=== PATIENT | female | born 1950 | race Caucasian/White ===

== ENCOUNTER → 2017-08-30 08:05 | Outpatient (CLI) | payer OTHER, SELFPAY ==
[2017-08-30 11:02] LABS: Anion Gap 4 (5-15); BUN 21 mg/dL (7-18); BUN/Creat Ratio 19.1 RATIO (10-20); Calcium,Total 9.1 mg/dL (8.5-10.1); Chloride 106 mmol/L (98-107); Cholesterol 286 mg/dL (200); EST Glomerular Filtration Rate 53 mL/min (>60); Est Glom Filt Rate - Afr Amer 64 mL/min (>60); Glucose 85 mg/dL (74-106); High Density Lipoprotein 91 mg/dL; Sodium Level 141 mmol/L (136-145); Thyroid Stim Hormone (TSH) 0.91 uIU/mL (0.358-3.74); Triglycerides 49 mg/dL; Very Low Density Lipoprotein 10 mg/dL (5-40)
== END ==
PROVIDERS: Family Provider Family Medicine; PCP Family Medicine; Visit Provider Nurse Practitioner Adult Health
DX: Z13.220 Encounter for screening for lipoid disorders (principal); Z13.29 Encounter for screening for other suspected endocrine disorder; Z13.1 Encounter for screening for diabetes mellitus
CPT/HCPCS: 36415; 80048; 80061; 84443

== ENCOUNTER → 2017-09-06 09:02 | Outpatient (CLI) | payer OTHER, SELFPAY ==
--- NOTE | 2017-09-06 09:05 | BD_ITS ---
STUDY: DUAL ENERGY X-RAY ABSORPTIOMETRY / DXA REASON FOR EXAM: Female, 66 years old. The patient is postmenopausal. Loss of height. TECHNIQUE: Bone Mineral Density (BMD) measurements of lumbar spine and bilateral hips were obtained. COMPARISON: None. FINDINGS: Lumbar Spine (L1-L4): g/cm2 (1.227) / T-score (0.5) / Z-score (2.1) Findings are suggestive of normal bone density with a low fracture risk. Left Femur Total: g/cm2 (0.938) / T-score (-0.6) / Z-score (0.6) Left Femoral Neck: g/cm2 (0.823) / T-score (-1.5) / Z-score (-0.1) Right Femur Total: g/cm2 (0.983) / T-score (-0.2) / Z-score (1.0) Right Femoral Neck: g/cm2 (0.856) / T-score (-1.3) / Z-score (0.1) BD/Dexa Bone Density Study IMPRESSION: The patient is considered osteopenic as outlined below according to World Benjie Organization (WHO) criteria with a moderate fracture risk. Reference Information: The T-score is the number of standard deviations above or below the standard which is normal for young adults at their peak bone mineral density. The World Health Organization (WHO) interprets the T-scores as follows: Above -1 Normal bone density Between -1 and -2.5 Osteopenia Equal to / or below -2.5 Osteoporosis As a practical clinical guideline, osteopenia may be graded as follows: Mild -1 through -1.5 Moderate -1.6 through -2.0 Severe -2.1 through -2.4 The Z-score is the number of standard deviations above or below age-matched controls. A Z-score of less than -1.5 would be considered abnormal. References: 1. NIH Osteoporosis and Related Bone Diseases http://www.osteo.org 2. International Society for Clinical Densitometry http://www.iscd.org 3. National Osteoporosis Foundation http://www.nof.org Electronically Signed: Jose Alfredo Adams MD at 10:40 EDT Tel [phone], Service support ,
--- NOTE | 2017-09-06 09:05 | BI_ITS ---
MAMMOGRAPHY - BILATERAL SCREENING REASON FOR EXAM: Female, 66 years old. Routine annual screening examination. PERTINENT HISTORY: Non-contributory. TECHNIQUE: Digital bilateral breast leslye (3D mammographic acquisition) in the CC and MLO projections. 2-D mediolateral oblique (MLO) and craniocaudad (CC) views of both breasts were obtained. CAD: Full Field Digital Mammography with Computer Added Detection was performed. COMPARISON: Comparison is made with prior study dated January 29, 2011. FINDINGS: Breast Composition: The breasts are heterogeneously dense, which may obscure small masses. There are no dominant masses or suspicious calcifications. No other significant abnormalities are identified. There has been no significant change since the prior study. BI/SCREENING MAMM (CAD), BILAT IMPRESSION: Stable bilateral screening mammogram. Yearly follow-up mammogram recommended. (A) ASSESSMENT CATEGORY: BIRADS Category 1: Negative. A letter regarding these results will be sent to the patient by the facility within 30 days. Approximately 10% of breast cancers are not detected by mammography. A normal mammogram should not delay biopsy of a clinically suspicious abnormality. [id number] Electronically Signed: Jose Alfredo Adams MD at 10:47 EDT Tel [phone], Service support ,
== END ==
PROVIDERS: Family Provider Family Medicine; PCP Family Medicine; Visit Provider Nurse Practitioner Adult Health
DX: Z12.31 Encounter for screening mammogram for malignant neoplasm of breast (principal); Z78.0 Asymptomatic menopausal state
CPT/HCPCS: 77063; 77067; 77080

== ENCOUNTER → 2019-12-24 12:39 | Outpatient (CLI) | payer OTHER, SELFPAY ==
[2015-11-16 06:39] VITALS: BMI 23.8
--- NOTE | 2019-12-24 12:42 | RAD_ITS ---
STUDY: X-RAY - RIGHT HAND REASON FOR EXAM: Female, 69 years old. 3-4th MCP swelling/tender with non palmar hand swelling, prior cat bite in August-needed stitches TECHNIQUE: 3 view(s) of the hand. COMPARISON: None. FINDINGS: Normal radiocarpal articulation. Normal distal radioulnar joint. Normal visualized carpal bones. Normal carpal articulations Normal carpometacarpal articulation of the thumb. Normal second through fifth carpometacarpal joints. Normal metacarpi. Normal metacarpophalangeal joint of the thumb. Normal interphalangeal joint of the thumb. Normal proximal and distal phalanges of the thumb. Normal metacarpophalangeal joints of the second through fifth fingers. Normal proximal and distal interphalangeal joints of the second through fifth fingers. Normal phalanges of the second through fifth fingers. The soft tissue structures are unremarkable. RAD/Hand Min 3 Views IMPRESSION: Normal x-ray examination of the hand. Electronically Signed: Jose Alfredo Adams, at 12:29 EDT , Service support ,
== END ==
PROVIDERS: PCP Family Medicine; Referring Provider Family Medicine; Visit Provider Family Medicine
DX: M79.89 Other specified soft tissue disorders (principal)
CPT/HCPCS: 73130

== ENCOUNTER → 2020-01-01 15:13 | Outpatient (CLI) | payer OTHER, SELFPAY ==
[2015-11-16 06:39] VITALS: BMI 23.8
[2020-01-01 18:02] LABS: Absolute Lymphocyte Count 1.28 X10^3/uL (0.83-4.51); Absolute Neutrophil Count 3.3 X10^3/uL (2.0-7.7); Basophil# 0.02 X10^3/uL; Basophil% 0.4 % (0-1); Eosinophil# 0.11 X10^3/uL; Eosinophils% 2.2 % (0-5); Hematocrit 37.1 % (37-47); Hemoglobin 12.7 g/dL (12.0-15.0); Lymphocyte # 1.28 X10^3/ul (4.0); Mean Corp Hgb Conc 34.2 g/dL (32-36); Mean Corpuscular Hgb 30.8 pg (27.0-32.0); Mean Platelet Vol. 9.7 fl (6.2-12.0); Monocyte# 0.34 X10^3/uL; Monocyte% 6.7 % (0-10); NRBC Flagged by Analyzer 0 % (0-5); Neutrophil # 3.34 X10^3/uL (2.7-7.7); Neutrophil % 65.3 % (47-70); Platelet Count 190 K/mm3 (150-450); RBC Distribution Width CV 12.6 % (11.6-14.6); Red Blood Count 4.12 M/mm3 (4.2-5.4); White Blood Count 5.1 K/mm3 (4.4-11.0)
[2020-01-01 18:40] LABS: ALB/GLOB Ratio 1.1 RATIO (0.9-2.4); AST(SGOT) 28 U/L (15-37); Alanine Aminotransfer ALT/SGPT 36 U/L (13-56); Albumin, Serum 3.9 g/dL (3.2-5.0); Alkaline Phosphatase 78 U/L (45-117); Anion Gap 3 (5-15); BUN 23 mg/dL (7-18); BUN/Creat Ratio 22.1 RATIO (10-20); CRP < 2.90 mg/L (0.0-3.0); Calcium,Total 9.1 mg/dL (8.5-10.1); Chloride 106 mmol/L (98-107); Creatinine, Serum 1.04 mg/dL (0.55-1.02); EST Glomerular Filtration Rate 56 mL/min (>60); Est Glom Filt Rate - Afr Amer 68 mL/min (>60); Globulin 3.4 g/dL (2.2-4.2); Glucose 114 mg/dL (74-106); Potassium 3.9 mmol/L (3.5-5.1); Protein, Total 7.3 g/dL (6.4-8.2); Sodium Level 140 mmol/L (136-145)
== END ==
PROVIDERS: PCP Family Medicine; Referring Provider Family Medicine; Visit Provider Family Medicine
DX: T14.90XA Injury, unspecified, initial encounter (principal); W55.01XA Bitten by cat, initial encounter
CPT/HCPCS: 36415; 80053; 85025; 86140

== ENCOUNTER → 2021-01-30 14:03 | Outpatient (CLI) | payer OTHER, SELFPAY ==
--- NOTE | 2021-01-30 14:04 | RAD_ITS ---
STUDY: X-RAY - CERVICAL SPINE REASON FOR EXAM: Female, 70 years old. chronic cervicalgia TECHNIQUE: 7 view(s) of the cervical spine were obtained including flexion and extension. COMPARISON: None FINDINGS: Normal anterior atlantoaxial articulation. Normal odontoid process. Decreased cervical lordosis. No evidence for acute fracture or subluxation. Multilevel disc space narrowing and endplate spurring. Films obtained in flexion and extension demonstrate limited range of motion with extension but no evidence for gross instability Multilevel neuroforaminal stenosis secondary to bony hypertrophy The soft tissue structures are unremarkable. RAD/Cerv Spine Obl/Flex/Ext Comp IMPRESSION: Advanced spondylosis and multilevel spinal stenosis. No acute fracture or other significant bony pathology Electronically Signed: Eric Hooker MD at 17:05 EDT , Service support ,
== END ==
PROVIDERS: PCP Family Medicine; Referring Provider Family Medicine; Visit Provider Family Medicine
DX: M54.2 Cervicalgia (principal)
CPT/HCPCS: 72052

== ENCOUNTER → 2022-02-01 | Outpatient (CLI) | payer OTHER, SELFPAY ==
--- NOTE | 2022-02-01 11:35 | BI_ITS ---
MAMMOGRAPHY - BILATERAL SCREENING REASON FOR EXAM: Female, 71 years old. Routine annual screening examination. PERTINENT HISTORY: Sister with breast cancer. TECHNIQUE: Digital bilateral breast jael (3D mammographic acquisition) in the CC and MLO projections. 2-D mediolateral oblique (MLO) and craniocaudad (CC) views of both breasts were obtained. CAD: Full Field Digital Mammography with Computer Added Detection was performed. COMPARISON: Comparison is made with prior study dated 09/06/2017 and 01/29/2011. FINDINGS: Breast Composition: The breasts are heterogeneously dense, which may obscure small masses. There are no dominant masses or suspicious calcifications. No other significant abnormalities are identified. There has been no significant change since the prior study. BI/SCRN MAMM (CAD)W/JAEL BILAT IMPRESSION: Stable bilateral screening mammogram. Yearly follow-up mammogram recommended. (A) ASSESSMENT CATEGORY: BIRADS Category 1: Negative. A letter regarding these results will be sent to the patient by the facility within 30 days. Approximately 10% of breast cancers are not detected by mammography. A normal mammogram should not delay biopsy of a clinically suspicious abnormality. [id number] Electronically Signed: Jose Alfredo Adams MD at 12:39 EDT ,
== END | disposition home or self-care (01) ==
LOC: OPBI 11:36
PROVIDERS: PCP Family Medicine; Visit Provider Nurse Practitioner Family
DX: Z12.31 Encounter for screening mammogram for malignant neoplasm of breast (principal); Z80.3 Family history of malignant neoplasm of breast
CPT/HCPCS: 77063; 77067

== ENCOUNTER → 2022-07-06 | Outpatient (CLI) | payer OTHER, SELFPAY ==
[2022-07-06 15:19] LABS: Absolute Neutrophil Count 3.7 X10^3/uL (2.0-7.7); Basophil# 0.04 X10^3/uL; Basophil% 0.7 % (0-1); Eosinophils% 1.8 % (0-5); Hematocrit 42.7 % (37-47); Lymphocyte % 23.6 % (19-41); Mean Corp Hgb Conc 32.8 g/dL (32-36); Mean Corpuscular Hgb 29.6 pg (27.0-32.0); Mean Corpuscular Volume 90.3 fL (81-99); Mean Platelet Vol. 9.8 fl (6.2-12.0); Monocyte# 0.34 X10^3/uL; Monocyte% 6.2 % (0-10); NRBC Flagged by Analyzer 0 % (0-5); Neutrophil # 3.71 X10^3/uL (2.7-7.7); Neutrophil % 67.5 % (47-70); Platelet Count 234 K/mm3 (150-450); RBC Distribution Width CV 12.5 % (11.6-14.6); RBC Distribution Width SD 41.5 fl (35.1-43.9); Red Blood Count 4.73 M/mm3 (4.2-5.4); White Blood Count 5.5 K/mm3 (4.4-11.0)
[2022-07-06 16:23] LABS: ALB/GLOB Ratio 1.3 RATIO (0.9-2.4); AST(SGOT) 28 U/L (15-37); Alanine Aminotransfer ALT/SGPT 36 U/L (13-56); Albumin, Serum 4.1 g/dL (3.2-5.0); Alkaline Phosphatase 68 U/L (45-117); Anion Gap 7 (5-15); BUN 25 mg/dL (7-18); BUN/Creat Ratio 25.9 RATIO (10-20); CRP < 2.90 mg/L (0.0-3.0); Calcium,Total 9.7 mg/dL (8.5-10.1); Chloride 106 mmol/L (98-107); Creatinine, Serum 0.97 mg/dL (0.55-1.02); EST Glomerular Filtration Rate 61 mL/min (>60); Est Glom Filt Rate - Afr Amer 73 mL/min (>60); Globulin 3.1 g/dL (2.2-4.2); Glucose 91 mg/dL (74-106); Potassium 3.7 mmol/L (3.5-5.1); Protein, Total 7.2 g/dL (6.4-8.2); Sodium Level 142 mmol/L (136-145)
== END | disposition home or self-care (01) ==
LOC: MTLAB 12:43
PROVIDERS: PCP Family Medicine; Referring Provider Family Medicine; Visit Provider Family Medicine
DX: R10.32 Left lower quadrant pain (principal)
CPT/HCPCS: 36415; 80053; 85025; 86140

== ENCOUNTER 2022-12-14 06:32 | Emergency (ER) | payer OTHER, SELFPAY ==
[2022-12-14 06:33] VITALS: BP 222/105; PULSE 88; RESP 16; TEMP 36.6; O2SAT 97; BMI 23.2
[2022-12-14 06:44] VITALS: BP 203/94; PULSE 77; RESP 16; O2SAT 99
--- NOTE | 2022-12-14 07:04 | EX.ED.DYSGE1 ---
HPI History of Present Illness Chief Complaint: Abd Pain [facility] Medical History (Updated 12/14/22 @ 09:[address] Crow Grant, DO) Anxiety Bitten by cat, sequela Bone fracture Cataracts, bilateral Double vision Migraines Pain in right hand Swelling of right hand Home Medications amoxicillin 875 mg-potassium clavulanate 125 mg tablet (Augmentin) 1 tab PO BID #30 tabs 01/02/20 [Rx Last Taken Unknown] oxztqiq-kzeymfmgv-mspg 333 mg-133 mg-5 mg tablet tab PO DAILY 01/02/20 [History Last Taken Unknown] cholecalciferol (vitamin D3) 10 mcg (400 unit) capsule (Vitamin D3) 10 mcg PO DAILY 01/02/20 [History Last Taken Unknown] garlic 400 mg tablet 400 mg PO DAILY 01/02/20 [History Last Taken Unknown] glucosamine-chondroitin 250 mg-200 mg tablet (Osteo Bi-Flex) 2 tab PO QPC 01/02/20 [History Last Taken Unknown] lactobacillus combination no.8 3 billion cell capsule (Adult Probiotic) 3,000 mmu cells PO DAILY 01/02/20 [History Last Taken Unknown] Allergy/AdvReac Type Severity Reaction Status Date / Time belladonna alkaloids AdvReac Rash Verified 01/08/20 15:04 Family History Mother Heart disease Hypertension Father Lung cancer Brother Melanoma Daughter Thyroid disorder Surgical History H/O nasal polypectomy History of blepharoplasty History of bunionectomy Social History (Updated 01/10/20 @ 12:[address] Aime Brice MD) Smoking Status: Never smoker alcohol intake: current substance use type: does not use additional social history: DOES TAKE ASPIRIN RARELY DOES TAKE IBUPROFEN EXAM Physical Exam Const Vital Signs: 12/14/22 06:33 12/14/22 06:44 Temperature 97.9 F Temperature Source Oral Pulse Rate 88 77 Respiratory Rate 16 16 Blood Pressure 222/105 H 203/94 H Blood Pressure Mean 144 130 Pulse Ox 97 99 Oxygen Delivery Method Room Air Room Air MDM MDM MDM Narrative Medical decision making narrative: HISTORY OF PRESENT ILLNESS: 72-year-old female with abdominal pain and constipation. States is unable to have a bowel movement last week. Denies vomiting. Denies vaginal bleeding or discharge. Denies dysuria or increased frequency of urination. REVIEW OF SYSTEMS: Pertinent positives: Abdominal pain, constipation Pertinent negatives: Vomiting, syncope PHYSICAL EXAM: Nursing triage notes reviewed, Vital signs reviewed Constitutional: please see [facility] HENT: MMM Eyes: Pupils equal round and reactive to light, Extraocular muscles intact Neck: No stridor, no JVD, full neck ROM Lungs: Clear to auscultation, No wheezing or rales. No increased work of breathing, no conversational dyspnea, no accessory muscle use, no nasal flaring. No respiratory distress noted Heart: Regular rate and rhythm, No murmurs, No rubs and No gallops, 2+ distal pulses (radial, femoral, posterior tibial) in all extremities Abdomen: Soft, there is no tenderness, rigidity, rebound or guarding, no obvious peritoneal signs, no palpable pulsatile abdominal masses, no auscultated abdominal bruit : No CVAT Extremities: No edema Neuro: No focal neurological deficits, cranial nerves II through XII intact, 5/5 strength in all extremities. Intact sensation to light touch in all extremities, 2+ reflexes bilateral patella tendons. Normal gait. No ataxia. Skin: No rash or lesions noted MEDICAL DECISION MAKING: Chief Complaint: Abdominal pain External records reviewed: No recent advanced imaging of the abdomen pelvis noted in [facility] chart Factors affecting care: None Social determinants of health: Elderly History obtained from others: Patient's Consults: none ALL IMAGES (IF OBTAINED) HAVE BEEN PERSONALLY REVIEWED AND INTERPRETED BY MYSELF. [facility] Narrative: Patient was initially hypertensive otherwise afebrile and nontoxic-appearing. Abdominal exam I considered the following differential diagnosis: AAA, small bowel obstruction, abdominal perforation, appendicitis, pancreatitis, hepatobiliary pathology (acute cholecystitis), mesenteric ischemia, I obtained a CT scan of the abdomen and pelvis to rule out obvious signs of obstruction AAA or other intra abdominal surgical pathology. Also obtain labs rule out signs of electrolyte abnormality, signs of systemic inflammation, dehydration, acute kidney injury and endorgan hypoperfusion. I treated the patient 1 L normal saline, Zofran for nausea as well as Toradol for pain. CT scan of the abdomen and pelvis showed no evidence of AAA or bowel obstruction showed large stool burden which is consistent with constipation. Ordered mag citrate for the patient for symptomatic relief and discharged with a bowel regiment of MiraLAX, Colace and senna daily. The patient and/or family, caregivers express understanding. The patient and/or family, caregivers agrees with the plan. Shared decision making: I will have a discussion with the patient and or visitors regarding risk/benefits of further testing or admission. They will be made aware of of the risk/benefits inherent in this decision they will be given the opportunity to voice understanding. Total critical care time today provided was at least 0 minutes. This excludes separately billable procedures. Critical care time (if documented) is secondary to the patient having high probability of clinically significant/life threatening deterioration in the patient's condition which required my urgent intervention. Lab Data Attestation: I reviewed the patient's lab results. Lab results narrative: CBC without leukocytosis, severe anemia, no thrombocytopenia. BMP without evidence of significant electrolyte abnormalities, no anion gap, no acute kidney injury. LFTs without evidence of transaminitis or hepatobiliary structure noted mild elevation in bilirubin level Lipase is wnl indicating no pancreatic inflammation. Labs: Laboratory Results - last 24 hr 12/14/22 06:39 WBC 4.5 RBC 4.82 Hgb 14.3 Hct 42.7 MCV 88.6 MCH 29.7 MCHC 33.5 RDW Std Deviation 41.6 RDW Coeff of Shruti 12.8 Plt Count 203 MPV 9.6 Immature Gran % (Auto) 0.200 Neut % (Auto) 51.6 Lymph % (Auto) 36.8 [place] % (Auto) 7.8 Eos % (Auto) 2.7 Baso % (Auto) 0.9 Absolute Neuts (auto) 2.3 Absolute Lymphs (auto) 1.65 Nucleated RBC % 0 Sodium 141 Potassium 3.5 Chloride 106 Carbon Dioxide 32.0 Anion Gap 3 L BUN 16 Creatinine 1.01 Estim Creat Clear Calc 42.87 Est GFR (MDRD) Af Amer 70 Est GFR (MDRD) Non-Af 58 L BUN/Creatinine Ratio 15.8 Glucose 103 Calcium 9.4 Total Bilirubin 1.30 H AST 26 ALT 37 Alkaline Phosphatase 73 Total Protein 7.3 Albumin 4.0 Globulin 3.3 Albumin/Globulin Ratio 1.2 Lipase 40 Radiography Diagnostic Testing: Clinical Impression(s) from Imaging Studies Abdomen/Pelvis CT 12/14/22 07:06 IMPRESSION: Large amount of fecal material is seen in the colon. Fatty infiltration of the liver. 7.4 mm cyst in the midportion of the right lobe of the liver. Electronically Signed: Jose Alfredo Adams MD at 8:16 EDT , Discharge Plan Triage Chief Complaint: Abd Pain ED Provider: Crow Grant Dx/Rx/DC Orders Clinical Impression: Hyperbilirubinemia, Acute constipation, Hypertension Instructions: ED Constipation (Adult) Prescriptions: No Action cholecalciferol (vitamin D3) [Vitamin D3] 10 mcg (400 unit) capsule 10 mcg PO DAILY qriqnsx-tlgasaiby-yrtz 333-133-5 mg tablet PO DAILY glucosamine-chondroitin 250 mg-200 mg tablet 250-200 mg tablet 2 tab PO QPC Adult Probiotic 3 billion cell capsule 3,000 mmu cells PO DAILY Rx Instructions: administer with a meal garlic 400 mg tablet 400 mg PO DAILY amoxicillin-pot clavulanate [Augmentin] 875-125 mg tablet 1 tab PO BID Qty: 30 1RF Primary Care Provider: Anthony Ordaz Referrals: Anthony Ordaz MD [Primary Care Provider] - Activity Restrictions/Additional Instructions: Thank you for trusting us with your care today! Please take Tylenol (2 pills, 650 mg), ibuprofen (2 pills, 400 mg) every 6 hours as needed for pain and fever control. Please begin a bowel regimen. Bowel regimen consist of MiraLAX, Colace and senna. These medicines can be obtained napb-qsc-zztpfhd and taken daily until desired consistency of stool is achieved. You can also increase your fiber intake by eating fiber 1 cereal and drinking more fluids. Fiber 1 cereal has a high fiber content Please return to the emergency department if your symptoms change or worsen. Specifically develop vomiting, worsening abdominal pain, you lose consciousness. Elevated blood pressure was noted few today. While this is asymptomatic we would like for you to follow with your primary care physician for repeat blood pressure check potentially initiating blood pressure medicine. Please follow with your primary care physician for further outpatient evaluation and management. Disposition Disposition: Home, Self Care Discharge Date/Time: 12/14/22 09:31
--- NOTE | 2022-12-14 07:06 | CT_ITS ---
STUDY: CT ABDOMEN AND PELVIS WITH CONTRAST REASON FOR EXAM: Female, 72 years old. Abdominal pain, constipation RADIATION DOSAGE (If Supplied By Facility): CTDIvol = ( 9.45 ) mGy, DLP = ( 302.98 ) mGycm TECHNIQUE: Transaxial images were obtained from the dome of the diaphragm to the symphysis pubis without oral contrast. IV 100mL Isovue-300 was administered. Sagittal and coronal images were reconstructed. Individualized dose optimization techniques were used for this CT. COMPARISON: None. FINDINGS: The visualized lung bases are unremarkable. Coronary artery calcification. There is decreased attenuation of the liver consistent with steatosis. There is a 7.4 mm cyst in the midportion of the right lobe of the liver. Normal gallbladder and extrahepatic biliary system. Normal spleen. Normal pancreas. Normal bilateral adrenal glands. Normal right kidney. Normal left kidney. There is a small hiatal hernia. Normal small intestine. Large amount of fecal material is seen in the colon. The appendix is visualized and appears normal. There is scattered atherosclerotic calcification of the abdominal aorta, without a demonstrated aneurysm. Normal inferior vena cava. Normal retroperitoneum. Distended urinary bladder. Normal abdominal wall. Normal osseous structures. CT/Abdomen/Pelvis W IV Cont ONLY IMPRESSION: Large amount of fecal material is seen in the colon. Fatty infiltration of the liver. 7.4 mm cyst in the midportion of the right lobe of the liver. Electronically Signed: Jose Alfredo Adams MD at 8:16 EDT ,
[2022-12-14] MEDS: Ketorolac 15 MG/ML Vial IV (07:12)
[2022-12-14] MEDS: 0.9% Normal Saline 1,000 ML 1000 ML IV (07:12)
[2022-12-14 07:21] LABS: Absolute Lymphocyte Count 1.65 X10^3/uL (0.83-4.51); Absolute Neutrophil Count 2.3 X10^3/uL (2.0-7.7); Basophil# 0.04 X10^3/uL; Basophil% 0.9 % (0-1); Eosinophil# 0.12 X10^3/uL; Eosinophils% 2.7 % (0-5); Hematocrit 42.7 % (37-47); Hemoglobin 14.3 g/dL (12.0-15.0); Lymphocyte # 1.65 X10^3/ul (0.83-4.51); Lymphocyte % 36.8 % (19-41); Mean Corp Hgb Conc 33.5 g/dL (32-36); Mean Corpuscular Hgb 29.7 pg (27.0-32.0); Mean Corpuscular Volume 88.6 fL (81-99); Mean Platelet Vol. 9.6 fl (6.2-12.0); Monocyte# 0.35 X10^3/uL; Monocyte% 7.8 % (0-10); NRBC Flagged by Analyzer 0 % (0-5); Neutrophil # 2.31 X10^3/uL (2.7-7.7); Neutrophil % 51.6 % (47-70); Platelet Count 203 K/mm3 (150-450); RBC Distribution Width CV 12.8 % (11.6-14.6); RBC Distribution Width SD 41.6 fl (35.1-43.9); Red Blood Count 4.82 M/mm3 (4.2-5.4); White Blood Count 4.5 K/mm3 (4.4-11.0)
[2022-12-14 07:39] LABS: ALB/GLOB Ratio 1.2 RATIO (0.9-2.4); AST(SGOT) 26 U/L (15-37); Alanine Aminotransfer ALT/SGPT 37 U/L (13-56); Alkaline Phosphatase 73 U/L (45-117); Anion Gap 3 (5-15); BUN 16 mg/dL (7-18); BUN/Creat Ratio 15.8 RATIO (10-20); Calcium,Total 9.4 mg/dL (8.5-10.1); Chloride 106 mmol/L (98-107); Creatinine, Serum 1.01 mg/dL (0.55-1.02); EST Glomerular Filtration Rate 58 mL/min (>60); Est Glom Filt Rate - Afr Amer 70 mL/min (>60); Estimated Creatinine Clearance 42.87 ml/min; Globulin 3.3 g/dL (2.2-4.2); Glucose 103 mg/dL (74-106); Lipase 40 U/L (13-75); Potassium 3.5 mmol/L (3.5-5.1); Protein, Total 7.3 g/dL (6.4-8.2); Sodium Level 141 mmol/L (136-145)
[2022-12-14] MEDS: Magnesium Citrate 300 ML 150 ML PO (09:27)
== END 2022-12-14 09:31 | disposition home or self-care (01) ==
PROVIDERS: Emergency Provider Emergency Medicine; PCP Family Medicine; Visit Provider Emergency Medicine
DX: K59.00 Constipation, unspecified (principal); R11.0 Nausea; E80.6 Other disorders of bilirubin metabolism; I10 Essential (primary) hypertension
CPT/HCPCS: 74177; 80053; 83690; 85025; 96361; 96374; 99283; J7030; Q9967; A4216; J2405

== ENCOUNTER → 2023-06-28 | Outpatient (CLI) | payer OTHER, SELFPAY ==
--- NOTE | 2023-06-28 15:03 | BD_ITS ---
STUDY: DUAL ENERGY X-RAY ABSORPTIOMETRY / DXA REASON FOR EXAM: Female, 72 years old. [id number] TECHNIQUE: Bone Mineral Density (BMD) measurements of lumbar spine and bilateral hips were obtained. COMPARISON: Comparison is made with prior study dated September 06, 2017. FINDINGS: Lumbar Spine (L1-L4): g/cm2 (1.150) / T-score (0.9) / Z-score (3.1) Findings are suggestive of normal bone density with a low fracture risk. Left Femur Total: g/cm2 (0.876) / T-score (-0.5) / Z-score (1.0) Left Femoral Neck: g/cm2 (0.696) / T-score (-1.4) / Z-score (0.5) Right Femur Total: g/cm2 (0.922) / T-score (-0.2) / Z-score (1.4) Right Femoral Neck: g/cm2 (0.727) / T-score (-1.1) / Z-score (0.7) The T-Scores on the most recent prior examination were: Lumbar Spine (L1-L4): There has been worsening of bone density since the previous examination. Left Femur Total: which represents an improvement of 0.2%. Right Femur Total: which represents an improvement of 0.5%. BD/Dexa Bone Density Study IMPRESSION: The patient is considered osteopenic as outlined below according to World Benjie Organization (WHO) criteria with a low fracture risk. There has been improvement of bone density since the previous examination. Reference Information: The T-score is the number of standard deviations above or below the standard which is normal for young adults at their peak bone mineral density. The World Health Organization (WHO) interprets the T-scores as follows: Above -1 Normal bone density Between -1 and -2.5 Osteopenia Equal to / or below -2.5 Osteoporosis As a practical clinical guideline, osteopenia may be graded as follows: Mild -1 through -1.5 Moderate -1.6 through -2.0 Severe -2.1 through -2.4 The Z-score is the number of standard deviations above or below age-matched controls. A Z-score of less than -1.5 would be considered abnormal. References: 1. NIH Osteoporosis and Related Bone Diseases www osteo.org 2. International Society for Clinical Densitometry www iscd.org 3. National Osteoporosis Foundation www nof.org Electronically Signed: Jose Alfredo Adams MD at 9:18 EST ,
== END | disposition home or self-care (01) ==
LOC: OPBD 14:59
PROVIDERS: PCP Family Medicine; Referring Provider Family Medicine; Visit Provider Family Medicine
DX: Z78.0 Asymptomatic menopausal state (principal)
CPT/HCPCS: 77080

== ENCOUNTER → 2023-10-21 | Outpatient (CLI) | payer OTHER, SELFPAY ==
--- NOTE | 2023-10-21 08:01 | CT_ITS ---
STUDY: CT MAXILLOFACIAL SINUSES REASON FOR EXAM: Female, 73 years old. Acute recurrent maxillary sinusitis RADIATION DOSAGE (If Supplied By Facility): CTDIvol = ( 33.06 ) mGy, DLP = ( 763.60 ) mGycm TECHNIQUE: The patient was scanned in a multi detector CT scanner. High resolution axial imaging was performed without the administration of intravenous contrast material. Sagittal and coronal images were reconstructed. Individualized dose optimization techniques were used for this CT. COMPARISON: None. FINDINGS: FRONTAL SINUSES: Normal aeration, without mucosal inflammatory disease. ETHMOIDAL SINUSES: Normal aeration, without mucosal inflammatory disease. MAXILLARY SINUSES: Mucosal thickening of both maxillary sinuses. Mucosal thickening along the right ostiomeatal complex causing mild degree of obstruction of the meatus. SPHENOIDAL SINUSES: Normal aeration, without mucosal inflammatory disease. Normal bilateral middle turbinates. Normal bilateral inferior turbinates. Nasal septal deviation towards the left-sided the midline with a bony spur. There is patency of the bilateral nasal airways. The visualized osseous structures are normal. The visualized bilateral orbital contents are normal. CT/Sinus/Facial Bone IMPRESSION: Mucosal thickening of both maxillary sinuses with mucosal thickening of the right osteal complex causing mild degree obstruction at the meatus. Nasal septal deviation towards the left side of the midline. Electronically Signed: Jose Alfredo Adams MD at 14:07 EDT ,
== END | disposition home or self-care (01) ==
PROVIDERS: PCP Family Medicine; Referring Provider Otolaryngology Otolaryngology/Facial Plastic Surgery; Visit Provider Otolaryngology Otolaryngology/Facial Plastic Surgery
DX: J01.01 Acute recurrent maxillary sinusitis (principal)
CPT/HCPCS: 70486

== ENCOUNTER 2024-03-19 00:39 | Emergency (ER) | payer OTHER, SELFPAY ==
[2024-03-19 00:39] VITALS: BP 176/85; PULSE 91; RESP 18; TEMP 36.1; O2SAT 98; BMI 23.3
[2024-03-19 01:27] LABS: Absolute Lymphocyte Count 1.16 X10^3/uL (0.83-4.51); Absolute Neutrophil Count 6.9 X10^3/uL (2.0-7.7); Basophil# 0.05 X10^3/uL; Basophil% 0.6 % (0-1); Eosinophil# 0.15 X10^3/uL; Eosinophils% 1.7 % (0-5); Hematocrit 38.9 % (37-47); Lymphocyte # 1.16 X10^3/ul (0.83-4.51); Mean Corp Hgb Conc 33.4 g/dL (32-36); Mean Corpuscular Hgb 29.5 pg (27.0-32.0); Mean Corpuscular Volume 88.4 fL (81-99); Mean Platelet Vol. 10.2 fl (6.2-12.0); Monocyte# 0.66 X10^3/uL; Monocyte% 7.4 % (0-10); NRBC Flagged by Analyzer 0 % (0-5); Neutrophil # 6.85 X10^3/uL (2.7-7.7); Platelet Count 331 K/mm3 (150-450); RBC Distribution Width CV 13.2 % (11.6-14.6); RBC Distribution Width SD 42.5 fl (35.1-43.9); White Blood Count 8.9 K/mm3 (4.4-11.0)
--- NOTE | 2024-03-19 01:40 | RAD_ITS ---
INDICATION: abd pain released Tuesday from [facility] x[facility] heart stents placed, med adjustments recently and has felt floated ever since, nausea , letting out gas helped with pain some, did give herself an enema this am d/t hx of constipation issues, did switch from brilinta to plavix tonight EXAMINATION/TECHNIQUE: X-RAY - XR Abdomen Series W/ Chest 1 View COMPARISON: Prior study dated: 08/18/2012 abdomen x-ray. FINDINGS: AP supine and upright views of the abdomen, and upright view of the chest. Bowel gas pattern is normal. There is no bowel obstruction or free intraperitoneal air. No abnormal mass or calcification is seen. The lungs are clear. The aorta is atherosclerotic. No cardiomegaly. RAD/Acute Abdomen Inc Chest IMPRESSION: No acute findings. Electronically Signed: Kelin Neri MD at 2:24 EST ,
[2024-03-19 01:49] LABS: AST(SGOT) 55 U/L (15-37); Alanine Aminotransfer ALT/SGPT 101 U/L (13-56); Albumin, Serum 3.5 g/dL (3.2-5.0); Alkaline Phosphatase 127 U/L (45-117); Anion Gap 6 (5-15); BUN 20 mg/dL (7-18); Bilirubin, Direct 0.22 mg/dL (0.00-0.30); Calcium,Total 9.6 mg/dL (8.5-10.1); Chloride 106 mmol/L (98-107); Creatinine, Serum 1.05 mg/dL (0.55-1.02); EST Glomerular Filtration Rate 55 mL/min (>60); Est Glom Filt Rate - Afr Amer 66 mL/min (>60); Estimated Creatinine Clearance 40.65 ml/min; Globulin 4.2 g/dL (2.2-4.2); Glucose 132 mg/dL (74-106); Lipase 36 U/L (13-75); Magnesium 2.5 mg/dL (1.6-2.6); Potassium 3.4 mmol/L (3.5-5.1); Protein, Total 7.7 g/dL (6.4-8.2); Sodium Level 139 mmol/L (136-145)
[2024-03-19 02:19] VITALS: BP 157/91; PULSE 76
--- NOTE | 2024-03-19 02:46 | EX.ED.DYSGE1 ---
HPI History of Present Illness Chief Complaint: Abd Pain Informant: patient and spouse/S.O. Narrative Narrative: Patient is a 73-year-old female who states that up to roughly 1 month ago she did not have any medical issues. She states she was out of town in [place] when she experienced chest discomfort and had a massive heart attack that actually caused her heart to stop. She states she was transported to the nearest hospital at which time she was revived and underwent cardiac cath which showed significant disease requiring stents. She states she did well at the facility and was discharged home but now has been on multiple medications which she is not used to. She states she has been having persistent abdominal discomfort with nausea and sensation of being bloated. She states she is unsure if this is related to medication side effect or if there is potential infection or blockage and therefore comes to the hospital for evaluation [facility] Medical History (Updated 03/21/24 @ 04:[address] Eliazar Jauregui, DO) Anxiety Migraines Pain in right hand Swelling of right hand Bitten by cat, sequela Double vision Cataracts, bilateral Bone fracture Home Medications ?Medication ?Instructions ?Recorded ?Last Taken ?Type aspirin 81 mg tablet,delayed 81 mg PO DAILY 03/19/24 Unknown History release atorvastatin 80 mg tablet 80 mg PO DAILY 03/19/24 Unknown History clopidogrel 75 mg tablet 75 mg PO DAILY 03/19/24 Unknown History losartan 50 mg tablet 50 mg PO DAILY 03/19/24 Unknown History metoprolol succinate 25 mg 25 mg PO DAILY 03/19/24 Unknown History tablet,extended release 24 hr nitroglycerin 0.4 mg sublingual 0.4 mg sublingual Q5M PRN chest 03/19/24 Unknown History tablet pain spironolactone 25 mg tablet 25 mg PO BID 03/19/24 Unknown History Allergy/AdvReac Type Severity Reaction Status Date / Time belladonna alkaloids AdvReac Rash Verified 03/19/24 00:41 Family History Mother Heart disease Hypertension Father Lung cancer Brother Melanoma Daughter Thyroid disorder Surgical History History of blepharoplasty H/O nasal polypectomy History of bunionectomy Social History (Updated 01/10/20 @ 12:[address] Aime Brice MD) Smoking Status: Never smoker alcohol intake: current substance use type: does not use additional social history: DOES TAKE ASPIRIN RARELY DOES TAKE IBUPROFEN ROS ROS ED Constitutional Constitutional ED: Denies chills or fever(s) Eyes Eyes: Denies change in vision ENT ENT ED: Denies sore throat Cardiovascular Cardiovascular: Denies chest pain Respiratory/Chest Respiratory/Chest: Denies cough or dyspnea Gastrointestinal Gastrointestinal: Reports abdominal pain, constipation, nausea and vomiting; Denies diarrhea Genitourinary Genitourinary ED: Denies dysuria Musculoskeletal Musculoskeletal: Denies myalgias Integumentary Denies rash Neurologic Neurologic: Denies headache(s) Hematologic/Lymphatic Hematologic/Lymphatic: Reports easy bleeding and easy bruising EXAM Physical Exam Const Vital Signs: 03/19/24 00:39 03/19/24 02:19 Temperature 96.9 F L Temperature Source Oral Pulse Rate 91 76 Respiratory Rate 18 Blood Pressure 176/85 H 157/91 H Blood Pressure Mean 115 113 Pulse Ox 98 Oxygen Delivery Method Room Air Positive well nourished and well developed General Appearance ED: well developed; Negative for pallor HEENT Reports moist mucous membranes HEENT Narrative: No tongue or lip swelling no oral lesions no airway edema or compromise No signs of infection noted in the posterior pharynx Eyes PERRL and EOMs intact bilaterally General Eye ED: Negative for scleral icterus Neck supple and no JVD Resp normal respiratory effort and clear to auscultation bilaterally Cardio regular rate and regular rhythm Rate: other Other Details: Radial and carotid pulses are equal and symmetric GI no masses GI Narrative: Abdomen is soft with slight distention and hypoactive bowel sounds. There is mild diffuse pain on palpation without voluntary guarding or rigidity or pulsatile mass. No fluid wave noted. Auscultation: hypoactive bowel sounds Palpation: soft Extremity normal to inspection Extremity Narrative: No asymmetric edema no pitting edema negative Homans' sign bilaterally Neuro oriented x3, CN's II-XII intact bilaterally and no sensory deficits noted Sensorium / Orientation: alert Motor Exam: strength 5/5 throughout Psych Mood & Affect: anxious Skin no rashes or lesions noted General Skin Exam: Negative for jaundice or pallor MDM MDM MDM Narrative Medical decision making narrative: Patient arrived to ER hypertensive but otherwise with stable vitals. She reported feeling constipated and bloated and has had multiple medication introduced recently. Patient symptoms are most likely a sequela of polypharmacy/medication side effect but in order to ensure there is no signs of perforation or obstruction or significant constipation I did elect to perform an acute abdominal x-ray. Also to check for potential signs of infection versus acute kidney injury versus electrolyte abnormality basic blood work was ordered. Labs revealed no signs of HU and her lipase is normal going against acute pancreatitis. Electrolytes were not clinically altered as well and her x-ray revealed no signs of intestinal pathology such as obstruction or perforation. Chart review reveals that both atorvastatin and losartan can stimulate abdominal discomfort as well as nausea and vomiting. As symptoms only began after she started her new polypharmacy regimen this is most likely cause of her symptoms but as she is not displaying infection obstruction or perforation or HU or electrolyte abnormality she is safe for discharge History & Record Review Discussion w/independent historian: Patient and Significant other Lab Data Attestation: I reviewed the patient's lab results. Labs: Laboratory Results - last 24 hr 03/19/24 00:45 WBC 8.9 RBC 4.40 Hgb 13.0 Hct 38.9 MCV 88.4 MCH 29.5 MCHC 33.4 RDW Std Deviation 42.5 RDW Coeff of Shruti 13.2 Plt Count 331 MPV 10.2 Immature Gran % (Auto) 0.300 Neut % (Auto) 77.0 H Lymph % (Auto) 13.0 L [place] % (Auto) 7.4 Eos % (Auto) 1.7 Baso % (Auto) 0.6 Absolute Neuts (auto) 6.9 Absolute Lymphs (auto) 1.16 Nucleated RBC % 0 Sodium 139 Potassium 3.4 L Chloride 106 Carbon Dioxide 27.0 Anion Gap 6 BUN 20 H Creatinine 1.05 H Estim Creat Clear Calc 40.65 Est GFR (MDRD) Af Amer 66 Est GFR (MDRD) Non-Af 55 L BUN/Creatinine Ratio 19.0 Glucose 132 H Calcium 9.6 Magnesium 2.5 Total Bilirubin 1.00 Direct Bilirubin 0.22 AST 55 H ALT 101 H Alkaline Phosphatase 127 H Total Protein 7.7 Albumin 3.5 Globulin 4.2 Lipase 36 Radiography Diagnostic Testing: Clinical Impression(s) from Imaging Studies Acute Abdomen Series 03/19/24 01:40 IMPRESSION: No acute findings. Electronically Signed: Kelin Neri MD at 2:24 EST , Acute abdominal series x-ray with 1 view chest as interpreted by the emergency medicine physician reveals a nonspecific nonobstructive bowel gas pattern without perforation and chest x-ray component reveals no acute infiltrate or pneumothorax Discharge Plan Triage Chief Complaint: Abd Pain ED Provider: Eliazar Jauregui Dx/Rx/DC Orders Clinical Impression: Nonspecific abdominal pain, Hypertension, Coronary artery disease Instructions: Abdominal Pain, Ileus Prescriptions: No Action atorvastatin 80 mg tablet 80 mg PO DAILY clopidogrel 75 mg tablet 75 mg PO DAILY aspirin 81 mg tablet,delayed release (DR/EC) 81 mg PO DAILY losartan 50 mg tablet 50 mg PO DAILY nitroglycerin 0.4 mg tablet, sublingual 0.4 mg sublingual Q5M PRN (Reason: chest pain) metoprolol succinate 25 mg tablet extended release 24 hr 25 mg PO DAILY spironolactone 25 mg tablet 25 mg PO BID Primary Care Provider: Anthony Ordaz Referrals: Anthony Ordaz MD [Primary Care Provider] - Activity Restrictions/Additional Instructions: Your workup today showed slight elevation to your liver enzymes which is most likely related to your Lipitor use. Otherwise there is no signs of intestinal blockage or perforation or infection. Your symptoms are most likely related to medication side effect and based on the medications you are taking the Lipitor and losartan are your most likely culprits. Talk to your doctor about potential medication adjustments and return to the ER should you have any further concerns Print Language: Emirati Disposition Disposition: Home, Self Care Discharge Date/Time: 03/19/24 03:18
[2024-03-19 03:00] VITALS: BP 156/88; PULSE 81; RESP 18; TEMP 36.7; O2SAT 97
== END 2024-03-19 03:18 | disposition home or self-care (01) ==
PROVIDERS: Emergency Provider Emergency Medicine; PCP Family Medicine; Visit Provider Emergency Medicine
DX: R10.9 Unspecified abdominal pain (principal); I25.10 Atherosclerotic heart disease of native coronary artery without angina pectoris; I10 Essential (primary) hypertension; I25.2 Old myocardial infarction; Z79.82 Long term (current) use of aspirin
CPT/HCPCS: 74022; 80048; 80076; 83690; 83735; 85025; 99283; A4216

== ENCOUNTER → 2024-03-23 | Outpatient (CLI) | payer OTHER, SELFPAY ==
[2024-03-23 16:21] LABS: AST(SGOT) 17 U/L (15-37); Alanine Aminotransfer ALT/SGPT 48 U/L (13-56); Albumin, Serum 3.9 g/dL (3.2-5.0); Alkaline Phosphatase 99 U/L (45-117); Anion Gap 6 (5-15); BUN 12 mg/dL (7-18); BUN/Creat Ratio 9.9 RATIO (10-20); CPK Total, Creatine Kinase 71 U/L (26-192); CRP < 2.90 mg/L (0.0-3.0); Calcium,Total 9.6 mg/dL (8.5-10.1); Chloride 102 mmol/L (98-107); Creatinine, Serum 1.21 mg/dL (0.55-1.02); EST Glomerular Filtration Rate 47 mL/min (>60); Est Glom Filt Rate - Afr Amer 56 mL/min (>60); Globulin 3.8 g/dL (2.2-4.2); Glucose 136 mg/dL (74-106); Protein, Total 7.7 g/dL (6.4-8.2); Sodium Level 138 mmol/L (136-145)
== END | disposition home or self-care (01) ==
LOC: MTLAB 12:56
PROVIDERS: PCP Family Medicine; Referring Provider Family Medicine; Visit Provider Family Medicine
DX: R74.01 Elevation of levels of liver transaminase levels (principal); I25.10 Atherosclerotic heart disease of native coronary artery without angina pectoris
CPT/HCPCS: 36415; 80053; 82550; 86140

== ENCOUNTER → 2024-04-18 | Outpatient (CLI) | payer OTHER, SELFPAY ==
--- NOTE | 2024-04-18 08:03 | PCM.CR.HP2 ---
CR - History & Physical General Arrival date:: 04/18/24 Arrival time:: 08:06 Date of Referral:: 04/09/24 Date of CR Evaluation:: 04/18/24 Referring Physician: Dr. Cosby Primary Diagnosis: PCI with stent History of Present Cardiac Event Onset Date PTCA or coronary stenting:: Yes (onset 03/10/2024) Vessel: LAD Medications Ambulatory Orders ?Medication ?Instructions ?Recorded aspirin 81 mg tablet,delayed 81 mg PO DAILY 03/19/24 release clopidogrel 75 mg tablet 75 mg PO DAILY 03/19/24 metoprolol succinate 25 mg 25 mg PO DAILY 03/19/24 tablet,extended release 24 hr nitroglycerin 0.4 mg sublingual 0.4 mg sublingual Q5M PRN chest 03/19/24 tablet pain Lactobacillus rhamnosus GG 5 PO 04/05/24 billion cell oral powder packet ([employer] Probiotics) carvedilol 3.125 mg tablet 3.125 mg PO BID #180 tabs 04/05/24 cholecalciferol (vitamin D3) 25 25 mcg PO QDAY 04/05/24 mcg (1,000 unit) capsule cyanocobalamin (vitamin B-12) 1,000 mcg PO QDAY 04/05/24 1,000 mcg capsule dapagliflozin propanediol 10 mg 10 mg PO QDAY #90 tabs 04/05/24 tablet (Farxiga) docusate sodium 100 mg capsule 100 mg PO QDAY 04/05/24 (Dulcolax Stool Softener (docusate)) spironolactone 25 mg tablet 25 mg PO QDAY 04/05/24 greenlandic elio PO 04/05/24 valsartan 160 mg tablet 160 mg PO QDAY #90 tabs 04/05/24 vitamins A,C,V-lnlx-lgtosz 4,296 1 cap PO QDAY 04/05/24 mcg-226 mg-90 mg capsule (PreserVision AREDS) Allergies Allergies belladonna alkaloids Adverse Reaction (Verified 04/05/24 15:13) Rash Sleep Disorder Evaluation Hx of Sleep Apnea: No Do you snore loudly (louder than talking or can be heard through closed doors)?: No Do you often feel tired/ fatigued/ sleepy during daytime?: No Has anyone observed you stop breathing during sleep?: No History of Hypertension (for STOP score): Yes STOP Results: Negative Advanced Directives Advanced Directives Power of Housing Specialist: Yes Living Will: Yes Advance Directives Information Provided: No Advance Directives on File: Yes DNR Order?:: No Past Medical History Covid-19 Screening Physicial Symptoms Gastro-intestinal symptoms: Yes (constipation, epigastric pain) Other Clinical Concerns Exposure Risk Pertinent Comorbidities 65 years or older:: Yes Has a serious heart condition:: Yes Past Medical Illness Past Medical History (Updated 04/09/24 @ 11:55 by Rhoda Odonnell) History of ST elevation myocardial infarction (STEMI) (03/10/24) I25.2 Arteriosclerotic cardiovascular disease (03/10/24) I25.10 Anxiety F41.9 Migraines G43.909 Pain in right hand M79.641 Swelling of right hand M79.89 Bitten by cat, sequela W55.01XS Double vision H53.2 Cataracts, bilateral H26.9 Bone fracture T14.8XXA Past Surgical History Past Surgical History (Updated 04/09/24 @ 11:56 by Rhoda Odonnell) History of tonsillectomy Z90.89 History of blepharoplasty Z98.890 PTOSIS H/O nasal polypectomy Z98.890, Z87.09 History of bunionectomy Z98.890 Family History Summary Family History Mother Heart disease Hypertension CAD (coronary artery disease) Father Lung cancer Brother Melanoma CAD (coronary artery disease) Daughter Thyroid disorder Social History Smoking History Smoking Status: Never smoker Alcohol Use Alcohol Usage: No Occupation Occupation (List type of work in comments):: Retired Hobbies, Recreation, Social Activities Hobbies: Other (show dogs, board games, gardening) Recreational Activities: I am able to engage in all my recreational activities Social Environment Status Marital Status: Current Living Arrangements Living Environment:: Spouse Children How many children do you have?: 3 Do any of your children live nearby?: Yes Safety Do you feel safe in your surroundings?: Yes Assistance Do you need any assistance at home?: no Review of Systems Review of Systems Hints Review of Present Symptoms: Reports Fatigue, Appetite - Normal and Appetite - Special Diet; Denies Shortness of Breath at Rest, Shortness of Breath with Exertion, PVD, Operative Discomfort, Angina, Wound Healing, Dizziness/Lightheadedness, Heart Arrhythmia/Irregularities, Sleep - Normal or Sexual Changes Pain Is Patient Pain Free?: No Pain Location: back Pain Level: 11/08 Risk Factor Assessment Chief Complaint Chief Complaint: PCI with stent Vital Signs Blood Pressure: 145/79 Pulse Pulse Rate: 66 Hypertension How long have you been treated?: Mar 10 2024 Blood Pressure Sitting - Right Arm: 145/79 Stress Stress: Long-standing Obesity Height: 5 ft 3.75 in Weight:: 126 lb Weight in Pounds: 126.0 lbs Body Mass Index (BMI): 21.8 Nutritional Referral for Obesity: No Physical Inactivity Physical Inactivity: Reg Exercise 30 min/day Risk Stratification Risk Guidelines: Lowest Risk: Risk Factor for Smoking, Moderate Risk: Risk Factor for Diabetes, Risk Factor for Obesity, Risk Factor for Sedentary Lifestyle and Risk Factor for Depression and Highest Risk: Risk Factor for Dyslipidemia and Risk Factor for Hypertension For Smoking Smoking Risk Guidelines For Dyslipidemia Dyslipidemia Risk Guidelines For Diabetes Mellitus Diabetes Risk Guidelines For Obesity/Overweight Obesity/Overweight Risk Guidelines For Hypertension Hypertension Risk Guidelines For Sedentary Lifestyle Sedentary Lifestyle Risk Guidelines For Depression Depression Risk Guidelines Family History Family History Mother Heart disease Hypertension CAD (coronary artery disease) Father Lung cancer Brother Melanoma CAD (coronary artery disease) Daughter Thyroid disorder Motivation Motivation to Participate On a scale of 1 to 10, how prepared are you to commit to attending program?: 7 What do you see as barriers to successfully being able to complete the program?: no What do you see as the benefits of succesfully completing the program? In other words, what do you hope to get out of participating in the program?: endurance, stronger heart, lower BP Are there issues you are dealing with that will interfere with completing the program?: no Do you have a spouse or signficant other, family or friends who will help support you to complete the program?: yes
[2024-04-18 08:12] VITALS: BP 145/79; PULSE 66
--- NOTE | 2024-04-18 08:12 | PCM.CR.ITP ---
Diagnosis General Information Admitting Diagnosis: PCI with stent Personal Learning Style:: Audio/Visual Barriers to Learning: No Barriers Stage of change r/t lifestyle modifications:: Contemplation Gave educational material for:: Treating Heart Disease, How The Heart Works, What it means to have Heart Disease, How Coronary Artery Disease is Diagnosed, Heart Procedures, What Heart Medications Do, Risk Factors & Modifications, Living an Active Life, Nutrition, Emotions & Heart Disease, Stress Management & Relaxation and Sleep Disorders & Heart Disease Education/Goals Cardiac Rehabilitation Goals Personal Goals: Initial Assessment: Improve management of stress and emotions, Improve energy level, Participate in home exercise program, Get back to work, or to resume activities faster, Improve knowledge of cardiac disease, Improve muscle strength and endurance, Improve diet and eating habits (eat healthier) and Control risk factors (learn risk factor modification) Scale for measuring improvement of personal goals Diagnosis & Disease Process Outcomes/Goals: Pt IDs own risk factors & lifestyle modifications by Session 10, Verbalizes symptoms of angina & response by session 3., Pt independently manages and Other Additional Outcomes/Goals: Plan/Interventions: Assist Pt to ID & engage in lifestyle modification to reduce CVD risk, Instruct on individual risk factors, Review symptoms of angina & emergency actions, Review secondary diagnosis & identify educational needs. and Other see comment 30 day Reassessments:: Not Met 30 day Reassessments:: Not Met 30 day Reassessments:: Not Met 30 day Reassessments:: Not Met Final Reassessments:: Not Met Safety Referral to Physical Therapy: No Referral to [facility] Case Management: No Fall Risk Assessed:: Yes Assistive Devices:: None Exercise - Initial Assessment Visit Date of Eval: 04/18/24 (initial eval ) Mets: Pre-: >3 METS for 30 minutes by discharge, >5 METS for 30 minutes by discharge, >7 METS for 30 minutes by discharge and Unable to meet goal due to: (see comment below) Physician Prescribed Exercise Modalities: Treadmill, Rower, Schwinn Airdyne AD-7, SciFit Stepper, SciFit Pro-II Ergometer and SciFit Lateral Hydraulic Blocker Frequency: 3x/week for 12 weeks [36 sessions] Intensity: 60-80% of age predicted maximum heart rate reserve Duration: 30 - 45 minutes Current METSs:: 3 Target Heart Rate:: 89-112 Resting Blood Pressure: 145/79 EKG Type: SR anteroseptal infarct negative Twave Outcomes & Goals Goals:: Verbalizes understanding of THR, RPE & goal METS by session 6, Documents in home exercise log/reports 30 min aerobic 5 day/wk by DC, Demonstrates accurate pulse taking by DC and Other additional outcome/goals: see below Intervention & Plan Exercise Program Goals: Instruct on personal THR & RPE, Instruct on MET level & personal MET goal, Show patient to take own pulse /validate performance until accurate, Instruct on home exercise and Other additional plan/int Physical Activity Home Exercise Physical Activity - Home Exercise: Safe Exercise, Warm-up, Self-monitoring, Cool-Down, Home Exercise > 30 min Daily and Sitting Time <3 hours/daily Outcomes & Goals Outcomes/Goals: Demonstrates correct Warm-up/exercise Cool-Down (S3) if = 2.5 METs, Verbalizes symptoms of exercise intolerance by Session 3 (S3), Demonstrate safe equipment use (S3) & follows exercise prescrition (6) and Other: See below Intervention & Plan Plan/Intervention: Instruct warm-up & cool-down if exercising at > 2 METs, Instruct on symptoms of exercise intolerance & actions to take, Instruct & monitor on saf, Assess intial functional capacity & safety risk and Other See below Nutrition - Initial Assessment Program Goals Nutrition Program Goals Patient has diagnosis of Hyperlipidemia (ICD E78)?: Yes Visit Date of Eval: 04/18/24 (initial eval ) Cholesterol/Lipids (Other Core Measures) Determine presence & major risk factors that modify LDL goal: Hypertension or hypertensive medication, Low HDL cholesterol <40 mg/dL*, Family history of premature CHD in Male < 55 years: female <65 yearsFa and Age men > 45 years; women >/= 55 years Outcomes/Goals: Pt IDs own risk factors & lifestyle modifications by Session 10, Verbalizes symptoms of angina & response by session 3., Pt independently manages and Other Additional Outcomes/Goals: Intervention/Plan: Advocate for lipid panel cholesterol medication if applicable, Instruct on personal lipid levels & lipid goals/NCEP guidelines, Instruct on cholesterol and Other additional plan/int Referral to dietitian:: No (Pt is scheduled to see loss prevention specialist due to gastro issues.) Diabetes (Other Core Measures) Diabetes Type: Not Applicable Weight Mgt (Other Care) Height: 5 ft 3.75 in Weight:: 126 lb BMI: 21.8 Diagnosis Overweight/Obesity BMI> 30% ICD-10 E66: No Diagnosis High BMI/Morbid Obesity BMI> 35% ICD-10 Z68: No Outcomes/Goals: Pt sets, maintains & shows weight loss goal & trend during rehab and Other additional outcomes/goals Intervention/Plan: Instruct on ideal BMI & set weight loss goal w/patient, Assist pt to ID & incorporate diet changes for weight loss by S9, Refer to Structured Weight Loss program as appropriate, Encourage goal of using 250-300dcal per session for weight loss and Other additional plan/interventions Healthy Eating Habits Will attend diet classes:: Yes Outcomes/Goals:: Consume diet rich in vegs,fruits,whole grain/high fiber,fish,lean meat, Limit sat/trans fats,cholesterol & added salts & sugars and Other additional outcome/goals: Intervention/Plan:: Assess current eating habits and Other Additional plan/interventions Education Gave educational materials for:: Signs & symptoms of hypoglycemia, Signs & symptoms of hyperglycemia, Relate diabetes to coronary artery disease and Healthy eating Core - Initial Assessment Visit Date of Eval: 04/18/24 (initial eval ) Medication Compliance Preventative Medication(s):: Aspirin, Clopidogrel/P2Y12 inhibit and Beta ayo H/O mental health issues: depression, anxiety, or addiction?: Yes Doesn?t believe in the benefits of treatment?: No Believes medications are unnecessary or harmful?: No Has a concern about medication side effects?: No Expresses concern over the cost of medications?: No Outcomes/Goals: Verbalizes medications,desired effect & common side effects @ DC, Pt self-reports following medication regimen, Keeps card in wallet w/medications listed by DC and Other additional outcome/goals: Interventions/plans: Instruct on medication effects & side effects, Review medication list w/patient every two weeks, Instruct importance of taking meds as ordered & assist problem solving and Other additional Tobacco Use Tobacco Use: Non-smoker Hypertension Hypertension Diagnosis:: Hypertension ICD-10 I10 Resting Blood Pressure:: 145/79 [place] [employer] Hypertension Guidelines Outcomes/Goals: Able to verbalize/achieve optimal blood pressure <130/80, Incorporates diet changes & exercise for blood pressure control by DC and Other additional outcomes/goals Interventions/plan: Instruct on optimal blood pressure, hypertension & medications, Instruct on effects of sodium, alcohol, stress, exercise &hypertension and Other additional plan/interventions Tobacco Cessation Referral Smoking Cessation Referral:: No Individual Education/Counseling:: No Education Schedule Given:: Yes Psychosocial - Initial Assess VIsit Date of Eval: 04/18/24 (initial eval ) History of previous Mental disease:: Yes History of Emotional Disorders: Anxious Target Goals Target Goals Psychosocial Test Tool Used:: Afsaneh Breen QOL Cardiac and PHQ-9 Questionnaire phq-9 Severity Referral to Behavioral Health PS - Interventions: Yes: Attend Stress Management Classes Outcomes/Goals: See list Psychosocial Outcomes/Goals:: ID's personal stressors & 2 strategies to manage stress by discharge and Other Additional outcome/goals: Intervention/Plan: See List Interventions/Plan:: Assess stressors,coping strategies & signs of derpression on admission, Instruct/assist pt to develop coping & personal stress Mgt strategies, Refer to Behavioral Health if appropriate, Refer to Physician if appropriate, Instruct patient to recognize signs & symptoms of depression, Instruct patient to recog and Other additional plan/intervention Patient Health Questionnaire PHQ-9 Screening Initial Assessment: 1. Little interest or pleasure in doing things: Not at all 2. Feeling down, depressed, or hopeless: Not at all 3. Trouble falling or staying asleep, or sleeping too much: Several days 4. Feeling tired or having little energy: Several days 5. Poor appetite or overeating: Not at all 6. Feeling bad about yourself -- or that you are a failure or have let yourself or your family down: Not at all 7. Trouble concentrating on things, such as reading the newspaper or watching television: Not at all 8. Moving or speaking so slowly that other people could have noticed. Or the opposite - being so fidgety or restless that you have been moving around a lot more than usual: Not at all 9. Thoughts that you would be better off , or of hurting yourself in some way: Not at all How difficult have these problems made it for you to do your work, take care of things at home, or get along with other people?: Not difficult at all Total Score: 2 CHARLES-Q SV Test Statements CAD is a disease of the arteries in the heart: False Examples of risk factors for heart disease: True Angina is chest pain or discomfort: True The benefits of resistance training include: True Eating more meat and dairy products: False Anti-platelet medications such as aspirin are important: True The only effective way to manage stress: False An exercise warm-up slowly increases heart rate: I Don't Know Prepared, processed foods usually have high sodium: True Depression is common after a heart attack: True The statin medications lower cholesterol: True To control blood pressure, lower the amount of sodium: True If someone gets chest discomfort during walking: I Don't Know Transfats are partially hydrogenated vegetable oils: True Sleep apnea that is not treated increases the risk: I Don't Know To control cholesterol, one should become a vegetarian: False Someone knows if he/she is exercising at the right level: True Diabetes cannot be prevented with exercise & health eating: False Stress is a large risk for heart attack: True A diet that can help lower blood pressure is rich in: True Total Score Total Correct Responses: 17 Self-Efficacy 6-Item Scale Initial Assessment: We would like to know how confident you are in doing certain activities. Please select your confidence level for: Fatigue Select Number: 10 Physical Discomfort or Pain Select Number: 10 Emotional Distress Select Number: 10 Other Symptoms or Health Problems Select Number: 10 Different Tasks and Activities Select Number: 10 Medication Select Number: 10 Total Score:: 10 Nutrition Survey Nutrition Survey Instructions Scoring Instructions Nutrition Survey Initial: Have you lost >10 lbs over the past 2 months without trying?: No Are you following a special diet at home for diabetes, low fat, or low salt?: Yes Are you interested in meeting with a dietitian for help understanding your diet?: Yes (Pt is scheduled to see loss prevention specialist through her gastro DrPreston) Do you eat less than 3 meals a day?: No Do you eat fatty meats (buck, sausage, ribs, etc), fried foods, desserts, large amounts of salad dressings, margarine, butter, or cheese most days?: No Do you have food allergies? [Enter types in comment field]: No Do you eat in restaurants more than 3 times a week?: No Do you season food with salt, seasoning salt, or garlic salt?: No Do you used canned, boxed, frozen meals, or soups, seasoning packets?: No Total Score:: 2 Exercise - 30-day Assessment Physician Prescribed Exercise Modalities: Treadmill, Rower, Marta Schaferdyne AD-7, SciFit Stepper, SciFit Pro-II Ergometer and SciFit Lateral Hydraulic Blocker Exercise - 60-day Assessment Physician Prescribed Exercise Modalities: Treadmill, Rower, Schwinn Airdyne AD-7, SciFit Stepper, SciFit Pro-II Ergometer and SciFit Lateral Hydraulic Blocker Exercise - 90-day Assessment Physician Prescribed Exercise Modalities: Treadmill, Rower, Schwinn Airdyne AD-7, SciFit Stepper, SciFit Pro-II Ergometer and SciFit Lateral Bowers Exercise - Final/Discharge Physician Prescribed Exercise Modalities: Treadmill, Rower, Schwinn Airdyne AD-7, SciFit Stepper, SciFit Pro-II Ergometer and SciFit Lateral Hydraulic Blocker Frequency: 3x/week for 12 weeks [36 sessions] Intensity: 60-80% of age predicted maximum heart rate reserve Current METSs:: 3 Target Heart Rate:: 89-112 Nutrition - 30-Day Assessment Weight Mgt (Other Care) Height: 5 ft 3.75 in Weight:: 126 lb BMI: 21.8 Nutrition - 60-Day Assessment Weight Mgt (Other Care) Height: 5 ft 3.75 in Weight:: 126 lb BMI: 21.8 Core - Final Assessment Hypertension Resting Blood Pressure:: 145/79 [place] [employer] Hypertension Guidelines Core - 60-Day Assessment Hypertension Resting Blood Pressure:: 145/79 [place] [employer] Hypertension Guidelines Psychosocial - 30-Day Assess Target Goals Target Goals Referral to Behavioral Health PS - Interventions: Yes: Attend Stress Management Classes Psychosocial - 60-Day Assess Target Goals Target Goals Referral to Behavioral Health PS - Interventions: Yes: Attend Stress Management Classes Psychosocial - 90-Day Assess Target Goals Target Goals Referral to Behavioral Health PS - Interventions: Yes: Attend Stress Management Classes Psychosocial - Final Assessmen Target Goals Target Goals Referral to Behavioral Health PS - Interventions: Yes: Attend Stress Management Classes Nutrition - 90-Day Assessment Weight Mgt (Other Care) Height: 5 ft 3.75 in Weight:: 126 lb BMI: 21.8 Nutrition - Final Assessment Program Goals Patient has diagnosis of Hyperlipidemia (ICD E78)?: Yes Weight Mgt (Other Care) Height: 5 ft 3.75 in Weight:: 126 lb BMI: 21.8
[2024-04-18 08:21] VITALS: BP 145/79
[2024-04-18 09:13] VITALS: BMI 21.8
== END | disposition home or self-care (01) ==
PROVIDERS: PCP Family Medicine; Referring Provider Internal Medicine Cardiovascular Disease; Visit Provider Internal Medicine Cardiovascular Disease
DX: Z00.00 Encounter for general adult medical examination without abnormal findings (principal)

== ENCOUNTER 2024-04-20 14:14 | Observation (INO) | payer OTHER, SELFPAY ==
[2024-04-18 09:13] VITALS: BMI 21.8
[2024-04-20] VITALS (7 sets, daily range): BP systolic 141–190; BP diastolic 82–112; PULSE 67–85; RESP 12–18; TEMP 36.4–36.7; O2SAT 98–99; BMI 21.8; BMI 21.7
--- NOTE | 2024-04-20 14:26 | EKG12_ITS ---
Test Reason : CP Blood Pressure : */* mmHG Vent. Rate : 83 BPM Atrial Rate : 83 BPM P-R Int : 150 ms QRS Dur : 80 ms QT Int : 382 ms P-R-T Axes : 47 35 101 degrees QTcB Int : 448 ms Normal sinus rhythm Possible Left atrial enlargement Anteroseptal infarct , age undetermined T wave abnormality, consider lateral ischemia Abnormal ECG Confirmed by JESUS HOBBS, ALVA ([id number]), news assignment editor MAYNOR JENSEN ([id number]) on 04/23/2024 6:38:09 AM Referred By: Confirmed By: ALVA LEE MD
[2024-04-20 14:35] LABS: Absolute Lymphocyte Count 1.21 X10^3/uL (0.83-4.51); Absolute Neutrophil Count 2.7 X10^3/uL (2.0-7.7); Basophil# 0.04 X10^3/uL; Basophil% 0.9 % (0-1); Eosinophil# 0.13 X10^3/uL; Eosinophils% 2.9 % (0-5); Hematocrit 40.8 % (37-47); Hemoglobin 13.4 g/dL (12.0-15.0); Lymphocyte # 1.21 X10^3/ul (0.83-4.51); Lymphocyte % 26.5 % (19-41); Mean Corp Hgb Conc 32.8 g/dL (32-36); Mean Corpuscular Hgb 29.3 pg (27.0-32.0); Mean Corpuscular Volume 89.1 fL (81-99); Mean Platelet Vol. 9.9 fl (6.2-12.0); Monocyte# 0.49 X10^3/uL; Monocyte% 10.7 % (0-10); NRBC Flagged by Analyzer 0 % (0-5); Neutrophil # 2.68 X10^3/uL (2.7-7.7); Neutrophil % 58.8 % (47-70); Platelet Count 214 K/mm3 (150-450); RBC Distribution Width CV 13.3 % (11.6-14.6); RBC Distribution Width SD 43.1 fl (35.1-43.9); Red Blood Count 4.58 M/mm3 (4.2-5.4); White Blood Count 4.6 K/mm3 (4.4-11.0)
--- NOTE | 2024-04-20 14:48 | RAD_ITS ---
STUDY: X-RAY CHEST REASON FOR EXAM: Female, 73 years old. Chest pain TECHNIQUE: PA and lateral views of the chest. COMPARISON: None. FINDINGS: EKG electrodes are seen. There is hyperinflation of the lungs consistent with chronic obstructive lung disease (COPD). There is no demonstrated pleural abnormality. Normal size heart. Normal mediastinum and veronica. Normal visualized pulmonary arteries. There is atherosclerotic calcification of the aortic arch with tortuosity. Normal visualized thoracic spine. Normal visualized ribs, clavicles, and shoulders. There is no demonstrated abnormality of the visualized soft tissue structures of the upper abdomen. RAD/Chest PA and Lateral IMPRESSION: Hyperinflation. The lungs are clear. Electronically Signed: Jose Alfredo Adams MD at 15:02 EST ,
[2024-04-20 14:59] LABS: Anion Gap 3 (5-15); BUN 15 mg/dL (7-18); BUN/Creat Ratio 12.7 RATIO (10-20); Calcium,Total 9.8 mg/dL (8.5-10.1); Chloride 106 mmol/L (98-107); Creatinine, Serum 1.18 mg/dL (0.55-1.02); EST Glomerular Filtration Rate 48 mL/min (>60); Est Glom Filt Rate - Afr Amer 58 mL/min (>60); Estimated Creatinine Clearance 37.76 ml/min; Glucose 108 mg/dL (74-106); Potassium 3.9 mmol/L (3.5-5.1); Sodium Level 139 mmol/L (136-145); Troponin-I HS (w/2H Reflex) 49 pg/mL (3.0-54.0)
[2024-04-20 15:14] LABS: BNP,B-Type NATRIURETIC PEPTIDE 842.6 pg/mL (0-100)
--- NOTE | 2024-04-20 15:21 | EDS_ITS ---
HPI History of Present Illness Chief Complaint: Chest Pain Narrative Narrative: Patient is a 73-year-old female with a past medical history of of recent STEMI with percutaneous intervention, hypertension, dyslipidemia who presented to the emergency department with a chief complaint of chest pressure. Patient states that today at cardiac rehab she did approximately 30 minutes of rehab on various pieces equipment and noted that afterwards she developed some burning sensation in the middle of her chest. States that it did not radiate anywhere. States that it concerned her as this was similar symptoms in nature that she presented with with her heart attack. States that at that point time her symptoms were significantly worse but she is still concerned. States that this has been constant has not gotten better after the exercise. Patient states that she is been compliant with all of her medications not missing any doses. Patient denies any history of blood clots denies any recent travel history. [facility] Medical History History of ST elevation myocardial infarction (STEMI) (03/10/24) Arteriosclerotic cardiovascular disease (03/10/24) Anxiety Migraines Pain in right hand Swelling of right hand Bitten by cat, sequela Double vision Cataracts, bilateral Bone fracture Home Medications ?Medication ?Instructions ?Recorded ?Last Taken ?Type aspirin 81 mg tablet,delayed 81 mg PO DAILY 03/19/24 Unknown History release clopidogrel 75 mg tablet 75 mg PO DAILY 03/19/24 Unknown History metoprolol succinate 25 mg 25 mg PO DAILY 03/19/24 Unknown History tablet,extended release 24 hr nitroglycerin 0.4 mg sublingual 0.4 mg sublingual Q5M PRN chest 03/19/24 Unknown History tablet pain Lactobacillus rhamnosus GG 5 PO 04/05/24 Unknown History billion cell oral powder packet (Culturelle Kids Probiotics) carvedilol 3.125 mg tablet 3.125 mg PO BID #180 tabs 04/05/24 Unknown Rx cholecalciferol (vitamin D3) 25 25 mcg PO QDAY 04/05/24 Unknown History mcg (1,000 unit) capsule cyanocobalamin (vitamin B-12) 1,000 mcg PO QDAY 04/05/24 Unknown History 1,000 mcg capsule dapagliflozin propanediol 10 mg 10 mg PO QDAY #90 tabs 04/05/24 Unknown Rx tablet (Farxiga) docusate sodium 100 mg capsule 100 mg PO QDAY 04/05/24 Unknown History (Dulcolax Stool Softener (docusate)) spironolactone 25 mg tablet 25 mg PO QDAY 04/05/24 Unknown History south korean elio PO 04/05/24 Unknown History valsartan 160 mg tablet 160 mg PO QDAY #90 tabs 04/05/24 Unknown Rx vitamins A,C,U-lqmv-prjmxm 4,296 1 cap PO QDAY 04/05/24 Unknown History mcg-226 mg-90 mg capsule (PreserVision AREDS) Allergy/AdvReac Type Severity Reaction Status Date / Time belladonna alkaloids AdvReac Rash Verified 04/20/24 14:14 Family History Mother Heart disease Hypertension CAD (coronary artery disease) Father Lung cancer Brother Melanoma CAD (coronary artery disease) Daughter Thyroid disorder Surgical History History of tonsillectomy History of blepharoplasty H/O nasal polypectomy History of bunionectomy Social History current occupational status: retired pets and animals: Yes Smoking Status: Never smoker alcohol intake: current substance use type: does not use additional social history: DOES TAKE ASPIRIN RARELY DOES TAKE IBUPROFEN ROS ROS ED ROS Narrative Constitutional: Denies any fevers, chills, headaches lightheadedness, dizziness Eyes: Denies changes double vision blurry vision Cardiovascular: Complains of burning sensation in the middle of her chest denies any palpitations Respiratory: Denies coughing wheezing shortness of breath Abdomen: Denies any abdominal pain nausea vomit diarrhea : Denies any urinary symptom Neurological:'s denies any numbness, wheeze, tingling Musculoskeletal: Denies back pain Skin: Denies any rashes or lesions EXAM Physical Exam Narrative Exam Narrative: General: Patient lying in bed rest comfortably did not appear to be in acute distress Head: Atraumatic, normocephalic Eyes: PERRL body, EOMI bilateral, no conjunctival injection noted Neck: Soft, supple, trachea midline Cardiovascular: Regular in rhythm no murmurs gallops rubs noted Respiratory: Clear to auscultation bilaterally no rales rhonchi or wheezes noted Abdomen: Soft, nondistended, nontender to palpation Extremities: +5/5 strength noted in the bilateral upper and lower extremities, radial pulses +2/4 in the bilateral upper extremities, no pedal edema on exam Neurological: Patient following commands knew that she was at [facility] year is 2023 Skin: Warm, dry, intact Const Vital Signs: 04/20/24 14:14 04/20/24 14:16 04/20/24 14:43 Temperature 97.9 F Temperature Source Oral Pulse Rate 85 Respiratory Rate 16 Respiratory Effort Normal Blood Pressure 190/112 H Blood Pressure Mean 138 Pulse Ox 98 Oxygen Delivery Method Room Air Room Air 04/20/24 15:39 04/20/24 16:22 Temperature Temperature Source Pulse Rate 79 Respiratory Rate 18 Respiratory Effort Blood Pressure 177/94 H 181/100 H Blood Pressure Mean 121 127 Pulse Ox 99 Oxygen Delivery Method Room Air MDM MDM MDM Narrative Medical decision making narrative: Patient is a 73-year-old female who presented to the emerged part with chief complaint of burning sensation in the center of her chest. Patient will have a workup performed here on the differential diagnose includes Melamin to hypertensive emergency, ACS, CHF. Once workup is obtained reviewed she will be reevaluated. Insert supervising physician patient's echocardiogram from 03/11/2024 at [facility] was reviewed and showed a left ejection fraction of 35?5%. There is also noted to be left ventricular diastolic function grade 2 consistent with an elevated left atrial pressure. She had mild tricuspid valve regurgitation noted. Her right ventricular systolic pressure was noted be 22 mmHg. Patient's heart cath report was reviewed and showed at that point time she had 100% occlusion of her LAD. She had 70% stenosis of the first marginal lesion of the left circumflex, proximal RCA to mid RCA was 70% stenosis well. There was plan for staged PCI intervention. Patient CBC was reviewed and showed no evidence leukocytosis white blood count normal 4.6, hemoglobin stable 13.4, platelet count was noted to be normal at 214. Patient sodium normal at 139, potassium normal at 3.9, creatinine was elevated to 1.18 however this appears to be around her baseline according to previous blood draws, patient's troponin normal at 49. Patient's EKG reviewed and independently interpreted myself showed sinus rhythm with a rate of [address] changes noted. Patient's proBNP was elevated to 842. Patient's chest x-ray reviewed by myself and by radiology showed hyperinflation no other acute cardiopulmonary processes. I called down to [facility] and spoke with buffing wheel presser Dr. Nahid Georges who states that he saw her on April 03 and she had a stress test scheduled for April 13 as he wanted this prior to her starting cardiac rehab and states that she canceled this. When asked the patient why she canceled she states that she was not feeling well at that point time and states that she wanted to have her stomach looked at before completing the stress test. I discussed the results with him and he states that if her delta troponin is normal she can go home and his office will call her with a repeat echocardiogram and reschedule her stress test. I did discuss this plan with the patient and she was noted to be hypertensive here and he was recommending I increase her antihypertensives. I discussed this with the patient and she is refusing to increase her antihypertensives as she states that her blood pressure has been normal at home. She also noted that she had not started the valsartan that was prescribed to her either as she was concerned with an interaction/side effect with her other medications. Patient states that she does not want anything for her blood pressure here in the emergency department despite being hypertensive she states that she is due for her medication here in the next hour and she will take her home medications. I stressed the importance of her being compliant with her medications given her underlying coronary artery disease and her recent stents. She was educated on the importance of getting the stress test and repeat echocardiogram performed she verbalized understanding of this. Patient's case will be signed out to oncoming provider to follow-up on the delta troponin if this is normal she will be discharged home. Patient states that after GI cocktail her burning sensation had improved. Lab Data Labs: Laboratory Results - last 24 hr 04/20/24 14:24 WBC 4.6 RBC 4.58 Hgb 13.4 Hct 40.8 MCV 89.1 MCH 29.3 MCHC 32.8 RDW Std Deviation 43.1 RDW Coeff of Shruti 13.3 Plt Count 214 MPV 9.9 Immature Gran % (Auto) 0.200 Neut % (Auto) 58.8 Lymph % (Auto) 26.5 Foster % (Auto) 10.7 H Eos % (Auto) 2.9 Baso % (Auto) 0.9 Absolute Neuts (auto) 2.7 Absolute Lymphs (auto) 1.21 Nucleated RBC % 0 Sodium 139 Potassium 3.9 Chloride 106 Carbon Dioxide 30.0 Anion Gap 3 L BUN 15 Creatinine 1.18 H Estim Creat Clear Calc 37.76 Est GFR (MDRD) Af Amer 58 L Est GFR (MDRD) Non-Af 48 L BUN/Creatinine Ratio 12.7 Glucose 108 H Calcium 9.8 Troponin I High Sens 49 B-Natriuretic Peptide 842.6 H Radiography Diagnostic Testing: Clinical Impression(s) from Imaging Studies Chest X-Ray 04/20/24 14:48 IMPRESSION: Hyperinflation. The lungs are clear. Electronically Signed: Jose Alfredo Adams MD at 15:02 EST , Discharge Plan Triage Chief Complaint: Chest Pain ED Provider: Jarrod Duran Dx/Rx/DC Orders Clinical Impression: Hypertension, CAD (coronary artery disease), Chest pain Prescriptions: No Action docusate sodium [Dulcolax Stool Softener (dss)] 100 mg capsule 100 mg PO QDAY carvedilol 3.125 mg tablet 3.125 mg PO BID Qty: 180 3RF Rx Instructions: must administer with a meal/food valsartan 160 mg tablet 160 mg PO QDAY Qty: 90 3RF dapagliflozin propanediol [Farxiga] 10 mg tablet 10 mg PO QDAY Qty: 90 3RF south korean elio PO PreserVision AREDS 4,296 mcg-226 mg-90 mg capsule 1 cap PO QDAY cyanocobalamin (vitamin B-12) 1,000 mcg capsule 1,000 mcg PO QDAY cholecalciferol (vitamin D3) 25 mcg (1,000 unit) capsule 25 mcg PO QDAY Culturelle Kids Probiotics 5 billion cell powder in packet PO clopidogrel 75 mg tablet 75 mg PO DAILY aspirin 81 mg tablet,delayed release (DR/EC) 81 mg PO DAILY nitroglycerin 0.4 mg tablet, sublingual 0.4 mg sublingual Q5M PRN (Reason: chest pain) metoprolol succinate 25 mg tablet extended release 24 hr 25 mg PO DAILY spironolactone 25 mg tablet 25 mg PO QDAY Primary Care Provider: Anthony Ordaz Referrals: Anthony Ordaz MD [Primary Care Provider] - Activity Restrictions/Additional Instructions: Take your medications as prescribed. Take your blood pressure medication when you get home. Keep a close eye and a blood pressure keep a blood pressure log randomly writing her blood pressure down 2-3 times a day and what time it was when you obtain this blood pressure reading. Follow-up with the buffing wheel presser and have a repeat ultrasound of your heart and the stress test performed that you were supposed to have prior to starting cardiac rehab. Return with worsening symptoms or any other concerns. Print Language: Syriac
[2024-04-20] MEDS: Mag Hydrox/Al Hydrox/Simeth 30 ML UDC PO (15:45)
[2024-04-20] MEDS: Lidocaine 2% Viscous15 ML UDC 15 ML PO (15:45)
[2024-04-20 16:31] LABS: Reflex Troponin-HS? (from REC) Y
[2024-04-20 17:10] LABS: Troponin-I HS 72 pg/mL (3.0-54.0)
[2024-04-20] MEDS: Famotidine 20 MG Tablet 40 MG PO (17:41)
--- NOTE | 2024-04-20 17:44 | HP.PCM.HOS_ITS ---
HPI - General General Date of Admission: 04/20/24 Date of Service: 04/20/24 Chief Complaint: Chest pain HPI Narrative The patient is a 73 y/o F w/ PMHx: Chronic migraines, Anxiety disorder, HTN, HLD, CAD s/p recent STEMI w/ PCI w/ noted Ischemic cardiomyopathy/LV systolic dysfunction without heart failure who presents to the [facility] ED on 04/20/24 with history of recent STEMI requiring percutaneous intervention while onset of chest pressure today at cardiac rehab with specifically a burning sensation in the middle of her chest with no radiation however it was similar to when she presented recently with her heart attack noted to be constant reportedly compliant with all of her medications with recent workup at [facility] including 03/11/2024 echocardiogram with LVEF 35? percent, LV diastolic function grade 2 consistent with elevated LA pressure, mild tricuspid valve regurgitation, RV systolic pressure 22 mmHg, cardiac catheterization with 100% occlusion LAD, 70% stenosis first marginal lesion of the left circumflex, proximal RCA to mid RCA with 70% stenosed with planned staged PCI discharged with plan for follow-up with her clinical informatics educator Dr. Georges with most recent evaluation 04/03/2024 with plan follow-up stress testing 04/13/2024 prior to starting cardiac rehab however patient canceled this reportedly not feeling well at that time. Patient reports that she has been having issues with dyspepsia and wanted GI evaluation prior to stress testing reportedly. She is also had elevated blood pressures and clinical informatics educator did want to increase her medications but she has declined as she notes is been normal at home. She reportedly had been discharged on new prescription for valsartan but she did not take this because of concerns for medication interactions. Patient did report improvement of her dyspepsia following GI cocktail in the ED. patient reports that her burning sensation that is worse with 3-4 out of 10 in severity but currently upon evaluation it is completely resolved. Workup in the ED included T97.9, heart rate 85, BP initially 190/112, respiratory rate 16, 98% on room air with most recent repeat vital signs heart rate 81, BP 171/104, respiratory rate 12, 99% on room air, CBC with WBC 4.6, hemoglobin 13.4, platelet 214 that marked shift, BMP with BUN/creatinine 15/1.18, GFR 48, glucose 108, BNP 842.6, troponin initial 49 with repeat delta 72, chest x-ray with hyperinflation with no acute cardiopulmonary findings otherwise, EKG with sinus rhythm with nonspecific ST changes with no acute evidence of ischemia. ED discussed case with patient's clinical informatics educator and given increased troponin he requested cardiac stress testing be performed. In the ED patient ministered GI cocktail. [facility] Medical History Dyslipidemia Hypertension Adjustment disorder with anxiety Left ventricular systolic dysfunction (LVSD) without heart failure Ischemic cardiomyopathy History of ST elevation myocardial infarction (STEMI) (03/10/24) Arteriosclerotic cardiovascular disease (03/10/24) Anxiety Migraines Cataracts, bilateral Home Medications ?Medication ?Instructions ?Recorded ?Last Taken ?Type aspirin 81 mg tablet,delayed 81 mg PO DAILY 03/19/24 Unknown History release clopidogrel 75 mg tablet 75 mg PO DAILY 03/19/24 Unknown History metoprolol succinate 25 mg 25 mg PO DAILY 03/19/24 Unknown History tablet,extended release 24 hr nitroglycerin 0.4 mg sublingual 0.4 mg sublingual Q5M PRN chest 03/19/24 Unknown History tablet pain carvedilol 3.125 mg tablet 3.125 mg PO BID #180 tabs 04/05/24 Unknown Rx cholecalciferol (vitamin D3) 25 25 mcg PO QDAY 04/05/24 Unknown History mcg (1,000 unit) capsule cyanocobalamin (vitamin B-12) 1,000 mcg PO QDAY 04/05/24 Unknown History 1,000 mcg capsule dapagliflozin propanediol 10 mg 10 mg PO QDAY #90 tabs 04/05/24 Unknown Rx tablet (Farxiga) spironolactone 25 mg tablet 25 mg PO QDAY 04/05/24 Unknown History turkish elio PO 04/05/24 Unknown History vitamins A,C,D-rxvg-fhkqvr 4,296 1 cap PO QDAY 04/05/24 Unknown History mcg-226 mg-90 mg capsule (PreserVision AREDS) valsartan 160 mg tablet 40 mg PO QDAY HTN 04/20/24 Unknown History Allergy/AdvReac Type Severity Reaction Status Date / Time belladonna alkaloids AdvReac Rash Verified 04/20/24 14:14 Family History Mother Heart disease Hypertension CAD (coronary artery disease) Father Lung cancer Brother Melanoma CAD (coronary artery disease) Daughter Thyroid disorder Surgical History Presence of stent in coronary artery (03/10/24) History of tonsillectomy History of blepharoplasty H/O nasal polypectomy History of bunionectomy Social History household members: spouse current occupational status: retired pets and animals: Yes Smoking Status: Never smoker alcohol intake: current substance use type: does not use ROS ROS Narrative Admission Review of Systems: CONSTITUTIONAL: No weight loss, fever, chills, + weakness or fatigue. HEENT: Eyes: No visual loss, blurred vision, double vision or yellow sclerae. Ears, Nose, Throat: No hearing loss, sneezing, congestion, runny nose or sore throat. SKIN: No rash or itching, lesions, wounds. CARDIOVASCULAR: + Dyspepsia/chest burning. No palpitations, edema, orthopnea, syncopal events. RESPIRATORY: No shortness of breath, cough or sputum, wheezing, hemoptysis. GASTROINTESTINAL: + Dyspepsia. No anorexia, nausea, vomiting or diarrhea, abdominal pain, melena, BRBPR. GENITOURINARY: No dysuria, frequency, urgency or retention. NEUROLOGICAL: No headache, dizziness, syncope, paralysis, ataxia, numbness or tingling in the extremities, focal weakness, change in bowel or bladder control, seizure. MUSCULOSKELETAL: + muscle, back pain, joint pain or stiffness. HEMATOLOGIC: No anemia. + Easy bleeding/bruising. LYMPHATICS: No enlarged nodes. No history of splenectomy. PSYCHIATRIC: + Notable anxiety history. ENDOCRINOLOGIC: No reports of sweating, cold or heat intolerance. No polyuria or polydipsia. ALLERGIES: No history of asthma, hives, eczema or rhinitis. Vital Signs Vital Signs Vital Signs: 04/20/24 14:14 04/20/24 14:16 04/20/24 14:43 Temperature 97.9 F Temperature Source Oral Pulse Rate 85 Respiratory Rate 16 Respiratory Effort Normal Blood Pressure 190/112 H Blood Pressure Mean 138 Pulse Ox 98 Oxygen Delivery Method Room Air Room Air 04/20/24 15:39 04/20/24 16:22 04/20/24 17:02 Temperature Temperature Source Pulse Rate 79 81 Respiratory Rate 18 12 Respiratory Effort Blood Pressure 177/94 H 181/100 H 171/104 H Blood Pressure Mean 121 127 126 Pulse Ox 99 99 Oxygen Delivery Method Room Air Room Air 04/20/24 17:41 Temperature 97.9 F Temperature Source Pulse Rate 77 Respiratory Rate 18 Respiratory Effort Blood Pressure 175/102 H Blood Pressure Mean 126 Pulse Ox 98 Oxygen Delivery Method Weight Weight: 127 lb 1.6 oz Body Mass Index (BMI) 21.8 Physical Exam Narrative Physical Examination: General: Awake, alert, oriented x 3 and cooperative, seated upright in the ED bed in no apparent distress, Notes resolution of chest burning sensation. Skin: Normal color, normal turgor, no icterus, no cyanosis. HEENT: AT/NC, EOMI, PERRLA, MMM, no carotid bruits or JVD noted. Lungs: CTA bilaterally, moderate effort, mild decrease BL bases, no rales, ronchi or wheezing. Heart: Regular rate and rhythm; no gallop, rub audible. Abdomen: Soft, NTTP, ND, normal BS, no HSM. Extremities: No cyanosis, clubbing, or edema. Neurological: Patient awake, alert, oriented as noted, cognitive function intact; pupils equally reactive to light and accommodation, cranial nerves grossly normal, moving all 4 extremities, no focal deficits, strength mildly globally creased. Psychiatric: Affect appears mildly anxious, does have underlying history. Results Lab / Micro Data 04/20/24 14:24 04/20/24 14:24 Labs: Laboratory Results - last 24 hr 04/20/24 14:24: WBC 4.6, RBC 4.58, Hgb 13.4, Hct 40.8, MCV 89.1, MCH 29.3, MCHC 32.8, RDW Std Deviation 43.1, RDW Coeff of Shruti 13.3, Plt Count 214, MPV 9.9, Immature Gran % (Auto) 0.200, Neut % (Auto) 58.8, Lymph % (Auto) 26.5, Hood % (Auto) 10.7 H, Eos % (Auto) 2.9, Baso % (Auto) 0.9, Absolute Neuts (auto) 2.7, Absolute Lymphs (auto) 1.21, Nucleated RBC % 0, Sodium 139, Potassium 3.9, Chloride 106, Carbon Dioxide 30.0, Anion Gap 3 L, BUN 15, Creatinine 1.18 H, Estim Creat Clear Calc 37.76, Est GFR (MDRD) Af Amer 58 L, Est GFR (MDRD) Non-Af 48 L, BUN/Creatinine Ratio 12.7, Glucose 108 H, Calcium 9.8, Troponin I High Sens 49, B-Natriuretic Peptide 842.6 H 04/20/24 16:39: Troponin I High Sens 72 H Imaging Radiology Impression Chest X-Ray 04/20/24 14:48 IMPRESSION: Hyperinflation. The lungs are clear. Electronically Signed: Jose Alfredo Adams MD at 15:02 EST , Assessment & Plan Assessment/Plan (1) Chest pain: PLAN: Plan The patient is a 73 y/o F w/ PMHx: Chronic migraines, Anxiety disorder, HTN, HLD, CAD s/p recent STEMI w/ PCI w/ noted Ischemic cardiomyopathy/LV systolic dysfunction without heart failure who presents to the [facility] ED on 04/20/24 with history of recent STEMI requiring percutaneous intervention while onset of chest pressure today at cardiac rehab with specifically a burning sensation in the middle of her chest with no radiation however it was similar to when she presented recently with her heart attack 03/2024 prompting evaluation. #1. Atypical Chest Pain with indeterminate cardiac enzyme of unclear etiology: EKG in ED sinus rhythm with nonspecific changes with no acute evidence of ischemia, CXR w/ no acute cardiopulmonary finding, initial trop 49 with repeat delta 72. Will admit to PCU, place on a monitored bed to assure no acute myocardial infarction with serial cardiac enzymes and EKGs. If continued serial cardiac enzymes remained stable would pursue a.m. cardiac stress testing per outside facility cardiology recommendation however if they further rise or EKGs change low threshold to instead consult cardiology, mag requested, FLP in AM. #2. CAD status post recent STEMI with associated ischemic cardiomyopathy/LV systolic dysfunction without heart failure: Recent 03/2020 for STEMI while down in [place] with work-up notable for echocardiogram with LVEF 35? percent, LV diastolic function grade 2 consistent with elevated LA pressure, mild tricuspid valve regurgitation, RV systolic pressure 22 mmHg, cardiac catheterization with 100% occlusion LAD, 70% stenosis first marginal lesion of the left circumflex, proximal RCA to mid RCA with 70% stenosed with planned staged PCI discharged with plan for follow-up with her clinical informatics educator Dr. Georges with most recent evaluation 04/03/2024 with plan follow-up stress testing 04/13/2024 prior to starting cardiac rehab however patient canceled this reportedly not feeling well at that time. Will continue aspirin, Plavix, noted intolerance to statin, Jardiance, Coreg and losartan regimen. #3. Hypertension, poorly controlled: Difficult given patient has not been taking medications as she is supposed to and complained of some side effects, still trying to clarify but for now we will continue Coreg and losartan with as needed IV hydralazine. #4. Hyperlipidemia: Patient had previously been started on a high-dose statin but had myalgias, refused to take any further statin therapy, FLP requested. #5. GERD: Possibly contributing, will continue famotidine as well as as needed Mylanta. #6. Chronic anxiety: Per current list does not appear to be on regimen, if severe or becomes debilitating may be appropriate for outpatient medication and counseling. #7. Chronic migraines: Per current list does not appear to be any chronic regimen, encourage continued outpatient follow-up as previously arranged. #8. DVT prophylaxis: Lovenox. Charges/Coding Visit Charges Inpatient E&M: 61493 Init Hosp L2
[2024-04-20 18:25] LABS: Magnesium 2.7 mg/dL (1.6-2.6)
--- NOTE | 2024-04-20 19:03 | EKG12_ITS ---
Test Reason : CP Blood Pressure : */* mmHG Vent. Rate : 74 BPM Atrial Rate : 74 BPM P-R Int : 146 ms QRS Dur : 84 ms QT Int : 406 ms P-R-T Axes : 49 10 102 degrees QTcB Int : 450 ms Normal sinus rhythm Septal infarct , age undetermined T wave abnormality, consider anterolateral ischemia Abnormal ECG When compared with ECG of 20-Apr-2024 14:21, MANUAL COMPARISON REQUIRED DATA IS UNCONFIRMED Confirmed by JESUS HOBBS, ALVA ([id number]), state editor MAYNOR JENSEN ([id number]) on 04/23/2024 8:35:43 AM Referred By: Confirmed By: ALVA LEE MD
[2024-04-20 20:36] LABS: Troponin-I HS 112 pg/mL (3.0-54.0)
[2024-04-20] MEDS: 0.9% Saline Lock 10 ML Syringe IV (22:19)
[2024-04-21 04:15] VITALS: BP 139/83; PULSE 65; RESP 18; TEMP 36.8; O2SAT 99
[2024-04-21 05:51] LABS: Absolute Lymphocyte Count 1.27 X10^3/uL (0.83-4.51); Absolute Neutrophil Count 2.2 X10^3/uL (2.0-7.7); Basophil# 0.05 X10^3/uL; Basophil% 1.2 % (0-1); Eosinophil# 0.14 X10^3/uL; Eosinophils% 3.3 % (0-5); Hematocrit 36.5 % (37-47); Hemoglobin 12.3 g/dL (12.0-15.0); Lymphocyte # 1.27 X10^3/ul (0.83-4.51); Lymphocyte % 29.6 % (19-41); Mean Corp Hgb Conc 33.7 g/dL (32-36); Mean Corpuscular Hgb 29.5 pg (27.0-32.0); Mean Corpuscular Volume 87.5 fL (81-99); Mean Platelet Vol. 10.4 fl (6.2-12.0); Monocyte# 0.59 X10^3/uL; Monocyte% 13.8 % (0-10); NRBC Flagged by Analyzer 0 % (0-5); Neutrophil # 2.24 X10^3/uL (2.7-7.7); Neutrophil % 52.1 % (47-70); Platelet Count 198 K/mm3 (150-450); RBC Distribution Width CV 13.2 % (11.6-14.6); RBC Distribution Width SD 42.2 fl (35.1-43.9); Red Blood Count 4.17 M/mm3 (4.2-5.4); White Blood Count 4.3 K/mm3 (4.4-11.0)
--- NOTE | 2024-04-21 05:55 | EKG12_ITS ---
Test Reason : CP Blood Pressure : */* mmHG Vent. Rate : 69 BPM Atrial Rate : 69 BPM P-R Int : 148 ms QRS Dur : 82 ms QT Int : 442 ms P-R-T Axes : 54 24 111 degrees QTcB Int : 473 ms Normal sinus rhythm Septal infarct , age undetermined T wave abnormality, consider anterolateral ischemia Abnormal ECG When compared with ECG of 21-Apr-2024 05:48, MANUAL COMPARISON REQUIRED DATA IS UNCONFIRMED Confirmed by JESUS HOBBS, ALVA ([id number]), assignment editor MAYNOR JENSEN ([id number]) on 04/23/2024 8:33:59 AM Referred By: Confirmed By: ALVA LEE MD
[2024-04-21] MEDS: Aspirin E.C. 81 MG Tablet PO (06:07)
[2024-04-21 07:15] LABS: ALB/GLOB Ratio 1.2 RATIO (0.9-2.4); AST(SGOT) 23 U/L (15-37); Alanine Aminotransfer ALT/SGPT 28 U/L (13-56); Albumin, Serum 3.6 g/dL (3.2-5.0); Alkaline Phosphatase 72 U/L (45-117); Anion Gap 5 (5-15); BUN 14 mg/dL (7-18); BUN/Creat Ratio 12.8 RATIO (10-20); Calcium,Total 9.3 mg/dL (8.5-10.1); Chloride 109 mmol/L (98-107); Cholesterol 193 mg/dL (200); Creatinine, Serum 1.09 mg/dL (0.55-1.02); EST Glomerular Filtration Rate 53 mL/min (>60); Est Glom Filt Rate - Afr Amer 64 mL/min (>60); Estimated Creatinine Clearance 39.16 ml/min; Globulin 3.1 g/dL (2.2-4.2); Glucose 80 mg/dL (74-106); High Density Lipoprotein 48 mg/dL; Potassium 4.1 mmol/L (3.5-5.1); Protein, Total 6.7 g/dL (6.4-8.2); Sodium Level 141 mmol/L (136-145); Triglycerides 62 mg/dL; Very Low Density Lipoprotein 12 mg/dL (5-40)
[2024-04-21 07:35] VITALS: BP 161/73; PULSE 74; RESP 18; TEMP 36.5; O2SAT 100
[2024-04-21] MEDS: Famotidine 20 MG Tablet PO (07:37)
[2024-04-21] MEDS: VALSARTAN 40 MG TABLET PO (07:38)
[2024-04-21 08:33] VITALS: O2SAT 100
[2024-04-21 09:55] VITALS: BP 162/86; PULSE 75; RESP 18; TEMP 36.7; O2SAT 99
--- NOTE | 2024-04-21 09:59 | EKG12_ITS ---
Test Reason : CP Blood Pressure : */* mmHG Vent. Rate : 68 BPM Atrial Rate : 68 BPM P-R Int : 156 ms QRS Dur : 80 ms QT Int : 474 ms P-R-T Axes : 49 46 111 degrees QTcB Int : 504 ms Normal sinus rhythm Anteroseptal infarct , age undetermined T wave abnormality, consider lateral ischemia Abnormal ECG When compared with ECG of 20-Apr-2024 20:03, MANUAL COMPARISON REQUIRED DATA IS UNCONFIRMED Confirmed by JESUS HOBBS, ALVA ([id number]), editor magazine MAYNOR JENSEN ([id number]) on 04/23/2024 8:34:37 AM Referred By: Confirmed By: ALVA LEE MD
[2024-04-21] MEDS: Acetaminophen 325 MG Tablet 650 MG PO (10:04)
[2024-04-21] MEDS: Isosorbide Mononitrate 30 MG Tablet PO (10:05)
[2024-04-21] MEDS: Mag Hydrox/Al Hydrox/Simeth 30 ML UDC PO (10:05)
[2024-04-21] MEDS: Carvedilol 6.25 MG Tablet PO (10:05)
[2024-04-21 11:06] LABS: Troponin-I HS 55 pg/mL (3.0-54.0)
[2024-04-21] MEDS: Pantoprazole Sodium 40 MG Tablet PO (11:43)
[2024-04-21 13:40] VITALS: BP 123/80; PULSE 76; RESP 18; TEMP 36.6; O2SAT 96
--- NOTE | 2024-04-21 14:01 | DS.PCM_ITS ---
Providers Date of Admission: 04/20/24 Primary Care Physician: Dr. Anthnoy Ordaz MD Reason For Visit: CHEST PAIN Diagnosis Discharge Diagnosis (1) Chest pain: Status: Acute Code(s): R07.9 - Chest pain, unspecified Medications at Discharge Home Medications aspirin 81 mg tablet,delayed release 81 mg PO DAILY 03/19/24 clopidogrel 75 mg tablet 75 mg PO DAILY 03/19/24 nitroglycerin 0.4 mg sublingual tablet 0.4 mg sublingual Q5M PRN chest pain 03/19/24 cholecalciferol (vitamin D3) 25 mcg (1,000 unit) capsule 25 mcg PO QDAY 04/05/24 cyanocobalamin (vitamin B-12) 1,000 mcg capsule 1,000 mcg PO QDAY 04/05/24 dapagliflozin propanediol 10 mg tablet (Farxiga) 10 mg PO QDAY #90 tabs 04/05/24 spironolactone 25 mg tablet 25 mg PO QDAY 04/05/24 sudanese elio PO 04/05/24 vitamins A,C,F-anqa-fpihye 4,296 mcg-226 mg-90 mg capsule (PreserVision AREDS) 1 cap PO QDAY 04/05/24 valsartan 160 mg tablet 40 mg PO QDAY HTN 04/20/24 carvedilol 6.25 mg tablet 6.25 mg PO BID #60 tabs 04/21/24 isosorbide mononitrate 30 mg tablet,extended release 24 hr 30 mg PO DAILY #30 tabs 04/21/24 Weight / BMI Weight Weight: 122 lb 12.76 oz Body Mass Index (BMI) 21.7 ABG / Lab / Microbiology Data 04/21/24 04:44 04/21/24 04:44 Laboratory: Laboratory Results - last 24 hr 04/20/24 14:24: WBC 4.6, RBC 4.58, Hgb 13.4, Hct 40.8, MCV 89.1, MCH 29.3, MCHC 32.8, RDW Std Deviation 43.1, RDW Coeff of Shruti 13.3, Plt Count 214, MPV 9.9, Immature Gran % (Auto) 0.200, Neut % (Auto) 58.8, Lymph % (Auto) 26.5, [place] % (Auto) 10.7 H, Eos % (Auto) 2.9, Baso % (Auto) 0.9, Absolute Neuts (auto) 2.7, Absolute Lymphs (auto) 1.21, Nucleated RBC % 0, Sodium 139, Potassium 3.9, Chloride 106, Carbon Dioxide 30.0, Anion Gap 3 L, BUN 15, Creatinine 1.18 H, Estim Creat Clear Calc 37.76, Est GFR (MDRD) Af Amer 58 L, Est GFR (MDRD) Non-Af 48 L, BUN/Creatinine Ratio 12.7, Glucose 108 H, Calcium 9.8, Troponin I High Sens 49, B-Natriuretic Peptide 842.6 H 04/20/24 16:39: Magnesium 2.7 H, Troponin I High Sens 72 H 04/20/24 19:37: Troponin I High Sens 112 H 04/21/24 04:44: WBC 4.3 L, RBC 4.17 L, Hgb 12.3, Hct 36.5 L, MCV 87.5, MCH 29.5, MCHC 33.7, RDW Std Deviation 42.2, RDW Coeff of Shruti 13.2, Plt Count 198, MPV 10.4, Immature Gran % (Auto) 0.000, Neut % (Auto) 52.1, Lymph % (Auto) 29.6, M eduardo % (Auto) 13.8 H, Eos % (Auto) 3.3, Baso % (Auto) 1.2 H, Absolute Neuts (auto) 2.2, Absolute Lymphs (auto) 1.27, Nucleated RBC % 0, Sodium 141, Potassium 4.1, Chloride 109 H, Carbon Dioxide 28.0, Anion Gap 5, BUN 14, C reatinine 1.09 H, Estim Creat Clear Calc 39.16, Est GFR (MDRD) Af Amer 64, Est GFR (MDRD) Non-Af 53 L, BUN/Creatinine Ratio 12.8, Glucose 80, Calcium 9.3, Total Bilirubin 0.90, AST 23, ALT 28, Alkaline Phosphatase 72, Total Protein 6.7, Albumin 3.6, Globulin 3.1, Albumin/Globulin Ratio 1.2, Triglycerides 62, Cholesterol 193, LDL Cholesterol 133 H, VLDL Cholesterol 12, HDL Cholesterol 48 04/21/24 10:40: Troponin I High Sens 55 H Radiography Diagnostic Testing: Radiology Impression Chest X-Ray 04/20/24 14:48 IMPRESSION: Hyperinflation. The lungs are clear. Electronically Signed: Jose Alfredo Adams MD at 15:02 EST , D/C Instructions Discharge Diet: Low fat / Low cholesterol Weight Bearing Status: Weight bearing as tolerated Call your doctor if you observe: Fever of 101 or Higher, Shortness of breath, Dizziness, Swelling in the ankles and Chest pain DC O2, CPAP, BIPAP Needs Home O2 Discharge instructions: No Meaningful Use Info Ischemic Stroke Statin Dosing Therapy Reference: STATIN DOSE THERAPY REFERENCE: * Patients > 75 years receive moderate or high dose statin therapy. * Patients 75 years or YOUNGER should receive HIGH intensity statin dose unless contraindicated. You will be required to document reason for non-treatment if statin daily dose does not meet guidelines. HIGH DOSE STATIN THERAPY DAILY Atorvastatin > than or = to 40 mg Rosuvastatin > than or = to 20 mg Amlodipine + Atorvastatin > than or = to 2.5/40 mg Ezetimibe + Simvastatin 10/80 mg Simvastatin 80mg Discharge Plan Admission Admit Date/Time: 04/20/24 17:45 Primary Reason for Your Visit: angina Attending Provider: Margie Balbuena Primary Care Provider: Anthony Ordaz Consulting Providers: Lili Islas Instructions Patient Instructions: Heart Attack Angina Sx, ED Angina, Stable Additional Instructions / Restrictions: Take your medications as prescribed. Take your blood pressure medication when you get home. Keep a close eye and a blood pressure keep a blood pressure log randomly writing her blood pressure down 2-3 times a day and what time it was when you obtain this blood pressure reading. Follow-up with the dispatcher clerk and have a repeat ultrasound of your heart and the stress test performed that you were supposed to have prior to starting cardiac rehab. Return with worsening symptoms or any other concerns. Follow up with her dispatcher clerk at [facility] within 1 week for further evaluation to determine whether to have a cardiac cath or otherwise Discharge Orders/Prescriptions Prescriptions: New carvedilol 6.25 mg Tablet 6.25 mg PO BID Qty: 60 2RF isosorbide mononitrate 30 mg Tablet Extended Release 24 Hr 30 mg PO DAILY Qty: 30 2RF Continued dapagliflozin propanediol [Farxiga] 10 mg tablet 10 mg PO QDAY Qty: 90 3RF sudanese elio PO PreserVision AREDS 4,296 mcg-226 mg-90 mg capsule 1 cap PO QDAY cyanocobalamin (vitamin B-12) 1,000 mcg capsule 1,000 mcg PO QDAY cholecalciferol (vitamin D3) 25 mcg (1,000 unit) capsule 25 mcg PO QDAY clopidogrel 75 mg tablet 75 mg PO DAILY aspirin 81 mg tablet,delayed release (DR/EC) 81 mg PO DAILY nitroglycerin 0.4 mg tablet, sublingual 0.4 mg sublingual Q5M PRN (Reason: chest pain) spironolactone 25 mg tablet 25 mg PO QDAY valsartan 160 mg tablet 40 mg PO QDAY Discontinued carvedilol 3.125 mg tablet 3.125 mg PO BID Qty: 180 3RF Rx Instructions: must administer with a meal/food metoprolol succinate 25 mg tablet extended release 24 hr 25 mg PO DAILY Referrals / Follow Up: Phyllis Cosby MD [Med Staff - Active Staff] - Within 1 Week Anthony Ordaz MD [Primary Care Provider] - Within 1 Week Disposition Disposition (needs filled in before D/C Order can be placed): Home, Self Care
--- NOTE | 2024-04-21 14:01 | DCINST_ITS ---
Discharge Instructions Diet Discharge Diet: Low fat / Low cholesterol DC O2, CPAP, BIPAP needs Home O2 Discharge instructions: No Dressing / Incision Discharge Activity: Return to Normal Activity Weight Bearing Status: Weight bearing as tolerated Dressing / Incision Call your doctor if you observe: Fever of 101 or Higher, Shortness of breath, Dizziness, Swelling in the ankles and Chest pain Follow Up Care Test Results: Test results from this visit will be discussed in further detail at your follow- up appointment, if applicable. Discharge Plan Admission Admit Date/Time: 04/20/24 17:45 Primary Reason for Your Visit: angina Attending Provider: Margie Balbuena Primary Care Provider: Anthony Ordaz Consulting Providers: Lili Islas Instructions Patient Instructions: Heart Attack Angina Sx, ED Angina, Stable Additional Instructions / Restrictions: Take your medications as prescribed. Take your blood pressure medication when you get home. Keep a close eye and a blood pressure keep a blood pressure log randomly writing her blood pressure down 2-3 times a day and what time it was when you obtain this blood pressure reading. Follow-up with the general repair mechanic and have a repeat ultrasound of your heart and the stress test performed that you were supposed to have prior to starting cardiac rehab. Return with worsening symptoms or any other concerns. Follow up with her general repair mechanic at [facility] within 1 week for further evaluation to determine whether to have a cardiac cath or otherwise Discharge Orders/Prescriptions Prescriptions: New carvedilol 6.25 mg Tablet 6.25 mg PO BID Qty: 60 2RF isosorbide mononitrate 30 mg Tablet Extended Release 24 Hr 30 mg PO DAILY Qty: 30 2RF Continued dapagliflozin propanediol [Farxiga] 10 mg tablet 10 mg PO QDAY Qty: 90 3RF norwegian elio PO PreserVision AREDS 4,296 mcg-226 mg-90 mg capsule 1 cap PO QDAY cyanocobalamin (vitamin B-12) 1,000 mcg capsule 1,000 mcg PO QDAY cholecalciferol (vitamin D3) 25 mcg (1,000 unit) capsule 25 mcg PO QDAY clopidogrel 75 mg tablet 75 mg PO DAILY aspirin 81 mg tablet,delayed release (DR/EC) 81 mg PO DAILY nitroglycerin 0.4 mg tablet, sublingual 0.4 mg sublingual Q5M PRN (Reason: chest pain) spironolactone 25 mg tablet 25 mg PO QDAY valsartan 160 mg tablet 40 mg PO QDAY Discontinued carvedilol 3.125 mg tablet 3.125 mg PO BID Qty: 180 3RF Rx Instructions: must administer with a meal/food metoprolol succinate 25 mg tablet extended release 24 hr 25 mg PO DAILY Referrals / Follow Up: Phyllis Cosby MD [Med Staff - Active Staff] - Within 1 Week Anthony Ordaz MD [Primary Care Provider] - Within 1 Week Disposition Disposition (needs filled in before D/C Order can be placed): Home, Self Care
--- NOTE | 2024-04-21 14:01 | PCM.DC.SUM ---
Providers Date of Admission: 04/20/24 Date of Discharge: 04/21/24 Primary Care Physician: Dr. Anthony Ordaz MD Reason For Visit: CHEST PAIN Diagnosis Discharge Diagnosis (1) Chest pain: Status: Acute Code(s): R07.9 - Chest pain, unspecified Medications at Discharge Home Medications aspirin 81 mg tablet,delayed release 81 mg PO DAILY 03/19/24 clopidogrel 75 mg tablet 75 mg PO DAILY 03/19/24 nitroglycerin 0.4 mg sublingual tablet 0.4 mg sublingual Q5M PRN chest pain 03/19/24 cholecalciferol (vitamin D3) 25 mcg (1,000 unit) capsule 25 mcg PO QDAY 04/05/24 cyanocobalamin (vitamin B-12) 1,000 mcg capsule 1,000 mcg PO QDAY 04/05/24 dapagliflozin propanediol 10 mg tablet (Farxiga) 10 mg PO QDAY #90 tabs 04/05/24 spironolactone 25 mg tablet 25 mg PO QDAY 04/05/24 somali elio PO 04/05/24 vitamins A,C,C-jbsh-gudkav 4,296 mcg-226 mg-90 mg capsule (PreserVision AREDS) 1 cap PO QDAY 04/05/24 valsartan 160 mg tablet 40 mg PO QDAY HTN 04/20/24 carvedilol 6.25 mg tablet 6.25 mg PO BID #60 tabs 04/21/24 isosorbide mononitrate 30 mg tablet,extended release 24 hr 30 mg PO DAILY #30 tabs 04/21/24 Hospital Course Operations None Procedures None Summary of Care Provided Minutes Spent on Discharge: 47 Hospital Course: Patient is a 73-year-old female with a past medical history as outlined including CAD s/p recent stents in March 2024 was admitted through the ED on 04/20/2024 with a complaint of chest pressure while start cardiac rehab on the day of admission. She complained of burning sensation in the middle of her chest with no radiation. She said it was similar to when she presented with a heart attack. She said she was at the doctor show done in [place] in March 2024 and subsequently started having chest pain. She was sent to [facility] on 03/11/2024 and 2D echo done showed EF of 35% with left ventricular systolic dysfunction and elevated left atrial pressure. Subsequently had a cardiac cath which showed 100% occlusion of the LAD with 70% stenosis of the first marginal lesion of the left circumflex and proximal RCA to mid RCA with 70% stenosis. She says she had stents placed in her maker and per the admitting note was to have planned staged PCI of the rest of the vessels. Patient says she was told she had 2 vessels of the back of her heart which were also significantly blocked and she would require stents put in. She had been started on valsartan but had not started taking it because she was concerned about medication interactions. She was also concerned that her symptoms were due to a GI etiology. On admission initial troponin was 49 with repeat being 72 and subsequently going up to around 112. Chest x-ray showed hyperinflation with no acute cardiopulmonary findings. EKG showed sinus rhythm with T wave inversions concerning for lateral ischemia. ED apparently discussed the case with patient's navigation officer down in [place] and was recommended that patient should have a stress test. She was also given a GI cocktail. In light of patient's having known CAD and having had a cardiac cath just about a month ago, this hospitalist question the benefit of having a stress test and by stress test would likely tell us that she had cardiac disease which was already known. This hospitalist did discuss it with the navigation officer on-call Dr. Benjamin. Per the discussion, cardiology did agree that the utility of a stress test was limited as patient already had known CAD and had recently had stents and was told that she had several more blocked vessels which she would need PCI for. Cardiology therefore commended that patient should have her carvedilol dose increased from 3.125 mg twice daily to 6.25 mg twice daily and to be started on Imdur 30 mg daily for anginal symptoms. Patient was then subsequently to follow-up with her navigation officer down in [facility] for discussion about staged PCI of the rest of the vessels. Patient could also alternatively opt to follow-up with cardiology at [facility] if she is her preferred. The plan was extensively discussed with patient and her . They agreed to this plan we agreeable to discharge. Patient subsequently did complain of chest pain again. Troponin was checked and was only 55. EKG done still showed lateral ischemia which was similar to previous EKGs. Her symptoms do improve with PPI. She was therefore discharged on 04/21/2024. She is to follow-up with her primary care doctor and follow-up with cardiology within 1 week for further workup as needed. Patient seen and examined prior to discharge. She had no active complaints was very anxious. Review of systems otherwise negative. Labs and vitals reviewed. Medication reviewed and reconciled. Physical Exam Const alert and oriented x3 Constitutional Narrative: Very anxious Orientation / Consciousness: awake HEENT normocephalic, head/scalp atraumatic, hearing grossly normal bilaterally and moist oral mucous membranes Mouth: oral and palatal mucosa normal Eyes PERRL, EOMs intact bilaterally and conjunctivae normal Resp normal respiratory effort, no use of accessory muscles and clear to auscultation bilaterally Cardio regular rate, regular rhythm, S1 normal heart sound, S2 normal heart sound and no murmurs GI normal to inspection, nondistended, normoactive bowel sounds, soft to palpation and non-distended Extremity normal to inspection, full ROM and no clubbing, cyanosis or edema Skin no rashes or lesions noted and no wounds Neuro oriented x3, CN's II-XII intact bilaterally, moves all extremities and no focal motor deficits Sensorium / Orientation: awake and alert Motor Exam: strength 5/5 throughout Psych Mood & Affect: anxious Weight / BMI Weight Weight: 122 lb 12.76 oz Body Mass Index (BMI) 21.7 ABG / Lab / Microbiology Data 04/21/24 04:44 04/21/24 04:44 Laboratory: Laboratory Results - last 24 hr 04/20/24 16:39: Magnesium 2.7 H, Troponin I High Sens 72 H 04/20/24 19:37: Troponin I High Sens 112 H 04/21/24 04:44: WBC 4.3 L, RBC 4.17 L, Hgb 12.3, Hct 36.5 L, MCV 87.5, MCH 29.5, MCHC 33.7, RDW Std Deviation 42.2, RDW Coeff of Shruti 13.2, Plt Count 198, MPV 10.4, Immature Gran % (Auto) 0.000, Neut % (Auto) 52.1, Lymph % (Auto) 29.6, [place] % (Auto) 13.8 H, Eos % (Auto) 3.3, Baso % (Auto) 1.2 H, Absolute Neuts (auto) 2.2, Absolute Lymphs (auto) 1.27, Nucleated RBC % 0, Sodium 141, Potassium 4.1, Chloride 109 H, Carbon Dioxide 28.0, Anion Gap 5, BUN 14, Creatinine 1.09 H, Estim Creat Clear Calc 39.16, Est GFR (MDRD) Af Amer 64, Est GFR (MDRD) Non-Af 53 L, BUN/Creatinine Ratio 12.8, Glucose 80, Calcium 9.3, Total Bilirubin 0.90, AST 23, ALT 28, Alkaline Phosphatase 72, Total Protein 6.7, Albumin 3.6, Globulin 3.1, Albumin/Globulin Ratio 1.2, Triglycerides 62, Cholesterol 193, LDL Cholesterol 133 H, VLDL Cholesterol 12, HDL Cholesterol 48 04/21/24 10:40: Troponin I High Sens 55 H Radiography Diagnostic Testing: Radiology Impression Chest X-Ray 04/20/24 14:48 IMPRESSION: Hyperinflation. The lungs are clear. Electronically Signed: Jose Alfredo Adams MD at 15:02 EST Reading Location ID and State: [facility] / MD , Service support , D/C Instructions Discharge Diet: Low fat / Low cholesterol Discharge Activity: Return to Normal Activity Weight Bearing Status: Weight bearing as tolerated Call your doctor if you observe: Fever of 101 or Higher, Shortness of breath, Dizziness, Swelling in the ankles and Chest pain DC O2, CPAP, BIPAP Needs Home O2 Discharge instructions: No DC home with Oxygen: No Meaningful Use Info Meaningful Use Meaningful Use Diagnoses (Choose all that apply): None applicable Ischemic Stroke Statin Dosing Therapy Reference: STATIN DOSE THERAPY REFERENCE: * Patients > 75 years receive moderate or high dose statin therapy. * Patients 75 years or YOUNGER should receive HIGH intensity statin dose unless contraindicated. You will be required to document reason for non-treatment if statin daily dose does not meet guidelines. HIGH DOSE STATIN THERAPY DAILY Atorvastatin > than or = to 40 mg Rosuvastatin > than or = to 20 mg Amlodipine + Atorvastatin > than or = to 2.5/40 mg Ezetimibe + Simvastatin 10/80 mg Simvastatin 80mg Discharge Plan Admission Admit Date/Time: 04/20/24 17:45 Primary Reason for Your Visit: angina Attending Provider: Margie Balbuena Primary Care Provider: Ordaz,Anthony Consulting Providers: Lili Islas Instructions Patient Instructions: Heart Attack Angina Sx, ED Angina, Stable Additional Instructions / Restrictions: Take your medications as prescribed. Take your blood pressure medication when you get home. Keep a close eye and a blood pressure keep a blood pressure log randomly writing her blood pressure down 2-3 times a day and what time it was when you obtain this blood pressure reading. Follow-up with the navigation officer and have a repeat ultrasound of your heart and the stress test performed that you were supposed to have prior to starting cardiac rehab. Return with worsening symptoms or any other concerns. Follow up with her navigation officer at [facility] within 1 week for further evaluation to determine whether to have a cardiac cath or otherwise Discharge Orders/Prescriptions Prescriptions: New carvedilol 6.25 mg Tablet 6.25 mg PO BID Qty: 60 2RF isosorbide mononitrate 30 mg Tablet Extended Release 24 Hr 30 mg PO DAILY Qty: 30 2RF Continued dapagliflozin propanediol [Farxiga] 10 mg tablet 10 mg PO QDAY Qty: 90 3RF somali elio PO PreserVision AREDS 4,296 mcg-226 mg-90 mg capsule 1 cap PO QDAY cyanocobalamin (vitamin B-12) 1,000 mcg capsule 1,000 mcg PO QDAY cholecalciferol (vitamin D3) 25 mcg (1,000 unit) capsule 25 mcg PO QDAY clopidogrel 75 mg tablet 75 mg PO DAILY aspirin 81 mg tablet,delayed release (DR/EC) 81 mg PO DAILY nitroglycerin 0.4 mg tablet, sublingual 0.4 mg sublingual Q5M PRN (Reason: chest pain) spironolactone 25 mg tablet 25 mg PO QDAY valsartan 160 mg tablet 40 mg PO QDAY Discontinued carvedilol 3.125 mg tablet 3.125 mg PO BID Qty: 180 3RF Rx Instructions: must administer with a meal/food metoprolol succinate 25 mg tablet extended release 24 hr 25 mg PO DAILY Referrals / Follow Up: Phyllis Cosby MD [Med Staff - Active Staff] - Within 1 Week Anthony Ordaz MD [Primary Care Provider] - Within 1 Week Disposition Disposition (needs filled in before D/C Order can be placed): Home, Self Care Charges/Coding Visit Charges Inpatient E&M: 09973 Disch Hosp >30min
== END 2024-04-21 13:58 | disposition home or self-care (01) ==
LOC: ED 15:00 → PCU 18:02
PROVIDERS: Admitting Provider Family Medicine; Emergency Provider Emergency Medicine; PCP Family Medicine; Visit Provider Student in an Organized Health Care Education/Training Program
DX: R07.89 Other chest pain (principal); I25.5 Ischemic cardiomyopathy; E78.5 Hyperlipidemia, unspecified; G43.709 Chronic migraine without aura, not intractable, without status migrainosus; I10 Essential (primary) hypertension; Z79.02 Long term (current) use of antithrombotics/antiplatelets; Z79.82 Long term (current) use of aspirin; I25.10 Atherosclerotic heart disease of native coronary artery without angina pectoris; I25.2 Old myocardial infarction; Z79.899 Other long term (current) drug therapy; Z95.5 Presence of coronary angioplasty implant and graft
CPT/HCPCS: 36415; 71046; 80048; 80053; 80061; 83735; 83880; 84484; 85025; 93005; 94668; 99221; 99285; A4216; G0378

== ENCOUNTER 2024-04-20 14:26 | Outpatient (RCR) | payer OTHER, SELFPAY ==
[2024-04-18 09:13] VITALS: BMI 21.8
== END 2024-05-01 23:59 ==
LOC: CR 14:26
PROVIDERS: PCP Family Medicine; Referring Provider Internal Medicine Cardiovascular Disease; Visit Provider Internal Medicine Cardiovascular Disease
DX: Z95.5 Presence of coronary angioplasty implant and graft (principal); I25.5 Ischemic cardiomyopathy; I25.10 Atherosclerotic heart disease of native coronary artery without angina pectoris
CPT/HCPCS: 93798

== ENCOUNTER → 2024-04-27 | Outpatient (CLI) | payer OTHER, SELFPAY ==
[2024-04-18 09:13] VITALS: BMI 21.8
== END | disposition home or self-care (01) ==
LOC: MTLAB 11:31
PROVIDERS: PCP Family Medicine; Referring Provider Family Medicine; Visit Provider Family Medicine
DX: R10.13 Epigastric pain (principal)

== ENCOUNTER → 2024-04-30 | Outpatient (CLI) | payer OTHER, SELFPAY ==
[2024-04-18 09:13] VITALS: BMI 21.8
[2024-05-04 08:09] LABS: H. PYLORI STOOL AG Negative (Negative)
== END | disposition home or self-care (01) ==
LOC: LABSPEC 12:02
PROVIDERS: PCP Family Medicine; Referring Provider Family Medicine; Visit Provider Family Medicine
DX: R10.13 Epigastric pain (principal)
CPT/HCPCS: 87338

== ENCOUNTER 2024-06-01 13:00 | Outpatient (RCR) | payer OTHER, SELFPAY ==
[2024-04-18 09:13] VITALS: BMI 21.8
--- NOTE | 2024-05-17 08:24 | CR.ITP_ITS ---
Exercise - Initial Assessment Physician Prescribed Exercise Modalities: Treadmill, Schwinn Airdyne AD-7 and SciFit Stepper Nutrition - Initial Assessment Weight Mgt (Other Care) Height: 5 ft 3.75 in Weight:: 126 lb BMI: 21.8 Psychosocial - Initial Assess Target Goals Target Goals Referral to Behavioral Health PS - Interventions: Yes: Attend Stress Management Classes Patient Health Questionnaire PHQ-9 Screening 30-Day Re-eval Assessment: 1. Little interest or pleasure in doing things: Not at all 2. Feeling down, depressed, or hopeless: Not at all 3. Trouble falling or staying asleep, or sleeping too much: Several days 4. Feeling tired or having little energy: Several days 5. Poor appetite or overeating: Not at all 6. Feeling bad about yourself -- or that you are a failure or have let yourself or your family down: Not at all 7. Trouble concentrating on things, such as reading the newspaper or watching television: Not at all 8. Moving or speaking so slowly that other people could have noticed. Or the opposite - being so fidgety or restless that you have been moving around a lot more than usual: Not at all 9. Thoughts that you would be better off , or of hurting yourself in some way: Not at all How difficult have these problems made it for you to do your work, take care of things at home, or get along with other people?: Not difficult at all Total Score: 2 Self-Efficacy 6-Item Scale 30-Day Re-eval Assessment: We would like to know how confident you are in doing certain activities. Please select your confidence level for: Fatigue Select Number: 10 Physical Discomfort or Pain Select Number: 10 Emotional Distress Select Number: 10 Other Symptoms or Health Problems Select Number: 10 Different Tasks and Activities Select Number: 10 Medication Select Number: 10 Total Score:: 10 Nutrition Survey Nutrition Survey Instructions Scoring Instructions Exercise - 30-day Assessment Visit Date of Eval: 05/17/24 Session #:: 5 Physician Prescribed Exercise Modalities: Treadmill, Schwinn Airdyne AD-7 and SciFit Stepper Frequency: 3x/week for 12 weeks [36 sessions] Intensity: 60-80% of age predicted maximum heart rate reserve Duration: 30 - 45 minutes Current METSs:: 4.3 Target Heart Rate:: 89-112 Current RPE:: 10-12 Maximum Excercise HR:: 100 Resting Blood Pressure: 140/88 Maximum Exercise Blood Pressure: 142/70 EKG Type: NSR to ST with rare PVC/PAC Outcomes & Goals Goals:: Verbalizes understanding of THR, RPE & goal METS by session 6, Documents in home exercise log/reports 30 min aerobic 5 day/wk by DC, Demonstrates accurate pulse taking by DC and Other additional outcome/goals: see below Intervention & Plan Exercise Program Goals: Instruct on personal THR & RPE, Instruct on MET level & personal MET goal, Show patient to take own pulse /validate performance until accurate, Instruct on home exercise and Other additional plan/int Physical Activity Home Exercise Physical Activity - Home Exercise: Safe Exercise, Warm-up, Self-monitoring, Cool-Down, Home Exercise > 30 min Daily and Sitting Time <3 hours/daily Outcomes & Goals Outcomes/Goals: Demonstrates correct Warm-up/exercise Cool-Down (S3) if = 2.5 METs, Verbalizes symptoms of exercise intolerance by Session 3 (S3), Demonstrate safe equipment use (S3) & follows exercise prescrition (6) and Other: See below Intervention & Plan Plan/Intervention: Instruct warm-up & cool-down if exercising at > 2 METs, Instruct on symptoms of exercise intolerance & actions to take, Instruct & monitor on saf, Assess intial functional capacity & safety risk and Other See below 30-day Reassessments 30 day Reassessments:: Progressing Reassessment Notes & Comments:: RPE explained to pt. Pt demonstrates understanding. Exercise - 60-day Assessment Physician Prescribed Exercise Modalities: Treadmill, Schwinn Airdyne AD-7 and SciFit Stepper Exercise - 90-day Assessment Physician Prescribed Exercise Modalities: Treadmill, Schwinn Airdyne AD-7 and SciFit Stepper Exercise - Final/Discharge Physician Prescribed Exercise Modalities: Treadmill, Schwinn Airdyne AD-7 and SciFit Stepper Nutrition - 30-Day Assessment Program Goals Nutrition Program Goals Patient has diagnosis of Hyperlipidemia (ICD E78)?: Yes Visit Date of Eval: 05/17/24 Session #:: 5 Cholesterol/Lipids (Other Core Measures) Determine presence & major risk factors that modify LDL goal: Hypertension or hypertensive medication, Low HDL cholesterol <40 mg/dL*, Family history of premature CHD in Male < 55 years: female <65 yearsFa and Age men > 45 years; women >/= 55 years Outcomes/Goals: Pt IDs own risk factors & lifestyle modifications by Session 10, Verbalizes symptoms of angina & response by session 3., Pt independently manages and Other Additional Outcomes/Goals: Intervention/Plan: Advocate for lipid panel cholesterol medication if applicable, Instruct on personal lipid levels & lipid goals/NCEP guidelines, Instruct on cholesterol and Other additional plan/int Diabetes (Other Core Measures) Diabetes Type: Not Applicable Weight Mgt (Other Care) Height: 5 ft 3.75 in Weight:: 126 lb BMI: 21.8 Diagnosis Overweight/Obesity BMI> 30% ICD-10 E66: No Diagnosis High BMI/Morbid Obesity BMI> 35% ICD-10 Z68: No Outcomes/Goals: Pt sets, maintains & shows weight loss goal & trend during rehab and Other additional outcomes/goals Intervention/Plan: Instruct on ideal BMI & set weight loss goal w/patient, Assist pt to ID & incorporate diet changes for weight loss by S9, Refer to Structured Weight Loss program as appropriate, Encourage goal of using 250- 300dcal per session for weight loss and Other additional plan/interventions Healthy Eating Habits Will attend diet classes:: Yes Outcomes/Goals:: Consume diet rich in vegs,fruits,whole grain/high fiber,fish,lean meat, Limit sat/trans fats,cholesterol & added salts & sugars and Other additional outcome/goals: Intervention/Plan:: Assess current eating habits and Other Additional plan/interventions 30-day Reassessments:: Progressing Reassessment Notes & Comments:: Pt is scheduled to attend nutrition class. Pt is dealing with gastrointestinal issues and will be seeing a program host through her physician. Education Gave educational materials for:: Signs & symptoms of hypoglycemia, Signs & symptoms of hyperglycemia, Relate diabetes to coronary artery disease and Healthy eating Nutrition - 60-Day Assessment Weight Mgt (Other Care) Height: 5 ft 3.75 in Weight:: 126 lb BMI: 21.8 Core - 30-Day Assessment Medication Compliance Preventative Medication(s):: Aspirin, Clopidogrel/P2Y12 inhibit and Beta ayo H/O mental health issues: depression, anxiety, or addiction?: Yes Doesn?t believe in the benefits of treatment?: No Believes medications are unnecessary or harmful?: No Has a concern about medication side effects?: No Expresses concern over the cost of medications?: No Outcomes/Goals: Verbalizes medications,desired effect & common side effects @ D C, Pt self-reports following medication regimen, Keeps card in wallet w/medications listed by DC and Other additional outcome/goals: Interventions/plans: Instruct on medication effects & side effects, Review medication list w/patient every two weeks, Instruct importance of taking meds as ordered & assist problem solving and Other additional Tobacco Use Tobacco Use: Non-smoker Hypertension Hypertension Diagnosis:: Hypertension ICD-10 I10 Resting Blood Pressure:: 140/88 [place] [employer] Hypertension Guidelines Peak Exercise Blood Pressure:: 142/70 Outcomes/Goals: Able to verbalize/achieve optimal blood pressure <130/80, Incorporates diet changes & exercise for blood pressure control by DC and Other additional outcomes/goals Interventions/plan: Instruct on optimal blood pressure, hypertension & medications, Instruct on effects of sodium, alcohol, stress, exercise &hypertension and Other additional plan/interventions 30 day Reassessments:: Progressing Reassessment Notes & Comments:: Pt is encouraged to eat a low sodium heart healthy diet to help lower her BP. Will continue to monitor her BP's and report to her physician if necessary. Tobacco Cessation Referral Smoking Cessation Referral:: No Individual Education/Counseling:: No Education Schedule Given:: Yes Psychosocial - 30-Day Assess VIsit Date of Eval: 05/17/24 Session #:: 5 History of previous Mental disease:: Yes History of Emotional Disorders: Anxious Target Goals Target Goals Psychosocial Test Tool Used:: [employer] QOL Cardiac and PHQ-9 Questionnaire phq-9 Severity Referral to Behavioral Health PS - Interventions: Yes: Attend Stress Management Classes Outcomes/Goals: See list Psychosocial Outcomes/Goals:: ID's personal stressors & 2 strategies to manage stress by discharge and Other Additional outcome/goals: Intervention/Plan: See List Interventions/Plan:: Assess stressors,coping strategies & signs of derpression on admission, Instruct/assist pt to develop coping & personal stress Angelique lares, Refer to Behavioral Health if appropriate, Refer to Physician if appropriate, Instruct patient to recognize signs & symptoms of depression, Instruct patient to recog and Other additional plan/intervention 30-day Reassessments: 30 day Reassessments:: Progressing Reassessment Notes & Comments:: Pt is scheduled to attend stress management class. Encourage pt to meditate and exercise to help reduce stress. Psychosocial - 60-Day Assess Target Goals Target Goals Referral to Behavioral Health PS - Interventions: Yes: Attend Stress Management Classes Outcomes/Goals: See list Psychosocial Outcomes/Goals:: ID's personal stressors & 2 strategies to manage stress by discharge and Other Additional outcome/goals: Psychosocial - 90-Day Assess Target Goals Target Goals Referral to Behavioral Health PS - Interventions: Yes: Attend Stress Management Classes Psychosocial - Final Assessmen Target Goals Target Goals Referral to Behavioral Health PS - Interventions: Yes: Attend Stress Management Classes Nutrition - 90-Day Assessment Weight Mgt (Other Care) Height: 5 ft 3.75 in Weight:: 126 lb BMI: 21.8 Nutrition - Final Assessment Weight Mgt (Other Care) Height: 5 ft 3.75 in Weight:: 126 lb BMI: 21.8
[2024-05-17 08:43] VITALS: BP 140/88; BMI 21.8
== END 2024-06-01 23:59 ==
LOC: CR 13:00
PROVIDERS: PCP Family Medicine; Referring Provider Internal Medicine Cardiovascular Disease; Visit Provider Internal Medicine Cardiovascular Disease
DX: Z95.5 Presence of coronary angioplasty implant and graft (principal); I25.5 Ischemic cardiomyopathy; I25.10 Atherosclerotic heart disease of native coronary artery without angina pectoris

== ENCOUNTER 2024-06-22 13:00 | Outpatient (RCR) | payer OTHER, SELFPAY ==
[2024-05-17 08:43] VITALS: BMI 21.8
[2024-06-02 02:30] VITALS: BP 140/88
--- NOTE | 2024-06-18 08:04 | CR.ITP_ITS ---
Exercise - Initial Assessment Physician Prescribed Exercise Modalities: Treadmill, SciFit Stepper and SciFit Lateral [place] Nutrition - Initial Assessment Weight Mgt (Other Care) Height: 5 ft 3.75 in Weight:: 125 lb 8 oz BMI: 21.7 Core - Initial Assessment Hypertension Resting Blood Pressure:: 156/60 [employer] Hypertension Guidelines Psychosocial - Initial Assess Target Goals Target Goals Referral to Behavioral Health PS - Interventions: Yes: Attend Stress Management Classes Patient Health Questionnaire PHQ-9 Screening 60-Day Re-eval Assessment: 1. Little interest or pleasure in doing things: Not at all 2. Feeling down, depressed, or hopeless: Not at all 3. Trouble falling or staying asleep, or sleeping too much: Several days 4. Feeling tired or having little energy: Several days 5. Poor appetite or overeating: Not at all 6. Feeling bad about yourself -- or that you are a failure or have let yourself or your family down: Not at all 7. Trouble concentrating on things, such as reading the newspaper or watching television: Not at all 8. Moving or speaking so slowly that other people could have noticed. Or the opposite - being so fidgety or restless that you have been moving around a lot more than usual: Not at all 9. Thoughts that you would be better off , or of hurting yourself in some way: Not at all How difficult have these problems made it for you to do your work, take care of things at home, or get along with other people?: Not difficult at all Total Score: 2 Self-Efficacy 6-Item Scale 60-Day Re-eval Assessment: We would like to know how confident you are in doing certain activities. Please select your confidence level for: Fatigue Select Number: 10 Physical Discomfort or Pain Select Number: 10 Emotional Distress Select Number: 10 Other Symptoms or Health Problems Select Number: 10 Different Tasks and Activities Select Number: 10 Medication Select Number: 10 Total Score:: 10 Nutrition Survey Nutrition Survey Instructions Scoring Instructions Exercise - 30-day Assessment Physician Prescribed Exercise Modalities: Treadmill, SciFit Stepper and SciFit Lateral [employer] Exercise - 60-day Assessment Visit Date of Eval: 06/18/24 Session #:: 14 Physician Prescribed Exercise Modalities: Treadmill, SciFit Stepper and SciFit Lateral [place] Frequency: 3x/week for 12 weeks [36 sessions] Intensity: 60-80% of age predicted maximum heart rate reserve Duration: 30 - 45 minutes Current METSs:: 5 Target Heart Rate:: 89-112 Current RPE:: 11-12.5 Maximum Excercise HR:: 109 Resting Blood Pressure: 128/72 Maximum Exercise Blood Pressure: 156/60 EKG Type: NSR to ST with rare PVC/PAC Outcomes & Goals Goals:: Verbalizes understanding of THR, RPE & goal METS by session 6, Documents in home exercise log/reports 30 min aerobic 5 day/wk by DC, Demonstrates accurate pulse taking by DC and Other additional outcome/goals: see below Intervention & Plan Exercise Program Goals: Instruct on personal THR & RPE, Instruct on MET level & personal MET goal, Show patient to take own pulse /validate performance until accurate, Instruct on home exercise and Other additional plan/int Physical Activity Home Exercise Physical Activity - Home Exercise: Safe Exercise, Warm-up, Self-monitoring, Cool-Down, Home Exercise > 30 min Daily and Sitting Time <3 hours/daily Outcomes & Goals Outcomes/Goals: Demonstrates correct Warm-up/exercise Cool-Down (S3) if = 2.5 METs, Verbalizes symptoms of exercise intolerance by Session 3 (S3), Demonstrate safe equipment use (S3) & follows exercise prescrition (6) and Other: See below Intervention & Plan Plan/Intervention: Instruct warm-up & cool-down if exercising at > 2 METs, Instruct on symptoms of exercise intolerance & actions to take, Instruct & monitor on saf, Assess intial functional capacity & safety risk and Other See below 30-day Reassessments 30 day Reassessments:: Progressing Reassessment Notes & Comments:: Proper warmup explained and demonstrated to pt. Pt is able to return demonstration. Exercise - 90-day Assessment Physician Prescribed Exercise Modalities: Treadmill, SciFit Stepper and SciFit Lateral [place] Exercise - Final/Discharge Physician Prescribed Exercise Modalities: Treadmill, SciFit Stepper and SciFit Lateral [place] Nutrition - 30-Day Assessment Weight Mgt (Other Care) Height: 5 ft 3.75 in Weight:: 125 lb 8 oz BMI: 21.7 Nutrition - 60-Day Assessment Program Goals Nutrition Program Goals Patient has diagnosis of Hyperlipidemia (ICD E78)?: Yes Visit Date of Eval: 06/18/24 Session #:: 14 Cholesterol/Lipids (Other Core Measures) Determine presence & major risk factors that modify LDL goal: Hypertension or hypertensive medication, Low HDL cholesterol <40 mg/dL*, Family history of premature CHD in Male < 55 years: female <65 yearsFa and Age men > 45 years; women >/= 55 years Outcomes/Goals: Pt IDs own risk factors & lifestyle modifications by Session 10, Verbalizes symptoms of angina & response by session 3., Pt independently manages and Other Additional Outcomes/Goals: Intervention/Plan: Advocate for lipid panel cholesterol medication if applicable, Instruct on personal lipid levels & lipid goals/NCEP guidelines, Instruct on cholesterol and Other additional plan/int Diabetes (Other Core Measures) Diabetes Type: Not Applicable Weight Mgt (Other Care) Height: 5 ft 3.75 in Weight:: 125 lb 8 oz BMI: 21.7 Diagnosis Overweight/Obesity BMI> 30% ICD-10 E66: No Diagnosis High BMI/Morbid Obesity BMI> 35% ICD-10 Z68: No Outcomes/Goals: Pt sets, maintains & shows weight loss goal & trend during rehab and Other additional outcomes/goals Intervention/Plan: Instruct on ideal BMI & set weight loss goal w/patient, Assist pt to ID & incorporate diet changes for weight loss by S9, Refer to Structured Weight Loss program as appropriate, Encourage goal of using 250- 300dcal per session for weight loss and Other additional plan/interventions Healthy Eating Habits Will attend diet classes:: Yes Outcomes/Goals:: Consume diet rich in vegs,fruits,whole grain/high fiber,fish,lean meat, Limit sat/trans fats,cholesterol & added salts & sugars and Other additional outcome/goals: Intervention/Plan:: Assess current eating habits and Other Additional plan/interventions 30-day Reassessments:: Progressing Reassessment Notes & Comments:: Pt is scheduled to attend nutrition this week. Low sodium heart healthy diet encouraged. Education Gave educational materials for:: Signs & symptoms of hypoglycemia, Signs & symptoms of hyperglycemia, Relate diabetes to coronary artery disease and Healthy eating Core - Final Assessment Hypertension Resting Blood Pressure:: 156/60 [employer] Hypertension Guidelines Core - 60-Day Assessment Visit Date of Eval: 06/18/24 Session #:: 14 Medication Compliance Preventative Medication(s):: Aspirin, Clopidogrel/P2Y12 inhibit and Beta ayo H/O mental health issues: depression, anxiety, or addiction?: Yes Doesn?t believe in the benefits of treatment?: No Believes medications are unnecessary or harmful?: No Has a concern about medication side effects?: No Expresses concern over the cost of medications?: No Outcomes/Goals: Verbalizes medications,desired effect & common side effects @ DC, Pt self-reports following medication regimen, Keeps card in wallet w/medications listed by DC and Other additional outcome/goals: Interventions/plans: Instruct on medication effects & side effects, Review me dication list w/patient every two weeks, Instruct importance of taking meds as ordered & assist problem solving and Other additional Tobacco Use Tobacco Use: Non-smoker Hypertension Hypertension Diagnosis:: Hypertension ICD-10 I10 Resting Blood Pressure:: 128/72 Resting Blood Pressure:: 156/60 [employer] Hypertension Guidelines Outcomes/Goals: Able to verbalize/achieve optimal blood pressure <130/80, Incorporates diet changes & exercise for blood pressure control by DC and Other additional outcomes/goals 30 day Reassessments:: Progressing Reassessment Notes & Comments:: Low sodium diet encouraged to help lower BP. Will send BP report to pt's physician if no improvement. Tobacco Cessation Referral Smoking Cessation Referral:: No Individual Education/Counseling:: No Education Schedule Given:: Yes Psychosocial - 30-Day Assess Target Goals Target Goals Referral to Behavioral Health PS - Interventions: Yes: Attend Stress Management Classes Outcomes/Goals: See list Psychosocial Outcomes/Goals:: ID's personal stressors & 2 strategies to manage stress by discharge and Other Additional outcome/goals: Psychosocial - 60-Day Assess VIsit Date of Eval: 06/18/24 Session #:: 14 History of previous Mental disease:: Yes History of Emotional Disorders: Anxious Target Goals Target Goals Psychosocial Test Tool Used:: [employer] QOL Cardiac and PHQ-9 Questionnaire phq-9 Severity See PHQ-9 Score: 2 Referral to Behavioral Health PS - Interventions: Yes: Attend Stress Management Classes Outcomes/Goals: See list Psychosocial Outcomes/Goals:: ID's personal stressors & 2 strategies to manage stress by discharge and Other Additional outcome/goals: Intervention/Plan: See List Interventions/Plan:: Assess stressors,coping strategies & signs of derpression on admission, Instruct/assist pt to develop coping & personal stress Mgt strategies, Refer to Behavioral Health if appropriate, Refer to Physician if appropriate, Instruct patient to recognize signs & symptoms of depression, Instruct patient to recog and Other additional plan/intervention Comments:: Pt encouraged to meditate and exercise to reduce stress. PHQ9 score of 2. Psychosocial - 90-Day Assess Target Goals Target Goals Referral to Behavioral Health PS - Interventions: Yes: Attend Stress Management Classes Psychosocial - Final Assessmen Target Goals Target Goals Referral to Behavioral Health PS - Interventions: Yes: Attend Stress Management Classes Nutrition - 90-Day Assessment Weight Mgt (Other Care) Height: 5 ft 3.75 in Weight:: 125 lb 8 oz BMI: 21.7 Nutrition - Final Assessment Weight Mgt (Other Care) Height: 5 ft 3.75 in Weight:: 125 lb 8 oz BMI: 21.7
[2024-06-18 08:16] VITALS: BP 128/72; BP 156/60; BMI 21.7
== END 2024-06-29 23:59 ==
LOC: CR 13:00
PROVIDERS: PCP Family Medicine; Referring Provider Internal Medicine Cardiovascular Disease; Visit Provider Internal Medicine Cardiovascular Disease
DX: Z95.5 Presence of coronary angioplasty implant and graft (principal); I25.5 Ischemic cardiomyopathy; I25.10 Atherosclerotic heart disease of native coronary artery without angina pectoris
CPT/HCPCS: 93798

== ENCOUNTER → 2024-07-02 | Outpatient (CLI) | payer OTHER, SELFPAY ==
[2024-06-18 08:16] VITALS: BMI 21.7
[2024-07-02 21:22] LABS: Albumin, Serum 4.7 g/dL (3.4-4.8); BUN 18 mg/dL (4-19); BUN/Creat Ratio 19.3 RATIO (10-20); Creatinine, Serum 0.95 mg/dL (0.70-1.20); EST Glomerular Filtration Rate 64 (>60); Glucose 102 mg/dL (70-99); Protein, Total 7.7 g/dL (5.9-8.4)
[2024-07-02 21:23] LABS: ALB/GLOB Ratio 1.5 RATIO (0.9-2.4); AST(SGOT) 40 U/L (<=31); Alanine Aminotransfer ALT/SGPT 29 U/L (<=34); Alkaline Phosphatase 79 U/L (35-104); Globulin 3.1 g/dL (2.2-4.2); Magnesium 3.1 mg/dL (1.5-2.2); Total Bilirubin 0.72 mg/dL (0.00-1.30)
[2024-07-02 22:02] LABS: Anion Gap 14 (5-15); Carbon Dioxide 28.3 mmol/L (21.0-32.0); Chloride 98 mmol/L (98-108); Potassium 4.4 mmol/L (3.3-5.1); Sodium Level 140 mmol/L (133-145)
== END | disposition home or self-care (01) ==
LOC: MTLAB 15:58
PROVIDERS: PCP Family Medicine; Referring Provider Family Medicine; Visit Provider Family Medicine
DX: I10 Essential (primary) hypertension (principal)
CPT/HCPCS: 36415; 80053; 83735

== ENCOUNTER 2024-07-30 13:00 | Outpatient (RCR) | payer OTHER, SELFPAY ==
[2024-06-18 08:16] VITALS: BMI 21.7
[2024-06-30 02:34] VITALS: BP 128/72; BP 140/88; BP 156/60
--- NOTE | 2024-07-16 08:32 | CR.ITP_ITS ---
Exercise - Initial Assessment Physician Prescribed Exercise Modalities: Treadmill, SciFit Stepper and SciFit Lateral [place] Nutrition - Initial Assessment Weight Mgt (Other Care) Height: 5 ft 3.75 in Weight:: 125 lb BMI: 21.6 Psychosocial - Initial Assess Target Goals Target Goals Referral to Behavioral Health PS - Interventions: Yes: Attend Stress Management Classes Patient Health Questionnaire PHQ-9 Screening 90-Day Re-eval Assessment: 1. Little interest or pleasure in doing things: Not at all 2. Feeling down, depressed, or hopeless: Not at all 3. Trouble falling or staying asleep, or sleeping too much: Several days 4. Feeling tired or having little energy: Several days 5. Poor appetite or overeating: Not at all 6. Feeling bad about yourself -- or that you are a failure or have let yourself or your family down: Not at all 7. Trouble concentrating on things, such as reading the newspaper or watching television: Not at all 8. Moving or speaking so slowly that other people could have noticed. Or the opposite - being so fidgety or restless that you have been moving around a lot more than usual: Not at all 9. Thoughts that you would be better off , or of hurting yourself in some way: Not at all How difficult have these problems made it for you to do your work, take care of things at home, or get along with other people?: Not difficult at all Total Score: 2 Self-Efficacy 6-Item Scale 90-Day Re-eval Assessment: We would like to know how confident you are in doing certain activities. Please select your confidence level for: Fatigue Select Number: 10 Physical Discomfort or Pain Select Number: 10 Emotional Distress Select Number: 10 Other Symptoms or Health Problems Select Number: 10 Different Tasks and Activities Select Number: 10 Medication Select Number: 10 Total Score:: 10 Nutrition Survey Nutrition Survey Instructions Scoring Instructions Exercise - 30-day Assessment Physician Prescribed Exercise Modalities: Treadmill, SciFit Stepper and SciFit Lateral Mold Release Worker Exercise - 60-day Assessment Physician Prescribed Exercise Modalities: Treadmill, SciFit Stepper and SciFit Lateral Mold Release Worker Exercise - 90-day Assessment Visit Date of Eval: 07/16/24 Session #:: 22 Physician Prescribed Exercise Modalities: Treadmill, SciFit Stepper and SciFit Lateral [place] Frequency: 3x/week for 12 weeks [36 sessions] Intensity: 60-80% of age predicted maximum heart rate reserve Duration: 30 - 45 minutes Current METSs:: 7 Target Heart Rate:: 89-119 Current RPE:: 12 Maximum Excercise HR:: 116 Resting Blood Pressure: 132/70 Maximum Exercise Blood Pressure: 160/90 EKG Type: NSR to ST with rare PAC/PVC Outcomes & Goals Goals:: Verbalizes understanding of THR, RPE & goal METS by session 6, Documents in home exercise log/reports 30 min aerobic 5 day/wk by DC, Demonstrates accurate pulse taking by DC and Other additional outcome/goals: see below Intervention & Plan Exercise Program Goals: Instruct on personal THR & RPE, Instruct on MET level & personal MET goal, Show patient to take own pulse /validate performance until accurate, Instruct on home exercise and Other additional plan/int Physical Activity Home Exercise Physical Activity - Home Exercise: Safe Exercise, Warm-up, Self-monitoring, Cool-Down, Home Exercise > 30 min Daily and Sitting Time <3 hours/daily Outcomes & Goals Outcomes/Goals: Demonstrates correct Warm-up/exercise Cool-Down (S3) if = 2.5 METs, Verbalizes symptoms of exercise intolerance by Session 3 (S3), Demonstrate safe equipment use (S3) & follows exercise prescrition (6) and Other: See below Intervention & Plan Plan/Intervention: Instruct warm-up & cool-down if exercising at > 2 METs, Instruct on symptoms of exercise intolerance & actions to take, Instruct & monitor on saf, Assess intial functional capacity & safety risk and Other See below 30-day Reassessments 30 day Reassessments:: Progressing Reassessment Notes & Comments:: Pt is doing very well. She has been able to increase her exercise to 7 METS. Will continue to encourage. Exercise - Final/Discharge Physician Prescribed Exercise Modalities: Treadmill, SciFit Stepper and SciFit Lateral Mold Release Worker Nutrition - 30-Day Assessment Weight Mgt (Other Care) Height: 5 ft 3.75 in Weight:: 125 lb BMI: 21.6 Nutrition - 60-Day Assessment Weight Mgt (Other Care) Height: 5 ft 3.75 in Weight:: 125 lb BMI: 21.6 Core - 30-Day Assessment Hypertension [employer] Hypertension Guidelines Reassessment Notes & Comments:: Pt's BP's are within AHA normal limits on some days. Will continue to monitor and encourage a low sodium diet. Core - Final Assessment Hypertension [employer] Hypertension Guidelines Reassessment Notes & Comments:: Pt's BP's are within AHA normal limits on some days. Will continue to monitor and encourage a low sodium diet. Core - 90 Day Assessment Visit Date of Eval: 07/16/24 Session #:: 22 Medication Compliance Preventative Medication(s):: Aspirin, Clopidogrel/P2Y12 inhibit and Beta ayo H/O mental health issues: depression, anxiety, or addiction?: Yes Doesn?t believe in the benefits of treatment?: No Believes medications are unnecessary or harmful?: No Has a concern about medication side effects?: No Expresses concern over the cost of medications?: No Outcomes/Goals: Verbalizes medications,desired effect & common side effects @ DC, Pt self-reports following medication regimen, Keeps card in wallet w/medications listed by DC and Other additional outcome/goals: Interventions/plans: Instruct on medication effects & side effects, Review medication list w/patient every two weeks, Instruct importance of taking meds as ordered & assist problem solving and Other additional Tobacco Use Tobacco Use: Non-smoker Hypertension Hypertension Diagnosis:: Hypertension ICD-10 I10 Resting Blood Pressure:: 132/70 [employer] Hypertension Guidelines Peak Exercise Blood Pressure:: 160/90 Outcomes/Goals: Able to verbalize/achieve optimal blood pressure <130/80, Incorporates diet changes & exercise for blood pressure control by DC and Other additional outcomes/goals Interventions/plan: Instruct on optimal blood pressure, hypertension & medicati ons, Instruct on effects of sodium, alcohol, stress, exercise &hypertension and Other additional plan/interventions 30 day Reassessments:: Progressing Reassessment Notes & Comments:: Pt's BP's are within AHA normal limits on some days. Will continue to monitor and encourage a low sodium diet. Tobacco Cessation Referral Smoking Cessation Referral:: No Individual Education/Counseling:: No Education Schedule Given:: Yes Psychosocial - 30-Day Assess Target Goals Target Goals Referral to Behavioral Health PS - Interventions: Yes: Attend Stress Management Classes Psychosocial - 60-Day Assess Target Goals Target Goals Referral to Behavioral Health PS - Interventions: Yes: Attend Stress Management Classes Psychosocial - 90-Day Assess VIsit Date of Eval: 07/16/24 Session #:: 22 History of previous Mental disease:: Yes History of Emotional Disorders: Anxious Target Goals Target Goals Psychosocial Test Tool Used:: PHQ-9 Questionnaire phq-9 Severity See PHQ-9 Score: 2 Referral to Behavioral Health PS - Interventions: Yes: Attend Stress Management Classes Outcomes/Goals: See list Psychosocial Outcomes/Goals:: ID's personal stressors & 2 strategies to manage stress by discharge and Other Additional outcome/goals: Intervention/Plan: See List Interventions/Plan:: Assess stressors,coping strategies & signs of derpression on admission, Instruct/assist pt to develop coping & personal stress Mgt strategies, Refer to Behavioral Health if appropriate, Refer to Physician if appropriate, Instruct patient to recognize signs & symptoms of depression, Instruct patient to recog and Other additional plan/intervention 30-day Reassessments: 30 day Reassessments:: Progressing Reassessment Notes & Comments:: PHQ9 score of 2. Pt encouraged to relieve stress with exercise and meditation. Psychosocial - Final Assessmen Target Goals Target Goals Referral to Behavioral Health PS - Interventions: Yes: Attend Stress Management Classes Nutrition - 90-Day Assessment Program Goals Nutrition Program Goals Patient has diagnosis of Hyperlipidemia (ICD E78)?: Yes Visit Date of Eval: 07/16/24 Session #:: 22 Cholesterol/Lipids (Other Core Measures) Determine presence & major risk factors that modify LDL goal: Hypertension or hypertensive medication, Low HDL cholesterol <40 mg/dL*, Family history of premature CHD in Male < 55 years: female <65 yearsFa and Age men > 45 years; women >/= 55 years Outcomes/Goals: Pt IDs own risk factors & lifestyle modifications by Session 10, Verbalizes symptoms of angina & response by session 3., Pt independently manages and Other Additional Outcomes/Goals: Intervention/Plan: Advocate for lipid panel cholesterol medication if applicable, Instruct on personal lipid levels & lipid goals/NCEP guidelines, Instruct on cholesterol and Other additional plan/int Diabetes (Other Core Measures) Diabetes Type: Not Applicable Weight Mgt (Other Care) Height: 5 ft 3.75 in Weight:: 125 lb BMI: 21.6 Diagnosis Overweight/Obesity BMI> 30% ICD-10 E66: No Diagnosis High BMI/Morbid Obesity BMI> 35% ICD-10 Z68: No Outcomes/Goals: Pt sets, maintains & shows weight loss goal & trend during rehab and Other additional outcomes/goals Intervention/Plan: Instruct on ideal BMI & set weight loss goal w/patient, Assist pt to ID & incorporate diet changes for weight loss by S9, Refer to Structured Weight Loss program as appropriate, Encourage goal of using 250- 300dcal per session for weight loss and Other additional plan/interventions Healthy Eating Habits Will attend diet classes:: Yes Outcomes/Goals:: Consume diet rich in vegs,fruits,whole grain/high fiber,fi sh,lean meat, Limit sat/trans fats,cholesterol & added salts & sugars and Other additional outcome/goals: Intervention/Plan:: Assess current eating habits and Other Additional plan/interventions 30-day Reassessments:: Met Reassessment Notes & Comments:: Pt has attended nutrition class and understands the benefits of a heart healthy low sodium diet. Will continue to encourage pt. Education Gave educational materials for:: Signs & symptoms of hypoglycemia, Signs & symptoms of hyperglycemia, Relate diabetes to coronary artery disease and Healthy eating Nutrition - Final Assessment Weight Mgt (Other Care) Height: 5 ft 3.75 in Weight:: 125 lb BMI: 21.6
[2024-07-16 08:45] VITALS: BP 132/70; BMI 21.6
== END 2024-07-30 23:59 ==
LOC: CR 13:00
PROVIDERS: PCP Family Medicine; Referring Provider Internal Medicine Cardiovascular Disease; Visit Provider Internal Medicine Cardiovascular Disease
DX: Z95.5 Presence of coronary angioplasty implant and graft (principal); I25.5 Ischemic cardiomyopathy; I25.10 Atherosclerotic heart disease of native coronary artery without angina pectoris
CPT/HCPCS: 93798

== ENCOUNTER 2024-08-29 13:00 | Outpatient (RCR) | payer OTHER, SELFPAY ==
[2024-07-16 08:45] VITALS: BMI 21.6
[2024-07-31 00:28] VITALS: BP 128/72; BP 132/70; BP 140/88; BP 156/60
--- NOTE | 2024-08-15 11:06 | CR.ITP_ITS ---
Exercise - Initial Assessment Physician Prescribed Exercise Modalities: Treadmill, SciFit Stepper and SciFit Lateral [place] Nutrition - Initial Assessment Weight Mgt (Other Care) Height: 5 ft 3.75 in Weight:: 123 lb 8 oz BMI: 21.3 Core - Initial Assessment Hypertension Resting Blood Pressure:: 162/80 [place] [employer] Hypertension Guidelines Psychosocial - Initial Assess Target Goals Target Goals Psychosocial Test phq-9 Severity See PHQ-9 Score: 2 Referral to Behavioral Health PS - Interventions: Yes: Attend Stress Management Classes Patient Health Questionnaire PHQ-9 Screening Discharge Assessment: 1. Little interest or pleasure in doing things: Not at all 2. Feeling down, depressed, or hopeless: Not at all 3. Trouble falling or staying asleep, or sleeping too much: Several days 4. Feeling tired or having little energy: Several days 5. Poor appetite or overeating: Not at all 6. Feeling bad about yourself -- or that you are a failure or have let yourself or your family down: Not at all 7. Trouble concentrating on things, such as reading the newspaper or watching television: Not at all 8. Moving or speaking so slowly that other people could have noticed. Or the opposite - being so fidgety or restless that you have been moving around a lot more than usual: Not at all 9. Thoughts that you would be better off , or of hurting yourself in some way: Not at all How difficult have these problems made it for you to do your work, take care of things at home, or get along with other people?: Not difficult at all Total Score: 2 Self-Efficacy 6-Item Scale Discharge Assessment: We would like to know how confident you are in doing certain activities. Please select your confidence level for: Fatigue Select Number: 10 Physical Discomfort or Pain Select Number: 10 Emotional Distress Select Number: 10 Other Symptoms or Health Problems Select Number: 10 Different Tasks and Activities Select Number: 10 Medication Select Number: 10 Total Score:: 10 Nutrition Survey Nutrition Survey Instructions Scoring Instructions Exercise - 30-day Assessment Physician Prescribed Exercise Modalities: Treadmill, SciFit Stepper and SciFit Lateral [place] Exercise - 60-day Assessment Physician Prescribed Exercise Modalities: Treadmill, SciFit Stepper and SciFit Lateral [place] Exercise - 90-day Assessment Physician Prescribed Exercise Modalities: Treadmill, SciFit Stepper and SciFit Lateral Vehicle Washer Exercise - Final/Discharge Visit Date of Eval: 08/15/24 Session #:: 31 Physician Prescribed Exercise Modalities: Treadmill, SciFit Stepper and SciFit Lateral [place] Frequency: 3x/week for 12 weeks [36 sessions] Intensity: 60-80% of age predicted maximum heart rate reserve Duration: 30 - 45 minutes Current METSs:: 7.9 Target Heart Rate:: 89-119 Maximum Heart Rate:: 118 Resting Blood Pressure: 162/80 Maximum Exercise Blood Pressure: 184/72 EKG Type: NSR with a rare pac,pvc Outcomes & Goals Goals:: Verbalizes understanding of THR, RPE & goal METS by session 6, Documents in home exercise log/reports 30 min aerobic 5 day/wk by DC, Demonstrates accurate pulse taking by DC and Other additional outcome/goals: see below Intervention & Plan Exercise Program Goals: Instruct on personal THR & RPE, Instruct on MET level & personal MET goal, Show patient to take own pulse /validate performance until accurate, Instruct on home exercise and Other additional plan/int Physical Activity Home Exercise Physical Activity - Home Exercise: Safe Exercise, Warm-up, Self-monitoring, Cool-Down, Home Exercise > 30 min Daily and Sitting Time <3 hours/daily Outcomes & Goals Outcomes/Goals: Demonstrates correct Warm-up/exercise Cool-Down (S3) if = 2.5 METs, Verbalizes symptoms of exercise intolerance by Session 3 (S3), Demonstrate safe equipment use (S3) & follows exercise prescrition (6) and Other: See below Intervention & Plan Plan/Intervention: Instruct warm-up & cool-down if exercising at > 2 METs, Instruct on symptoms of exercise intolerance & actions to take, Instruct & monitor on saf, Assess intial functional capacity & safety risk and Other See below 30-day Reassessments 30 day Reassessments:: Met Reassessment Notes & Comments:: Pt has met exercise goals. Pt has 5 sessions remaining. Upon discharge pt will be given her exercise prescription along with community resources to continue, Nutrition - 30-Day Assessment Weight Mgt (Other Care) Height: 5 ft 3.75 in Weight:: 123 lb 8 oz BMI: 21.3 Nutrition - 60-Day Assessment Weight Mgt (Other Care) Height: 5 ft 3.75 in Weight:: 123 lb 8 oz BMI: 21.3 Core - 30-Day Assessment Hypertension [place] [employer] Hypertension Guidelines Reassessment Notes & Comments:: 08/10 pt states she is still waiting to hear from her doctor regarding her high BP's. Core - Final Assessment Visit Date of Eval: 08/15/24 Session #:: 31 Medication Compliance Preventative Medication(s):: Aspirin, Clopidogrel/P2Y12 inhibit and Beta ayo H/O mental health issues: depression, anxiety, or addiction?: Yes Doesn?t believe in the benefits of treatment?: No Believes medications are unnecessary or harmful?: No Has a concern about medication side effects?: No Expresses concern over the cost of medications?: No Outcomes/Goals: Verbalizes medications,desired effect & common side effects @ DC, Pt self-reports following medication regimen, Keeps card in wallet w/m edications listed by DC and Other additional outcome/goals: Interventions/plans: Instruct on medication effects & side effects, Review medication list w/patient every two weeks, Instruct importance of taking meds as ordered & assist problem solving and Other additional Tobacco Use Tobacco Use: Non-smoker Hypertension Hypertension Diagnosis:: Hypertension ICD-10 I10 Resting Blood Pressure:: 162/80 [place] [employer] Hypertension Guidelines Peak Exercise Blood Pressure:: 184/72 Outcomes/Goals: Able to verbalize/achieve optimal blood pressure <130/80, Incorporates diet changes & exercise for blood pressure control by DC and Other additional outcomes/goals Interventions/plan: Instruct on optimal blood pressure, hypertension & medications, Instruct on effects of sodium, alcohol, stress, exercise &hypertension and Other additional plan/interventions 30 day Reassessments:: Progressing Reassessment Notes & Comments:: 08/10 pt states she is still waiting to hear from her doctor regarding her high BP's. Tobacco Cessation Referral Smoking Cessation Referral:: No Individual Education/Counseling:: No Education Schedule Given:: Yes Core - 90 Day Assessment Hypertension [place] [employer] Hypertension Guidelines Reassessment Notes & Comments:: 08/10 pt states she is still waiting to hear from her doctor regarding her high BP's. Core - 60-Day Assessment Hypertension Resting Blood Pressure:: 162/80 [place] [employer] Hypertension Guidelines Psychosocial - 30-Day Assess Target Goals Target Goals Referral to Behavioral Health PS - Interventions: Yes: Attend Stress Management Classes Psychosocial - 60-Day Assess Target Goals Target Goals Referral to Behavioral Health PS - Interventions: Yes: Attend Stress Management Classes Psychosocial - 90-Day Assess Target Goals Target Goals Referral to Behavioral Health PS - Interventions: Yes: Attend Stress Management Classes Psychosocial - Final Assessmen VIsit Date of Eval: 08/15/24 Session #:: 31 History of previous Mental disease:: Yes History of Emotional Disorders: Anxious Target Goals Target Goals Psychosocial Test Tool Used:: [employer] QOL Cardiac and PHQ-9 Questionnaire phq-9 Severity See PHQ-9 Score: 2 Referral to Behavioral Health PS - Interventions: Yes: Attend Stress Management Classes Outcomes/Goals: See list Psychosocial Outcomes/Goals:: ID's personal stressors & 2 strategies to manage stress by discharge and Other Additional outcome/goals: Intervention/Plan: See List Interventions/Plan:: Assess stressors,coping strategies & signs of derpression on admission, Instruct/assist pt to develop coping & personal stress Mgt strategies, Refer to Behavioral Health if appropriate, Refer to Physician if appropriate, Instruct patient to recognize signs & symptoms of depression, Instruct patient to recog and Other additional plan/intervention 30-day Reassessments: 30 day Reassessments:: Met Reassessment Notes & Comments:: Pt has attended stress management class. Pt has a PHQ-9 score of 2. Nutrition - 90-Day Assessment Weight Mgt (Other Care) Height: 5 ft 3.75 in Weight:: 123 lb 8 oz BMI: 21.3 Nutrition - Final Assessment Visit Date of Assessment:: 08/15/24 Session #:: 31 Cholesterol/Lipids (Other Core Measures) Determine presence & major risk factors that modify LDL goal: Hypertension or hypertensive medication, Low HDL cholesterol <40 mg/dL*, Family history of premature CHD in Male < 55 years: female <65 yearsFa and Age men > 45 years; women >/= 55 years Outcomes/Goals: Pt IDs own risk factors & lifestyle modifications by Session 10, Verbalizes symptoms of angina & response by session 3., Pt independently manages and Other Additional Outcomes/Goals: Intervention/Plan: Advocate for lipid panel cholesterol medication if applicable, Instruct on personal lipid levels & lipid goals/NCEP guidelines, Instruct on cholesterol and Other additional plan/int Diabetes (Other Core Measures) Diabetes Type: Not Applicable Weight Mgt (Other Care) Height: 5 ft 3.75 in Weight:: 123 lb 8 oz BMI: 21.3 Diagnosis Overweight/Obesity BMI> 30% ICD-10 E66: No Diagnosis High BMI/Morbid Obesity BMI> 35% ICD-10 Z68: No Outcomes/Goals: Pt sets, maintains & shows weight loss goal & trend during rehab and Other additional outcomes/goals Intervention/Plan: Instruct on ideal BMI & set weight loss goal w/patient, Assist pt to ID & incorporate diet changes for weight loss by S9, Refer to Structured Weight Loss program as appropriate, Encourage goal of using 250- 300dcal per session for weight loss and Other additional plan/interventions 30 day Reassessments:: Met Healthy Eating Habits Will attend diet classes:: Yes Outcomes/Goals:: Consume diet rich in vegs,fruits,whole grain/high fiber,fish,lean meat, Limit sat/trans fats,cholesterol & added salts & sugars and Other additional outcome/goals: Intervention/Plan:: Assess current eating habits and Other Additional plan/interventions 30-day Reassessments:: Met Reassessment Notes & Comments:: Pt has attended nutrition class and is at a healthy weight. Pt understands the benefits of a heart healthy low sodium diet. Education Gave educational materials for:: Signs & symptoms of hypoglycemia, Signs & symptoms of hyperglycemia, Relate diabetes to coronary artery disease and Healthy eating
[2024-08-15 11:19] VITALS: BP 162/80; BMI 21.3
== END 2024-08-29 23:59 ==
LOC: CR 13:00
PROVIDERS: PCP Family Medicine; Referring Provider Internal Medicine Cardiovascular Disease; Visit Provider Internal Medicine Cardiovascular Disease
DX: Z95.5 Presence of coronary angioplasty implant and graft (principal); I25.5 Ischemic cardiomyopathy; I25.10 Atherosclerotic heart disease of native coronary artery without angina pectoris
CPT/HCPCS: 93798

== ENCOUNTER 2024-08-31 08:21 | Outpatient (RCR) | payer OTHER, SELFPAY ==
[2024-08-15 11:19] VITALS: BMI 21.3
[2024-08-30 00:12] VITALS: BP 128/72; BP 132/70; BP 140/88; BP 162/80
== END 2024-09-29 23:59 ==
LOC: CR 08:21
PROVIDERS: PCP Family Medicine; Referring Provider Internal Medicine Cardiovascular Disease; Visit Provider Internal Medicine Cardiovascular Disease
DX: Z95.5 Presence of coronary angioplasty implant and graft (principal); I25.5 Ischemic cardiomyopathy; I25.10 Atherosclerotic heart disease of native coronary artery without angina pectoris
CPT/HCPCS: 93798

== ENCOUNTER → 2024-09-07 | Outpatient (CLI) | payer OTHER, SELFPAY ==
[2024-08-15 11:19] VITALS: BMI 21.3
[2024-09-07 18:08] LABS: ALB/GLOB Ratio 1.7 RATIO (0.9-2.4); AST(SGOT) 35 U/L (<=31); Alanine Aminotransfer ALT/SGPT 26 U/L (<=34); Albumin, Serum 4.7 g/dL (3.4-4.8); Alkaline Phosphatase 83 U/L (35-104); Anion Gap 12 (5-15); BUN 23 mg/dL (4-19); BUN/Creat Ratio 20.5 RATIO (10-20); Carbon Dioxide 25.8 mmol/L (21.0-32.0); Chloride 103 mmol/L (98-108); Cholesterol 224 mg/dL (<=200); Creatinine, Serum 1.14 mg/dL (0.70-1.20); EST Glomerular Filtration Rate 51 (>60); Globulin 2.8 g/dL (2.2-4.2); Glucose 101 mg/dL (70-99); High Density Lipoprotein 64 mg/dL; Low Density Lipoprotein Calc. 142 mg/dL; Potassium 4.1 mmol/L (3.3-5.1); Protein, Total 7.5 g/dL (5.9-8.4); Sodium Level 141 mmol/L (133-145); Total Bilirubin 0.83 mg/dL (0.00-1.30); Triglycerides 91 mg/dL; Very Low Density Lipoprotein 18 mg/dL (5-40); cholesterol:hdl ratio screen 3.52
== END | disposition home or self-care (01) ==
LOC: MTLAB 14:45
PROVIDERS: PCP Family Medicine; Referring Provider Family Medicine; Visit Provider Family Medicine
DX: I10 Essential (primary) hypertension (principal); I25.10 Atherosclerotic heart disease of native coronary artery without angina pectoris
CPT/HCPCS: 36415; 80053; 80061

== ENCOUNTER 2024-11-09 00:46 | Emergency (ER) | payer OTHER, SELFPAY ==
[2024-08-15 11:19] VITALS: BMI 21.3
[2024-11-09 00:46] VITALS: BP 168/89; PULSE 81; RESP 18; TEMP 36.6; O2SAT 98; BMI 22.4
--- OUTSIDE RECORDS SUMMARY | 2024-11-09 01:06 | XMS RPT_ITS | CCD ---
Author Organization [facility] Care Team Providers Care Shipwright Apprentice Name Role Phone Unavailable Primary Care Provider UnavailLETA Mcnamara Attending Unavailable No, Physician Primary Care Provider Unavailaustin SLADE, PHYSICIAN Primary Care Unavailable PARAILSHANTELLE Attending Unavaila ble PARASHANTELLE MUELLER Admitting Unavaila ble Unavailable Primary Care Provider UnavailErin Castillo MD Primary Care Provider Dr. Erin Ordaz MD Primary Care Provider Dr. Eliazar Jauregui DO Attending Provider Dr. Eliazar Jauregui DO Emergency Provider Dr. Erin Ordaz MD Attending Provider Dr. Erin Ordaz MD Referring Provider Dr. Phyllis Cosby MD Attending Provider Jose FRANCO-CZee Attending Provider Dr. Phyllis Cosby MD Referring Provider Dr. Jarrod uDran DO Emergency Provider Roshan HOBBS, Dr. Lili Andrade Admit Provider Roshan HOBBS, Dr. Lili Andrade Other Provider Sree HOBBS, Dr. Margie Orosco Attending Provider Sree HOBBS, Dr. Margie rOosco Other Provider ERIN ORDAZ Primary Care Unavailable NAHID GEORGES Referring Unavailable NAHID GEORGES Attending Unavailable Dr. Erin Ordaz MD Primary Care Provider Dr. Erin Ordaz MD Referring Provider [phone] Orlin HOBBS, Dr. Cruz Attending Provider [phone] NAHID GEORGES Attending Unavailable NO, PHYSICIAN Primary Care Unavailable ORDAZ, ERIN DHARA Primary Care Unavailable NAHID GEORGES Attending Unavailable Orlin HOBBS, Dr. Cruz Primary Care Provider Harjeet HOBBS, Dr. Ferguson Attending Provider Harjeet HOBBS, Dr. Ferguson Referring Provider Orlin HOBBS, Dr. Cruz Attending Provider Orlni HOBBS, Dr. Cruz Referring Provider Ghazala Gee Attending Provider Sourav HOBBS, Dr. Syed Attending Provider Orlin HOBBS, Dr. Cruz Primary Care Provider Harjeet HOBBS, Dr. Ferguson Attending Provider Harjeet HOBBS, Dr. Ferguson Referring Provider Ordaz, Erin Primary Care Unavailable Ordaz, Erin Referring Unavailable Ghazala Ozuna Attending Unavailable Odraz, Erin Primary Care Unavailable Zee Garcia Referring Unavailable Zee Garcia Attending Unavailable Ordaz, Erin Primary Care Unavailable Harjeet, Phyllis Referring Unavailable Harjeet, Phyllis Attending Unavailable Ordaz, Erin Primary Care Unavailable Ordaz, Erin Referring Unavailable Harjeet, Phyllis Attending Unavailable Ordaz, Erin Primary Care Unavailable Selvin, Mat K Referring Unavailable Selvin, Mat K Attending Unavailable Ordaz, Erin Referring Unavailable Ordaz, Erin Primary Care Unavailable Ordaz, Erin Attending Unavailable Ordaz, Erin Primary Care Unavailable Ordaz, Erin Referring Unavailable Ordaz, Erin Attending Unavailable Harjeet, Phyllis Referring Unavailable Ordaz, Erin Primary Care Unavailable Harjeet, Phyllis Attending Unavailable White, Lili L Consulting Unavailable White, Lili L Admitting Unavailable Koram, Margie Ana Luisa Attending Unavailable Ordaz, Erin Primary Care Unavailable Koram, Margie Ana Luisa Consulting Unavailable White, Lili L Attending Unavailable Harjeet, Phyllis Referring Unavailable Ordaz, Erin Primary Care Unavailable Harjeet, Phyllis Attending Unavailable Ordaz, Erin Referring Unavailable Ordaz, Erin Primary Care Unavailable Ordaz, Erin Attending Unavailable Ordaz, Erin Attending Unavailable Ordaz, Erin Referring Unavailable Ordaz, Erin Primary Care Unavailable Ordaz, Erin Primary Care Unavailable Ordaz, Erin Referring Unavailable Ordaz, Erin Attending Unavailable Lili Islas Consulting Unavailable Lili Islas Admitting Unavailable Margie Balbuena Attending Unavailable Ordaz, Erin Primary Care Unavailable Harjeet, Phyllis Referring Unavailable Harjeet, Phyllis Attending Unavailable Ordaz, Erin Primary Care Unavailable Harjeet, Phyllis Referring Unavailable Ordaz, Erin Primary Care Unavailable Harjeet, Phyllis Attending Unavailable Harjeet, Phyllis Referring Unavailable Ordaz, Erin Primary Care Unavailable Harjeet, Phyllis Attending Unavailable Ordaz, Erin Primary Care Unavailable Harjeet, Phyllis Attending Unavailable Ordaz, Erin Primary Care Unavailable Ordaz, Erin Referring Unavailable Zee Garcia Attending Unavailable Harjeet, Phyllis Attending Unavailable Harjeet, Phyllis Referring Unavailable Ordaz, Erin Primary Care Unavailable Harjeet, Phyllis Referring Unavailable Ordaz, Erin Primary Care Unavailable Harjeet, Phyllis Attending Unavailable Ordaz, Erin Primary Care Unavailable Eliazar Jauregui Attending Unavailable Ordaz, Erin Primary Care Unavailable SouravJuan Manuel pinaril Attending Unavailable Allergies Allergy Classification Reported Allergen(s) Allergy Type Date of Onset Reaction(s) Facility (9 sources) Belladonna Alkaloids; Translations: [BELLADONNA ALKALOIDS] Drug Allergy 6 Rash, Unknown [facility] (2 sources) tomato allergenic extract; Translations: [TOMATO] Drug Allergy 6 Rash [facility] (15 sources) HMG-CoA reductase inhibitor; Translations: [SLZOVAZ-UZA-QV A REDUCTASE INHIBITORS] Propensity to adverse reactions to drug [address] [facility] (1 source) Belladonna Alkaloids Drug Allergy 5 [facility] Repository Medications Current Medications Medication Drug Class(es) Dates Sig (Normalized) Sig (Original) aspirin 81 mg delayed release oral tablet (20 sources) Platelet Aggregation Inhibitor, Nonsteroidal Anti-inflammatory Drug Start: 03-10-2024 End: 03-14-2025 take 1 tablet by mouth once daily aspirin 81 MG EC tablet Take 1 (one) tablet (81 mg total) by mouth daily Start: 03/14/24. 30 tablet 03/13/2024 12:00 PM EST 03/14/2024 03/14/2025 Active atorvastatin 10 mg oral tablet (19 sources) HMG-CoA Reductase Inhibitor Start: 04-04-2024 End: 04-04-2025 take 1 tablet by mouth once daily atorvastatin (Lipitor) 10 MG tablet Take 1 (one) tablet (10 mg total) by mouth daily . 30 tablet 11 04/04/2024 04/04/2025 Active Start: 03-11-2024 End: 03-13-2025 take 1 tablet by mouth once daily Atorvastatin 80 mg tablet Discontinued 80 mg PO DAILY March 19, 2024 1:00am April 02, 2024 3:39pm cholecalciferol 0.025 mg oral capsule (11 sources) Vitamin D Start: 04-05-2024 take 1 capsule by mouth once daily Cholecalciferol (Vitamin D3) 25 mcg (1,000 unit) capsule Active 25 ug PO daily April 05, 2024 1:00am Start: 01-02-2020 End: 03-19-2024 take 1 capsule by mouth once daily Cholecalciferol (Vitamin D3) (Vitamin D3) 10 mcg (400 unit) capsule Discontinued 10 ug PO DAILY January 02, 2020 12:00am March 19, 2024 1:46am clopidogrel 75 mg oral tablet (19 sources) [id number] Platelet Inhibitor Start: 03-18-2024 End: 05-04-2025 take 1 tablet by mouth once daily clopidogreL (Plavix) 75 mg tablet Take 1 (one) tablet (75 mg total) by mouth daily . 90 tablet 3 05/04/2024 05/04/2025 Active 24 hr metoprolol succinate 25 mg extended release oral tablet (20 sources) beta-Adrenergic Ayo Start: 03-10-2024 End: 08-15-2025 take 1 tablet by mouth once daily metoprolol succinate (Toprol XL) 25 MG 24 hr tablet Take 1 (one) tablet (25 mg total) by mouth daily . 90 tablet 3 08/15/2024 08/15/2025 Active Start: 03-10-2024 End: 03-10-2024 5 mg, Intravenous, Once, On 03/10/24 at 1900, For 1 dose Start: 03-10-2024 End: 03-10-2024 5 mg, Intravenous, Once, On 03/10/24 at 1800, For 1 dose nitroglycerin 0.4 mg sublingual tablet (20 sources) Nitrate Vasodilator Start: 03-10-2024 End: 03-13-2025 nitroGLYCERIN (NITROSTAT) 0.[address] 1 (one) tablet (0.4 mg total) under the tongue every 5 (five) minutes as needed for chest pain , if no relief after 3 doses call 911 . 90 tablet 12 03/13/2024 12:00 PM EST 03/13/2024 03/13/2025 Active spironolactone 25 mg oral tablet (20 sources) Aldosterone Antagonist Start: 04-05-2024 End: 08-10-2024 take 1 tablet by mouth once daily Spironolactone 25 mg tablet Discontinued 25 mg PO daily April 05, 2024 12:49pm August 10, 2024 11:18am Start: 03-19-2024 End: 04-05-2024 take 1 tablet by mouth twice daily Spironolactone 25 mg tablet Discontinued 25 mg PO TWICE A DAY March 19, 2024 1:00am April 05, 2024 12:51pm Start: 03-14-2024 End: 05-04-2025 take 0.5 tablet by mouth once daily spironolactone (ALDACTONE) 25 MG tablet Take 0.5 (one-half) tablet (12.5 mg total) by mouth daily . 45 tablet 3 05/04/2024 05/04/2025 Active Start: 03-10-2024 End: 03-13-2024 take 12.5 mg by mouth once daily 12.5 mg, Oral, Daily, First dose on 03/10/24 at 1800, CATEGORY C HAZARDOUS DRUG use safe handling precautions. Use reference link to view PPE guidelines. Minimize crushing/splitting only to situations where clinically necessary. ticagrelor 90 mg oral tablet (4 sources) Start: 03-13-2024 End: 03-13-2025 take 1 tablet by mouth twice daily ticagrelor (BriLINTA) 90 mg Tab tablet Take 1 (one) tablet (90 mg total) by mouth 2 (two) times a day . 60 tablet 11 03/13/2024 12:00 PM EST 03/13/2024 03/13/2025 Active Start: 03-10-2024 End: 03-13-2024 take 1 dose by mouth every twelve hours 90 mg, Oral, 2 times daily, First dose on 03/10/24 at 2100, Loading dose already given: Check when loading dose was given and schedule 1st dose within 12 hours of loading dose valsartan 40 mg oral tablet (20 sources) Angiotensin 2 Receptor Ayo Start: 04-20-2024 End: 08-10-2024 Valsartan 160 mg tablet Discontinued 40 mg PO daily April 20, 2024 1:00am August 10, 2024 11:17am Start: 04-05-2024 End: 04-20-2024 take 1 tablet by mouth once daily Valsartan 160 mg tablet Discontinued 160 mg PO daily 90 April 05, 2024 1:00am April 20, 2024 9:04pm On Hold: on hold Start: 04-03-2024 End: 05-04-2025 take 1 tablet by mouth at bedtime valsartan (Diovan) 40 MG tablet Take 1 (one) tablet (40 mg total) by mouth at bedtime . 90 tablet 3 05/04/2024 05/04/2025 Active vitamin b12 1 mg oral capsule (4 sources) Vitamin B12 Start: 04-05-2024 take 1 capsule by mouth once daily Cyanocobalamin (Vitamin B-12) 1,000 mcg capsule Active 1000 ug PO daily April 05, 2024 1:00am Vitamins A,C,N-Gcjc-Yfvdbd (Preservision Areds) 4,296 mcg-226 mg-90 mg capsule (4 sources) Start: 04-05-2024 Vitamins A,C,V-Qedj-Tuqogu (Preservision Areds) 4,296 mcg-226 mg-90 mg capsule Active 1 NMA PO daily April 05, 2024 1:00am Completed/Discontinued Medications Medication Drug Class(es) Dates Sig (Normalized) Sig (Original) acetaminophen 325 mg oral tablet (1 source) Start: 03-10-2024 End: 03-13-2024 take 1 tablet by mouth every four hours as needed for pain and headache 650 mg, Oral, Every 4 hours PRN, mild pain, fever 100.4 F or greater, headaches, Starting on 03/10/24 at 1623 acetaminophen 325 mg / HYDROcodone bitartrate 5 mg oral tablet (1 source) Opioid Agonist Start: 03-11-2024 End: 03-13-2024 take 1 tablet by mouth every four hours as needed 1 tablet, Oral, Every 4 hours PRN, moderate to severe pain, Starting on 03/11/24 at 2024 200 ml amiodarone hydrochloride 1.8 mg/ml injection (1 source) Antiarrhythmic Start: 03-10-2024 End: 03-10-2024 0.5-1 mg/min (16.6667-33.3333 mL/hr, rounded to 16.7-33.3 mL/hr), Intravenous, Continuous, Starting on 03/10/24 at 1630, 33ml/hr (1mg/min) x 6hrs, then 17ml/hr (0.5mg/min) Use in-line filter. May cause QT interval prolongation. USE DEHP FREE 0.2 MICRON FILTER TUBING. VESICANT amoxicillin 875 mg / clavulanate 125 mg oral tablet (7 sources) Penicillin-class Antibacterial Start: 01-02-2020 End: 03-19-2024 Amoxicillin-Pot Clavulanate (Augmentin) 875-125 mg tablet Discontinued 1 {tbl} PO TWICE A DAY January 02, 2020 12:00am March 19, 2024 1:46am baclofen 10 mg oral tablet (4 sources) gamma-Aminobutyric Acid-ergic Agonist Start: 04-02-2024 End: 04-05-2024 take 1 tablet by mouth once daily Baclofen 10 mg tablet Discontinued 10 mg PO DAILY April 02, 2024 1:00am April 05, 2024 12:49pm bisacodyl 5 mg delayed release oral tablet (9 sources) Stimulant Laxative End: 07-27-2024 take 1 tablet by mouth once daily bisacodyL (DULCOLAX) 5 mg EC tablet Take 1 (one) tablet (5 mg total) by mouth daily . 07/27/2024 Discontinued Zelbsty-Acektdtwt-X inc (7 sources) Start: 01-02-2020 End: 03-19-2024 Calcium-Magnesium -Zinc 333-133-5 mg tablet Discontinued {tbl} PO DAILY January 02, 2020 12:00am March 19, 2024 1:46am Start: 01-02-2020 take 1 tablet by [facility] once daily Ornvdec-Jguxhohld-Zxfr Active TABLET PO DAILY January 01, 2020 11:00pm Start: 01-02-2020 take 1 tablet by bonnie once daily Nzygcem-Uwgwyxver-Ckpr Active TABLET PO DAILY January 02, 2020 12:00am carvedilol 6.25 mg oral tablet (8 sources) alpha-Adrenergic Ayo, beta-Adrenergic Ayo Start: 04-21-2024 End: 08-10-2024 take 1 tablet by mouth twice daily Carvedilol 6.25 mg Tablet Discontinued 6.25 mg PO TWICE A DAY 60 April 21, 2024 1:00am August 10, 2024 11:18am Start: 04-05-2024 End: 04-21-2024 take 1 tablet by mouth twice daily at mealtime Carvedilol 3.125 mg tablet Discontinued 3.125 mg PO TWICE A DAY 180 April 05, 2024 1:00am April 21, 2024 2:55pm must administer with a meal/food chondroitin sulfates 200 mg / glucosamine hydrochloride 250 mg oral tablet (7 sources) Start: 01-02-2020 End: 03-19-2024 Glucosamine-Chondroitin (Osteo Bi-Flex) 250-200 mg tablet Discontinued 2 {tbl} PO after meals January 02, 2020 12:00am March 19, 2024 1:48am dapagliflozin 10 mg oral tablet (4 sources) Sodium-Glucose Cotransporter 2 Inhibitor Start: 04-05-2024 End: 08-10-2024 take 1 tablet by mouth once daily Dapagliflozin Propanediol (Farxiga) 10 mg tablet Discontinued 10 mg PO daily April 05, 2024 1:00am August 10, 2024 11:18am docusate sodium 100 mg oral capsule (4 sources) Start: 04-05-2024 End: 04-20-2024 take 1 capsule by mouth once daily Docusate Sodium (Dulcolax Stool Softener (Dss)) 100 mg capsule Discontinued 100 mg PO daily April 05, 2024 1:00am April 20, 2024 6:45pm famotidine 20 mg oral tablet (9 sources) Histamine-2 Receptor Antagonist End: 07-27-2024 take 1 tablet by mouth once daily famotidine (PEPCID) 20 MG tablet Take 1 (one) tablet (20 mg total) by mouth daily . 07/27/2024 Discontinued 1 ml fentaNYL 0.05 mg/ml injection (2 sources) Opioid Agonist Start: 03-10-2024 End: 03-10-2024 50 mcg, Intravenous, Once, On 03/10/24 at 1250, For 1 dose Start: 03-10-2024 End: 03-13-2024 Intravenous, Code/trauma/sed ation medication, Starting on 03/10/24 at 1231 Garlic (7 sources) Non-Standardized Food Allergenic Extract Start: 01-02-2020 End: 03-19-2024 take 1 tablet by mouth once daily Garlic 400 mg tablet Discontinued 400 mg PO DAILY January 02, 2020 12:00am March 19, 2024 1:48am Start: 01-02-2020 take 400 mg by mouth once toni y Garlic Active 400 MG PO DAILY January 01, 2020 11:00pm Start: 01-02-2020 take 400 mg by mouth once toni y Garlic Active 400 MG PO DAILY January 02, 2020 12:00am glycerin 3 mg/ml / propylene glycol 10 mg/ml ophthalmic solution (1 source) Non-Standardized Chemical Allergen End: 03-15-2022 Propylene Glycol-Glycerin (ARTIFICIAL TEARS,GLYCERIN-PEG,) 1-0.3 % drop Use 1-2 Drops in both eyes. 0 03/15/2022 Discontinued (Other) Comment on above: Use 1-2 Drops in bot h eyes. 1 ml heparin sodium, porcine 5000 unt/ml injection (1 source) Unfractionated Heparin, Anti-coagulant Start: 03-10-2024 End: 03-13-2024 Code/trauma/sedation medication, Starting on 03/10/24 at 1234 hydrOXYzine pamoate 25 mg oral capsule (4 sources) Antihistamine Start: 04-02-2024 End: 04-05-2024 take 1 tablet by mouth once daily Hydroxyzine Hcl 25 mg tablet Discontinued 25 mg PO DAILY April 02, 2024 1:00am April 05, 2024 12:50pm ipratropium bromide 0.021 mg/actuat metered dose nasal spray (1 source) Anticholinergic End: 03-15-2022 Ipratropium [place] (ATROVENT) 0.03 % nasal spray Use 1 [place] in the nose every 6 hours as needed. 0 03/15/2022 Discontinued (Other) Comment on above: Use 1 [place] in the n ose every 6 hours as needed. 24 hr isosorbide mononitrate 30 mg extended release oral tablet (14 sources) Nitrate Vasodilator Start: 03-10-2024 End: 03-14-2025 take 1 tablet by mouth once daily, then take 1 tablet by mouth every twenty-four hours Isosorbide Mononitrate 30 mg Tablet Extended Release 24 Hr Discontinued 30 mg PO DAILY April 21, 2024 1:00am August 10, 2024 11:18am Lactobacillus Combination No.8 (Adult Probiotic) 3 billion cell capsule (7 sources) Start: 01-02-2020 End: 03-19-2024 take 3 capsules by mouth once daily Lactobacillus Combination No.8 (Adult Probiotic) 3 billion cell capsule Discontinued 3000 NMA PO DAILY January 02, 2020 12:00am March 19, 2024 1:48am administer with a meal Start: 01-02-2020 take 3 capsules by m outh once daily Lactobacillus Combination No.8 (Adult Probiotic) 3 billion cell capsule Active 3000 MMU CELLS PO DAILY January 01, 2020 11:00pm administer with a meal Start: 01-02-2020 take 3 capsules by m outh once daily Lactobacillus Combination No.8 (Adult Probiotic) 3 billion cell capsule Active 3000 MMU CELLS PO DAILY January 02, 2020 12:00am administer with a meal Lactobacillus Rhamnosus Gg (4 sources) Start: 04-05-2024 End: 04-20-2024 Lactobacillus Rhamnosus Gg ([employer]) 5 billion cell powder in packet Discontinued PO April 05, 2024 1:00am April 20, 2024 6:45pm LORazepam 0.5 mg oral tablet (3 sources) Benzodiazepine Start: 03-13-2024 End: 03-13-2024 take 1 tablet by mouth every eight hours as needed for anxiety 0.5 mg, Oral, Every 8 hours PRN, anxiety, Starting on 03/13/24 at 0927 Start: 03-12-2024 End: 03-13-2024 take 1 tablet by mouth every eight hours as needed for anxiety 1 mg, Oral, Every 8 hours PRN, anxiety, Starting on 03/12/24 at 1024 Start: 03-10-2024 End: 03-10-2024 2 mg, Intravenous, Once, On 03/10/24 at 1900, For 1 dose, VESICANT losartan potassium 50 mg oral tablet (10 sources) Angiotensin 2 Receptor Ayo Start: 03-10-2024 End: 03-13-2025 take 1 tablet by mouth once daily Losartan 50 mg tablet Discontinued 50 mg PO DAILY March 19, 2024 1:00am April 02, 2024 3:39pm mineral oil 0.2 mg/mg / petrolatum 0.8 mg/mg ophthalmic ointment (4 sources) Start: 04-02-2024 End: 04-05-2024 White Petrolatum-Mineral Oil (Soothe Night Time Lubricant) 80-20 % ointment Discontinued 1 NMA OPHTHALMIC AT BEDTIME as needed April 02, 2024 1:00am April 05, 2024 12:51pm naloxone (NARCAN) injection 0.1 mg (1 source) Start: 03-11-2024 End: 03-13-2024 naloxone (NARCAN) injection 0.1 mg naphazoline hydrochloride 0.25 mg/ml / pheniramine maleate 3 mg/ml ophthalmic solution (7 sources) Start: 11-16-2015 End: 01-02-2020 Naphazoline-Phenir amine 1 DROP drops Discontinued 2 NMA RIGHT EYE 4 TIMES DAILY November 16, 2015 12:00am January 02, 2020 8:46am Start: 11-16-2015 End: 01-02-2020 Naphazoline-Pheniramine Disc ontinued 2 DRP RIGHT EYE 4 TIMES DAILY November 15, 2015 11:00pm January 02, 2020 7:46am 2 ml ondansetron 2 mg/ml injection (3 sources) Serotonin-3 Receptor Antagonist Start: 03-10-2024 End: 03-10-2024 4 mg, Intravenous, Once, On 03/10/24 at 1630, For 1 dose Start: 03-10-2024 End: 03-13-2024 take 4 mg intravenously every six hours as needed for nausea and vomiting 4 mg, Intravenous, Every 6 hours PRN, nausea, vomiting, Starting on 03/10/24 at 1623 Start: 03-10-2024 End: 03-10-2024 4 mg, Intravenous, Once, On 03/10/24 at 1240, For 1 dose perflutren lipid microspheres (DEFINITY) 0.143 mg/mL solution 0-10 mL of mixture (1 source) Start: 03-10-2024 End: 03-12-2024 0-10 mL of mixture, Intravenous, Once in imaging, contrast, IF suboptimal echo, Starting on 03/10/24 at 1623, For 48 hours, Prepare syringe by withdrawing 1.3 mL of perflutren (DEFINITY) from the 2ml vial. Further dilute the 1.3 mL of perflutren with Sodium Chloride (NS) 0.9% to total volume of 10 ml. Chart total ML OF MIXTURE given to patient. polyethylene glycol 3350 06382 mg powder for oral solution (4 sources) Osmotic Laxative Start: 04-02-2024 End: 04-05-2024 Polyethylene Glycol 3350 (Miralax) 17 gram/dose powder Discontinued 4 g PO daily April 02, 2024 1:00am April 05, 2024 12:50pm 100 ml potassium chloride 0.2 meq/ml injection (1 source) Start: 03-10-2024 End: 03-10-2024 20 mEq, Intravenous, at 50 mL/hr, Once, On 03/10/24 at 1815, For 1 dose, For Non-Critical Care Patient give potassium chloride (KCL) 20 mEq IVPB over 2 hours VESICANT rosuvastatin calcium 20 mg oral tablet (3 sources) HMG-CoA Reductase Inhibitor Start: 03-15-2024 End: 03-15-2025 take 1 tablet by mouth once daily rosuvastatin (Crestor) 20 MG tablet Take 1 (one) tablet (20 mg total) by mouth nightly . 90 tablet 3 03/15/2024 04/03/2024 Discontinued (Patient's Request) sennosides, ALF (4 sources) Start: 04-05-2024 End: 08-10-2024 micronesian elio Discontinued PO April 05, 2024 1:00am August 10, 2024 11:19am Start: 04-05-2024 micronesian elio Ac tive PO April 05, 2024 1:00am 1000 ml sodium chloride 9 mg/ml injection (3 sources) Start: 03-10-2024 End: 03-13-2024 take 50 mL intravenously every hour 50 mL/hr, Intravenous, Continuous, Starting on 03/10/24 at 1715, For 6 hours Start: 03-10-2024 End: 03-13-2024 Intravenous, Code/trauma/sed ation continuous med, Starting on 03/10/24 at 1225 100 ml tirofiban 0.05 mg/ml injection (1 source) Platelet Aggregation Inhibitor Start: 03-10-2024 End: 03-11-2024 0.15 mcg/kg/min 56.2 kg (10.116 mL/hr, rounded to 10.1 mL/hr), Intravenous, Continuous, Starting on 03/10/24 at 1900, For 18 hours, Continue current gtt traZODone hydrochloride 50 mg oral tablet (1 source) Serotonin Reuptake Inhibitor Start: 03-11-2024 End: 03-13-2024 take 25 mg by mouth once daily 25 mg, Oral, Nightly, First dose on 03/11/24 at 211 tretinoin 0.0001 mg/mg topical gel (1 source) Retinoid End: 03-15-2022 tretinoin (RETIN-A) 0.01 % gel Apply to affected area daily at bedtime. 0 03/15/2022 Discontinued (Other) Comment on above: Apply to affected ar ea daily at bedtime. Problems Active Problems Problem Classification Problem Date Documented Da te Episodic/Chronic Acute myocardial infarction (20 sources) Myocardial infarction; Translations: [ST elevation (STEMI) myocardial infarction involving left anterior descending coronary artery] Onset: 03-10-2024 Resolved: 04-03-2024 03-12-2024 Chronic Adjustment disorders (4 sources) Adjustment disorder with anxious mood; Translations: [Adjustment disorder with anxiety] 04-20-2024 Chronic Anxiety disorders (16 sources) Anxiety; Translations: [Anxiety disorder, unspecified] Onset: 03-12-2024 03-12-2024 Chronic Blindness and vision defects (2 sources) Diplopia; Translations: [Diplopia] Onset: 03-15-2022 Episodic Coronary atherosclerosis and other heart disease (20 sources) Coronary arteriosclerosis; Translations: [Atherosclerotic heart disease of [place] coronary artery without angina pectoris] Onset: 03-10-2024 04-04-2024 Chronic Disorders of lipid metabolism (20 sources) Familial hypercholesterolemia; Translations: [Familial hypercholesterolemia] Onset: 03-10-2024 Resolved: 04-03-2024 03-12-2024 Chronic E Codes: Natural/environment (7 sources) Cat bite - wound; Translations: [Bitten by cat, sequela] 01-04-2020 Episodic Essential hypertension (20 sources) Hypertensive disorder; Translations: [Essential (primary) hypertension] Onset: 04-03-2024 12-22-2022 Chronic Gastritis and duodenitis (4 sources) Gastritis; Translations: [Gastritis, unspecified, without bleeding] 04-02-2024 Episodic Other and ill-defined heart disease (6 sources) Left ventricular systolic dysfunction; Translations: [Heart disease, unspecified] 04-20-2024 Chronic Other and ill-defined heart disease (1 source) Heart disease, unspecified; Translations: [Heart disease, unspecified] Onset: 04-05-2024 Chronic Other connective tissue disease (7 sources) Hand pain; Translations: [Pain in right hand] 01-10-2020 Episodic Other connective tissue disease (7 sources) Swelling of hand; Translations: [Other specified soft tissue disorders] 01-10-2020 Episodic Other eye disorders (2 sources) Divergence insufficiency ; Translations: [Other specified disorders of binocular movement] Onset: 03-15-2022 Episodic Other gastrointestinal disorders (5 sources) Acute constipation; Translations: [Constipation, unspecified] 12-22-2022 Episodic Other gastrointestinal disorders (4 sources) Abdominal bloating; Translations: [Abdominal distension (gaseous)] 04-02-2024 Episodic Other gastrointestinal disorders (6 sources) Constipation; Translations: [Constipation, unspecified] 04-05-2024 Episodic Other liver diseases (4 sources) Enzyme level - finding; Translations: [Elevated transaminase measurement] 04-02-2024 Episodic Other nutritional; endocrine; and metabolic disorders (5 sources) Hyperbilirubinemia; Translations: [Other disorders of bilirubin metabolism] 12-22-2022 Chronic Spondylosis; intervertebral disc disorders; other back problems (8 sources) Degeneration of cervical intervertebral disc; Translations: [Other cervical disc degeneration, unspecified cervical region] 08-10-2024 Chronic Spondylosis; intervertebral disc disorders; other back problems (3 sources) Low back pain; Translations: [Low back pain] Onset: 08-10-2024 08-10-2024 Episodic Unclassified (2 sources) R10.13 - Epigastric pain,K59.00 - Constipation, unspecified Unclassified (2 sources) Z95.5 - Presence of coronary angioplasty implant and graft,I25.5 - Ischemic cardiomyopathy,I25.10 - Atherosclerotic heart disease of [place] coronary artery without angina pectoris Unclassified (1 source) Low back pain, unspecified; Translations: [Low back pain, unspecified] Onset: 08-10-2024 Unclassified (1 source) Elevation of levels of liver transaminase levels; Translations: [Elevation of levels of liver transaminase levels] Onset: 04-21-2024 Past or Other Problems Problem Classification Problem Date Documented Da te Episodic/Chronic Abdominal pain (18 sources) Nonspecific abdominal pain; Translations: [Unspecified abdominal pain] Onset: 04-18-2024 03-27-2024 Episodic Coronary atherosclerosis and other heart disease (7 sources) Stented coronary artery; Translations: [Presence of coronary angioplasty implant and graft] Onset: 03-10-2024 04-20-2024 Episodic Comment on above: 3.50 x 20 Synergy XD MR NATHAN to ostial LAD to proximal LAD lesion, and 2.25X 20 Synergy XD MR NATHAN to mid LAD lesion 03/10/2024 @ [facility]. Nonspecific chest pain (8 sources) Chest pain; Translations: [Chest pain, unspecified] Onset: 04-23-2024 04-29-2024 Episodic Other gastrointestinal disorders (2 sources) Constipation, unspecified; Translations: [Constipation, unspecified] Onset: 04-05-2024 Episodic Other upper respiratory infections (1 source) Acute recurrent maxillary sinusitis; Translations: [Acute recurrent maxillary sinusitis] Onset: 03-15-2024 Episodic Results Test Name Value Interpretation Reference Range Facility Anion gap in Serum or Plasma Ordered By: Erin Ordaz on 09-07-2024 Anion gap [Moles/Vol] 12 mmol/L - [facility] BUN/creatinine ratioOrdered By: Erin Ordaz on 09-07-2024 Urea nitrogen/Creatinine [Mass ratio] 20.5 mg/mg High - [facility] Bilirubin, totalOrdered By: Erin Ordaz on 09-07-2024 Bilirubin [Mass/Vol] 0.83 mg/dL 0.00-1.30 [facility] Calculated very low density lipoprotein (VLDL) cholesterol measurementOrdered By: Erin Ordaz on 09-07-2024 Calculated very low density lipoprotein (VLDL) cholesterol measurement 18 mg/dL 5- [facility] Carbon dioxide, total [Moles /volume] in Central venous bloodOrdered By: Erin Ordaz on 09-07-2024 CO2 [Moles/Vol] 25.8 mmol/L 21.0-32.0 [facility] Chloride assayOrdered By: Ramin Ordza on 09-07-2024 Chloride [Moles/Vol] 103 mmol/L 98-108 [facility] Comprehensive Metabolic Prof ilon 09-07-2024 Albumin [Mass/Vol] 4.7 g/dL Normal 3.4-4.8 [facility] Comment on above: Order Comment: 'TROP ' Serial specimen #1, #2 or #3: 1 Performed By: #### L [id number] #### [facility] [address] [place], [address] Albumin/Globulin [Mass ratio] 1.7 {ratio} Normal 0.9-2.4 [facility] Comment on above: Order Comment: 'TROP ' Serial specimen #1, #2 or #3: 1 Performed By: #### L [id number] #### [facility] [address] [place], [address] ALK PHOS 83 U/L Normal 35-104 [facility] Comment on above: Order Comment: 'TROP ' Serial specimen #1, #2 or #3: 1 Performed By: #### L [id number] #### [facility] [address] [place], [address] ALT [Catalytic activity/Vol] 26 U/L Normal <=34 [facility] Comment on above: Order Comment: 'TROP ' Serial specimen #1, #2 or #3: 1 Performed By: #### L [id number] #### [facility] [address] [place], [address] AST [Catalytic activity/Vol] 35 U/L High <=31 [facility] Comment on above: Order Comment: 'TROP ' Serial specimen #1, #2 or #3: 1 Performed By: #### L [id number] #### [facility] [address] [place], [address] Bilirubin [Mass/Vol] 0.83 mg/dL Normal 0.00-1.30 [facility] Comment on above: Order Comment: 'TROP ' Serial specimen #1, #2 or #3: 1 Performed By: #### L [id number] #### [facility] [address] [place], [address] BUN/CRE 20.5 RATIO High 10-20 [facility] Comment on above: Order Comment: 'TROP ' Serial specimen #1, #2 or #3: 1 Performed By: #### L [id number] #### [facility] [address] [place], [address] Calcium [Mass/Vol] 10.0 mg/dL Normal 7.6-11.0 [facility] Comment on above: Order Comment: 'TROP ' Serial specimen #1, #2 or #3: 1 Performed By: #### L [id number] #### [facility] [address] [place], [address] Chloride [Moles/Vol] 103 mmol/L Normal 98-108 [facility] Comment on above: Order Comment: 'TROP ' Serial specimen #1, #2 or #3: 1 Performed By: #### L [id number] #### [facility] [address] [place], [address] CO2 [Moles/Vol] 25.8 mmol/L Normal 21.0-32.0 [facility] Comment on above: Order Comment: 'TROP ' Serial specimen #1, #2 or #3: 1 Performed By: #### L [id number] #### [facility] [address] [place], [address] Creatinine [Mass/Vol] 1.14 mg/dL Normal 0.70-1.20 [facility] Comment on above: Order Comment: 'TROP ' Serial specimen #1, #2 or #3: 1 Performed By: #### L [id number] #### [facility] [address] [place], [address] GAP 12 Normal 5-15 [facility] Comment on above: Order Comment: 'TROP ' Serial specimen #1, #2 or #3: 1 Performed By: #### L [id number] #### [facility] [address] [place], [address] GFR/1.73 sq M.predicted among non-blacks MDRD (S/P/Bld) [Vol rate/Area] 51 mL/min/{1.73_m2} Low >60 [facility] Comment on above: Order Comment: 'TROP ' Serial specimen #1, #2 or #3: 1 Result Comment: mL/m in/1.73m2 CKD-EPI Creatinine Equation (2020) Performed By: #### L [id number] #### [facility] [address] [place], [address] Globulin (S) [Mass/Vol] 2.8 g/dL Normal 2.2-4.2 [facility] Comment on above: Order Comment: 'TROP ' Serial specimen #1, #2 or #3: 1 Performed By: #### L [id number] #### [facility] [address] [place], [address] Glucose [Mass/Vol] 101 mg/dL High 70-99 [facility] Comment on above: Order Comment: 'TROP ' Serial specimen #1, #2 or #3: 1 Performed By: #### L [id number] #### [facility] [address] [place], [address] Potassium [Moles/Vol] 4.1 mmol/L Normal 3.3-5.1 [facility] Comment on above: Order Comment: 'TROP ' Serial specimen #1, #2 or #3: 1 Performed By: #### L [id number] #### [facility] [address] [place], [address] Sodium [Moles/Vol] 141 mmol/L Normal 133-145 [facility] Comment on above: Order Comment: 'TROP ' Serial specimen #1, #2 or #3: 1 Performed By: #### L [id number] #### [facility] [address] [place], [address] T PROT 7.5 g/dL Normal 5.9-8.4 [facility] Comment on above: Order Comment: 'TROP ' Serial specimen #1, #2 or #3: 1 Performed By: #### L [id number] #### [facility] [address] [place], [address] Urea nitrogen [Mass/Vol] 23 mg/dL High 4-19 [facility] Comment on above: Order Comment: 'TROP ' Serial specimen #1, #2 or #3: 1 Performed By: #### L [id number] #### [facility] [address] [place], [address] Glomerular filtration rate ( GFR) estimation/1.73 sq m using serum, plasma, or whole bOrdered By: Erin Ordaz on 09-07-2024 GFR/1.73 sq M.predicted among non-blacks MDRD (S/P/Bld) [Vol rate/Area] 51 mL/min/{1.73_m2} Low >60 [facility] Comment on above: mL/min/1.73m2 CKD-EP I Creatinine Equation (2020) LDL calc ser/plasOrdered By: Erin Ordaz on 09-07-2024 Cholesterol in LDL [Mass/Vol] 142 mg/dL [facility] Comment on above: Hwzxnhldzy=120-578 m g/dL & Higher Ewbz=253 mg/dL or greater Laboratory - Chemistry and C hemistry - challengeOrdered By: Erin Ordaz on 09-07-2024 AST [Catalytic activity/Vol] 35 U/L High <32 [facility] Lipid Profileon 09-07-2024 CHOL:HDL 3.52 Normal [facility] Comment on above: Order Comment: 'TROP ' Serial specimen #1, #2 or #3: 1 Performed By: #### L [id number] #### [facility] [address] [place], [address] Cholesterol [Mass/Vol] 224 mg/dL High <=200 [facility] Comment on above: Order Comment: 'TROP ' Serial specimen #1, #2 or #3: 1 Result Comment: Chol esterol level, Desirable <200 mg/dL Borderline high cholesterol 200-239 mg/dL High cholesterol >=240 mg/dL Recommendations of the NCEP Adult Treatment Panel for the following risk-cutoff thresholds for the [place] population. Performed By: #### L [id number] #### [facility] [address] [place], [address] Cholesterol in HDL [Mass/Vol] 64 mg/dL Normal [facility] Comment on above: Order Comment: 'TROP ' Serial specimen #1, #2 or #3: 1 Result Comment: [place] onal Cholesterol Education Program (NCEP) guidelines: <40 mg/dL: Low HDL-cholesterol (major risk factor for CHD) >= 60 mg/dL: High HDL-cholesterol (negative risk factor for CHD) HDL-cholesterol is affected by a number of factors, e.g. smoking, exercise, hormones, sex and age. Performed By: #### L [id number] #### [facility] [address] [place], [address] Cholesterol in LDL [Mass/Vol] 142 mg/dL Normal [facility] Comment on above: Order Comment: 'TROP ' Serial specimen #1, #2 or #3: 1 Result Comment: Bord mqvrdq=906-797 mg/dL Higher Vjal=346 mg/dL or greater Performed By: #### L [id number] #### [facility] [address] [place], [address] Cholesterol in VLDL [Mass/Vol] 18 mg/dL Normal 5-40 [facility] Comment on above: Order Comment: 'TROP ' Serial specimen #1, #2 or #3: 1 Performed By: #### L [id number] #### [facility] [address] [place], [place], [address] Triglyceride [Mass/Vol] 91 mg/dL Normal [facility] Comment on above: Order Comment: 'TROP ' Serial specimen #1, #2 or #3: 1 Result Comment: The drugs N-Acetylcysteine and Metamizole may falsely depress this assay. Normal range: <150 mg/dL Borderline High: 150-199 mg/dL High: 200-499 mg/dL Very High: >500 mg/dL Performed By: #### L [id number] #### [facility] [address] [facility] [place], [place], [address] Potassium measurement (mass/ volume)Ordered By: Erin Ordaz on 09-07-2024 Potassium (Unsp spec) [Mass/Vol] 4.1 mmol/L 3.3-5.1 [facility] Screening total cholesterol/ high density lipoprotein (HDL) cholesterol ratioOrdered By: Erin Ordaz on 09-07-2024 Cholesterol.total/Kajal sterol in HDL [Mass ratio] 3.52 {ratio} [facility] Serum creatinine measurement (mass/volume)Ordered By: Erin Ordaz on 09-07-2024 Creatinine [Mass/Vol] 1.14 mg/dL 0.70-1.20 [facility] Serum globulin measurementOr dered By: Erin Ordaz on 09-07-2024 Globulin (S) [Mass/Vol] 2.8 g/dL 2.2-4.2 [facility] Serum glucose measurement (m ass/volume)Ordered By: Erin Ordaz on 09-07-2024 Glucose [Mass/Vol] 101 mg/dL High 70-99 [facility] Serum or plasma alanine mills otransferase (ALT) measurementOrdered By: Erin Ordaz on 09-07-2024 ALT [Catalytic activity/Vol] 26 U/L <35 [facility] Serum or plasma albumin josue urement (mass/volume)Ordered By: Erin Ordaz on 09-07-2024 Albumin [Mass/Vol] 4.7 g/dL 3.4-4.8 [facility] Serum or plasma albumin/glob ulin mass ratioOrdered By: Erin Ordaz on 09-07-2024 Albumin/Globulin [Mass ratio] 1.7 {ratio} 0.9-2.4 [facility] Serum or plasma alkaline destinee sphatase measurementOrdered By: Erin Ordaz on 09-07-2024 ALP [Catalytic activity/Vol] 83 U/L 35-104 [facility] Serum or plasma calcium josue urement (mass/volume)Ordered By: Erin Ordaz on 09-07-2024 Calcium [Mass/Vol] 10.0 mg/dL 7.6-11.0 [facility] Serum or plasma cholesterol in HDL measurement (mass/volume)Ordered By: Erin Ordaz on 09-07-2024 Cholesterol in HDL [Mass/Vol] 64 mg/dL >40 [facility] Comment on above: National Cholesterol Education Program (NCEP) guidelines:<40 mg/dL: Low HDL-cholesterol (major risk factor for CHD)>= 60 mg/dL: High HDL-cholesterol (negative risk factor for CHD)HDL-cholesterol is affected by a number of factors, e.g. smoking, exercise, hormones, sex and age. Serum or plasma cholesterol measurement (mass/volume)Ordered By: Erin Ordaz on 09-07-2024 Cholesterol [Mass/Vol] 224 mg/dL High <201 [facility] Comment on above: Cholesterol level, D esirable <200 mg/dLBorderline high cholesterol 200-239 mg/dLHigh cholesterol >=240 mg/dLRecommendations of the NCEP Adult Treatment Panel for the following risk-cutoff thresholds for the [place] population. Serum or plasma urea nitroge n measurement (mass/volume)Ordered By: Erin Ordaz on 09-07-2024 Urea nitrogen [Mass/Vol] 23 mg/dL High 4-19 [facility] Sodium levelOrdered By: Erin Ordaz on 09-07-2024 Sodium [Moles/Vol] 141 mmol/L 133-145 [facility] Total proteinOrdered By: Akila Ordaz on 09-07-2024 Protein [Mass/Vol] 7.5 g/dL 5.9-8.4 [facility] Triglycerides measurementOrd ered By: Erin Ordaz on 09-07-2024 Triglyceride [Mass/Vol] 91 mg/dL <199 [facility] Comment on above: The drugs N-Acetylcy steine and Metamizole may falsely depress this assay. Normal range: <150 mg/dLBorderline High: 150-199 mg/dLHigh: 200-499 mg/dLVery High: >500 mg/dL LIPID PANEL WITH REFLEX TO D IRECT LDLon 08-30-2024 Cholesterol [Mass/Vol] 219 mg/dL High <200 [facility] Comment on above: Order Comment: FASTI NG:YES FASTING: YES Performed By: #### 1 5702 #### [facility] [address], [address] [place] [address] Equipment Operator Wage Hand: Nahid Son MD Cholesterol in HDL [Mass/Vol] 58 mg/dL Normal > OR = 50 [facility] Comment on above: Order Comment: FASTI NG:YES FASTING: YES Performed By: #### 1 0792 #### [facility] [address], [address] [place] [address] Equipment Operator Wage Hand: Nahid Son MD Cholesterol in LDL [Mass/Vol] 140 mg/dL High [facility] Comment on above: Order Comment: FASTI NG:YES FASTING: YES Result Comment: Refe rence range: <100 Desirable range <100 mg/dL for primary prevention; <70 mg/dL for patients with CHD or diabetic patients with > or = 2 CHD risk factors. LDL-C is now calculated using the Karel-Darrion calculation, which is a validated novel method providing better accuracy than the Friedewald equation in the estimation of LDL-C. Karel CHEEK et al. SAAD. 2013;310(19): 4182-0657 (http://education.[employer].TeensSuccess/faq/JCT541) Performed By: #### 1 2572 #### [facility] [address], [address] [place] [address] Equipment Operator Wage Hand: Nahid Son MD Cholesterol.total/Kajal sterol in HDL [Mass ratio] 3.8 {ratio} Normal <5.0 [facility] Comment on above: Order Comment: FASTI NG:YES FASTING: YES Performed By: #### 1 5182 #### [facility] [address] [facility], [address] [place] [address] Equipment Operator Wage Hand: Nahid Son MD NON HDL CHOLESTEROL 161 mg/dL (calc) High <130 [facility] Comment on above: Order Comment: FASTI NG:YES FASTING: YES Result Comment: For patients with diabetes plus 1 major ASCVD risk factor, treating to a non-HDL-C goal of <100 mg/dL (LDL-C of <70 mg/dL) is considered a therapeutic option. Performed By: #### 1 4852 #### [facility] [address] [place] [address], [address] Equipment Operator Wage Hand: Nahid Son MD Triglyceride [Mass/Vol] 97 mg/dL Normal <150 [facility] Comment on above: Order Comment: FASTI NG:YES FASTING: YES Performed By: #### 1 4852 #### [facility] [address], [address] [place] [address] Equipment Operator Wage Hand: Nahid Son MD Cerv Spine 4 or 5 Viewson Cerv Spine 4 or 5 Views [facility] Imaging Services [address] [place], [place] [id number] Cerv Spine 4 or 5 Views MR#: [id number] Acct: [id number] Name: HELEN RODRIGES Rep #: [id number] : 1950 F 73 From: Valeriano Feliz PCP: Dr. Erin Ordaz MD Status: DEP AMB Study: Cerv Spine 4 or 5 Views Date of Exam: 08/10/24 Exam# [id number] Ordering Dr: Ghazala Ozuna PROCEDURE: CERV SPINE 4 OR 5 VIEWS 08/10/2024 REASON FOR EXAM: CHRONIC PAIN TECHNIQUE: 4 views of the cervical spine. COMPARISON: None FINDINGS: See impression RAD/Cerv Spine 4 or 5 Views IMPRESSION: Straightening of the normal lordosis. Minimal dextroscoliosis. Vertebral body heights are preserved. Ojoz-om-fjdanrnu multilevel disc space narrowing, greatest from C5 through C7. Moderate uncovertebral arthrosis from C5 through C7. Fovk-nw-phhdbhhx multilevel facet arthropathy, greatest on the right at C3-4 and C4-5. Negative for abnormal motion. Reading Location: [facility] CC: JEANETTE Davis; Dr. Erin Ordaz MD Glass Bender: Signed Normal [facility] L/S Spine Min 4 Viewson 07-31 L/S Spine Min 4 Views [facility] Imaging Services [address] [place], [place] [address] L/S Spine Min 4 Views MR#: [id number] Acct: [id number] Name: HELEN RODRIGES Rep #: [id number] : 1950 F 73 From: Valeriano Feliz PCP: Dr. Erin Ordaz MD Status: DEP AMB Study: L/S Spine Min 4 Views Date of Exam: 08/10/24 Exam# [id number] Ordering Dr: Ghazala Ozuna PROCEDURE: L/S SPINE MIN 4 VIEWS 08/10/2024 REASON FOR EXAM: CHRONIC PAIN TECHNIQUE: Four views of the lumbar spine COMPARISON: None FINDINGS: See impression RAD/L/S Spine Min 4 Views IMPRESSION: Minimal levoscoliosis. Vertebral body heights are within normal limits. Mild to severe multilevel disc space narrowing, greatest at L5-S1. Moderate multilevel facet arthropathy. Mild degenerative changes of the sacroiliac joints. Negative for abnormal motion. Reading Location: [facility] CC: JEANETTE Davis; Dr. Erin Ordaz MD Glass Bender: Signed Normal [facility] Orthopedic Visit Reporton Orthopedic Visit Report [facility] [address] [place] [address] [address] [place] [address] OFFICE VISIT Date of Service: 08/10/24 MR#: [id number] Acct: [id number] Name: HELEN RODRIGES Rep #: [id number] : 1950 Provider: JEANETTE Davis Age/Sex: 73/F Location: [facility] Status: Signed Intake Vital Signs 07/16/24 08:45 08/10/24 11:15 Height 5 ft 3.75 in 5 ft 3 in Weight: 123 lb 2 oz BMI 21.8 Intake Visit Reasons: LUMBAR SPINE Chief Complaint: Lumbar/Cervical Spine Pain Accompanied by: Self Is patient in pain?: Yes Pain scale (1-10): 7 Allergies belladonna alkaloids Adverse Reaction (Verified 08/10/24 11:16) Rash Medications ???Medication ???Instructions ???Recorded ???Confirmed ???Type aspirin 81 mg tablet,delayed 81 mg PO DAILY 03/19/24 08/10/24 H istory release clopidogrel 75 mg tablet 75 mg PO DAILY 03/19/24 08/10/24 H istory cholecalciferol (vitamin D3) 25 25 mcg PO QDAY 04/05/24 08/10/24 H istory mcg (1,000 unit) capsule cyanocobalamin (vitamin B-12) 1,000 mcg PO QDAY 04/05/24 5 History 1,000 mcg capsule vitamins A,C,V-yisp-iqunmw 4,296 1 cap PO QDAY 04/05/24 08/10/24 Hi story mcg-226 mg-90 mg capsule (PreserVision AREDS) metoprolol succinate 25 mg 25 mg PO QDAY 08/10/24 08/10/24 Hi story tablet,extended release 24 hr valsartan 40 mg tablet 40 mg PO QDAY 08/10/24 08/10/24 Hi story Have you fallen in the past year?: No PFSH Medical History CAD (coronary artery disease) Dyslipidemia Hypertension Adjustment disorder with anxiety Left ventricular systolic dysfunction (LVSD) without heart failure Ischemic cardiomyopathy History of ST elevation myocardial infarction (STEMI) (03/10/24) Arteriosclerotic cardiovascular disease (03/10/24) Anxiety Migraines Cataracts, bilateral Surgical History Presence of stent in coronary artery (03/10/24) History of tonsillectomy History of blepharoplasty H/O nasal polypectomy History of bunionectomy Family History Mother Heart disease Hypertension CAD (coronary artery disease) Father Lung cancer Brother Melanoma CAD (coronary artery disease) Daughter Thyroid disorder Social History household members: spouse current occupational status: retired pets and animals: Yes Smoking Status: Never smoker alcohol intake: current substance use type: does not use HPI LUMBAR SPINE Details: This documentation accurately reflects the service provided and the decisions made by me, JEANETTE Davis 08/10/24 1113. Part of today???s visit was documented by Niharika Delacruz ATC, acting as scribe. HELEN RODRIGES is a 73 year old F here today for lumbar and cervical spine pain. Patient states the back started bothering her right before her heart attack in March 2024. She was on bed rest and thinks this caused her neck and back pain. She states she has a history of back pain that she has been able to manage and live with it. She showed dogs for years and states she had a hump in her back but it ended up straightening out. She describes the lumbar spine pain mainly over the right side. She states since March she would get up and feels like she has to walk like she is crippled and it takes her a while to feel like shes back to normal. Occasionally she will have numbness/tingling in the right leg. Says that her low back pain is worse in the morning and she will get a pain that extends down her right leg on the lateral side to her lateral calf. Denies any left-sided involvement. She denies any lower extremity weakness other than in the morning when she gets up. She states there is something sticking out on the cervical spine and feels like it is moving. She states when she tries to stretch her neck she feels like something pops in the lumbar spine. The neck seems to bother her all of the time and is tight. Says that her neck pain has resulted in limited range of motion and it feels like her neck will pull towards the right side. The patient denies any balance issues but says that on occasion she will drop her phone out of her hand however she denies any worsening dexterity issues. She had a steroid injection about 10-15 years ago around her shoulder due to frozen shoulder and states it did give her relief. She denies any numbness/tingling into the arms. She denies any recent injections to the cervical or lumbar spine. She did physical therapy several years ago. Currently the patient is in cardio rehab following her heart attack back in March and started this therapy around [place] time and currently is still in it. She denies any surgery. She d (more content not included)... Normal [facility] No Panel InformationOrdered By: Daroin Odom on 07-16-2024 [facility] Cardiac Rehab [address] [place] [address] CR - Individual Treatment Plan MR#: [id number] Acct: [id number] Name: HELEN RODRIGES Rep #:[id number] : 1950 73 From: Darion Lee BS, RVT PCP: Dr. Erin Ordaz MD DOS: 07/11/24 Exercise - Initial Assessment Physician Prescribed Exercise Modalities: Treadmill, SciFit Stepper and SciFit Lateral Furniture Fabricator Nutrition - Initial Assessment Weight Mgt (Other Care) Height: 5 ft 3.75 in Weight:: 125 lb BMI: 21.6 Psychosocial - Initial Assess Target Goals Target Goals Referral to Behavioral Health PS - Interventions: Yes: Attend Stress Management Classes Patient Health Questionnaire PHQ-9 Screening 90-Day Re-eval Assessment: 1. Little interest or pleasure in doing things: Not at all 2. Feeling down, depressed, or hopeless: Not at all 3. Trouble falling or staying asleep, or sleeping too much: Several days 4. Feeling tired or having little energy: Several days 5. Poor appetite or overeating: Not at all 6. Feeling bad about yourself -- or that you are a failure or have let yourself or your family down: Not at all 7. Trouble concentrating on things, such as reading the newspaper or watching television: Not at all 8. Moving or speaking so slowly that other people could have noticed. Or the opposite - being so fidgety or restless that you have been moving around a lot more than usual: Not at all 9. Thoughts that you would be better off , or of hurting yourself in some way: Not at all How difficult have these problems made it for you to do your work, take care of things at home, or get along with other people?: Not difficult at all Total Score: 2 Self-Efficacy 6-Item Scale 90-Day Re-eval Assessment: We would like to know how confident you are in doing certain activities. Please select your confidence level for: Fatigue Select Number: 10 Physical Discomfort or Pain Select Number: 10 Emotional Distress Select Number: 10 Other Symptoms or Health Problems Select Number: 10 Different Tasks and Activities Select Number: 10 Medication Select Number: 10 Total Score:: 10 Nutrition Survey Nutrition Survey Instructions Scoring Instructions Exercise - 30-day Assessment Physician Prescribed Exercise Modalities: Treadmill, SciFit Stepper and SciFit Lateral Furniture Fabricator Exercise - 60-day Assessment Physician Prescribed Exercise Modalities: Treadmill, SciFit Stepper and SciFit Lateral [place] Exercise - 90-day Assessment Visit Date of Eval: 07/16/24 Session #:: 22 Physician Prescribed Exercise Modalities: Treadmill, SciFit Stepper and SciFit Lateral Furniture Fabricator Frequency: 3x/week for 12 weeks [36 sessions] Intensity: 60-80% of age predicted maximum heart rate reserve Duration: 30 - 45 minutes Current METSs:: 7 Target Heart Rate:: 89-119 Current RPE:: 12 Maximum Excercise HR:: 116 Resting Blood Pressure: 132/70 Maximum Exercise Blood Pressure: 160/90 EKG Type: NSR to ST with rare PAC/PVC Outcomes & Goals Goals:: Verbalizes understanding of THR, RPE & goal METS by session 6, Documentsin home exercise log/reports 30 min aerobic 5 day/wk by DC, Demonstrates accurate pulse taking by DC and Other additional outcome/goals: see below Intervention & Plan Exercise Program Goals: Instruct on personal THR & RPE, Instruct on MET level & personal MET goal, Show patient to take own pulse /validate performance until accurate, Instruct on home exercise and Other additional plan/int Physical Activity Home Exercise Physical Activity - Home Exercise: Safe Exercise, Warm-up, Self-monitoring, Cool-Down, Home Exercise > 30 min Daily and Sitting Time <3 hours/daily Outcomes & Goals Outcomes/Goals: Demonstrates correct Warm-up/exercise Cool-Down (S3) if = 2.5 METs, Verbalizes symptoms of exercise intolerance by Session 3 (S3), Demonstratesafe equipment use (S3) & follows exercise prescrition (6) and Other: See below Intervention & Plan Plan/Intervention: Instruct warm-up & cool-down if exercising at > 2 METs, Instruct on symptoms of exercise intolerance & actions to take, Instruct & monitor on saf, Assess intial functional capacity & safety risk and Other See below 30-day Reassessments 30 day Reassessments:: Progressing Reassessment Notes & Comments:: Pt is doing very well. She has been able to increase her exercise to 7 METS. Will continue to encourage. Exercise - Final/Discharge Physician Prescribed Exercise Modalities: Treadmill, SciFit Stepper and SciFit Lateral [place] Nutrition - 30-Day Assessment Weight Mgt (Other Care) Height: 5 ft 3.75 in Weight:: 125 lb BMI: 21.6 Nutrition - 60-Day Assessment Weight Mgt (Other Care) Height: 5 ft 3.75 in Weight:: 125 lb BMI: 21.6 Core - 30-Day Assessment Hypertension [place] [employer] Hypertension Guidelines Reassessment Notes & Comments:: Pt's BP's are within AHA normal limits on some days. Will continue to monitor and encourage a low sodium diet. Core - Final Assessment Hypertension [place] Hypertension Guidelines Reassessment Notes & Comm (more content not included)... [facility] ECHOCARDIOGRAM STRESS TESTon 07-12-2024 ECHOCARDIOGRAM STRESS TEST Patient Info Name: HELEN RODRIGES Age: 73 years : 1950 Gender: Female Ht: 160 cm Wt: 56 kg BSA: 1.58 m2 HR: 82 bpm BP: 158 / 79 mmHg Heart Rhythm: Sinus Arrhythmia, Sinus Rhythm Technical Quality: Fair Exam Date: 07/12/2024 10:00 AM Patient Status: Outpatient Career Information Specialist: Lis Miller RDCS, RVT Exam Type: ECHOCARDIOGRAM STRESS TEST Study Info Indications - CAD I25.10 - Atherosclerotic heart disease of [place] coronary artery without angina pectoris Attending Physician: John Naidu Referring Physician: NAHID GEORGES ; [id number] Primary Nurse: Adia Saldana RN Supervising Stress Physician: Kenny Stokes DO BMI: 21.79 kg/m2 Secondary Nurse: Heather Brunner RN Summary 1. Patient exercised 7 minutes 10 seconds standard Renato protocol with a peak heart rate of 142. No ST changes noted. Peak systolic blood pressure of 209 was obtained she did not take her medications this morning. 2. Negative EKG, adequate heart rate stress test. 3. Left ventricular systolic function is mild to moderately reduced with an estimated ejection fraction of 40-45 % at rest. There is global hypokinesis. 4. Overall global left ventricular systolic function Improved post stress. EF 50-55%. 5. Normal augmentation of all wall segments without evidence of ischemia with stress. History/Risk Factors Hypertension: Yes Dyslipidemia: Yes Myocardial Infarction (NH): Yes Coronary Artery Disease (CAD) Yes Date of Prior NH: 03/10/2024 Prior Interventions PCI: Yes Date of PCI: 03/10/2024 Stress Echo Findings Left Ventricle Left ventricular systolic function is mild to moderately reduced with an estimated ejection fraction of 40-45 % at rest. There is global hypokinesis. Overall global left ventricular systolic function Improved post stress. EF 50-55%. Normal augmentation of all wall segments without evidence of ischemia with stress. Procedure(s): Treadmill exercise stress echocardiogram is performed. Two-dimensional, color flow imaging, and Doppler interrogation is performed during the stress echocardiogram. Left Ventricular Outflow Tract Name Value Normal LVOT 2D LVOT Diameter 1.8 cm LVOT Doppler LVOT Peak Velocity 0.9 m/s Pulmonic Valve Name Value Normal PV Doppler PV Peak Velocity 0.81 m/s PV Regurgitation Doppler OK Peak End Diastolic Velocity 107 cm/s Mitral Valve Name Value Normal MV Doppler MV PHT 64 ms MV Area (PHT) 3.4 cm2 4.0-5.0 MV Diastolic Function MV E Peak Velocity 1 m/s MV A Peak Velocity 1 m/s MV E/A 0.6 MV Decel Time 222 ms MV Annular TDI MV Septal e' Velocity 5.7 cm/s >=8.0 MV Septal a' Velocity 8.1 cm/s MV E/e' (Septal) 11.3 <=8.0 MV A/a' (Septal) 14.0 MV Lateral e' Velocity 6.5 cm/s >=9.5 MV E/e' (Lateral) 9.8 <=8.0 MV e' Average 6.10 cm/s MV E/e' (Average) 10.5 <=13.5 Aorta Name Value Normal Ascending Aorta Ao Root Diameter (2D) 3.0 cm 2.7-3.3 Ao Root Diam Index (2D) 1.9 cm/m2 1.6-2.0 Prox Asc Ao Diameter 2.8 cm 2.3-3.1 Prox Asc Ao Diameter Index 1.8 cm/m2 1.3-1.9 Aortic Valve Name Value Normal AV 2D/MM AV Cusp Sep (MM) 1.5 cm AV Doppler AV Peak Velocity 1.4 m/s AV Peak Gradient 8 mmHg AV Area (Cont Eq Raman) 1.6 cm2 LVOT Vmax/AV Vmax 0.63 AV Regurgitation 2D LVOT Area 2.5 cm2 Ventricles (more content not included)... Normal [facility] Anion gap in Serum or Plasma Ordered By: Erin Ordaz on 07-02-2024 Anion gap [Moles/Vol] 14 mmol/L 5-15 [facility] BUN/creatinine ratioOrdered By: Erin Ordaz on 07-02-2024 Urea nitrogen/Creatinine [Mass ratio] 19.3 mg/mg 10-20 [facility] Bilirubin, totalOrdered By: Erin Ordaz on 07-02-2024 Bilirubin [Mass/Vol] 0.72 mg/dL 0.00-1.30 [facility] Carbon dioxide, total [Moles /volume] in Central venous bloodOrdered By: Erin Ordaz on 07-02-2024 CO2 [Moles/Vol] 28.3 mmol/L Normal 21.0-32.0 [facility] Comment on above: Order Comment: Order Date: 07/02/24 Order Info: [id number] - CMP Order Info: [id number] - MG Performed By: #### L 500.4050 #### [facility] Laboratory [address] [place], [address] Chloride assayOrdered By: Ramin Ordaz on 07-02-2024 Chloride [Moles/Vol] 98 mmol/L Normal 98-108 [facility] Comment on above: Order Comment: Order Date: 07/02/24 Order Info: [id number] - CMP Order Info: [id number] - MG Performed By: #### L 500.4050 #### [facility] Laboratory [address] [place], [address] Comprehensive Metabolic Prof ilon 07-02-2024 GAP 14 Normal 5-15 [facility] Comment on above: Order Comment: Order Date: 07/02/24 Order Info: [id number] - CMP Order Info: - MG Performed By: #### L 500.4050 #### [facility] Laboratory [address] [place], [address] GFR/1.73 sq M.predicted tami g non-blacks MDRD (S/P/Bld) [Vol rate/Area]Ordered By: Erin Ordaz on 07-02-2024 Estimated GFR (MDRD) Non-Af Amer 64 >60 [facility] Comment on above: mL/min/1.73m2 CKD-EP I Creatinine Equation (2020) Glomerular filtration rate ( GFR) estimation/1.73 sq m using serum, plasma, or whole bOrdered By: Erin Ordaz on 07-02-2024 GFR/1.73 sq M.predicted among non-blacks MDRD (S/P/Bld) [Vol rate/Area] 64 mL/min/{1.73_m2} >60 [facility] Comment on above: mL/min/1.73m2 CKD-EP I Creatinine Equation (2020) Laboratory - Chemistry and C hemistry - challengeOrdered By: Erin Ordaz on 07-02-2024 AST [Catalytic activity/Vol] 40 U/L High <32 [facility] Magnesium measurement (mass/ volume)Ordered By: Erin Ordaz on 07-02-2024 Magnesium [Mass/Vol] 3.1 mg/dL High 1.5-2.2 [facility] Comment on above: Order Comment: 'TROP ' Serial specimen #1, #2 or #3: 1 Performed By: #### L 501.4020 #### [facility] Laboratory [address] [place], [place], [id number] Magnesium (Unsp spec) [Mass/Vol] 3.1 mg/dL High 1.5-2.2 [facility] Potassium measurement (mass/ volume)Ordered By: Erin Ordaz on 07-02-2024 Potassium [Moles/Vol] 4.4 mmol/L Normal 3.3-5.1 [facility] Comment on above: Order Comment: Order Date: 07/02/24 Order Info: [id number] - CMP Order Info: - MG Performed By: #### L 500.4050 #### [facility] Laboratory [address] [place], [place], [address] Potassium (Unsp spec) [Mass/Vol] 4.4 mmol/L 3.3-5.1 [facility] Serum creatinine measurement (mass/volume)Ordered By: Erin Ordaz on 07-02-2024 Creatinine [Mass/Vol] 0.95 mg/dL 0.70-1.20 [facility] Serum globulin measurementOr dered By: Erin Ordaz on 07-02-2024 Globulin (S) [Mass/Vol] 3.1 g/dL 2.2-4.2 [facility] Serum glucose measurement (m ass/volume)Ordered By: Erin Ordaz on 07-02-2024 Glucose [Mass/Vol] 102 mg/dL High 70-99 [facility] Serum or plasma alanine mills otransferase (ALT) measurementOrdered By: Erin Ordaz on 07-02-2024 ALT [Catalytic activity/Vol] 29 U/L <35 [facility] Serum or plasma albumin josue urement (mass/volume)Ordered By: Erin Ordaz on 07-02-2024 Albumin [Mass/Vol] 4.7 g/dL 3.4-4.8 [facility] Serum or plasma albumin/glob ulin mass ratioOrdered By: Erin Ordaz on 07-02-2024 Albumin/Globulin [Mass ratio] 1.5 {ratio} 0.9-2.4 [facility] Serum or plasma alkaline [place]inee sphatase measurementOrdered By: Erin Ordaz on 07-02-2024 ALP [Catalytic activity/Vol] 79 U/L 35-104 [facility] Serum or plasma calcium josue urement (mass/volume)Ordered By: Erin Ordaz on 07-02-2024 Calcium [Mass/Vol] 10.0 mg/dL Normal 7.6-11.0 [facility] Comment on above: Order Comment: Order Date: 07/02/24 Order Info: [id number] - CMP Order Info: - MG Performed By: #### L 500.4050 #### [facility] Laboratory [address] [place], [place], [id number] Serum or plasma urea nitroge n measurement (mass/volume)Ordered By: Erin Ordaz on 07-02-2024 Urea nitrogen [Mass/Vol] 18 mg/dL 4-19 [facility] Sodium levelOrdered By: Erin Ordaz on 07-02-2024 Sodium [Moles/Vol] 140 mmol/L Normal 133-145 [facility] Comment on above: Order Comment: Order Date: 07/02/24 Order Info: [id number] - CMP Order Info: [id number] - MG Performed By: #### L 500.4050 #### [facility] Laboratory [address] [place], [address] Total proteinOrdered By: Akila Ordaz on 07-02-2024 Protein [Mass/Vol] 7.7 g/dL 5.9-8.4 [facility] H. PYLORI STOOL AGon 025 H PYLORI STL AG Negative Normal Negative [facility] Comment on above: Result Comment: Perf ormed at: [employer] [facility] [address] [place], [place] [id number] Progress Clerk: Adalberto Kwan PhD, Phone: [phone] Performed By: #### L 3100.1950 #### [facility] [address] [place], [address] H. pylori Ag IA Ql (Stl)Orde red By: Erin Ordaz on 04-30-2024 Stool Helicobacter pylori Antigen Negative Negative [facility] Comment on above: Performed at: [employer] [facility] [id number] [place], [place] [id number] Director: Adalberto Kwan PhD, Phone: [phone] Lead EKGon 04-21-2024 12 Lead EKG [facility] Cardiovascular Services [address] [place] [address] 12 Lead EKG 04/21/24 0548 MR#: [id number] Acct: [id number] Name: HELEN RODRIGES Rep #: [id number] : 1950 73 From: Kunal Benjamin MD Attending Dr: Dr. Margie Balbuena MD Status: CECY S SHABANA Ordering Dr: Margie Balbuena MD Date: 04/21/24 Location: U Sex: F C Admitted: 04/20/24 Test Reason : CP Blood Pressure : */* mmHG Vent. Rate : 68 BPM Atrial Rate : 68 BPM P-R Int : 156 ms QRS Dur : 80 ms QT Int : 474 ms P-R-T Axes : 49 46 111 degrees QTcB Int : 504 ms Normal sinus rhythm Anteroseptal infarct , age undetermined T wave abnormality, consider lateral ischemia Abnormal ECG When compared with ECG of 20-Apr-2024 20:03, MANUAL COMPARISON REQUIRED DATA IS UNCONFIRMED Confirmed by SOURAV HOBBS, KUNAL ([id number]), commissioning editor MAYNOR JENSEN ([id number]) on 04/23/2024 8:34:37 AM Referred By: Confirmed By: KUNAL BENJAMIN MD 04/23/24 0834 Date Kunal Benjamin MD CC: Dr. Erin Ordaz MD; Dr. Margie Balbuena MD Signed [facility] 12 Lead EKG [facility] Cardiovascular Services [address] [place] [address] 12 Lead EKG 04/21/24 1007 MR#: [id number] Acct: [id number] Name: HELEN RODRIGES Rep #: [id number] : 1950 73 From: Kunal Benjamin MD Attending Dr: Dr. Margie Balbuena MD Status: CECY S SHABANA Ordering Dr: Lili Islas MD Date: 04/21/24 Location: U Sex: F C Admitted: 04/20/24 Test Reason : CP Blood Pressure : */* mmHG Vent. Rate : 69 BPM Atrial Rate : 69 BPM P-R Int : 148 ms QRS Dur : 82 ms QT Int : 442 ms P-R-T Axes : 54 24 111 degrees QTcB Int : 473 ms Normal sinus rhythm Septal infarct , age undetermined T wave abnormality, consider anterolateral ischemia Abnormal ECG When compared with ECG of 21-Apr-2024 05:48, MANUAL COMPARISON REQUIRED DATA IS UNCONFIRMED Confirmed by SOURAV HOBBS, KUNAL ([id number]), commissioning editor MAYNOR JENSEN ([id number]) on 04/23/2024 8:33:59 AM Referred By: Confirmed By: KUNAL BENJAMIN MD 04/23/24 0833 Date Kunal Benjamin MD CC: Dr. Lili Islas MD; Dr. Erin Ordaz MD; Dr. Margie Balbuena MD Signed Normal [facility] Absolute neutrophil countOrd ered By: Lili Islas on 04-21-2024 Neutrophils (Bld) [#/Vol] 2.2 10*3/uL 2.0-7.7 [facility] Albumin to globulin ratioOrd ered By: Lili Islas on 04-21-2024 Albumin/Globulin [Mass ratio] 1.2 {ratio} 0.9-2.4 [facility] Basophil percentageOrdered B y: Lili Islas on 04-21-2024 Basophils/100 WBC (Bld) 1.2 % High 0-1 [facility] Bilirubin, totalOrdered By: Lili Islas on 04-21-2024 Bilirubin [Mass/Vol] 0.90 mg/dL 0.20-1.00 [facility] Comment on above: For patients on eltr ombopag therapy, use of Dimension [place] TBIL is not recommended. Blood urea nitrogen (BUN)/cr eatinine ratioOrdered By: Lili Islas on 04-21-2024 Urea nitrogen/Creatinine [Mass ratio] 12.8 mg/mg 10-20 [facility] CBC W/Diff, Automatedon 04-02 Absolute Lymph 1.27 X10 3/uL Normal 0.83-4.51 [facility] Comment on above: Performed By: #### L 500.4050, L100.0100, L500.4100 #### [facility] Laboratory [address] [place], [address] Absolute Neut 2.2 X10 3/uL Normal 2.0-7.7 [facility] Comment on above: Performed By: #### L 500.4050, L100.0100, L500.4100 #### [facility] Laboratory [address] [place], [address] Basophils/100 WBC (Bld) 1.2 % High 0-1 [facility] Comment on above: Performed By: #### L 500.4050, L100.0100, L500.4100 #### [facility] Laboratory [address] [place], [address] Eosinophils/100 WBC (Bld) 3.3 % Normal 0-5 [facility] Comment on above: Performed By: #### L 500.4050, L100.0100, L500.4100 #### [facility] Laboratory [address] [place], [address] Erythrocyte distribution width (RBC) [Ratio] 13.2 % Normal 11.6-14.6 [facility] Comment on above: Performed By: #### L 500.4050, L100.0100, L500.4100 #### [facility] Laboratory [address] [place], [address] Hematocrit (Bld) [Volume fraction] 36.5 % Low 37-47 [facility] Comment on above: Performed By: #### L 500.4050, L100.0100, L500.4100 #### [facility] Laboratory [address] [place], [address] Hemoglobin (Bld) [Mass/Vol] 12.3 g/dL Normal 12.0-15.0 [facility] Comment on above: Performed By: #### L 500.4050, L100.0100, L500.4100 #### [facility] [address] [place], [address] IG% 0.000 Normal 0.0-0.9 [facility] Comment on above: Result Comment: IG% - Immature Granulocytes (promyelocytes, myelocytes and metamyelocytes) > 1% indicates that a LEFT SHIFT is Present. Performed By: #### L 500.4050, L100.0100, L500.4100 #### [facility] [address] [place], [address] Lymphocytes/100 WBC (Bld) 29.6 % Normal 19-41 [facility] Comment on above: Performed By: #### L 500.4050, L100.0100, L500.4100 #### [facility] [address] [place], [address] MCH (RBC) [Entitic mass] 29.5 pg Normal 27.0-32.0 [facility] Comment on above: Performed By: #### L 500.4050, L100.0100, L500.4100 #### [facility] [address] [place], [address] MCHC (RBC) [Mass/Vol] 33.7 g/dL Normal 32-36 [facility] Comment on above: Performed By: #### L 500.4050, L100.0100, L500.4100 #### [facility] [address] [place], [address] MCV (RBC) [Entitic vol] 87.5 fL Normal 81-99 [facility] Comment on above: Performed By: #### L 500.4050, L100.0100, L500.4100 #### [facility] [address] [place], [address] Monocytes/100 WBC (Bld) 13.8 % High 0-10 [facility] Comment on above: Performed By: #### L 500.4050, L100.0100, L500.4100 #### [facility] [address] [place], [address] Neutrophils/100 WBC (Bld) 52.1 % Normal 47-70 [facility] Comment on above: Performed By: #### L 500.4050, L100.0100, L500.4100 #### [facility] Laboratory [address] [place], [address] Nucleated RBC (Bld) [#/Vol] 0 10*3/uL Normal 0-5 [facility] Comment on above: Performed By: #### L 500.4050, L100.0100, L500.4100 #### [facility] Laboratory [address] [place], [address] Platelet mean volume (Bld) [Entitic vol] 10.4 fL Normal 6.2-12.0 [facility] Comment on above: Performed By: #### L 500.4050, L100.0100, L500.4100 #### [facility] Laboratory [address] [place], [address] Platelets (Bld) [#/Vol] 198 10*3/uL Normal 150-450 [facility] Comment on above: Performed By: #### L 500.4050, L100.0100, L500.4100 #### [facility] Laboratory [address] [place], [address] RBC (Bld) [#/Vol] 4.17 10*6/uL Low 4.2-5.4 [facility] Comment on above: Performed By: #### L 500.4050, L100.0100, L500.4100 #### [facility] [address] [place], [address] RDW SD 42.2 fl Normal 35.1-43.9 [facility] Comment on above: Performed By: #### L 500.4050, L100.0100, L500.4100 #### [facility] [address] [place], [address] WBC (Bld) [#/Vol] 4.3 10*3/uL Low 4.4-11.0 [facility] Comment on above: Performed By: #### L 500.4050, L100.0100, L500.4100 #### [facility] [address] [place], [address] Carbon dioxide measurementOr dered By: Lili Islas on 04-21-2024 CO2 [Moles/Vol] 28.0 mmol/L 21.0-32.0 [facility] Chloride measurementOrdered By: Lili Islas on 04-21-2024 Chloride [Moles/Vol] 109 mmol/L High 98-107 [facility] Comprehensive Metabolic Prof ilon 04-21-2024 Albumin [Mass/Vol] 3.6 g/dL Normal 3.2-5.0 [facility] Comment on above: Performed By: #### L 500.4050, L100.0100, L500.4100 #### [facility] [address] [place], [address] Albumin/Globulin [Mass ratio] 1.2 {ratio} Normal 0.9-2.4 [facility] Comment on above: Performed By: #### L 500.4050, L100.0100, L500.4100 #### [facility] Laboratory [address] [place], [address] ALK P 72 U/L Normal 45-117 [facility] Comment on above: Performed By: #### L 500.4050, L100.0100, L500.4100 #### [facility] Laboratory [address] [place], [address] ALT [Catalytic activity/Vol] 28 U/L Normal 13-56 [facility] Comment on above: Performed By: #### L 500.4050, L100.0100, L500.4100 #### [facility] Laboratory [address] [place], [address] AST [Catalytic activity/Vol] 23 U/L Normal 15-37 [facility] Comment on above: Performed By: #### L 500.4050, L100.0100, L500.4100 #### [facility] Laboratory [address] [place], [address] Bilirubin [Mass/Vol] 0.90 mg/dL Normal 0.20-1.00 [facility] Comment on above: Result Comment: For patients on eltrombopag therapy, use of Dimension [place] TBIL is not recommended. Performed By: #### L 500.4050, L100.0100, L500.4100 #### [facility] Laboratory [address] [place], [address] BUN/CRE 12.8 RATIO Normal 10-20 [facility] Comment on above: Performed By: #### L 500.4050, L100.0100, L500.4100 #### [facility] Laboratory [address] [place], [address] CA,Total 9.3 mg/dL Normal 8.5-10.1 [facility] Comment on above: Performed By: #### L 500.4050, L100.0100, L500.4100 #### [facility] Laboratory [address] [place], [address] Chloride [Moles/Vol] 109 mmol/L High 98-107 [facility] Comment on above: Performed By: #### L 500.4050, L100.0100, L500.4100 #### [facility] Laboratory [address] [place], [address] CO2 [Moles/Vol] 28.0 mmol/L Normal 21.0-32.0 [facility] Comment on above: Performed By: #### L 500.4050, L100.0100, L500.4100 #### [facility] Laboratory [address] [place], [address] Creatinine [Mass/Vol] 1.09 mg/dL High 0.55-1.02 [facility] Comment on above: Result Comment: The validity of the calculated GFR GFRAA in patients over 70 years has not been determined. Clinical correlation is essential. Performed By: #### L 500.4050, L100.0100, L500.4100 #### [facility] Laboratory [address] [place], [address] ECRCL 39.16 ml/min Normal [facility] Comment on above: Performed By: #### L 500.4050, L100.0100, L500.4100 #### [facility] Laboratory [address] [place], [address] EST GFR - AA 64 mL/min Normal >60 [facility] Comment on above: Result Comment: Afri can Nigerien GFR Calc Performed By: #### L 500.4050, L100.0100, L500.4100 #### [facility] Laboratory [address] [place], [address] GAP 5 Normal 5-15 [facility] Comment on above: Performed By: #### L 500.4050, L100.0100, L500.4100 #### [facility] Laboratory [address] [place], [address] GFR/1.73 sq M.predicted among non-blacks MDRD (S/P/Bld) [Vol rate/Area] 53 mL/min/{1.73_m2} Low >60 [facility] Comment on above: Result Comment: Non- GFR Calc Performed By: #### L 500.4050, L100.0100, L500.4100 #### [facility] Laboratory [address] [place], [address] Globulin (S) [Mass/Vol] 3.1 g/dL Normal 2.2-4.2 [facility] Comment on above: Performed By: #### L 500.4050, L100.0100, L500.4100 #### [facility] Laboratory [address] [place], [address] Glucose [Mass/Vol] 80 mg/dL Normal 74-106 [facility] Comment on above: Performed By: #### L 500.4050, L100.0100, L500.4100 #### [facility] Laboratory [address] [place], [address] Potassium [Moles/Vol] 4.1 mmol/L Normal 3.5-5.1 [facility] Comment on above: Performed By: #### L 500.4050, L100.0100, L500.4100 #### [facility] Laboratory [address] [place], [address] Sodium [Moles/Vol] 141 mmol/L Normal 136-145 [facility] Comment on above: Performed By: #### L 500.4050, L100.0100, L500.4100 #### [facility] Laboratory [address] [place], [address] T PROT 6.7 g/dL Normal 6.4-8.2 [facility] Comment on above: Performed By: #### L 500.4050, L100.0100, L500.4100 #### [facility] Laboratory [address] [place], [address] Urea nitrogen [Mass/Vol] 14 mg/dL Normal 7-18 [facility] Comment on above: Performed By: #### L 500.4050, L100.0100, L500.4100 #### [facility] Laboratory [address] [place], [address] Discharge Instructionon 04-02 Discharge Instruction [facility] Medical Records Department [address] [place] [address] Instructions for Home/Discharge Instructions 04/21/24 1401 MR#: [id number] Acct: [id number] Name: HELEN RODRIGES Rep #: [id number] : [id number] From: Margie Balbuena MD PCP: Dr. Erin Ordaz MD Status:ADM SHABANA Discharge Instructions Diet Discharge Diet: Low fat / Low cholesterol DC O2, CPAP, BIPAP needs Home O2 Discharge instructions: No Dressing / Incision Discharge Activity: Return to Normal Activity Weight Bearing Status: Weight bearing as tolerated Dressing / Incision Call your doctor if you observe: Fever of 101 or Higher, Shortness of breath, Dizziness, Swelling in the ankles and Chest pain Follow Up Care Test Results: Test results from this visit will be discussed in further detail at your follow-up appointment, if applicable. Discharge Plan Admission Admit Date/Time: 04/20/24 17:45 Primary Reason for Your Visit: angina Attending Provider: Margie Balbuena Primary Care Provider: Erin Ordaz Consulting Providers: Lili Islas Instructions Patient Instructions: Heart Attack Angina Sx, ED Angina, Stable Additional Instructions / Restrictions: Take your medications as prescribed. Take your blood pressure medication when you get home. Keep a close eye and a blood pressure keep a blood pressure log randomly writing her blood pressure down 2- 3 times a day and what time it was when you obtain this blood pressure reading. Follow-up with the heating and ventilation engineer and have a repeat ultrasound of your heart and the stress test performed that you were supposed to have prior to starting cardiac rehab. Return with worsening symptoms or any other concerns. Follow up with her heating and ventilation engineer at [facility] within 1 week for further evaluation to determine whether to have a cardiac cath or otherwise Discharge Orders/Prescriptions Prescriptions: New carvedilol 6.25 mg Tablet 6.25 mg PO BID Qty: 60 2RF isosorbide mononitrate 30 mg Tablet Extended Release 24 Hr 30 mg PO DAILY Qty: 30 2RF Continued dapagliflozin propanediol [Farxiga] 10 mg tablet 10 mg PO QDAY Qty: 90 3RF micronesian elio PO PreserVision AREDS 4,296 mcg-226 mg-90 mg capsule 1 cap PO QDAY cyanocobalamin (vitamin B-12) 1,000 mcg capsule 1,000 mcg PO QDAY cholecalciferol (vitamin D3) 25 mcg (1,000 unit) capsule 25 mcg PO QDAY clopidogrel 75 mg tablet 75 mg PO DAILY aspirin 81 mg tablet,delayed release (DR/EC) 81 mg PO DAILY nitroglycerin 0.4 mg tablet, sublingual 0.4 mg sublingual Q5M PRN (Reason: chest pain) spironolactone 25 mg tablet 25 mg PO QDAY valsartan 160 mg tablet 40 mg PO QDAY Discontinued carvedilol 3.125 mg tablet 3.125 mg PO BID Qty: 180 3RF Rx Instructions: must administer with a meal/food metoprolol succinate 25 mg tablet extended release 24 hr 25 mg PO DAILY Referrals / Follow Up: Phyllis Cosby MD [Med Staff - Active Staff] - Within 1 Week Erin Ordaz MD [Primary Care Provider] - Within 1 Week Disposition Disposition (needs filled in before D/C Order can be placed): Home, Self Care 04/21/24 1401 Margie Balbuena MD CC: Dr. Lili Islas MD; Dr. Erin Ordaz MD Signed Normal [facility] Eosinophil percentageOrdered By: Lili Islas on 04-21-2024 Eosinophils/100 WBC (Bld) 3.3 % 0-5 [facility] Erythrocyte distribution wid th ratioOrdered By: Lili Islas on 04-21-2024 Erythrocyte distribution width (RBC) [Ratio] 13.2 % 11.6-14.6 [facility] Erythrocyte distribution wid th standard deviationOrdered By: Lili Islas on 04-21-2024 Erythrocyte distribution width (RBC) [Entitic vol] 42.2 fL 35.1-43.9 [facility] Estimated glomerular filtrat ion rate (GFR) AmericanOrdered By: Lili Islas on 04-21-2024 Estimated GFR (MDRD) Amer 64 mL/min >60 [facility] Comment on above: GFR Calc Estimation of creatinine korey aranceOrdered By: Lili Islas on 04-21-2024 Estimated Creatinine Clearance Calc 39.16 ml/min [facility] Glomerular filtration rate ( GFR) estimationOrdered By: Lili Islas on 04-21-2024 Estimated GFR (MDRD) Non-Af Amer 53 mL/min Low >60 [facility] Comment on above: Non- GFR Calc Glucose measurementOrdered B y: Lili Islas on 04-21-2024 Glucose [Mass/Vol] 80 mg/dL 74-106 [facility] Hematocrit Auto (Bld) [Volum e fraction]Ordered By: Lili Islas on 04-21-2024 Hematocrit (Bld) [Volume fraction] 36.5 % Low 37-47 [facility] Hemoglobin measurementOrdere d By: Lili Islas on 04-21-2024 Hemoglobin (Bld) [Mass/Vol] 12.3 g/dL 12.0-15.0 [facility] High density lipoprotein (HD L) measurementOrdered By: Lili Islas on 04-21-2024 Cholesterol in HDL [Mass/Vol] 48 mg/dL >40 [facility] Comment on above: The drugs N-Acetylcy steine and Metamizole may falsely depress this assay. Reference Range HDL <40 mg/dL Low HDL Cholesterol HDL >or= 60 mg/dL High HDL Cholesterol Immature granulocytes/100 WB C Auto (Bld)Ordered By: Lili Islas on 04-21-2024 Immature granulocytes/100 WBC (Bld) 0.000 % 0.0-0.9 [facility] Comment on above: IG% - Immature Granu locytes (promyelocytes, myelocytes and metamyelocytes) > 1% indicates that a LEFT SHIFT is Present. L501.4020on 04-21-2024 TROPONIN-I HS 55 pg/mL High 3.0-54.0 [facility] Comment on above: Order Comment: 'TROP ' Serial specimen #1, #2 or #3: 1 Result Comment: Ya rockwell Note: New Test Units and Gender Specific Reference Ranges. For more information see Policy Stat Procedure [place] High Sensitivity Troponin (TNIH) and attachments. Performed By: #### L 501.4020 #### [facility] Laboratory [address] [place] [address], [id number] Laboratory - Chemistry and C hemistry - challengeOrdered By: Lili Islas on 04-21-2024 AST [Catalytic activity/Vol] 23 U/L 15-37 [facility] Lipid Profileon 04-21-2024 Cholesterol [Mass/Vol] 193 mg/dL Normal 200 [facility] Comment on above: Result Comment: <200 mg/dL Desirable 200-240 mg/dL Borderline >240 mg/dL High Risk Performed By: #### L 500.4050, L100.0100, L500.4100 #### [facility] Laboratory [address] [place], [address] Cholesterol in HDL [Mass/Vol] 48 mg/dL Normal [facility] Comment on above: Result Comment: The drugs N-Acetylcysteine and Metamizole may falsely depress this assay. Reference Range HDL <40 mg/dL Low HDL Cholesterol HDL >or= 60 mg/dL High HDL Cholesterol Performed By: #### L 500.4050, L100.0100, L500.4100 #### [facility] Laboratory [address] [place], [address] Cholesterol in LDL [Mass/Vol] 133 mg/dL High 0-130 [facility] Comment on above: Performed By: #### L 500.4050, L100.0100, L500.4100 #### [facility] Laboratory [address] [place], [address] Cholesterol in VLDL [Mass/Vol] 12 mg/dL Normal 5-40 [facility] Comment on above: Performed By: #### L 500.4050, L100.0100, L500.4100 #### [facility] Laboratory [address] [place], [address] Triglyceride [Mass/Vol] 62 mg/dL Normal [facility] Comment on above: Result Comment: The drugs N-Acetylcysteine and Metamizole may falsely depress this assay. Serum Triglycerides Reference Interval Normal <150 mg/dL Borderline high 150 - 199 mg/dL High 200 - 499 mg/dL Very High > or = 500 mg/dL Performed By: #### L 500.4050, L100.0100, L500.4100 #### [facility] Laboratory [address] [place], [address] Low density lipoprotein (LDL ) cholesterol measurementOrdered By: Lili Islas on 04-21-2024 Cholesterol in LDL [Mass/Vol] 133 mg/dL High 0-130 [facility] Lymphocytes Auto (Unsp spec) [#/Vol]Ordered By: Lili Islas on 04-21-2024 Lymphocytes (Bld) [#/Vol] 1.27 10*3/uL 0.83-4.51 [facility] Lymphocytes/100 WBC Auto (Un sp spec)Ordered By: Lili White on 04-21-2024 Lymphocytes/100 WBC (Bld) 29.6 % 19-41 [facility] MCV (mean corpuscular volume ) determinationOrdered By: White on 04-21-2024 MCV (RBC) [Entitic vol] 87.5 fL 81-99 [facility] Mean corpuscular hemoglobin (MCH) determinationOrdered By: White on 04-21-2024 MCH (RBC) [Entitic mass] 29.5 pg 27.0-32.0 [facility] Mean corpuscular hemoglobin concentration (MCHC) determinationOrdered By: White on 04-21-2024 MCHC (RBC) [Mass/Vol] 33.7 g/dL 32-36 [facility] Mean platelet volume determi nationOrdered By: White on 04-21-2024 Platelet mean volume (Bld) [Entitic vol] 10.4 fL 6.2-12.0 [facility] Monocyte percentageOrdered B y: White on 04-21-2024 Monocytes/100 WBC (Bld) 13.8 % High 0-10 [facility] Neutrophil percentageOrdered By: White on 04-21-2024 Neutrophils/100 WBC (Bld) 52.1 % 47-70 [facility] Nucleated red blood cell per centageOrdered By: Lili White on 04-21-2024 Nucleated RBC/100 WBC (Bld) [Ratio] 0 % 0-5 [facility] Platelet countOrdered By: Airam pa White on 04-21-2024 Platelets (Bld) [#/Vol] 198 10*3/uL 150-450 [facility] Potassium measurementOrdered By: White on 04-21-2024 Potassium [Moles/Vol] 4.1 mmol/L 3.5-5.1 [facility] RBC Auto (Bld) [#/Vol]Ordere d By: Lili White on 04-21-2024 RBC (Bld) [#/Vol] 4.17 10*6/uL Low 4.2-5.4 [facility] Serum anion gap measurementO rdered By: Lili Islas on 04-21-2024 Anion gap [Moles/Vol] 5 mmol/L 5-15 [facility] Serum globulin measurementOr dered By: Lili Islas on 04-21-2024 Globulin (S) [Mass/Vol] 3.1 g/dL 2.2-4.2 [facility] Serum or plasma alanine mills otransferase (ALT) measurementOrdered By: Lili Islas on 04-21-2024 ALT [Catalytic activity/Vol] 28 U/L 13-56 [facility] Serum or plasma albumin josue urement (mass/volume)Ordered By: Lili Islas on 04-21-2024 Albumin [Mass/Vol] 3.6 g/dL 3.2-5.0 [facility] Serum or plasma alkaline destinee sphatase measurementOrdered By: Lili Islas on 04-21-2024 ALP [Catalytic activity/Vol] 72 U/L 45-117 [facility] Serum or plasma calcium josue urement (mass/volume)Ordered By: Lili Islas on 04-21-2024 Calcium [Mass/Vol] 9.3 mg/dL 8.5-10.1 [facility] Serum or plasma cholesterol measurement (mass/volume)Ordered By: Lili Islas on 04-21-2024 Cholesterol [Mass/Vol] 193 mg/dL <200 [facility] Comment on above: <200 mg/dL Desirable 200-240 mg/dL Borderline >240 mg/dL High Risk Serum or plasma creatinine m easurement (mass/volume)Ordered By: Lili Islas on 04-21-2024 Creatinine [Mass/Vol] 1.09 mg/dL High 0.55-1.02 [facility] Comment on above: The validity of the calculated GFR & GFRAA in patients over 70 years has not been determined. Clinical correlation is essential. Serum or plasma urea nitroge n measurement (mass/volume)Ordered By: Lili Islas on 04-21-2024 Urea nitrogen [Mass/Vol] 14 mg/dL 7-18 [facility] Sodium levelOrdered By: Maryu mn Roshan on 04-21-2024 Sodium [Moles/Vol] 141 mmol/L 136-145 [facility] Total proteinOrdered By: Mary Islas on 04-21-2024 Protein [Mass/Vol] 6.7 g/dL 6.4-8.2 [facility] Triglycerides measurementOrd ered By: Lili Roshan on 04-21-2024 Triglyceride [Mass/Vol] 62 mg/dL <199 [facility] Comment on above: The drugs N-Acetylcy steine and Metamizole may falsely depress this assay.Serum Triglycerides Reference Interval Normal <150 mg/dL Borderline high 150 - 199 mg/dL High 200 - 499 mg/dL Very High > or = 500 mg/dL Troponin IOrdered By: Margie fajardo on 04-21-2024 Troponin I High Sensitivity 55 pg/mL High 3.0-54.0 [facility] Comment on above: Please Note: New Ariela t Units and Gender Specific Reference Ranges. For more information see Policy Stat Procedure [place] High Sensitivity Troponin (TNIH) and attachments. Very low density lipoprotein (VLDL) cholesterol measurementOrdered By: Lili Islas on 04-21-2024 VLDL Cholesterol 12 mg/dL 5-40 [facility] White blood cell (WBC) count Ordered By: Lili Islas on 04-21-2024 WBC (Bld) [#/Vol] 4.3 10*3/uL Low 4.4-11.0 [facility] 12 Lead EKGon 04-20-2024 12 Lead EKG [facility] Cardiovascular Services [address] [place] [address] 12 Lead EKG 04/20/242002 MR#: [id number] Acct: [id number] Name: HELEN RODRIGES Rep #: [id number] : 1950 73 From: Kunal Benjamin MD Attending Dr: Dr. Margie Balbuena MD Status: DI S SHABANA Ordering Dr: Lili Islas MD Date: 04/20/24 Location: U Sex: F C Admitted: 04/20/24 Test Reason : CP Blood Pressure : */* mmHG Vent. Rate : 74 BPM Atrial Rate : 74 BPM P-R Int : 146 ms QRS Dur : 84 ms QT Int : 406 ms P-R-T Axes : 49 10 102 degrees QTcB Int : 450 ms Normal sinus rhythm Septal infarct , age undetermined T wave abnormality, consider anterolateral ischemia Abnormal ECG When compared with ECG of 20-Apr-2024 14:21, MANUAL COMPARISON REQUIRED DATA IS UNCONFIRMED Confirmed by KUNAL BENJAMIN MD ([id number]), commissioning editor MAYNOR JENSEN ([id number]) on 04/23/2024 8:35:43 AM Referred By: Confirmed By: KUNAL BENJAMIN MD 04/23/24 0835 Date Kunal Benjamin MD CC: Dr. Lili Islas MD; Dr. Erin Ordaz MD; Dr. Margie Balbuena MD Signed [facility] 12 Lead EKG [facility] Cardiovascular Services [address] [place] [address] 12 Lead EKG 04/20/24 1421 MR#: [id number] Acct: [id number] Name: HELEN RODRIGES Rep #: [id number] : 1950 73 From: Kunal Benjamin MD Attending Dr: Dr. Margie Balbuena MD Status: CECY S SHABANA Ordering Dr: Jarrod Duran DO Date: 04/20/24 Location: [facility] Sex: F C Admitted: 04/20/24 Test Reason : CP Blood Pressure : */* mmHG Vent. Rate : 83 BPM Atrial Rate : 83 BPM P-R Int : 150 ms QRS Dur : 80 ms QT Int : 382 ms P-R-T Axes : 47 35 101 degrees QTcB Int : 448 ms Normal sinus rhythm Possible Left atrial enlargement Anteroseptal infarct , age undetermined T wave abnormality, consider lateral ischemia Abnormal ECG Confirmed by KUNAL BENJAMIN MD ([id number]), commissioning editor MAYNOR JENSEN ([id number]) on 04/23/2024 6:38:09 AM Referred By: Confirmed By: KUNAL BENJAMIN MD 04/23/24 0638 Date Kunal Benjamin MD CC: Dr. Erin Ordaz MD; Dr. Margie Balbuena MD; Dr. Jarrod Duran, DO Signed Normal [facility] BNP (brain natriuretic pepti de measurement)Ordered By: Jarrod Duran on 04-20-2024 Natriuretic peptide B (Bld) [Mass/Vol] 842.6 pg/mL High 0-100 [facility] BNP,B-Type NATRIURETIC PEPTI Vinicio 04-20-2024 Natriuretic peptide B (Bld) [Mass/Vol] 842.6 pg/mL High 0-100 [facility] Comment on above: Performed By: #### L 3099.1949 #### [facility] Laboratory [address] [place], [address] Basic Metabolic Profile (BMP )on 04-20-2024 BUN/CRE 12.7 RATIO Normal - [facility] Comment on above: Order Comment: 1Y Performed By: #### L 3099.1949 #### [facility] Laboratory [address] [place], [address] CA,Total 9.8 mg/dL Normal 8.5-10.1 [facility] Comment on above: Order Comment: 1Y Performed By: #### L 0.1949 #### [facility] Laboratory [address] [place], [address] Chloride [Moles/Vol] 106 mmol/L Normal 98-107 [facility] Comment on above: Order Comment: 1Y Performed By: #### L #### [facility] Laboratory [address] [place], [address] CO2 [Moles/Vol] 30.0 mmol/L Normal 21.0-32.0 [facility] Comment on above: Order Comment: 1Y Performed By: #### L #### [facility] Laboratory [address] [place], [address] Creatinine [Mass/Vol] 1.18 mg/dL High 0.55-1.02 [facility] Comment on above: Order Comment: 1Y Result Comment: The validity of the calculated GFR GFRAA in patients over 70 years has not been determined. Clinical correlation is essential. Performed By: #### L 3099.1949 #### [facility] Laboratory [address] [place], [address] ECRCL 37.76 ml/min Normal [facility] Comment on above: Order Comment: 1Y Performed By: #### L 3099.1949 #### [facility] Laboratory [address] [place], [address] EST GFR - AA 58 mL/min Low >60 [facility] Comment on above: Order Comment: 1Y Result Comment: Afri can Nigerien GFR Calc Performed By: #### L #### [facility] Laboratory [address] [place], [address] GAP 3 Low 5-15 [facility] Comment on above: Order Comment: 1Y Performed By: #### L #### [facility] Laboratory [address] [place], [address] GFR/1.73 sq M.predicted among non-blacks MDRD (S/P/Bld) [Vol rate/Area] 48 mL/min/{1.73_m2} Low >60 [facility] Comment on above: Order Comment: 1Y Result Comment: Non- GFR Calc Performed By: #### L #### [facility] Laboratory [address] [place], [address] Glucose [Mass/Vol] 108 mg/dL High 74-106 [facility] Comment on above: Order Comment: 1Y Result Comment: Fast ing Glucose result from 100 to 125 mg/dL suggests IMPAIRED HOMEOSTASIS per A.D.A. criteria. Performed By: #### L #### [facility] Laboratory [address] [place], [address] Potassium [Moles/Vol] 3.9 mmol/L Normal 3.5-5.1 [facility] Comment on above: Order Comment: 1Y Performed By: #### L 3099.1949 #### [facility] Laboratory [address] [place], [address] Sodium [Moles/Vol] 139 mmol/L Normal 136-145 [facility] Comment on above: Order Comment: 1Y Performed By: #### L 3099.1949 #### [facility] Laboratory [address] [place], [address] Urea nitrogen [Mass/Vol] 15 mg/dL Normal 7-18 [facility] Comment on above: Order Comment: 1Y Performed By: #### L 3099.1949 #### [facility] Laboratory [address] [place], [address] CBC W/Diff, Automatedon 12-2 0-2024 Absolute Lymph 1.21 X10 3/uL Normal 0.83-4.51 [facility] Comment on above: Performed By: #### L 503.6620, L501.5425, L100.0100, L500.2500 #### [facility] Laboratory [address] [place], [address] Absolute Neut 2.7 X10 3/uL Normal 2.0-7.7 [facility] Comment on above: Performed By: #### L 503.6620, L501.5425, L100.0100, L500.2500 #### [facility] [address] [place], [address] Basophils/100 WBC (Bld) 0.9 % Normal 0-1 [facility] Comment on above: Performed By: #### L 503.6620, L501.5425, L100.0100, L500.2500 #### [facility] [address] [place], [address] Eosinophils/100 WBC (Bld) 2.9 % Normal 0-5 [facility] Comment on above: Performed By: #### L 503.6620, L501.5425, L100.0100, L500.2500 #### [facility] [address] [place], [address] Erythrocyte distribution width (RBC) [Ratio] 13.3 % Normal 11.6-14.6 [facility] Comment on above: Performed By: #### L 503.6620, L501.5425, L100.0100, L500.2500 #### [facility] [address] [place], [address] Hematocrit (Bld) [Volume fraction] 40.8 % Normal 37-47 [facility] Comment on above: Performed By: #### L 503.6620, L501.5425, L100.0100, L500.2500 #### [facility] [address] [place], [address] Hemoglobin (Bld) [Mass/Vol] 13.4 g/dL Normal 12.0-15.0 [facility] Comment on above: Performed By: #### L 503.6620, L501.5425, L100.0100, L500.2500 #### [facility] [address] [place], [address] IG% 0.200 Normal 0.0-0.9 [facility] Comment on above: Result Comment: IG% - Immature Granulocytes (promyelocytes, myelocytes and metamyelocytes) > 1% indicates that a LEFT SHIFT is Present. Performed By: #### L 503.6620, L501.5425, L100.0100, L500.2500 #### [facility] [address] [place], [address] Lymphocytes/100 WBC (Bld) 26.5 % Normal 19-41 [facility] Comment on above: Performed By: #### L 503.6620, L501.5425, L100.0100, L500.2500 #### [facility] [address] [place], [address] MCH (RBC) [Entitic mass] 29.3 pg Normal 27.0-32.0 [facility] Comment on above: Performed By: #### L 503.6620, L501.5425, L100.0100, L500.2500 #### [facility] [address] [place], [address] MCHC (RBC) [Mass/Vol] 32.8 g/dL Normal 32-36 [facility] Comment on above: Performed By: #### L 503.6620, L501.5425, L100.0100, L500.2500 #### [facility] [address] [place], [address] MCV (RBC) [Entitic vol] 89.1 fL Normal 81-99 [facility] Comment on above: Performed By: #### L 503.6620, L501.5425, L100.0100, L500.2500 #### [facility] [address] [place], [address] Monocytes/100 WBC (Bld) 10.7 % High 0-10 [facility] Comment on above: Performed By: #### L 503.6620, L501.5425, L100.0100, L500.2500 #### [facility] [address] [place], [address] Neutrophils/100 WBC (Bld) 58.8 % Normal 47-70 [facility] Comment on above: Performed By: #### L 503.6620, L501.5425, L100.0100, L500.2500 #### [facility] [address] [place], [address] Nucleated RBC (Bld) [#/Vol] 0 10*3/uL Normal 0-5 [facility] Comment on above: Performed By: #### L 503.6620, L501.5425, L100.0100, L500.2500 #### [facility] [address] [place], [address] Platelet mean volume (Bld) [Entitic vol] 9.9 fL Normal 6.2-12.0 [facility] Comment on above: Performed By: #### L 503.6620, L501.5425, L100.0100, L500.2500 #### [facility] [address] [place], [address] Platelets (Bld) [#/Vol] 214 10*3/uL Normal 150-450 [facility] Comment on above: Performed By: #### L 503.6620, L501.5425, L100.0100, L500.2500 #### [facility] [address] [place], [address] RBC (Bld) [#/Vol] 4.58 10*6/uL Normal 4.2-5.4 [facility] Comment on above: Performed By: #### L 503.6620, L501.5425, L100.0100, L500.2500 #### [facility] [address] [place], [address] RDW SD 43.1 fl Normal 35.1-43.9 [facility] Comment on above: Performed By: #### L 503.6620, L501.5425, L100.0100, L500.2500 #### [facility] [address] [place], [address] WBC (Bld) [#/Vol] 4.6 10*3/uL Normal 4.4-11.0 [facility] Comment on above: Performed By: #### L 503.6620, L501.5425, L100.0100, L500.2500 #### [facility] [address] [place], [address] Chest PA and Lateralon 04-20 Chest PA and Lateral [facility] Imaging Services [address] [place], [place] [address] Chest PA and Lateral MR#: [id number] Acct: [id number] Name: HELEN RODRIGES Rep #: [id number] : 1950 F 73 From: Jose Alfredo abarca MD PCP: Dr. Erin Ordaz MD Status: REG ER Study: Chest PA and Lateral Date of Exam: 04/20/24 Exam# [id number] Ordering Dr: Jarrod Duran DO [id number] STUDY: X-RAY CHEST REASON FOR EXAM: Female, 73 years old. Chest pain TECHNIQUE: PA and lateral views of the chest. COMPARISON: None. FINDINGS: EKG electrodes are seen. There is hyperinflation of the lungs consistent with chronic obstructive lung disease (COPD). There is no demonstrated pleural abnormality. Normal size heart. Normal mediastinum and veronica. Normal visualized pulmonary arteries. There is atherosclerotic calcification of the aortic arch with tortuosity. Normal visualized thoracic spine. Normal visualized ribs, clavicles, and shoulders. There is no demonstrated abnormality of the visualized soft tissue structures of the upper abdomen. RAD/Chest PA and Lateral IMPRESSION: Hyperinflation. The lungs are clear. Electronically Signed: Jose Alfredo Adams MD at 15:02 EST , CC: Dr. Erin Ordaz MD; Dr. Jarrod Duran DO Glass Bender: Signed Normal [facility] Emergency Department Summary on 04-20-2024 Emergency Department Summary [facility] Medical Records Department [address] [place] [address] Emergency Department Summary 04/20/24 MR#: [id number] Acct: [id number] Name: HELEN RODRIGES Rep #: [id number] : 1950 73 From: Jarrod Duran DO PCP: Dr. Erin Ordaz MD Status:REG ER Location: ED HPI History of Present Illness Chief Complaint: Chest Pain Narrative Narrative: Patient is a 73-year-old female with a past medical history of of recent STEMI with percutaneous intervention, hypertension, dyslipidemia who presented to the emergency department with a chief complaint of chest pressure. Patient states that today at cardiac rehab she did approximately 30 minutes of rehab on various pieces equipment and noted that afterwards she developed some burning sensation in the middle of her chest. States that it did not radiate anywhere. States that it concerned her as this was similar symptoms in nature that she presented with with her heart attack. States that at that point time her symptoms were significantly worse but she is still concerned. States that this has been constant has not gotten better after the exercise. Patient states that she is been compliant with all of her medications not missing any doses. Patient denies any history of blood clots denies any recent travel history. [facility] Medical History History of ST elevation myocardial infarction (STEMI) (03/10/24) Arteriosclerotic cardiovascular disease (03/10/24) Anxiety Migraines Pain in right hand Swelling of right hand Bitten by cat, sequela Double vision Cataracts, bilateral Bone fracture Home Medications ???Medication ???Instructions ???Recorded ???Last Taken ???Type aspirin 81 mg tablet,delayed 81 mg PO DAILY 03/19/24 Unknown History release clopidogrel 75 mg tablet 75 mg PO DAILY 03/19/24 Unknown History metoprolol succinate 25 mg 25 mg PO DAILY 03/19/24 Unknown History tablet,extended release 24 hr nitroglycerin 0.4 mg sublingual 0.4 mg sublingual Q5M PRN chest 03/19/24 Unknown History tablet pain Lactobacillus rhamnosus GG 5 PO 04/05/24 Unknown History billion cell oral powder packet (Culturelle Kids Probiotics) carvedilol 3.125 mg tablet 3.125 mg PO BID #180 tabs 04/05/24 Unknown Rx cholecalciferol (vitamin D3) 25 25 mcg PO QDAY 04/05/24 Unknown History mcg (1,000 unit) capsule cyanocobalamin (vitamin B-12) 1,000 mcg PO QDAY 04/05/24 Unknown History 1,000 mcg capsule dapagliflozin propanediol 10 mg 10 mg PO QDAY #90 tabs 04/05/24 Unknown Rx tablet (Farxiga) docusate sodium 100 mg capsule 100 mg PO QDAY 04/05/24 Unknown History (Dulcolax Stool Softener (docusate)) spironolactone 25 mg tablet 25 mg PO QDAY 04/05/24 Unknown History micronesian elio PO 04/05/24 Unknown History valsartan 160 mg tablet 160 mg PO QDAY #90 tabs 04/05/24 Unknown Rx vitamins A,C,P-cozu-iwifpy 4,296 1 cap PO QDAY 04/05/24 Unknown History mcg-226 mg-90 mg capsule (PreserVision AREDS) Allergy/AdvReac Type Severity Reaction Status Date / Time belladonna alkaloids AdvReac Rash Verified 04/20/24 14:14 Family History Mother Heart disease Hypertension CAD (coronary artery disease) Father Lung cancer Brother Melanoma CAD (coronary artery disease) Daughter Thyroid disorder Surgical History History of tonsillectomy History of blepharoplasty H/O nasal polypectomy History of bunionectomy Social History current occupational status: retired pets and animals: Yes Smoking Status: Never smoker alcohol intake: current substance use type: does not use additional social history: DOES TAKE ASPIRIN RARELY DOES TAKE IBUPROFEN ROS ROS ED ROS Narrative Constitutional: Denies any fevers, chills, headaches lightheadedness, dizziness Eyes: Denies changes double vision blurry vision Cardiovascular: Complains of burning sensation in the middle of her chest denies any palpitations Respiratory: Denies coughing wheezing shortness of breath Abdomen: Denies any abdominal pain nausea vomit diarrhea : Denies any urinary symptom Neurological:'s denies any numbness, wheeze, tingling Musculoskeletal: Denies back pain Skin: Denies any rashes or lesions EXAM Physical Exam Narrative Exam Narrative: General: Patient lying in bed rest comfortably did not appear to be in acute distress Head: Atraumatic, normocephalic Eyes: PERRL body, EOMI bilateral, no conjunctival injection noted Neck: Soft, supple, trachea midline Cardiovascular: Regular in rhythm no murmurs gallops rubs noted Respiratory: Clear to auscultation bilaterally no rales rhonchi or wheezes noted Abdome (more content not included)... Normal [facility] H AND P Exam - Hospitaliston 04-20-2024 H&P Exam - Hospitalist [facility] Medical Records Department [address] [place] [address] H P Exam - Hospitalist 04/20/24 1744 MR#: [id number] Acct: [id number] Name: HELEN RODRIGES Rep #: [id number] : 1950 73 From: Lili Islas MD PCP: Dr. Erin Ordaz MD Status:ADM SHABANA Location: [place] [address] HPI - General General Date of Admission: 04/20/24 Date of Service: 04/20/24 Chief Complaint: Chest pain HPI Narrative The patient is a 73 y/o F w/ PMHx: Chronic migraines, Anxiety disorder, HTN, HLD, CAD s/p recent STEMI w/ PCI w/ noted Ischemic cardiomyopathy/LV systolic dysfunction without heart failure who presents to the [facility] ED on 04/20/24 with history of recent STEMI requiring percutaneous intervention while onset of chest pressure today at cardiac rehab with specifically a burning sensation in the middle of her chest with no radiation however it was similar to when she presented recently with her heart attack noted to be constant reportedly compliant with all of her medications with recent workup at [facility] including 03/11/2024 echocardiogram with LVEF 35??? percent, LV diastolic function grade 2 consistent with elevated LA pressure, mild tricuspid valve regurgitation, RV systolic pressure 22 mmHg, cardiac catheterization with 100% occlusion LAD, 70% stenosis first marginal lesion of the left circumflex, proximal RCA to mid RCA with 70% stenosed with planned staged PCI discharged with plan for follow-up with her heating and ventilation engineer Dr. Georges with most recent evaluation 04/03/2024 with plan follow-up stress testing 04/13/2024 prior to starting cardiac rehab however patient canceled this reportedly not feeling well at that time. Patient reports that she has been having issues with dyspepsia and wanted GI evaluation prior to stress testing reportedly. She is also had elevated blood pressures and heating and ventilation engineer did want to increase her medications but she has declined as she notes is been normal at home. She reportedly had been discharged on new prescription for valsartan but she did not take this because of concerns for medication interactions. Patient did report improvement of her dyspepsia following GI cocktail in the ED. patient reports that her burning sensation that is worse with 3-4 out of 10 in severity but currently upon evaluation it is completely resolved. Workup in the ED included T97.9, heart rate 85, BP initially 190/112, respiratory rate 16, 98% on room air with most recent repeat vital signs heart rate 81, BP 171/104, respiratory rate 12, 99% on room air, CBC with WBC 4.6, hemoglobin 13.4, platelet 214 that marked shift, BMP with BUN/creatinine 15/1.18, GFR 48, glucose 108, BNP 842.6, troponin initial 49 with repeat delta 72, chest x-ray with hyperinflation with no acute cardiopulmonary findings otherwise, EKG with sinus rhythm with nonspecific ST changes with no acute evidence of ischemia. ED discussed case with patient's heating and ventilation engineer and given increased troponin he requested cardiac stress testing be performed. In the ED patient ministered GI cocktail. [facility] Medical History Dyslipidemia Hypertension Adjustment disorder with anxiety Left ventricular systolic dysfunction (LVSD) without heart failure Ischemic cardiomyopathy History of ST elevation myocardial infarction (STEMI) (03/10/24) Arteriosclerotic cardiovascular disease (03/10/24) Anxiety Migraines Cataracts, bilateral Home Medications ???Medication ???Instructions ???Recorded ???Last Taken ???Type aspirin 81 mg tablet,delayed 81 mg PO DAILY 03/19/24 Unknown History release clopidogrel 75 mg tablet 75 mg PO DAILY 03/19/24 Unknown History metoprolol succinate 25 mg 25 mg PO DAILY 03/19/24 Unknown History tablet,extended release 24 hr nitroglycerin 0.4 mg sublingual 0.4 mg sublingual Q5M PRN chest 03/19/24 Unknown History tablet pain carvedilol 3.125 mg tablet 3.125 mg PO BID #180 tabs 04/05/24 Unknown Rx cholecalciferol (vitamin D3) 25 25 mcg PO QDAY 04/05/24 Unknown History mcg (1,000 unit) capsule cyanocobalamin (vitamin B-12) 1,000 mcg PO QDAY 04/05/24 Unknown History 1,000 mcg capsule dapagliflozin propanediol 10 mg 10 mg PO QDAY #90 tabs 04/05/24 Unknown Rx tablet (Farxiga) spironolactone 25 mg tablet 25 mg PO QDAY 04/05/24 Unknown History micronesian elio PO 04/05/24 Unknown History vitamins A,C,H-hrhf-ziwlkf 4,296 1 cap PO QDAY 04/05/24 Unknown History mcg-226 mg-90 mg capsule (PreserVision AREDS) valsartan 160 mg tablet 40 mg PO QDAY HTN 04/20/24 Unknown History Allergy/AdvReac Type Severity Reaction Status Date / Time belladonna alkaloids AdvReac Rash Verified 04/20/24 14:14 Family History Mother Heart disease Hypertension CAD (coronary artery disease) Fathe (more content not included)... Normal [facility] L501.4020on 04-20-2024 TROPONIN-I HS 112 pg/mL High 3.0-54.0 [facility] Comment on above: Order Comment: Comme nts: SPECIMEN #3 'TROP' Serial specimen #1, #2 or #3: 3 Result Comment: Pleaileen rockwell Note: New Test Units and Gender Specific Reference Ranges. For more information see Policy Stat Procedure [place] High Sensitivity Troponin (TNIH) and attachments. Performed By: #### L 501.4020 #### [facility] [address] [place], [address] TROPONIN-I HS 72 pg/mL High 3.0-54.0 [facility] Comment on above: Result Comment: Plea se Note: New Test Units and Gender Specific Reference Ranges. For more information see Policy Stat Procedure [place] High Sensitivity Troponin (TNIH) and attachments. Performed By: #### L 501.4020 #### [facility] [address] [place], [address] L501.5425on 04-20-2024 TROPONIN-I HS 49 pg/mL Normal 3.0-54.0 [facility] Comment on above: Order Comment: 1Y Result Comment: Plea se Note: New Test Units and Gender Specific Reference Ranges. For more information see Policy Stat Procedure [place] High Sensitivity Troponin (TNIH) and attachments. Performed By: #### L 3100.1950 #### [facility] [address] [place], [place], [address] Magnesiumon 04-20-2024 Magnesium [Mass/Vol] 2.7 mg/dL High 1.6-2.6 [facility] Comment on above: Order Comment: Comme nts: may add to ED labs Performed By: #### L 501.5200 #### [facility] [address] [place], [address] Magnesium measurementOrdered By: Lili Islas on 04-20-2024 Magnesium [Mass/Vol] 2.7 mg/dL High 1.6-2.6 [facility] CR - History AND Physicalon 04-18-2024 CR - History & Physical [facility] Cardiac Rehab [address] [place] [address] CR - History Physical MR#: [id number] Acct: [id number] Name: HELEN RODRIGES Rep #: [id number] : 1950 73 From: Darion Lee BS, RVT PCP: Dr. Erin Ordaz MD DOS: 04/18/24 CR - History Physical General Arrival date:: 04/18/24 Arrival time:: 08:06 Date of Referral:: 04/09/24 Date of CR Evaluation:: 04/18/24 Referring Physician: Dr. Cosby Primary Diagnosis: PCI with stent History of Present Cardiac Event Onset Date PTCA or coronary stenting:: Yes (onset 03/10/2024) Vessel: LAD Medications Ambulatory Orders ???Medication ???Instructions ???Recorded aspirin 81 mg tablet,delayed 81 mg PO DAILY 03/19/24 release clopidogrel 75 mg tablet 75 mg PO DAILY 03/19/24 metoprolol succinate 25 mg 25 mg PO DAILY 03/19/24 tablet,extended release 24 hr nitroglycerin 0.4 mg sublingual 0.4 mg sublingual Q5M PRN chest 03/19/24 tablet pain Lactobacillus rhamnosus GG 5 PO 04/05/24 billion cell oral powder packet (TeenaEcrio Probiotics) carvedilol 3.125 mg tablet 3.125 mg PO BID #180 tabs 04/05/24 cholecalciferol (vitamin D3) 25 25 mcg PO QDAY 04/05/24 mcg (1,000 unit) capsule cyanocobalamin (vitamin B-12) 1,000 mcg PO QDAY 04/05/24 1,000 mcg capsule dapagliflozin propanediol 10 mg 10 mg PO QDAY #90 tabs 04/05/24 tablet (Farxiga) docusate sodium 100 mg capsule 100 mg PO QDAY 04/05/24 (Dulcolax Stool Softener (docusate)) spironolactone 25 mg tablet 25 mg PO QDAY 04/05/24 micronesian elio PO 04/05/24 valsartan 160 mg tablet 160 mg PO QDAY #90 tabs 04/05/24 vitamins A,C,S-vzym-aggyuf 4,296 1 cap PO QDAY 04/05/24 mcg-226 mg-90 mg capsule (PreserVision AREDS) Allergies Allergies belladonna alkaloids Adverse Reaction (Verified 04/05/24 15:13) Rash Sleep Disorder Evaluation Hx of Sleep Apnea: No Do you snore loudly (louder than talking or can be heard through closed doors)?: No Do you often feel tired/ fatigued/ sleepy during daytime?: No Has anyone observed you stop breathing during sleep?: No History of Hypertension (for STOP score): Yes STOP Results: Negative Advanced Directives Advanced Directives Power of Public Health Aide: Yes Living Will: Yes Advance Directives Information Provided: No Advance Directives on File: Yes DNR Order?:: No Past Medical History Covid-19 Screening Physicial Symptoms Gastro-intestinal symptoms: Yes (constipation, epigastric pain) Other Clinical Concerns Exposure Risk Pertinent Comorbidities 65 years or older:: Yes Has a serious heart condition:: Yes Past Medical Illness Past Medical History (Updated 04/09/24 @ 11:55 by Rhoda Odonnell) History of ST elevation myocardial infarction (STEMI) (03/10/24) I25.2 Arteriosclerotic cardiovascular disease (03/10/24) I25.10 Anxiety F41.9 Migraines G43.909 Pain in right hand M79.641 Swelling of right hand M79.89 Bitten by cat, sequela W55.01XS Double vision H53.2 Cataracts, bilateral H26.9 Bone fracture T14.8XXA Past Surgical History Past Surgical History (Updated 04/09/24 @ 11:56 by Rhoda Odonnell) History of tonsillectomy Z90.89 History of blepharoplasty Z98.890 PTOSIS H/O nasal polypectomy Z98.890, Z87.09 History of bunionectomy Z98.890 Family History Summary Family History Mother Heart disease Hypertension CAD (coronary artery disease) Father Lung cancer Brother Melanoma CAD (coronary artery disease) Daughter Thyroid disorder Social History Smoking History Smoking Status: Never smoker Alcohol Use Alcohol Usage: No Occupation Occupation (List type of work in comments):: Retired Hobbies, Recreation, Social Activities Hobbies: Other (show dogs, board games, gardening) Recreational Activities: I am able to engage in all my recreational activities Social Environment Status Marital Status: Current Living Arrangements Living Environment:: Spouse Children How many children do you have?: 3 Do any of your children live nearby?: Yes Safety Do you feel safe in your surroundings?: Yes Assistance Do you need any assistance at home?: no Review of Systems Review of Systems Hints Review of Present Symptoms: Reports Fatigue, Appetite - Normal and Appetite - Special Diet; Denies Shortness of Breath at Rest, Shortness of Breath with Exertion, PVD, Operative Discomfort, Angina, Wound Healing, Dizziness/Lightheade dness, Heart Arrhythmia/Irregular ities, Sleep - Normal or Sexual Changes Pain Is Patient Pain Free?: No Pain Location: back Pain Level: 7/10 Risk Factor Assessment Chief Complaint Chief Complaint: PCI with stent Vital Signs Blood Pressure: 145/79 Pulse Pulse Rate: 66 Hypertension How long have you been treated?: Mar 10 2024 Blood Pressure Sitting - Righ (more content not included)... Normal [facility] 12 Lead EKG performed by [facility] on 04-05-2024 12 Lead EKG performed by [facility] [address] [place] [address] 12 Lead EKG performed by [facility] 04/05/24907 MR#: [id number] Acct: [id number] Name: YEIMI RODRIGESL KERWIN Rep #: [id number] : 1950 73 From: Phyllis Cosby MD Attending Dr: Dr. Phyllis Cosby MD Status: DEP AMB Ordering Dr: Phyllis Cosby MD Date: 04/05/24 Location: [facility] Sex: F C Admitted: BMS/12 Lead EKG performed by [facility] ECG Report Interpretation ------Sinus Rhythm -Anteroseptal infarct -age undetermined. - Negative T-waves - Lateral ischemia. ABNORMAL Electronically signed on 05/28/2024 at 11:[address] Phyllis Cosby [employer] Version [id number] 05/28/24 1135 Date Phyllis Cosby MD CC: Dr. Erin Ordaz MD Date Dictated: 04/05/24907 Date Transcribed: 04/05/24907 Glass Bender: ZAK Signed Normal [facility] Cardiology Visit Reporton Cardiology Visit Report [facility] [address] [place] [address] OFFICE VISIT Date of Service: 04/05/24 MR#: [id number] Acct: [id number] Name: FREDERICHELENLupe SURESH Rep #: [id number] : 1950 Provider: Dr. Phyllis Cosby MD Age/Sex: 73/F Location: [facility] Status: Signed HPI HPI History of Present Illness Details: This lady was in [place] at a dog show when she developed acute chest discomfort. She was taken emergently to the closest emergency room. Noted to have anterior ST elevation myocardial infarction. Emergent coronary revascularization was performed with placement of drug-eluting stent to the proximal LAD. Her LVEF was noted to be 35%. Since her discharge from the hospital, patient has not had any chest pains or shortness of breath. Denies orthopnea or PND. No ankle edema. Patient has had 1 visit to the ER since for abdominal discomfort and constipation. Per her, she had severe myalgias with atorvastatin and stopped taking it. Also stopped taking her losartan. According to her, she is constipated and is taking Dulcolax for that. Also feels bloated. Complaining of epigastric discomfort, particularly after taking certain types of food. 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[employer] Required: No Accompanied by: Is patient in pain?: No Allergies belladonna alkaloids Adverse Reaction (Verified 04/05/24 11:48) Rash Medications ???Medication ???Instructions ???Recorded ???Confirmed ???Type aspirin 81 mg tablet,delayed 81 mg PO DAILY 03/19/24 04/05/24 History release clopidogrel 75 mg tablet 75 mg PO DAILY 03/19/24 04/05/24 History metoprolol succinate 25 mg 25 mg PO DAILY 03/19/24 04/05/24 History tablet,extended release 24 hr nitroglycerin 0.4 mg sublingual 0.4 mg sublingual Q5M PRN chest 03/19/24 04/05/24 History tablet pain docusate sodium 100 mg capsule 100 mg PO QDAY 04/05/24 04/05/24 History (Dulcolax Stool Softener (docusate)) spironolactone 25 mg tablet 25 mg PO QDAY 04/05/24 04/05/24 History Ejection fraction %: 35 Have you fallen in the past year?: Yes (singular episode, no major injury) PFSH Medical History Anxiety Bitten by cat, sequela Bone fracture Cataracts, bilateral Double vision Migraines Pain in right hand Swelling of right hand Surgical History H/O nasal polypectomy History of blepharoplasty History of bunionectomy History of tonsillectomy Family History Mother Heart disease Hypertension CAD (coronary artery disease) Father Lung cancer Brother Melanoma CAD (coronary artery disease) Daughter Thyroid disorder Social History current occupational status: retired pets and animals: Yes Smoking Status: Never smoker alcohol intake: current substance use type: does not use additional social history: DOES TAKE ASPIRIN RARELY DOES TAKE IBUPROFEN ROS Const Const: Positive for weakness (stomach and back); Negative for fatigue, headache(s) or weight gain ENT ENT: Negative for headache(s), dizziness, Nosebleed/epistaxis or balance problems Cardio Chest Pain: No Palpitations: No Edema: None Muscle aches with walking: None Resp Respiratory: Negative for SOB with activity, SOB at rest or SOB orthopnea SOB lying down GI GI: Negative nausea, vomiting or heartburn Musc Musc: Negative for muscle aches/ myalgia, muscle weakness, joint pain or balance problems Neuro Neuro: Positive for weakness (stomach and back); Negative for dizziness, lightheadedness, near syncope, syncope or headache(s) Endo Endo: Negative for fatigue Cardiology Exam Const Appearance: comfortable and no acute distress Nutritional Appearance: well nourished Neck Neck: no JVD Carotids: Negative bruit Chest Auscultation: Bilateral: Clear to Auscultation Cardio Rate: regular rate Rhythm: regular rhythm Heart sounds: S1 normal and S2 normal GI GI: other (Abdomen is soft. Mildly tender in the epigastrium. No rebound or guarding) Neuro General: patient alert, patient awake and patient oriented x3 Extremities Lower Extremity Edema: None: Bilateral Supplemental Info Supplemental Information Cardiac Catheterization 03/10/2024: Result Findings: Coronary Findings Diagnostic Dominance: Right Left Anterior Descending: Ost L (more content not included)... Normal [facility] Gastroenterology Visit Repor ton 04-05-2024 Gastroenterology Visit Report [facility] [address] [place] [address] OFFICE VISIT Date of Service: 04/05/24 MR#: [id number] Acct: [id number] Name: HELEN RODRIGES Rep #: [id number] : 1950 Provider: KEITH chaves Age/Sex: 73/F Location: [facility] [place] Status: Signed Intake Vital Signs 03/19/24 00:39 04/05/24 08:41 04/05/24 15:15 Height 5 ft 3 in 5 ft 3.75 in Weight: 126 lb BMI 21.8 BP 145/79 H Blood Pressure Location Lt brachial Position Sitting Respiration 16 Pulse 66 Pulse Source NIBP Pulse Oximetry (%) 97 Oxygen Delivery Method room air Intake Visit Reasons: Gas and Pressure Chief Complaint: change in bowel habits [employer]visor [employer] Required: No Accompanied by: Is patient in pain?: Yes Allergies belladonna alkaloids Adverse Reaction (Verified 04/05/24 15:13) Rash Medications ???Medication ???Instructions ???Recorded ???Confirmed ???Type aspirin 81 mg tablet,delayed 81 mg PO DAILY 03/19/24 04/05/24 History release clopidogrel 75 mg tablet 75 mg PO DAILY 03/19/24 04/05/24 History metoprolol succinate 25 mg 25 mg PO DAILY 03/19/24 04/05/24 History tablet,extended release 24 hr nitroglycerin 0.4 mg sublingual 0.4 mg sublingual Q5M PRN chest 03/19/24 04/05/24 History tablet pain Lactobacillus rhamnosus GG 5 PO 04/05/24 04/05/24 History billion cell oral powder packet ([employer]Ginkgo [employer]) carvedilol 3.125 mg tablet 3.125 mg PO BID #180 tabs 04/05/24 04/05/24 Rx cholecalciferol (vitamin D3) 25 25 mcg PO QDAY 04/05/24 04/05/24 History mcg (1,000 unit) capsule cyanocobalamin (vitamin B-12) 1,000 mcg PO QDAY 04/05/24 04/05/24 History 1,000 mcg capsule dapagliflozin propanediol 10 mg 10 mg PO QDAY #90 tabs 04/05/24 04/05/24 Rx tablet (Farxiga) docusate sodium 100 mg capsule 100 mg PO QDAY 04/05/24 04/05/24 History (Dulcolax Stool Softener (docusate)) spironolactone 25 mg tablet 25 mg PO QDAY 04/05/24 04/05/24 History micronesian leio PO 04/05/24 History valsartan 160 mg tablet 160 mg PO QDAY #90 tabs 04/05/24 04/05/24 Rx vitamins A,C,T-hvhd-oobzib 4,296 1 cap PO QDAY 04/05/24 04/05/24 History mcg-226 mg-90 mg capsule (PreserVision AREDS) Have you fallen in the past year?: No Nurse's Note: Had a heart attack in march and since then her body has been trying to stabilize. Has very bad abdominal pain. Has had constipation all her life but it has gotten worse. Switched to a plant based diet. [facility] Medical History Anxiety Bitten by cat, sequela Bone fracture Cataracts, bilateral Double vision Migraines Pain in right hand Swelling of right hand Surgical History H/O nasal polypectomy History of blepharoplasty History of bunionectomy History of tonsillectomy Family History Mother Heart disease Hypertension CAD (coronary artery disease) Father Lung cancer Brother Melanoma CAD (coronary artery disease) Daughter Thyroid disorder Social History current occupational status: retired pets and animals: Yes Smoking Status: Never smoker alcohol intake: current substance use type: does not use additional social history: DOES TAKE ASPIRIN RARELY DOES TAKE IBUPROFEN HPI HPI Chief Complaint: change in bowel habits Details: HELEN RODRIGES, is a 73 F who presents to the office today for - had an NH March 2024 - reports she was never on any medications prior to NH - reports a long h/o constipation but now much worse - she thinks this is because she switched to a plan based diet - ASA, Plavix, Metoprolol, Aldactone - Colonoscopy 1 year ago - Dr. Mcnulty - c/o bad indigestion - LUQ pain - denies any current pain - epigastric burning has improved - she is taking Dulcolax stool softener and micronesian elio daily - 3 weeks ago had an ileus secondary to statin - reports Sucralfate helped the burning but made her back very weak - denies any dysphagia - stopped famotidine 2 days ago - stool softener daily now with micronesian elio - she is now having 1-2 small cow plops or little form daily - was in ER 1-2 years ago for constipation - lazy bowel B: Oatmeal, wheat germ, merle seeds and raisins L: lentil soup, fruit and vegetable D: starch, vegetable protein, rice ROS Const Constitutional: No fatigue, fever(s) or weight change ENT ENT: No difficulty swallowing Gastro GI: Positive for abdominal pain, bloating, change in bowel habits, constipation and heartburn; No belching, change in stool character, coffee ground emesis, cramping, diarrhea, difficulty swallowing, feeling full (more content not included)... Normal [facility] Cholesterol in LDL Direct as say [Mass/Vol]on 04-04-2024 Cholesterol in LDL [Mass/Vol] 143 mg/dL High NINF - 100 mg/dL [facility] Comment on above: Greatly elevated Tri glycerides values (>1200 mg/dL) interfere with the dLDL assay. Desirable range <100 mg/dL for primary prevention; <70 mg/dL for patients with CHD or diabetic patients with > or = 2 CHD risk factors. Interpretation and review of laboratory results Abnormal [facility]: [facility] [address] [facility] FASTING:NO FASTING: NO [facility] DIRECT LDLon 04-04-2024 Cholesterol in LDL [Mass/Vol] 143 mg/dL High <100 [facility] Comment on above: Order Comment: MAIL TO: HELEN RODRIGES L[address] [facility] [place], FASTING:NO FASTING: NO Result Comment: Leia bojorquez elevated Triglycerides values (>1200 mg/dL) interfere with the dLDL assay. Desirable range <100 mg/dL for primary prevention; <70 mg/dL for patients with CHD or diabetic patients with > or = 2 CHD risk factors. Performed By: #### [id number] #### [facility] [address] [place] [address] Equipment Operator Wage Hand: Nahid Son MD Albumin to globulin ratioOrd ered By: Erin Ordaz on 03-23-2024 Albumin/Globulin [Mass ratio] 1.0 {ratio} 0.9-2.4 [facility] Bilirubin, totalOrdered By: Erin Ordaz on 03-23-2024 Bilirubin [Mass/Vol] 0.90 mg/dL 0.20-1.00 [facility] Comment on above: For patients on eltr ombopag therapy, use of Dimension [place] TBIL is not recommended. Blood urea nitrogen (BUN)/cr eatinine ratioOrdered By: Erin Ordaz on 03-23-2024 Urea nitrogen/Creatinine [Mass ratio] 9.9 mg/mg Low - [facility] C-reactive protein measureme nt by high sensitivity methodOrdered By: Erin Ordaz on 03-23-2024 C-Reactive Protein Extended Range < 2.90 mg/L 0.0-3.0 [facility] Comment on above: C-Reactive Protein ( CRP) provides useful information for thediagnosis, therapy and monitoring of inflammatory processesand associated diseases. For the evaluation of Relative Riskfor Cardiovascular Disease, a High Sensitivity CRP (HSCRP)should be ordered. CPK Total, Creatine Kinaseon 03-23-2024 CPK TOTAL 71 U/L Normal 26-192 [facility] Comment on above: Order Comment: Order Date: 03/22/24Order Info: [id number] - CMPInterface Comments:Erica Info: 2157-6 - CPKINDICATE CK '1', '2', '3', OR 'R' FOR RANDOM: RComments: Erica Info: [id number] - CRPR Performed By: #### L [id number] #### [facility] [address] [place], [address] CRPon 03-23-2024 C-REACTIVE PROT < 2.90 Normal 0.0-3.0 [facility] Comment on above: Order Comment: Order Date: 03/22/24Order Info: [id number] - CMPInterface Comments:ROrder Info: [id number] - CPKINDICATE CK '1', '2', '3', OR 'R' FOR RANDOM: RComments: Erica Info: [id number] - CRPR Result Comment: C-Re active Protein (CRP) provides useful information for the diagnosis, therapy and monitoring of inflammatory processes and associated diseases. For the evaluation of Relative Risk for Cardiovascular Disease, a High Sensitivity CRP (HSCRP) should be ordered. Performed By: #### L [id number] #### [facility] [address] [place], [address] Carbon dioxide measurementOr dered By: Erin Ordaz on 03-23-2024 CO2 [Moles/Vol] 30.0 mmol/L 21.0-32.0 [facility] Chloride measurementOrdered By: Erin Ordaz on 03-23-2024 Chloride [Moles/Vol] 102 mmol/L 98-107 [facility] Comprehensive Metabolic Prof ilon 03-23-2024 Albumin [Mass/Vol] 3.9 g/dL Normal 3.2-5.0 [facility] Comment on above: Order Comment: Order Date: 03/22/24Order Info: [id number] - CMPInterface Comments:ROrder Info: 21511-04 - CPKINDICATE CK '1', '2', '3', OR 'R' FOR RANDOM: RComments: Erica Info: [id number] - CRPR Performed By: #### L #### [facility] [address] [place], [address] Albumin/Globulin [Mass ratio] 1.0 {ratio} Normal 0.9-2.4 [facility] Comment on above: Order Comment: Order Date: 03/22/24Order Info: [id number] - CMPInterface Comments:ROrder Info: 21511-04 - CPKINDICATE CK '1', '2', '3', OR 'R' FOR RANDOM: RComments: Deepder Info: - CRPR Performed By: #### L [id number] #### [facility] [address] [place], [place], [id number] ALK P 99 U/L Normal 45-117 [facility] Comment on above: Order Comment: Order Date: 03/22/24Order Info: [id number] - CMPInterface Comments:ROrder Info: [id number] - CPKINDICATE CK '1', '2', '3', OR 'R' FOR RANDOM: RComments: Deepder Info: - CRPR Performed By: #### L [id number] #### [facility] [address] [place], [place], [address] [phone] ALT [Catalytic activity/Vol] 48 U/L Normal 13-56 [facility] Comment on above: Order Comment: Order Date: 03/22/24Order Info: [id number] - CMPInterface Comments:ROrder Info: [id number] - CPKINDICATE CK '1', '2', '3', OR 'R' FOR RANDOM: RComments: Erica Info: [id number] - CRPR Performed By: #### L [id number] #### [facility] [address] [place], [place], [address] [phone] [Catalytic activity/Vol] 17 U/L Normal 15-37 [facility] Comment on above: Order Comment: Order Date: 03/22/24Order Info: [id number] - CMPInterface Comments:ROrder Info: [id number] - CPKINDICATE CK '1', '2', '3', OR 'R' FOR RANDOM: RComments: Deepder Info: [id number] - CRPR Performed By: #### L [id number] #### [facility] [address] [place], [place], [address] Bilirubin [Mass/Vol] 0.90 mg/dL Normal 0.20-1.00 [facility] Comment on above: Order Comment: Order Date: 03/22/24Order Info: [id number] - CMPInterface Comments:Deepder Info: 215-6 - CPKINDICATE CK '1', '2', '3', OR 'R' FOR RANDOM: RComments: Erica Info: [id number] - CRPR Result Comment: For patients on eltrombopag therapy, use of Dimension [place] TBIL is not recommended. Performed By: #### L [id number] #### [facility] [address] [place], [place], [address] BUN/CRE 9.9 RATIO Low 10-20 [facility] Comment on above: Order Comment: Order Date: 03/22/24Order Info: [id number] - CMPInterface Comments:ROrder Info: 215- - CPKINDICATE CK '1', '2', '3', OR 'R' FOR RANDOM: RComments: Erica Info: [id number] - CRPR Performed By: #### L [id number] #### [facility] [address] [place], [place], [address] CA,Total 9.6 mg/dL Normal 8.5-10.1 [facility] Comment on above: Order Comment: Order Date: 03/22/24Order Info: [id number] - CMPInterface Comments:Erica Info: 215- - CPKINDICATE CK '1', '2', '3', OR 'R' FOR RANDOM: RComments: Erica Info: [id number] - CRPR Performed By: #### L [id number] #### [facility] [address] [place], [place], [address] Chloride [Moles/Vol] 102 mmol/L Normal 98-107 [facility] Comment on above: Order Comment: Order Date: 03/22/24Order Info: [id number] - CMPInterface Comments:ROrder Info: 215-6 - CPKINDICATE CK '1', '2', '3', OR 'R' FOR RANDOM: RComments: Erica Info: [id number] - CRPR Performed By: #### L [id number] #### [facility] [address] [place], [place], [address] CO2 [Moles/Vol] 30.0 mmol/L Normal 21.0-32.0 [facility] Comment on above: Order Comment: Order Date: 03/22/24Order Info: [id number] - CMPInterface Comments:ROrder Info: [id number] - CPKINDICATE CK '1', '2', '3', OR 'R' FOR RANDOM: RComments: Erica Info: - CRPR Performed By: #### L [id number] #### [facility] [address] [place], [address] Creatinine [Mass/Vol] 1.21 mg/dL High 0.55-1.02 [facility] Comment on above: Order Comment: Order Date: 03/22/24Order Info: [id number] - CMPInterface Comments:ROrder Info: 21511-04 - CPKINDICATE CK '1', '2', '3', OR 'R' FOR RANDOM: RComments: Erica Info: - CRPR Result Comment: The validity of the calculated GFR GFRAA in patients over 70 years has not been determined. Clinical correlation is essential. Performed By: #### L [id number] #### [facility] [address] [place], [place], [address] EST GFR - AA 56 mL/min Low >60 [facility] Comment on above: Order Comment: Order Date: 03/22/24Order Info: [id number] - CMPInterface Comments:ROrder Info: 21511-04 - CPKINDICATE CK '1', '2', '3', OR 'R' FOR RANDOM: RComments: ROrder Info: [id number] - CRPR Result Comment: Afri can Nigerien GFR Calc Performed By: #### L [id number] #### [facility] [address] [place], [place], [address] GAP 6 Normal 5-15 [facility] Comment on above: Order Comment: Order Date: 03/22/24Order Info: [id number] - CMPInterface Comments:ROrder Info: [id number] - CPKINDICATE CK '1', '2', '3', OR 'R' FOR RANDOM: RComments: Erica Info: [id number] - CRPR Performed By: #### L [id number] #### [facility] [address] [place], [place], [address] GFR/1.73 sq M.predicted among non-blacks MDRD (S/P/Bld) [Vol rate/Area] 47 mL/min/{1.73_m2} Low >60 [facility] Comment on above: Order Comment: Order Date: 03/22/24Order Info: [id number]- - CMPInterface Comments:ROrder Info: [id number] - CPKINDICATE CK '1', '2', '3', OR 'R' FOR RANDOM: RComments: Erica Info: [id number] - CRPR Result Comment: Non- GFR Calc Performed By: #### L [id number] #### [facility] [address] [place], [place], [address] Globulin (S) [Mass/Vol] 3.8 g/dL Normal 2.2-4.2 [facility] Comment on above: Order Comment: Order Date: 03/22/24Order Info: [id number]- - CMPInterface Comments:Deepder Info: 21511-04 - CPKINDICATE CK '1', '2', '3', OR 'R' FOR RANDOM: RComments: Erica Info: [id number] - CRPR Performed By: #### L [id number] #### [facility] [address] [place], [place], [address] Glucose [Mass/Vol] 136 mg/dL High 74-106 [facility] Comment on above: Order Comment: Order Date: 03/22/24Order Info: [id number] - CMPInterface Comments:Erica Info: 2157-6 - CPKINDICATE CK '1', '2', '3', OR 'R' FOR RANDOM: RComments: Erica Info: [id number] - CRPR Result Comment: Fast ing Glucose result greater than or equal to 126 mg/dL suggests DIABETES MELLITUS per A.D.A. criteria. Performed By: #### L [id number] #### [facility] [address] [place], [address] Potassium [Moles/Vol] 4.0 mmol/L Normal 3.5-5.1 [facility] Comment on above: Order Comment: Order Date: 03/22/24Order Info: [id number] - CMPInterface Comments:Erica Info: 215-6 - CPKINDICATE CK '1', '2', '3', OR 'R' FOR RANDOM: RComments: Erica Info: [id number] - CRPR Performed By: #### L [id number] #### [facility] [address] [place], [address] Sodium [Moles/Vol] 138 mmol/L Normal 136-145 [facility] Comment on above: Order Comment: Order Date: 03/22/24Order Info: [id number] - CMPInterface Comments:Deepder Info: 2157- - CPKINDICATE CK '1', '2', '3', OR 'R' FOR RANDOM: RComments: Erica Info: [id number] - CRPR Performed By: #### L [id number] #### [facility] [address] [place], [address] T PROT 7.7 g/dL Normal 6.4-8.2 [facility] Comment on above: Order Comment: Order Date: 03/22/24Order Info: [id number] - CMPInterface Comments:ROrder Info: [id number]- - CPKINDICATE CK '1', '2', '3', OR 'R' FOR RANDOM: RComments: [facility] Info: [id number] - CRPR Performed By: #### L 0.1949 #### [facility] [address] [place], [place], [address] Urea nitrogen [Mass/Vol] 12 mg/dL Normal 7-18 [facility] Comment on above: Order Comment: Order Date: 03/22/24Order Info: [id number] - CMPInterface Comments:[facility] Info: 21511-04 - CPKINDICATE CK '1', '2', '3', OR 'R' FOR RANDOM: RComments: [facility] Info: [id number] - CRPR Performed By: #### L 0.1949 #### [facility] [address] [place], [place], [address] Estimated glomerular filtrat ion rate (GFR) AmericanOrdered By: Erin Ordaz on 03-23-2024 Estimated GFR (MDRD) Amer 56 mL/min Low >60 [facility] Comment on above: GFR Calc Glomerular filtration rate ( GFR) estimationOrdered By: Erin Ordaz on 03-23-2024 Estimated GFR (MDRD) Non-Af Amer 47 mL/min Low >60 [facility] Comment on above: Non- GFR Calc Glucose measurementOrdered B y: Erin Ordaz on 03-23-2024 Glucose [Mass/Vol] 136 mg/dL High 74-106 [facility] Comment on above: Fasting Glucose resu lt greater than or equal to 126 mg/dL suggests DIABETES MELLITUS per A.D.A. criteria. Laboratory - Chemistry and C hemistry - challengeOrdered By: Erin Ordaz on 03-23-2024 AST [Catalytic activity/Vol] 17 U/L 15-37 [facility] Potassium measurementOrdered By: Erin Ordaz on 03-23-2024 Potassium [Moles/Vol] 4.0 mmol/L 3.5-5.1 [facility] Serum anion gap measurementO rdered By: Erin Ordaz on 03-23-2024 Anion gap [Moles/Vol] 6 mmol/L 5-15 [facility] Serum globulin measurementOr dered By: Erin Ordaz on 03-23-2024 Globulin (S) [Mass/Vol] 3.8 g/dL 2.2-4.2 [facility] Serum or plasma alanine mills otransferase (ALT) measurementOrdered By: Erin Ordaz on 03-23-2024 ALT [Catalytic activity/Vol] 48 U/L 13-56 [facility] Serum or plasma albumin josue urement (mass/volume)Ordered By: Erin Ordaz on 03-23-2024 Albumin [Mass/Vol] 3.9 g/dL 3.2-5.0 [facility] Serum or plasma alkaline destinee sphatase measurementOrdered By: Erin Ordaz on 03-23-2024 ALP [Catalytic activity/Vol] 99 U/L 45-117 [facility] Serum or plasma calcium josue urement (mass/volume)Ordered By: Erin Ordaz on 03-23-2024 Calcium [Mass/Vol] 9.6 mg/dL 8.5-10.1 [facility] Serum or plasma creatinine m easurement (mass/volume)Ordered By: Erin Ordaz on 03-23-2024 Creatinine [Mass/Vol] 1.21 mg/dL High 0.55-1.02 [facility] Comment on above: The validity of the calculated GFR & GFRAA in patients over 70 years has not been determined. Clinical correlation is essential. Serum or plasma urea nitroge n measurement (mass/volume)Ordered By: Erin Ordaz on 03-23-2024 Urea nitrogen [Mass/Vol] 12 mg/dL 7-18 [facility] Sodium levelOrdered By: Erin Ordaz on 03-23-2024 Sodium [Moles/Vol] 138 mmol/L 136-145 [facility] Total creatine kinase measur ementOrdered By: Erin Ordaz on 03-23-2024 CK [Catalytic activity/Vol] 71 U/L 26-192 [facility] Total proteinOrdered By: Akila Ordaz on 03-23-2024 Protein [Mass/Vol] 7.7 g/dL 6.4-8.2 [facility] Absolute neutrophil countOrd ered By: Eliazar Jauregui on 03-19-2024 Neutrophils (Bld) [#/Vol] 6.9 10*3/uL 2.0-7.7 [facility] [facility] Cheston [facility] Chest [facility] Imaging Services [address] [place] [address] [facility] Chest MR#: [id number] Acct: [id number] Name: HELEN RODRIGES Rep #: [id number] : 1950 F 73 From: Kelin Ochoa PCP: Dr. Erin Ordaz MD Status: REG ER Study: Acute Abdomen Inc Chest Date of Exam: 03/19/24 Exam# [id number] Ordering Dr: Eliazar Jauregui DO [id number] INDICATION: abd pain released Tuesday from [facility] heart stents placed, med adjustments recently and has felt floated ever since, nausea , letting out gas helped with pain some, did give herself an enema this am d/t hx of constipation issues, did switch from brilinta to plavix tonight EXAMINATION/TECHNIQU E: X-RAY - XR Abdomen Series W/ Chest 1 View COMPARISON: Prior study dated: 08/18/2012 abdomen x-ray. ____ FINDINGS: AP supine and upright views of the abdomen, and upright view of the chest. Bowel gas pattern is normal. There is no bowel obstruction or free intraperitoneal air. No abnormal mass or calcification is seen. The lungs are clear. The aorta is atherosclerotic. No cardiomegaly. RAD/Acute Abdomen Inc Chest IMPRESSION: No acute findings. Electronically Signed: Kelin Neri MD at 2:24 EST , CC: Dr. Erin Ordaz MD; Eliazar Jauregui DO Glass Bender: Signed Normal [facility] Basic Metabolic Profile (BMP )on 03-19-2024 BUN/CRE 19.0 RATIO Normal 10-20 [facility] Comment on above: Performed By: #### L #### [facility] Laboratory [address] [place], [address] CA,Total 9.6 mg/dL Normal 8.5-10.1 [facility] Comment on above: Performed By: #### L #### [facility] Laboratory [address] [place], [address] Chloride [Moles/Vol] 106 mmol/L Normal 98-107 [facility] Comment on above: Performed By: #### L #### [facility] Laboratory [address] [place], [address] CO2 [Moles/Vol] 27.0 mmol/L Normal 21.0-32.0 [facility] Comment on above: Performed By: #### L #### [facility] Laboratory [address] [place], [address] Creatinine [Mass/Vol] 1.05 mg/dL High 0.55-1.02 [facility] Comment on above: Result Comment: The validity of the calculated GFR GFRAA in patients over 70 years has not been determined. Clinical correlation is essential. Performed By: #### L #### [facility] Laboratory [address] [place], [address] ECRCL 40.65 ml/min Normal [facility] Comment on above: Performed By: #### L #### [facility] Laboratory [address] [place], [address] EST GFR - AA 66 mL/min Normal >60 [facility] Comment on above: Result Comment: Afri can Nigerien GFR Calc Performed By: #### L #### [facility] Laboratory [address] [place], [address] GAP 6 Normal 5-15 [facility] Comment on above: Performed By: #### L 3099.1949 #### [facility] Laboratory [address] [place], [address] GFR/1.73 sq M.predicted among non-blacks MDRD (S/P/Bld) [Vol rate/Area] 55 mL/min/{1.73_m2} Low >60 [facility] Comment on above: Result Comment: Non- GFR Calc Performed By: #### L #### [facility] Laboratory [address] [place], [address] Glucose [Mass/Vol] 132 mg/dL High 74-106 [facility] Comment on above: Result Comment: Fast ing Glucose result greater than or equal to 126 mg/dL suggests DIABETES MELLITUS per A.D.A. criteria. Performed By: #### L 3099.1949 #### [facility] Laboratory [address] [place], [address] Potassium [Moles/Vol] 3.4 mmol/L Low 3.5-5.1 [facility] Comment on above: Performed By: #### L 3099.1949 #### [facility] Laboratory [address] [place], [address] Sodium [Moles/Vol] 139 mmol/L Normal 136-145 [facility] Comment on above: Performed By: #### L 3099.1949 #### [facility] Laboratory [address] [place], [address] Urea nitrogen [Mass/Vol] 20 mg/dL High 7-18 [facility] Comment on above: Performed By: #### L #### [facility] Laboratory [address] [place], [address] Basophil percentageOrdered B y: Eliazar Jauregui on 03-19-2024 Basophils/100 WBC (Bld) 0.6 % 0-1 [facility] Bilirubin directOrdered By: Eliazar Jauregui on 03-19-2024 Bilirubin.direct [Mass/Vol] 0.22 mg/dL 0.00-0.30 [facility] Bilirubin, totalOrdered By: Eliazar Jauregui on 03-19-2024 Bilirubin [Mass/Vol] 1.00 mg/dL 0.20-1.00 [facility] Comment on above: For patients on eltr ombopag therapy, use of Dimension [place] TBIL is not recommended. Blood urea nitrogen (BUN)/cr eatinine ratioOrdered By: Eliazar Jauregui on 03-19-2024 Urea nitrogen/Creatinine [Mass ratio] 19.0 mg/mg 02-18 [facility] CBC W/Diff, Automatedon 03-02 Absolute Lymph 1.16 X10 3/uL Normal 0.83-4.51 [facility] Comment on above: Performed By: #### L 3099.1949 #### [facility] Laboratory [address] [place], [address] Absolute Neut 6.9 X10 3/uL Normal 2.0-7.7 [facility] Comment on above: Performed By: #### L 310.1949 #### [facility] Laboratory [address] [place], [address] Basophils/100 WBC (Bld) 0.6 % Normal 0-1 [facility] Comment on above: Performed By: #### L 310.1949 #### [facility] Laboratory [address] [place], [address] Eosinophils/100 WBC (Bld) 1.7 % Normal 0-5 [facility] Comment on above: Performed By: #### L 310.1949 #### [facility] Laboratory [address] [place], [address] Erythrocyte distribution width (RBC) [Ratio] 13.2 % Normal 11.6-14.6 [facility] Comment on above: Performed By: #### L 3099.1949 #### [facility] Laboratory [address] [place], [address] Hematocrit (Bld) [Volume fraction] 38.9 % Normal 37-47 [facility] Comment on above: Performed By: #### L 3099.1949 #### [facility] Laboratory [address] [place], [address] Hemoglobin (Bld) [Mass/Vol] 13.0 g/dL Normal 12.0-15.0 [facility] Comment on above: Performed By: #### L 3099.1949 #### [facility] Laboratory [address] [place], [address] IG% 0.300 Normal 0.0-0.9 [facility] Comment on above: Result Comment: IG% - Immature Granulocytes (promyelocytes, myelocytes and metamyelocytes) > 1% indicates that a LEFT SHIFT is Present. Performed By: #### L 3099.1949 #### [facility] Laboratory [address] [place], [address] Lymphocytes/100 WBC (Bld) 13.0 % Low 19-41 [facility] Comment on above: Performed By: #### L #### [facility] Laboratory [address] [place], [address] MCH (RBC) [Entitic mass] 29.5 pg Normal 27.0-32.0 [facility] Comment on above: Performed By: #### L #### [facility] Laboratory [address] [place], [address] MCHC (RBC) [Mass/Vol] 33.4 g/dL Normal 32-36 [facility] Comment on above: Performed By: #### L #### [facility] Laboratory [address] [place], [address] MCV (RBC) [Entitic vol] 88.4 fL Normal 81-99 [facility] Comment on above: Performed By: #### L #### [facility] Laboratory [address] [place], [address] Monocytes/100 WBC (Bld) 7.4 % Normal 0-10 [facility] Comment on above: Performed By: #### L #### [facility] Laboratory [address] [place], [address] Neutrophils/100 WBC (Bld) 77.0 % High 47-70 [facility] Comment on above: Performed By: #### L #### [facility] Laboratory [address] [place], [address] Nucleated RBC (Bld) [#/Vol] 0 10*3/uL Normal 0-5 [facility] Comment on above: Performed By: #### L #### [facility] Laboratory [address] [place], [address] Platelet mean volume (Bld) [Entitic vol] 10.2 fL Normal 6.2-12.0 [facility] Comment on above: Performed By: #### L #### [facility] Laboratory [address] [place], [address] Platelets (Bld) [#/Vol] 331 10*3/uL Normal 150-450 [facility] Comment on above: Performed By: #### L #### [facility] Laboratory [address] [place], [address] RBC (Bld) [#/Vol] 4.40 10*6/uL Normal 4.2-5.4 [facility] Comment on above: Performed By: #### L #### [facility] Laboratory [address] [place], [address] RDW SD 42.5 fl Normal 35.1-43.9 [facility] Comment on above: Performed By: #### L 3099.1949 #### [facility] Laboratory [address] [place], [address] WBC (Bld) [#/Vol] 8.9 10*3/uL Normal 4.4-11.0 [facility] Comment on above: Performed By: #### L [id number] #### [facility] Laboratory [address] [place], [address] Carbon dioxide measurementOr dered By: Eliazar Jauregui on 03-19-2024 CO2 [Moles/Vol] 27.0 mmol/L 21.0-32.0 [facility] Chloride measurementOrdered By: Eliazar Jauregui on 03-19-2024 Chloride [Moles/Vol] 106 mmol/L 98-107 [facility] Emergency Department Summary on 03-19-2024 Emergency Department Summary [facility] Medical Records Department [address] [place] [address] Emergency Department Summary 03/19/24 MR#: [id number] Acct: [id number] Name: HELEN RODRIGES Rep #: [id number] : 1950 73 From: Eliazar Jauregui DO PCP: Dr. Erin Ordaz MD Status:DEP ER Location: ED HPI History of Present Illness Chief Complaint: Abd Pain Informant: patient and spouse/S.O. Narrative Narrative: Patient is a 73-year-old female who states that up to roughly 1 month ago she did not have any medical issues. She states she was out of town in [place] when she experienced chest discomfort and had a massive heart attack that actually caused her heart to stop. She states she was transported to the nearest hospital at which time she was revived and underwent cardiac cath which showed significant disease requiring stents. She states she did well at the facility and was discharged home but now has been on multiple medications which she is not used to. She states she has been having persistent abdominal discomfort with nausea and sensation of being bloated. She states she is unsure if this is related to medication side effect or if there is potential infection or blockage and therefore comes to the hospital for evaluation [facility] Medical History (Updated 03/21/24 @ 04:[address] Eliazar Jauregui, DO) Anxiety Migraines Pain in right hand Swelling of right hand Bitten by cat, sequela Double vision Cataracts, bilateral Bone fracture Home Medications ???Medication ???Instructions ???Recorded ???Last Taken ???Type aspirin 81 mg tablet,delayed 81 mg PO DAILY 03/19/24 Unknown History release atorvastatin 80 mg tablet 80 mg PO DAILY 03/19/24 Unknown History clopidogrel 75 mg tablet 75 mg PO DAILY 03/19/24 Unknown History losartan 50 mg tablet 50 mg PO DAILY 03/19/24 Unknown History metoprolol succinate 25 mg 25 mg PO DAILY 03/19/24 Unknown History tablet,extended release 24 hr nitroglycerin 0.4 mg sublingual 0.4 mg sublingual Q5M PRN chest 03/19/24 Unknown History tablet pain spironolactone 25 mg tablet 25 mg PO BID 03/19/24 Unknown History Allergy/AdvReac Type Severity Reaction Status Date / Time belladonna alkaloids AdvReac Rash Verified 03/19/24 00:41 Family History Mother Heart disease Hypertension Father Lung cancer Brother Melanoma Daughter Thyroid disorder Surgical History History of blepharoplasty H/O nasal polypectomy History of bunionectomy Social History (Updated 01/10/20 @ 12:[address] Aime Brice MD) Smoking Status: Never smoker alcohol intake: current substance use type: does not use additional social history: DOES TAKE ASPIRIN RARELY DOES TAKE IBUPROFEN ROS ROS ED Constitutional Constitutional ED: Denies chills or fever(s) Eyes Eyes: Denies change in vision ENT ENT ED: Denies sore throat Cardiovascular Cardiovascular: Denies chest pain Respiratory/Chest Respiratory/Chest: Denies cough or dyspnea Gastrointestinal Gastrointestinal: Reports abdominal pain, constipation, nausea and vomiting; Denies diarrhea Genitourinary Genitourinary ED: Denies dysuria Musculoskeletal Musculoskeletal: Denies myalgias Integumentary Denies rash Neurologic Neurologic: Denies headache(s) Hematologic/Lymphati c Hematologic/Lymphati c: Reports easy bleeding and easy bruising EXAM Physical Exam Const Vital Signs: 03/19/24 00:39 03/19/24 02:19 Temperature 96.9 F L Temperature Source Oral Pulse Rate 91 76 Respiratory Rate 18 Blood Pressure 176/85 H 157/91 H Blood Pressure Mean 115 113 Pulse Ox 98 Oxygen Delivery Method Room Air Positive well nourished and well developed General Appearance ED: well developed; Negative for pallor HEENT Reports moist mucous membranes HEENT Narrative: No tongue or lip swelling no oral lesions no airway edema or compromise No signs of infection noted in the posterior pharynx Eyes PERRL and EOMs intact bilaterally General Eye ED: Negative for scleral icterus Neck supple and no JVD Resp normal respiratory effort and clear to auscultation bilaterally Cardio regular rate and regular rhythm Rate: other Other Details: Radial and carotid pulses are equal and symmetric GI no masses GI Narrative: Abdomen is soft with slight distention and hypoactive bowel sounds. There is mild diffuse pain on palpation without voluntary guarding or rigidity or pulsatile mass. No fluid wave noted. Auscultation: hypoactive bowel sounds Palpation: soft Extremity normal to inspection Extremity Narrative: No asymmetric edema no pitting edema negative Homans' sign bilaterally Neuro oriented x3, CN's II-XII intact bilaterally and n (more content not included)... Normal [facility] Eosinophil percentageOrdered By: Eliazar Jauregui on 03-19-2024 Eosinophils/100 WBC (Bld) 1.7 % 0-5 [facility] Erythrocyte distribution wid th ratioOrdered By: Eliazar Jauregui on 03-19-2024 Erythrocyte distribution width (RBC) [Ratio] 13.2 % 11.6-14.6 [facility] Erythrocyte distribution wid th standard deviationOrdered By: Eliazar Jauregui on 03-19-2024 Erythrocyte distribution width (RBC) [Entitic vol] 42.5 fL 35.1-43.9 [facility] Estimated glomerular filtrat ion rate (GFR) AmericanOrdered By: Eliazar Jauregui on 03-19-2024 Estimated GFR (MDRD) Amer 66 mL/min >60 [facility] Comment on above: GFR Calc Estimation of creatinine korey aranceOrdered By: Eliazar Jauregui on 03-19-2024 Estimated Creatinine Clearance Calc 40.65 ml/min [facility] Glomerular filtration rate ( GFR) estimationOrdered By: Eliazar Jauregui on 03-19-2024 Estimated GFR (MDRD) Non-Af Amer 55 mL/min Low >60 [facility] Comment on above: Non- GFR Calc Glucose measurementOrdered B y: Eliazar Jauregui on 03-19-2024 Glucose [Mass/Vol] 132 mg/dL High 74-106 [facility] Comment on above: Fasting Glucose resu lt greater than or equal to 126 mg/dL suggests DIABETES MELLITUS per A.D.A. criteria. Hematocrit Auto (Bld) [Volum e fraction]Ordered By: Eliazar Jauregui on 03-19-2024 Hematocrit (Bld) [Volume fraction] 38.9 % 37-47 [facility] Hemoglobin measurementOrdere d By: Eliazar Jauregui on 03-19-2024 Hemoglobin (Bld) [Mass/Vol] 13.0 g/dL 12.0-15.0 [facility] Immature granulocytes/100 WB C Auto (Bld)Ordered By: Eliazar Jauregui on 03-19-2024 Immature granulocytes/100 WBC (Bld) 0.300 % 0.0-0.9 [facility] Comment on above: IG% - Immature Granu locytes (promyelocytes, myelocytes and metamyelocytes) > 1% indicates that a LEFT SHIFT is Present. Laboratory - Chemistry and C hemistry - challengeOrdered By: Eliazar Jauregui on 03-19-2024 AST [Catalytic activity/Vol] 55 U/L High 15-37 [facility] Lipaseon 03-19-2024 Lipase [Catalytic activity/Vol] 36 U/L Normal 13-75 [facility] Comment on above: Result Comment: Ya rockwell note: LIPASE revised reference range effective 22. New Lipase methodology. Expected to produce lower values than the previous assay method. NEW Reference Range: 13 - 75 U/L Performed By: #### L 3100.1950 #### [facility] Laboratory [address] [place], [address] Lipase measurementOrdered By : Eliazar Jauregui on 03-19-2024 Lipase [Catalytic activity/Vol] 36 U/L 13-75 [facility] Comment on above: Please note:LIPASE r evised reference range effective 22. New Lipase methodology. Expected to produce lower values than the previous assay method. NEW Reference Range: 13 - 75 U/L Liver Profileon 03-19-2024 Albumin [Mass/Vol] 3.5 g/dL Normal 3.2-5.0 [facility] Comment on above: Performed By: #### L 3099.1949 #### [facility] Laboratory [address] [place], [address] ALK P 127 U/L High 45-117 [facility] Comment on above: Performed By: #### L 3099.1949 #### [facility] Laboratory [address] [place], [address] ALT [Catalytic activity/Vol] 101 U/L High 13-56 [facility] Comment on above: Performed By: #### L 3099.1949 #### [facility] Laboratory [address] [place], [address] AST [Catalytic activity/Vol] 55 U/L High 15-37 [facility] Comment on above: Performed By: #### L 3099.1949 #### [facility] Laboratory [address] [place], [address] Bilirubin [Mass/Vol] 1.00 mg/dL Normal 0.20-1.00 [facility] Comment on above: Result Comment: For patients on eltrombopag therapy, use of Dimension [place] TBIL is not recommended. Performed By: #### L 3099.1949 #### [facility] Laboratory [address] [place], [address] Bilirubin.direct [Mass/Vol] 0.22 mg/dL Normal 0.00-0.30 [facility] Comment on above: Performed By: #### L 3099.1949 #### [facility] Laboratory [address] [place], [address] Globulin (S) [Mass/Vol] 4.2 g/dL Normal 2.2-4.2 [facility] Comment on above: Performed By: #### L 3100.1950 #### [facility] Laboratory [address] [place], [place], [address] T PROT 7.7 g/dL Normal 6.4-8.2 [facility] Comment on above: Performed By: #### L 3100.1950 #### [facility] Laboratory [address] [place], [place], [address] Lymphocytes Auto (Unsp spec) [#/Vol]Ordered By: Eliazar Jauregui on 03-19-2024 Lymphocytes (Bld) [#/Vol] 1.16 10*3/uL 0.83-4.51 [facility] Lymphocytes/100 WBC Auto (Un sp spec)Ordered By: Eliazar Jauregui on 03-19-2024 Lymphocytes/100 WBC (Bld) 13.0 % Low 19-41 [facility] MCV (mean corpuscular volume ) determinationOrdered By: Eliazar Jauregui on 03-19-2024 MCV (RBC) [Entitic vol] 88.4 fL 81-99 [facility] Magnesiumon 03-19-2024 Magnesium [Mass/Vol] 2.5 mg/dL Normal 1.6-2.6 [facility] Comment on above: Performed By: #### L 501.4020 #### [facility] Laboratory [address] [place], [place], [id number] Magnesium measurementOrdered By: Eliazar Jauregui on 03-19-2024 Magnesium [Mass/Vol] 2.5 mg/dL 1.6-2.6 [facility] Mean corpuscular hemoglobin (MCH) determinationOrdered By: Eliazar Jauregui on 03-19-2024 MCH (RBC) [Entitic mass] 29.5 pg 27.0-32.0 [facility] Mean corpuscular hemoglobin concentration (MCHC) determinationOrdered By: Eliazar Jauregui on 03-19-2024 MCHC (RBC) [Mass/Vol] 33.4 g/dL 32-36 [facility] Mean platelet volume determi nationOrdered By: Eliazar Jauregui on 03-19-2024 Platelet mean volume (Bld) [Entitic vol] 10.2 fL 6.2-12.0 [facility] Monocyte percentageOrdered B y: Eliazar Jauregui on 03-19-2024 Monocytes/100 WBC (Bld) 7.4 % 0-10 [facility] Neutrophil percentageOrdered By: Eliazar Jauregui on 03-19-2024 Neutrophils/100 WBC (Bld) 77.0 % High 47-70 [facility] Nucleated red blood cell per centageOrdered By: Eliazar Jauregui on 03-19-2024 Nucleated RBC/100 WBC (Bld) [Ratio] 0 % 0-5 [facility] Platelet countOrdered By: Namrata Jauregui on 03-19-2024 Platelets (Bld) [#/Vol] 331 10*3/uL 150-450 [facility] Potassium measurementOrdered By: Eliazar Jauregui on 03-19-2024 Potassium [Moles/Vol] 3.4 mmol/L Low 3.5-5.1 [facility] RBC Auto (Bld) [#/Vol]Ordere d By: Eliazar Jauregui on 03-19-2024 RBC (Bld) [#/Vol] 4.40 10*6/uL 4.2-5.4 [facility] Serum anion gap measurementO rdered By: Eliazar Jauregui on 03-19-2024 Anion gap [Moles/Vol] 6 mmol/L 5-15 [facility] Serum globulin measurementOr dered By: Eliazar Jauregui on 03-19-2024 Globulin (S) [Mass/Vol] 4.2 g/dL 2.2-4.2 [facility] Serum or plasma alanine mills otransferase (ALT) measurementOrdered By: Eliazar Jauregui on 03-19-2024 ALT [Catalytic activity/Vol] 101 U/L High 13-56 [facility] Serum or plasma albumin josue urement (mass/volume)Ordered By: Eliazar Jauregui on 03-19-2024 Albumin [Mass/Vol] 3.5 g/dL 3.2-5.0 [facility] Serum or plasma alkaline destinee sphatase measurementOrdered By: Eliazar Jauregui on 03-19-2024 ALP [Catalytic activity/Vol] 127 U/L High 45-117 [facility] Serum or plasma calcium josue urement (mass/volume)Ordered By: Eliazar Jauregui on 03-19-2024 Calcium [Mass/Vol] 9.6 mg/dL 8.5-10.1 [facility] Serum or plasma creatinine m easurement (mass/volume)Ordered By: Eliazar Jauregui on 03-19-2024 Creatinine [Mass/Vol] 1.05 mg/dL High 0.55-1.02 [facility] Comment on above: The validity of the calculated GFR & GFRAA in patients over 70 years has not been determined. Clinical correlation is essential. Serum or plasma urea nitroge n measurement (mass/volume)Ordered By: Eliazar Jauregui on 03-19-2024 Urea nitrogen [Mass/Vol] 20 mg/dL High -18 [facility] Sodium levelOrdered By: Evert Jauregui on 03-19-2024 Sodium [Moles/Vol] 139 mmol/L 136-145 [facility] Total proteinOrdered By: Daniel Jauregui on 03-19-2024 Protein [Mass/Vol] 7.7 g/dL 6.4-8.2 [facility] White blood cell (WBC) count Ordered By: Eliazar Jauregui on 03-19-2024 WBC (Bld) [#/Vol] 8.9 10*3/uL 4.4-11.0 [facility] BASIC METABOLIC PANELon 03-02 Anion gap [Moles/Vol] 9 mmol/L Low 10-20 [facility] Comment on above: Order Comment: [facility] Services has implemented the eGFR calculation approach that does not have a coefficient for race that conforms to the NKF-ASN Task Force Recommendations. Performed By: #### 4 [id number] #### [facility] [address], [place] [address] Reed Salguero M.D. [id number] Calcium [Mass/Vol] 9.2 mg/dL Normal 8.4-10.2 [facility] Comment on above: Order Comment: [facility] Services has implemented the eGFR calculation approach that does not have a coefficient for race that conforms to the NKF-ASN Task Force Recommendations. Performed By: #### 4 [id number] #### [facility] [address], [place] [address] Reed Salguero M.D. [id number] Chloride [Moles/Vol] 103 mmol/L Normal 98-108 [facility] Comment on above: Order Comment: [facility] Services has implemented the eGFR calculation approach that does not have a coefficient for race that conforms to the NKF-ASN Task Force Recommendations. Performed By: #### 4 [id number] #### [facility] [address] [id number] Reed Salguero M.D. [id number] Creatinine [Mass/Vol] 1.03 mg/dL Normal 0.60-1.10 [facility] Comment on above: Order Comment: [facility] Laboratory [facility] has implemented the eGFR calculation approach that does not have a coefficient for race that conforms to the NKF-ASN Task Force Recommendations. Performed By: #### 4 [id number] #### [facility] [address] [id number] Reed Salguero M.D. [id number] EGFR 58 mL/min/1.73 m2 Low >=60 [facility] Comment on above: Order Comment: [facility] Laboratory [facility] has implemented the eGFR calculation approach that does not have a coefficient for race that conforms to the NKF-ASN Task Force Recommendations. Result Comment: Noa mated GFR was calculated using the 2020 CKD-EPI creatinine equation. Performed By: #### 4 [id number] #### [facility] [address] [id number] Reed Salguero M.D. [id number] Glucose [Mass/Vol] 116 mg/dL High 65-99 [facility] Comment on above: Order Comment: [facility] Laboratory [facility] has implemented the eGFR calculation approach that does not have a coefficient for race that conforms to the NKF-ASN Task Force Recommendations. Performed By: #### 4 [id number] #### [facility] [address] [id number] Reed Salguero M.D. [id number] HCO3 (Bld) [Moles/Vol] 29 mmol/L Normal 21-32 [facility] Comment on above: Order Comment: [facility] Laboratory [facility] has implemented the eGFR calculation approach that does not have a coefficient for race that conforms to the NKF-ASN Task Force Recommendations. Performed By: #### 4 [id number] #### [facility] [address] [id number] Reed Salguero M.D. [id number] Potassium [Moles/Vol] 3.4 mmol/L Low 3.5-5.1 [facility] Comment on above: Order Comment: [facility] Laboratory [facility] has implemented the eGFR calculation approach that does not have a coefficient for race that conforms to the NKF-ASN Task Force Recommendations. Performed By: #### 4 [id number] #### [facility] [address] [id number] Reed Salguero M.D. [id number] Sodium [Moles/Vol] 138 mmol/L Normal 135-145 [facility] Comment on above: Order Comment: [facility] Laboratory [facility] has implemented the eGFR calculation approach that does not have a coefficient for race that conforms to the NKF-ASN Task Force Recommendations. Performed By: #### 4 [id number] #### [facility] [address] [id number] Reed Salguero M.D. [id number] Urea nitrogen [Mass/Vol] 15 mg/dL Normal 8-25 [facility] Comment on above: Order Comment: [facility] Laboratory [facility] has implemented the eGFR calculation approach that does not have a coefficient for race that conforms to the NKF-ASN Task Force Recommendations. Performed By: #### 4 [id number] #### [facility] [address] [id number] Reed Salguero M.D. [id number] Urea nitrogen/Creatinine [Mass ratio] 14.6 mg/mg Normal 10.0-20.0 [facility] Comment on above: Order Comment: [facility] Laboratory [facility] has implemented the eGFR calculation approach that does not have a coefficient for race that conforms to the NKF-ASN Task Force Recommendations. Performed By: #### 4 [id number] #### [facility] [address] [id number] Reed Salguero M.D. [id number] Basic metabolic 2000 panelon 03-13-2024 Anion gap [Moles/Vol] 9 mmol/L Low 10 - 2 0 mmol/L [facility] Calcium [Mass/Vol] 9.2 mg/dL 8.4 - 10. 2 mg/dL [facility] Chloride [Moles/Vol] 103 mmol/L 98 - 10 8 mmol/L [facility] Creatinine [Mass/Vol] 1.03 mg/dL 0.60 - 1.10 mg/dL [facility] GFR/1.73 sq M.predicted CKD-EPI (S/P/Bld) [Vol rate/Area] 58 Low - PINF [facility] Comment on above: Estimated GFR was ca lculated using the 2020 CKD-EPI creatinine equation. Glucose [Mass/Vol] 116 mg/dL High 65 - 99 mg/dL [facility] HCO3 [Moles/Vol] 29 mmol/L 21 - 32 mmol/L [facility] Interpretation and review of laboratory results Abnormal [facility] Potassium [Moles/Vol] 3.4 mmol/L Low 3.5 - 5.1 mmol/L [facility] Sodium [Moles/Vol] 138 mmol/L 135 - 145 mmol/L [facility] Urea nitrogen [Mass/Vol] 15 mg/dL 8 - 25 mg/dL [facility] Urea nitrogen/Creatinine [Mass ratio] 14.6 mg/mg 10.0 - 20.0 [facility] Laboratory Services has implemented the eGFR calculation approach that does not have a coefficient for race that conforms to the NKF-ASN Task Force Recommendations. [facility] CBC Auto Differentialon 03-02 Basophils (Bld) [#/Vol] 0.02 10*3/uL [facility] Basophils/100 WBC (Bld) 0.2 % [facility] Eosinophils (Bld) [#/Vol] 0.07 10*3/uL [facility] Eosinophils/100 WBC (Bld) 0.7 % [facility] Erythrocyte distribution width (RBC) [Entitic vol] 13.2 % 11.6 - 14.8 % [facility] Hematocrit (Bld) [Volume fraction] 39.9 % 36.0 - 46.0 % [facility] Hemoglobin (Bld) [Mass/Vol] 13 g/dL 12.0 - 16.0 g/dL [facility] Immature granulocytes (Bld) [#/Vol] 0.04 10*3/uL [facility] Immature granulocytes/100 WBC (Bld) 0.4 % [facility] Comment on above: The IG parameter is the percentage of metamyelocytes, myelocytes and promyelocytes. An immature granulocyte count (IG) of 1% or more suggests the possibility of infection, an IG count of 3% is very likely related to an infection. Interpretation and review of laboratory results Abnormal [facility] Lymphocytes (Bld) [#/Vol] 1 10*3/uL [facility] Lymphocytes/100 WBC (Bld) 10 % [facility] MCH (RBC) [Entitic mass] 29.3 pg 26.0 - 34.[address] [facility] MCHC (RBC) [Mass/Vol] 32.6 g/dL 31.0 - 37.0 g/dL [facility] MCV (RBC) [Entitic vol] 90.1 fL 80.0 - 100.[address] [facility] Monocytes (Bld) [#/Vol] 0.63 10*3/uL [facility] Monocytes/100 WBC (Bld) 6.3 % [facility] Neutrophils (Bld) [#/Vol] 8.23 10*3/uL High [facility] Neutrophils/100 WBC (Bld) 82.4 % [facility] Nucleated RBC (Bld) [#/Vol] 0 10*3/uL [facility] Nucleated RBC/100 WBC (Bld) [Ratio] 0 % [facility] Platelet mean volume (Bld) [Entitic vol] 10.3 fL 9.4 - 12.[address] [facility] Platelets (Bld) [#/Vol] 268 10*3/uL [facility] Comment on above: Results checked RBC (Bld) [#/Vol] 4.43 10*6/uL [facility] ealth WBC (Bld) [#/Vol] 9.9 10*3/uL [facility] CBC WITH AUTO DIFFERENTIALon 03-13-2024 AUTO NRBC 0.0 % Normal [facility] Comment on above: Performed By: #### [id number] #### [facility] [address], [place] [address] Reed Salguero M.D. [id number] AUTO NRBC ABS COUNT 0.00 K/mcL Normal 0.00-0.00 [facility] Comment on above: Performed By: #### 4 [id number] #### [facility] [address] [id number] Reed Salguero M.D. [id number] BASOPHILS ABSOLUTE COUNT 0.02 K/mcL Normal 0.00-0.30 [facility] Comment on above: Performed By: #### 4 [id number] #### [facility] [address] [id number] Reed Salguero M.D. [id number] Basophils/100 WBC (Bld) 0.2 % Normal [facility] Comment on above: Performed By: #### 4 [id number] #### [facility] [address] [address] Reed Salguero M.D. [id number] Eosinophils (Bld) [#/Vol] 0.07 10*3/uL Normal 0.00-0.50 [facility] Comment on above: Performed By: #### 4 [id number] #### [facility] [address] [address] Reed Salguero M.D. [id number] Eosinophils/100 WBC (Bld) 0.7 % Normal [facility] Comment on above: Performed By: #### 4 [id number] #### [facility] [address] [address] Reed Salguero M.D. [id number] Erythrocyte distribution width (RBC) [Ratio] 13.2 % Normal 11.6-14.8 [facility] Comment on above: Performed By: #### 4 [id number] #### [facility] [address] [address] Reed Salguero M.D. [id number] Hematocrit (Bld) [Volume fraction] 39.9 % Normal 36.0-46.0 [facility] Comment on above: Performed By: #### 4 [id number] #### [facility] [address] [address] Reed Salguero M.D. [id number] Hemoglobin (Bld) [Mass/Vol] 13.0 g/dL Normal 12.0-16.0 [facility] Comment on above: Performed By: #### 4 [id number] #### [facility] [address] [address] Reed Salguero M.D. [id number] IG ABSOLUTE 0.04 K/mcL Normal 0.00-0.30 [facility] Comment on above: Performed By: #### 4 [id number] #### [facility] [address] [address] Reed Salguero M.D. [id number] IG PERCENT 0.40 % [facility] Comment on above: Result Comment: The IG parameter is the percentage of metamyelocytes, myelocytes and promyelocytes. An immature granulocyte count (IG) of 1% or more suggests the possibility of infection, an IG count of 3% is very likely related to an infection. Performed By: #### 4 [id number] #### [facility] [address] [address] Reed Salguero M.D. [id number] Lymphocytes (Bld) [#/Vol] 1.00 10*3/uL Normal 0.90-4.00 [facility] Comment on above: Performed By: #### 4 [id number] #### [facility] [address] [address] Reed Salguero M.D. [id number] Lymphocytes/100 WBC (Bld) 10.0 % [facility] Comment on above: Performed By: #### 4 [id number] #### [facility] [address] [address] Reed Salguero M.D. [id number] MCH (RBC) [Entitic mass] 29.3 pg Normal 26.0-34.0 [facility] Comment on above: Performed By: #### 4 [id number] #### [facility] [address] [address] Reed Salguero M.D. [id number] MCV (RBC) [Entitic vol] 90.1 fL Normal 80.0-100.0 [facility] Comment on above: Performed By: #### 4 [id number] #### [facility] [address] [address] Reed Salguero M.D. [id number] MEAN CORPUSCULAR HEMOGLOBIN CONC 32.6 g/dL Normal 31.0-37.0 [facility] Comment on above: Performed By: #### 4 [id number] #### [facility] [address] [address] Reed Salguero M.D. [id number] Monocytes (Bld) [#/Vol] 0.63 10*3/uL Normal 0.30-0.90 [facility] Comment on above: Performed By: #### 4 [id number] #### [facility] [address] [address] Reed Salguero M.D. [id number] Monocytes/100 WBC (Bld) 6.3 % Normal [facility] Comment on above: Performed By: #### 4 [id number] #### [facility] [address] [address] Reed Salguero M.D. [id number] NEUTROPHILS ABSOLUTE COUNT 8.23 K/mcL High 1.70-7.00 [facility] Comment on above: Performed By: #### 4 [id number] #### [facility] [address] [address] Reed Salguero M.D. [id number] Neutrophils/100 WBC (Bld) 82.4 % Normal [facility] Comment on above: Performed By: #### 4 [id number] #### [facility] [address] [address] Reed Salguero M.D. [id number] Platelet mean volume (Bld) [Entitic vol] 10.3 fL Normal 9.4-12.4 [facility] Comment on above: Performed By: #### 4 [id number] #### [facility] [address] [address] Reed Salguero M.D. [id number] Platelets (Bld) [#/Vol] 268 10*3/uL Normal 150-400 [facility] Comment on above: Result Comment: Resu lts checked Performed By: #### 4 [id number] #### [facility] [address] [id number] Reed Salguero M.D. [id number] RBC (Bld) [#/Vol] 4.43 10*6/uL Normal 4.00-5.20 [facility] Comment on above: Performed By: #### 4 [id number] #### [facility] [address] [address] Reed Salguero M.D. [id number] WBC (Bld) [#/Vol] 9.90 10*3/uL Normal 4.50-11.00 [facility] Comment on above: Performed By: #### 4 [id number] #### [facility] [address], [place] [address] Reed Salguero M.D. [id number] ACT Coag (Bld)on 03-12-2024 [facility] BASIC METABOLIC PANELon 03-02 Anion gap [Moles/Vol] 14 mmol/L Normal 10-20 [facility] Comment on above: Order Comment: [facility] Services has implemented the eGFR calculation approach that does not have a coefficient for race that conforms to the NKF-ASN Task Force Recommendations. Performed By: #### 4 [id number] #### [facility] [address], [place] [address] Reed Salguero M.D. [id number] Performed By: #### 4 [id number] #### [facility] [address] [facility] [address] [facility] Calcium [Mass/Vol] 9.1 mg/dL Normal 8.4-10.2 [facility] Comment on above: Order Comment: [facility] Services has implemented the eGFR calculation approach that does not have a coefficient for race that conforms to the NKF-ASN Task Force Recommendations. Performed By: #### 4 [id number] #### [facility] [address], [place] [address] Reed Salguero M.D. [id number] Performed By: #### 4 [id number] #### [facility] [address] [facility] [address] [facility] Chloride [Moles/Vol] 103 mmol/L Normal 98-108 [facility] Comment on above: Order Comment: [facility] Services has implemented the eGFR calculation approach that does not have a coefficient for race that conforms to the NKF-ASN Task Force Recommendations. Performed By: #### 4 [id number] #### [facility] [address], [place] [address] Reed Salguero M.D. [id number] Performed By: #### 4 [id number] #### [facility] [address] Creatinine [Mass/Vol] 0.91 mg/dL Normal 0.60-1.10 [facility] Comment on above: Order Comment: [facility] Services has implemented the eGFR calculation approach that does not have a coefficient for race that conforms to the NKF-ASN Task Force Recommendations. Performed By: #### 4 [id number] #### [facility] [address] [id number] Reed Salguero M.D. [id number] Performed By: #### 4 [id number] #### [facility] [address] EGFR 68 mL/min/1.73 m2 Normal >=60 [facility] Comment on above: Order Comment: [facility] Services has implemented the eGFR calculation approach that does not have a coefficient for race that conforms to the NKF-ASN Task Force Recommendations. Result Comment: Noa mated GFR was calculated using the 2020 CKD-EPI creatinine equation. Performed By: #### 4 [id number] #### [facility] [address] [id number] Reed Salguero M.D. [id number] Performed By: #### 4 [id number] #### [facility] [address] Glucose [Mass/Vol] 154 mg/dL High 65-99 [facility] Comment on above: Order Comment: [facility] Services has implemented the eGFR calculation approach that does not have a coefficient for race that conforms to the NKF-ASN Task Force Recommendations. Performed By: #### 4 [id number] #### [facility] [address], [place] [address] Reed Salguero M.D. [id number] Performed By: #### 4 [id number] #### [facility] [address] HCO3 (Bld) [Moles/Vol] 24 mmol/L Normal 21-32 [facility] Comment on above: Order Comment: [facility] Services has implemented the eGFR calculation approach that does not have a coefficient for race that conforms to the NKF-ASN Task Force Recommendations. Performed By: #### 4 [id number] #### [facility] [address], [place] [address] Reed Salguero M.D. [id number] Performed By: #### 4 [id number] #### [facility] [address] [place] [id number] [facility] Potassium [Moles/Vol] 3.3 mmol/L Low 3.5-5.1 [facility] Comment on above: Order Comment: [facility] Services has implemented the eGFR calculation approach that does not have a coefficient for race that conforms to the NKF-ASN Task Force Recommendations. Performed By: #### 4 [id number] #### [facility] [address], [place] [address] Reed Salguero M.D. [id number] Performed By: #### 4 [id number] #### [facility] [address] [address] [facility] Sodium [Moles/Vol] 138 mmol/L Normal 135-145 [facility] Comment on above: Order Comment: [facility] Services has implemented the eGFR calculation approach that does not have a coefficient for race that conforms to the NKF-ASN Task Force Recommendations. Performed By: #### 4 [id number] #### [facility] [address], [place] [address] Reed Salguero M.D. [id number] Performed By: #### 4 [id number] #### [facility] [address] [address] [facility] Urea nitrogen [Mass/Vol] 12 mg/dL Normal 8-25 [facility] Comment on above: Order Comment: [facility] Services has implemented the eGFR calculation approach that does not have a coefficient for race that conforms to the NKF-ASN Task Force Recommendations. Performed By: #### 4 [id number] #### [facility] [address], [place] [address] Reed Salguero M.D. [id number] Performed By: #### 4 [id number] #### [facility] [address] [facility] [address] [facility] Urea nitrogen/Creatinine [Mass ratio] 13.2 mg/mg Normal 10.0-20.0 [facility] Comment on above: Order Comment: [facility] Services has implemented the eGFR calculation approach that does not have a coefficient for race that conforms to the NKF-ASN Task Force Recommendations. Performed By: #### 4 [id number] #### [facility] [address] [place], [place] [address] Reed Salguero M.D. [id number] Performed By: #### 4 [id number] #### [facility] [address] [facility] [address] [facility] Basic metabolic 2000 panelon 03-12-2024 Anion gap [Moles/Vol] 14 mmol/L 10 - 2 0 mmol/L [facility] Calcium [Mass/Vol] 9.1 mg/dL 8.4 - 10. 2 mg/dL [facility] Chloride [Moles/Vol] 103 mmol/L 98 - 10 8 mmol/L [facility] Creatinine [Mass/Vol] 0.91 mg/dL 0.60 - 1.10 mg/dL [facility] GFR/1.73 sq M.predicted CKD-EPI (S/P/Bld) [Vol rate/Area] 68 - PINF [facility] Comment on above: Estimated GFR was ca lculated using the 2020 CKD-EPI creatinine equation. Glucose [Mass/Vol] 154 mg/dL High 65 - 99 mg/dL [facility] HCO3 [Moles/Vol] 24 mmol/L 21 - 32 mmol/L [facility] Interpretation and review of laboratory results Abnormal [facility] Potassium [Moles/Vol] 3.3 mmol/L Low 3.5 - 5.1 mmol/L [facility] Sodium [Moles/Vol] 138 mmol/L 135 - 145 mmol/L [facility] Urea nitrogen [Mass/Vol] 12 mg/dL 8 - 25 mg/dL [facility] Urea nitrogen/Creatinine [Mass ratio] 13.2 mg/mg 10.0 - 20.0 [facility] Laboratory Services has implemented the eGFR calculation approach that does not have a coefficient for race that conforms to the NKF-ASN Task Force Recommendations. [facility] CBC Auto Differentialon 03-02 Basophils (Bld) [#/Vol] 0.02 10*3/uL [facility] Basophils/100 WBC (Bld) 0.2 % [facility] Eosinophils (Bld) [#/Vol] 0.01 10*3/uL [facility] Eosinophils/100 WBC (Bld) 0.1 % [facility] Erythrocyte distribution width (RBC) [Entitic vol] 13.2 % 11.6 - 14.8 % [facility] Hematocrit (Bld) [Volume fraction] 37.9 % 36.0 - 46.0 % [facility] Hemoglobin (Bld) [Mass/Vol] 12.3 g/dL 12.0 - 16.0 g/dL [facility] Immature granulocytes (Bld) [#/Vol] 0.05 10*3/uL [facility] Immature granulocytes/100 WBC (Bld) 0.5 % [facility] Comment on above: The IG parameter is the percentage of metamyelocytes, myelocytes and promyelocytes. An immature granulocyte count (IG) of 1% or more suggests the possibility of infection, an IG count of 3% is very likely related to an infection. Interpretation and review of laboratory results Abnormal [facility] Lymphocytes (Bld) [#/Vol] 0.69 10*3/uL Low [facility] Lymphocytes/100 WBC (Bld) 6.3 % [facility] MCH (RBC) [Entitic mass] 28.9 pg 26.0 - 34.[address] [facility] MCHC (RBC) [Mass/Vol] 32.5 g/dL 31.0 - 37.0 g/dL [facility] MCV (RBC) [Entitic vol] 89.2 fL 80.0 - 100.[address] [facility] Monocytes (Bld) [#/Vol] 0.67 10*3/uL [facility] Monocytes/100 WBC (Bld) 6.2 % [facility] Neutrophils (Bld) [#/Vol] 9.43 10*3/uL High [facility] Neutrophils/100 WBC (Bld) 86.7 % [facility] Nucleated RBC (Bld) [#/Vol] 0 10*3/uL [facility] Nucleated RBC/100 WBC (Bld) [Ratio] 0 % [facility] Platelet mean volume (Bld) [Entitic vol] 9.8 fL 9.4 - 12.[address] [facility] Platelets (Bld) [#/Vol] 195 10*3/uL [facility] RBC (Bld) [#/Vol] 4.25 10*6/uL [facility] ealth WBC (Bld) [#/Vol] 10.87 10*3/uL [facility] CBC WITH AUTO DIFFERENTIALon 03-12-2024 AUTO NRBC 0.0 % Normal [facility] Comment on above: Performed By: #### L [id number] #### [facility] [address] [address] Reed Salguero M.D. [id number] Performed By: #### 4 [id number] #### [facility] [address] [place] [id number] [facility] AUTO NRBC ABS COUNT 0.00 K/mcL Normal 0.00-0.00 [facility] Comment on above: Performed By: #### L [id number] #### [facility] [address] [address] Reed Salguero M.D. [id number] Performed By: #### 4 [id number] #### [facility] [address] [place] [address] [facility] BASOPHILS ABSOLUTE COUNT 0.02 K/mcL Normal 0.00-0.30 [facility] Comment on above: Performed By: #### L [id number] #### [facility] [address] [address] Reed Salguero M.D. [id number] Performed By: #### 4 [id number] #### [facility] SERVICES [address] [address] [place] Basophils/100 WBC (Bld) 0.2 % Normal [facility] Comment on above: Performed By: #### L [id number] #### [facility] [address] [address] Reed Salguero M.D. [id number] Performed By: #### 4 [id number] #### [facility] [address] [address] [place] Eosinophils (Bld) [#/Vol] 0.01 10*3/uL Normal 0.00-0.50 [facility] Comment on above: Performed By: #### L [id number] #### [facility] [address] [address] Reed Salguero M.D. [id number] Performed By: #### 4 [id number] #### [facility] [address] [address] [place] Eosinophils/100 WBC (Bld) 0.1 % Normal [facility] Comment on above: Performed By: #### L [id number] #### [facility] [address] [address] Reed Salguero M.D. [id number] Performed By: #### 4 [id number] #### [facility] [address] Erythrocyte distribution width (RBC) [Ratio] 13.2 % Normal 11.6-14.8 [facility] Comment on above: Performed By: #### L [id number] #### [facility] [address] [address] Reed Salguero M.D. [id number] Performed By: #### 4 [id number] #### [facility] [address] Hematocrit (Bld) [Volume fraction] 37.9 % Normal 36.0-46.0 [facility] Comment on above: Performed By: #### L [id number] #### [facility] [address] [address] Reed Salguero M.D. [id number] Performed By: #### 4 [id number] #### [facility] [address] Hemoglobin (Bld) [Mass/Vol] 12.3 g/dL Normal 12.0-16.0 [facility] Comment on above: Performed By: #### L [id number] #### [facility] [address] [address] Reed Salguero M.D. [id number] Performed By: #### 4 6088 #### [facility] [address] IG ABSOLUTE 0.05 K/mcL Normal 0.00-0.30 [facility] Comment on above: Performed By: #### L [id number] #### [facility] [address] [address] Reed Salguero M.D. [id number] Performed By: #### 4 6088 #### [facility] [address] IG PERCENT 0.50 % Normal [facility] Comment on above: Result Comment: The IG parameter is the percentage of metamyelocytes, myelocytes and promyelocytes. An immature granulocyte count (IG) of 1% or more suggests the possibility of infection, an IG count of 3% is very likely related to an infection. Performed By: #### L [id number] #### [facility] [address] [address] Reed Salguero M.D. [id number] Performed By: #### 4 6088 #### [facility] [address] Lymphocytes (Bld) [#/Vol] 0.69 10*3/uL Low 0.90-4.00 [facility] Comment on above: Performed By: #### L [id number] #### [facility] [address] [address] Reed Salguero M.D. [id number] Performed By: #### 4 6088 #### [facility] [address] Lymphocytes/100 WBC (Bld) 6.3 % Normal [facility] Comment on above: Performed By: #### L [id number] #### [place] [address] [address] [address] Reed Salguero M.D. [id number] Performed By: #### 4 6088 #### [facility] [address] MCH (RBC) [Entitic mass] 28.9 pg Normal 26.0-34.0 [facility] Comment on above: Performed By: #### L [id number] #### [place] [address] [address] [address] Reed Salguero M.D. [id number] Performed By: #### 4 6088 #### [facility] [address] MCV (RBC) [Entitic vol] 89.2 fL Normal 80.0-100.0 [facility] Comment on above: Performed By: #### L [id number] #### [place] [address] [address] [address] Reed Salguero M.D. [id number] Performed By: #### 4 6088 #### [facility] [address] MEAN CORPUSCULAR HEMOGLOBIN CONC 32.5 g/dL Normal 31.0-37.0 [facility] Comment on above: Performed By: #### L [id number] #### [facility] [address] [address] Reed Salguero M.D. [id number] Performed By: #### 4 6088 #### [facility] [address] [address] [place] Monocytes (Bld) [#/Vol] 0.67 10*3/uL Normal 0.30-0.90 [facility] Comment on above: Performed By: #### L [id number] #### [facility] [address] [address] Reed Salguero M.D. [id number] Performed By: #### 4 6088 #### [facility] [address] Monocytes/100 WBC (Bld) 6.2 % Normal [facility] Comment on above: Performed By: #### L [id number] #### [facility] [address] [address] Reed Salguero M.D. [id number] Performed By: #### 4 6088 #### [facility] [address] NEUTROPHILS ABSOLUTE COUNT 9.43 K/mcL High 1.70-7.00 [facility] Comment on above: Performed By: #### L [id number] #### [facility] [address] [address] Reed Salguero M.D. [id number] Performed By: #### 4 6088 #### [facility] [address] Neutrophils/100 WBC (Bld) 86.7 % Normal [facility] Comment on above: Performed By: #### L [id number] #### [facility] [address] [address] Reed Salguero M.D. [id number] Performed By: #### 4 6088 #### [facility] [address] Platelet mean volume (Bld) [Entitic vol] 9.8 fL Normal 9.4-12.4 [facility] Comment on above: Performed By: #### L [id number] #### [facility] [address], [place] [address] Reed Salguero M.D. [id number] Performed By: #### 4 6088 #### [facility] [address] [facility] [address] [place] Platelets (Bld) [#/Vol] 195 10*3/uL Normal 150-400 [facility] Comment on above: Performed By: #### L [id number] #### [facility] [address], [place] [address] Reed Salguero M.D. [id number] Performed By: #### 4 6088 #### [facility] [address] [facility] [address] [place] RBC (Bld) [#/Vol] 4.25 10*6/uL Normal 4.00-5.20 [facility] Comment on above: Performed By: #### L [id number] #### [facility] [address], [place] [address] Reed Salguero M.D. [id number] Performed By: #### 4 6088 #### [facility] [address] [facility] [address] [place] WBC (Bld) [#/Vol] 10.87 10*3/uL Normal 4.50-11.00 [facility] Comment on above: Performed By: #### L [id number] #### [facility] [address], [place] [address] Reed Salguero M.D. [id number] Performed By: #### 4 6088 #### [facility] [address] [facility] [address] [facility] ECG 12 Leadon 03-12-2024 Atrial Rate [address] [facility] [place] [address] [facility] P-R Interval [address] [facility] Q-T Interval [address] [facility] QRS Duration [address] [facility] QTC Calculation (Bezet) 460 ms [facility] [place] [address] [facility] T [place] -[address] [facility] Ventricular Rate 60 BPM [facility] th Normal sinus rhythm Possible Left atrial enlargement Anterior infarct , possibly acute Lateral injury pattern ACUTE NH / STEMI Abnormal ECG No previous ECGs available Confirmed by Physician, ED ([id number]), commissioning editor ANGELIQUE CARNEY ([id number]) on 03/12/2024 10:22:[address] [facility] Atrial Rate 83 BPM [facility] [place] 64 degrees [facility] P-R Interval 148 ms [facility] Q-T Interval 434 ms [facility] Duration [address] [facility] QTC Calculation (Bezet) 509 ms [facility] [place] 83 degrees [facility] [place] 81 degrees [facility] Ventricular Rate 83 BPM [facility] Sinus rhythm with Fusion complexes Anteroseptal infarct (cited on or before 10-MAR-2024) Abnormal ECG When compared with ECG of 10-MAR-2024 17:21, (unconfirmed) Fusion complexes are now Present Confirmed by FAUZIA CLEMENS MD ([id number]) on 03/12/2024 8:40:[address] [facility] Atrial Rate 73 BPM [facility] [place] 70 degrees [facility] P-R Interval 168 ms [facility] Q-T Interval [address] [facility] QRS Duration [address] [facility] QTC Calculation (Bezet) 495 ms [facility] [place] 76 degrees [facility] [place] 73 degrees [facility] Ventricular Rate 73 BPM [facility] Normal sinus rhythm Anterolateral infarct (cited on or before 10-MAR-2024) Statement not found (#[id number]) Abnormal ECG When compared with ECG of 10-MAR-2024 12:23, (unconfirmed) Serial changes of evolving Anterior infarct Present Serial changes of evolving Anterolateral infarct Present Confirmed by FAUZIA CLEMENS MD ([id number]) on 03/12/2024 8:36:[address] [facility] HbA1c (Bld) [Mass fraction]o n 03-12-2024 Average glucose Estimated from glycated hemoglobin (Bld) [Mass/Vol] 103 mg/dL 74 - 114 mg/dL [facility] Interpretation and review of laboratory results Normal [facility] Hemoglobin A1con 03-12-2024 HbA1c (Bld) [Mass fraction] 5.2 % 4.2 - 5.6 % [facility] POC Activated Clotting Timeo n 03-12-2024 ACT Coag (Bld) [address] [facility] ACT Coag (Bld) [address] [facility] Apolipoprotein BOrdered By: Anthony Sidhu on 03-11-2024 Apolipoprotein B [Mass/Vol] 127 mg/dL High 48 - 90 mg/dL [facility] Comment on above: National Cholesterol Education Program Guidelines: Apolipoprotein B Desirable: <90 Above Desirable: 90 - 99 Borderline High: 100 - 119 High: 120 - 139 Very High: > or = 140 Interpretation and review of laboratory results Abnormal [facility] B-Type Natriuretic Peptide ( NT-proBNP)on 03-11-2024 Natriuretic peptide.B prohormone N-Terminal [Mass/Vol] 3020 pg/mL High 0 - 300 pg/mL [facility] BASIC METABOLIC PANELon 03-02 Anion gap [Moles/Vol] 14 mmol/L Normal 10-20 [facility] Comment on above: Order Comment: [facility] has implemented the eGFR calculation approach that does not have a coefficient for race that conforms to the NKF-ASN Task Force Recommendations. Performed By: #### 4 [id number] #### [facility] [address] [id number] Reed Salguero M.D. [id number] Performed By: #### 4 6088 #### [facility] [address] Calcium [Mass/Vol] 8.4 mg/dL Normal 8.4-10.2 [facility] Comment on above: Order Comment: [facility] has implemented the eGFR calculation approach that does not have a coefficient for race that conforms to the NKF-ASN Task Force Recommendations. Performed By: #### 4 6124 #### [facility] [address] [id number] Reed Salguero M.D. [id number] Performed By: #### 4 6088 #### [facility] [address] [facility] [address] [place] Chloride [Moles/Vol] 108 mmol/L Normal 98-108 [facility] Comment on above: Order Comment: [facility] has implemented the eGFR calculation approach that does not have a coefficient for race that conforms to the NKF-ASN Task Force Recommendations. Performed By: #### 4 6124 #### [facility] [address] [id number] Reed Salguero M.D. [id number] Performed By: #### 4 6088 #### [facility] [address] [facility] [address] [place] Creatinine [Mass/Vol] 0.86 mg/dL Normal 0.60-1.10 [facility] Comment on above: Order Comment: [facility] has implemented the eGFR calculation approach that does not have a coefficient for race that conforms to the NKF-ASN Task Force Recommendations. Performed By: #### 4 [id number] #### [facility] [address] [id number] Reed Salguero M.D. [id number] Performed By: #### 4 6088 #### [facility] [address] [id number] [facility] EGFR 72 mL/min/1.73 m2 Normal >=60 [facility] Comment on above: Order Comment: [facility] has implemented the eGFR calculation approach that does not have a coefficient for race that conforms to the NKF-ASN Task Force Recommendations. Result Comment: Noa mated GFR was calculated using the 2020 CKD-EPI creatinine equation. Performed By: #### 4 6124 #### [facility] [address] [address] Reed Salguero M.D. [id number] Performed By: #### 4 6088 #### [facility] [address] [address] [place] Glucose [Mass/Vol] 119 mg/dL High 65-99 [facility] Comment on above: Order Comment: [facility] has implemented the eGFR calculation approach that does not have a coefficient for race that conforms to the NKF-ASN Task Force Recommendations. Performed By: #### 4 6124 #### [facility] [address] [id number] Reed Salguero M.D. [id number] Performed By: #### 4 6088 #### [facility] [address] [id number] [facility] HCO3 (Bld) [Moles/Vol] 22 mmol/L Normal 21-32 [facility] Comment on above: Order Comment: [facility] has implemented the eGFR calculation approach that does not have a coefficient for race that conforms to the NKF-ASN Task Force Recommendations. Performed By: #### 4 6124 #### [facility] [address] [address] Reed Salguero M.D. [id number] Performed By: #### 4 6088 #### [facility] [address] [facility] [address] [place] Potassium [Moles/Vol] 3.9 mmol/L Normal 3.5-5.1 [facility] Comment on above: Order Comment: [facility] has implemented the eGFR calculation approach that does not have a coefficient for race that conforms to the NKF-ASN Task Force Recommendations. Performed By: #### 4 6124 #### [facility] [address] [id number] Reed Salguero M.D. [id number] Performed By: #### 4 6088 #### [facility] [address] [facility] [address] [place] Sodium [Moles/Vol] 140 mmol/L Normal 135-145 [facility] Comment on above: Order Comment: [facility] has implemented the eGFR calculation approach that does not have a coefficient for race that conforms to the NKF-ASN Task Force Recommendations. Performed By: #### 4 6124 #### [facility] [address] [id number] Reed Salguero M.D. [id number] Performed By: #### 4 6088 #### [facility] [address] [facility] [address] [place] Urea nitrogen [Mass/Vol] 18 mg/dL Normal 8-25 [facility] Comment on above: Order Comment: [facility] has implemented the eGFR calculation approach that does not have a coefficient for race that conforms to the NKF-ASN Task Force Recommendations. Performed By: #### 4 6124 #### [facility] [address] [id number] Reed Salguero M.D. [id number] Performed By: #### 4 6088 #### [facility] [address] [facility] [address] [place] Urea nitrogen/Creatinine [Mass ratio] 20.9 mg/mg High 10.0-20.0 [facility] Comment on above: Order Comment: [facility] has implemented the eGFR calculation approach that does not have a coefficient for race that conforms to the NKF-ASN Task Force Recommendations. Performed By: #### 4 6124 #### [facility] [address] [id number] Reed Salguero M.D. [id number] Performed By: #### 4 6088 #### [facility] [address] Basic metabolic 2000 panelon 03-11-2024 Anion gap [Moles/Vol] 14 mmol/L 10 - 2 0 mmol/L [facility] Calcium [Mass/Vol] 8.4 mg/dL 8.4 - 10. 2 mg/dL [facility] Chloride [Moles/Vol] 108 mmol/L 98 - 10 8 mmol/L [facility] Creatinine [Mass/Vol] 0.86 mg/dL 0.60 - 1.10 mg/dL [facility] GFR/1.73 sq M.predicted CKD-EPI (S/P/Bld) [Vol rate/Area] 72 - PINF [facility] Comment on above: Estimated GFR was ca lculated using the 2020 CKD-EPI creatinine equation. Glucose [Mass/Vol] 119 mg/dL High 65 - 99 mg/dL [facility] HCO3 [Moles/Vol] 22 mmol/L 21 - 32 mmol/L [facility] Potassium [Moles/Vol] 3.9 mmol/L 3.5 - 5.1 mmol/L [facility] Sodium [Moles/Vol] 140 mmol/L 135 - 145 mmol/L [facility] Urea nitrogen [Mass/Vol] 18 mg/dL 8 - 25 mg/dL [facility] Urea nitrogen/Creatinine [Mass ratio] 20.9 mg/mg High 10.0 - 20.0 [facility] has implemented the eGFR calculation approach that does not have a coefficient for race that conforms to the NKF-ASN Task Force Recommendations. [facility] CBCon 03-11-2024 AUTO NRBC 0.0 % Normal [facility] Comment on above: Performed By: #### 4 6391 #### [facility] [address], [place] [address] Reed Salguero M.D. [id number] AUTO NRBC ABS COUNT 0.00 K/mcL Normal 0.00-0.00 [facility] Comment on above: Performed By: #### 4 6391 #### [facility] [address], [place] [address] Reed Salguero M.D. [id number] Erythrocyte distribution width (RBC) [Ratio] 13.2 % Normal 11.6-14.8 [facility] Comment on above: Performed By: #### 4 6391 #### [facility] [address] [address] Reed Salguero M.D. [id number] Hematocrit (Bld) [Volume fraction] 37.6 % Normal 36.0-46.0 [facility] Comment on above: Performed By: #### 4 6391 #### [facility] [address] [address] Reed Salguero M.D. [id number] Hemoglobin (Bld) [Mass/Vol] 12.4 g/dL Normal 12.0-16.0 [facility] Comment on above: Performed By: #### 4 6391 #### [facility] [address] [address] Reed Salguero M.D. [id number] MCH (RBC) [Entitic mass] 29.0 pg Normal 26.0-34.0 [facility] Comment on above: Performed By: #### 4 6391 #### [facility] [address] [address] Reed Salguero M.D. [id number] MCV (RBC) [Entitic vol] 87.9 fL Normal 80.0-100.0 [facility] Comment on above: Performed By: #### 4 6391 #### [facility] [address] [address] Reed Salguero M.D. [id number] MEAN CORPUSCULAR HEMOGLOBIN CONC 33.0 g/dL Normal 31.0-37.0 [facility] Comment on above: Performed By: #### 4 6391 #### [facility] [address] [address] Reed Salguero M.D. [id number] Platelet mean volume (Bld) [Entitic vol] 9.7 fL Normal 9.4-12.4 [facility] Comment on above: Performed By: #### 4 6391 #### [facility] [address] [address] Reed Salguero M.D. [id number] Platelets (Bld) [#/Vol] 214 10*3/uL Normal 150-400 [facility] Comment on above: Performed By: #### 4 6391 #### [facility] [address], [place] [address] Reed Salguero M.D. [id number] RBC (Bld) [#/Vol] 4.28 10*6/uL Normal 4.00-5.20 [facility] Comment on above: Performed By: #### 4 6391 #### [facility] [address], [place] [address] Reed Salguero M.D. [id number] WBC (Bld) [#/Vol] 9.11 10*3/uL Normal 4.50-11.00 [facility] Comment on above: Performed By: #### 4 6391 #### [facility] [address], [place] [address] Reed Salguero M.D. [id number] CBC panel Auto (Bld)on 03-11 Erythrocyte distribution width (RBC) [Entitic vol] 13.2 % 11.6 - 14.8 % [facility] Hematocrit (Bld) [Volume fraction] 37.6 % 36.0 - 46.0 % [facility] Hemoglobin (Bld) [Mass/Vol] 12.4 g/dL 12.0 - 16.0 g/dL [facility] MCH (RBC) [Entitic mass] 29 pg 26.0 - 34.[address] [facility] MCHC (RBC) [Mass/Vol] 33 g/dL 31.0 - 37.0 g/dL [facility] MCV (RBC) [Entitic vol] 87.9 fL 80.0 - 100.[address] [facility] Nucleated RBC (Bld) [#/Vol] 0 10*3/uL [facility] Nucleated RBC/100 WBC (Bld) [Ratio] 0 % [facility] Platelet mean volume (Bld) [Entitic vol] 9.7 fL 9.4 - 12.[address] [facility] Platelets (Bld) [#/Vol] 214 10*3/uL [facility] RBC (Bld) [#/Vol] 4.28 10*6/uL [facility] WBC (Bld) [#/Vol] 9.11 10*3/uL [facility] ECHOCARDIOGRAM COMPLETE W CO NTRASTon 03-11-2024 ECHOCARDIOGRAM COMPLETE W CONTRAST Patient Info Name: HELEN RODRIGES Age: 73 years : 1950 Gender: Female Ht: 160 cm Wt: 56 kg BSA: 1.58 m2 HR: 75 bpm BP: 118 / 81 mmHg Technical Quality: Fair Exam Date: 03/11/2024 9:30 AM Patient Status: Inpatient Career Information Specialist: Josse Truong RCS Exam Type: ECHOCARDIOGRAM COMPLETE Study Info Indications - Acute Coronary syndrome - Valve disease/murmur Attending Physician: SHANTELLE GOOD Referring Physician: [id number], LATISHA; [id number] Primary Nurse: [id number] BMI: 21.97 kg/m2 Summary 1. Left ventricular systolic function is moderately reduced, with ejection fraction estimated at 35 +/- 5%. 2. The left ventricular diastolic function is grade II diastolic dysfunction, consistent with elevated left atrial pressure. 3. Left ventricular segmental wall motion is abnormal. There is severe hypokinesis of the mid to apical anterior, anteroseptal, inferoseptal and apical segments. No apical LV thrombus. Ischemic cardiomyopathy. 4. Right ventricular systolic function is reduced. 5. There is mild tricuspid valve regurgitation. 6. There is no pulmonary hypertension, estimated right ventricle systolic pressure is 22 mmHg. 7. There is no comparison study available. History/Risk Factors Hypertension: Yes Dyslipidemia: Yes Myocardial Infarction (NH): Yes Procedure(s): Complete two-dimensional, color flow and Doppler transthoracic echocardiogram is performed with contrast. Definity explained to patient. Patient verbalizes understanding and agrees to proceed. Definity 1.3ml/8.7ml normal sterile saline 3 ml total given IV over 30-60 seconds. Left Ventricle Left ventricular chamber dimension is normal. Normal left ventricular mass. Left ventricular segmental wall motion is abnormal. There is severe hypokinesis of the mid to apical anterior, anteroseptal, inferoseptal and apical segments. No apical LV thrombus. Ischemic cardiomyopathy. The left ventricular diastolic function is grade II diastolic dysfunction, consistent with elevated left atrial pressure. Left ventricular systolic function is moderately reduced, with ejection fraction estimated at 35 +/- 5%. Right Ventricle Right ventricular chamber dimension is normal. Right ventricular systolic function is reduced. Aortic Valve The aortic valve is trileaflet. There is no aortic valve stenosis. There is no aortic valve regurgitation. Pulmonic Valve The pulmonic valve is normal. There is no pulmonic valve stenosis. There is trace pulmonic regurgitation. Mitral Valve The mitral valve has normal leaflets. There is no mitral valve stenosis. There is trace mitral valve regurgitation. Tricuspid Valve The tricuspid valve leaflets are normal. There is no significant tricuspid valve stenosis. There is mild tricuspid valve regurgitation. There is no pulmonary hypertension, estimated right ventricle systolic pressure is 22 mmHg. Pericardium/Pleural There is no pericardial effusion. Inferior Vena Cava Normal inferior vena cava with >50% collapse upon inspiration consistent with normal right atrial pressure. Aorta The aortic measurements are indexed to age and body surface area. The aortic root is normal measuring 2.9 cm with an index of 1.8 cm/m2. The proximal ascending aorta is normal measuring 3.0 cm with an index of 1.9 cm/m2. Left Ventricular Outflow Tract Name Value Normal LVOT 2D LVOT Diameter 1.7 cm LVOT Doppler LVOT Peak Velocity 0.7 m/s Pulmonic Valve Name Value Normal PV Doppler PV Peak Velocity 1.35 m/s Mitral Valve Name Value Normal MV Doppler MV PHT 60 ms MV Area (PHT) 3.6 cm2 4.0-5.0 MV Diastolic Function MV E Peak Velocity 0.73 m/s MV A Peak Velocity 0.79 m/s MV E/A 0.9 MV Decel Time 208 ms MV Annular TDI MV Septal e' Velocity 3.7 cm/s >=8.0 MV E/e' (Septal) 19.8 <=8.0 MV Lateral e' Velocity 5.0 cm/s >=9.5 MV E/e' (Lateral) 14.7 <=8.0 MV e' Average 4.35 cm/s MV E/e' (Average) 17.3 <=13.5 Tricuspid Valve -- (more content not included)... [facility] Echocardiogram complete w co ntrastOrdered By: Kalpana Johnston on 03-11-2024 AV peak gradient 4.17446 mmHg [facility] Work Phone: [facility] Work Phone: Echocardiogram complete w co ntraston 03-11-2024 Patient Info Name: HELEN RODRIGES Age: 73 years : 1950 Gender: Female Ht: 160 cm Wt: 56 kg BSA: 1.58 m2 HR: 75 bpm BP: 118 / 81 mmHg Technical Quality: Fair Exam Date: 03/11/2024 9:30 AM Patient Status: Inpatient Career Information Specialist: Josse Truong RCS Exam Type: ECHOCARDIOGRAM COMPLETE Study Info Indications - Acute Coronary syndrome - Valve disease/murmur Attending Physician: SHANTELLE GOOD Referring Physician: [id number] Gonzalez; [id number] Primary Nurse: [id number] BMI: 21.97 kg/m2 Summary 1. Left ventricular systolic function is moderately reduced, with ejection fraction estimated at 35 +/- 5%. 2. The left ventricular diastolic function is grade II diastolic dysfunction, consistent with elevated left atrial pressure. 3. Left ventricular segmental wall motion is abnormal. There is severe hypokinesis of the mid to apical anterior, anteroseptal, inferoseptal and apical segments. No apical LV thrombus. Ischemic cardiomyopathy. 4. Right ventricular systolic function is reduced. 5. There is mild tricuspid valve regurgitation. 6. There is no pulmonary hypertension, estimated right ventricle systolic pressure is 22 mmHg. 7. There is no comparison study available. History/Risk Factors Hypertension: Yes Dyslipidemia: Yes Myocardial Infarction (NH): Yes Procedure(s): Complete two-dimensional, color flow and Doppler transthoracic echocardiogram is performed with contrast. Definity explained to patient. Patient verbalizes understanding and agrees to proceed. Definity 1.3ml/8.7ml normal sterile saline 3 ml total given IV over 30-60 seconds. Left Ventricle Left ventricular chamber dimension is normal. Normal left ventricular mass. Left ventricular segmental wall motion is abnormal. There is severe hypokinesis of the mid to apical anterior, anteroseptal, inferoseptal and apical segments. No apical LV thrombus. Ischemic cardiomyopathy. The left ventricular diastolic function is grade II diastolic dysfunction, consistent with elevated left atrial pressure. Left ventricular systolic function is moderately reduced, with ejection fraction estimated at 35 +/- 5%. Right Ventricle Right ventricular chamber dimension is normal. Right ventricular systolic function is reduced. Aortic Valve The aortic valve is trileaflet. There is no aortic valve stenosis. There is no aortic valve regurgitation. Pulmonic Valve The pulmonic valve is normal. There is no pulmonic valve stenosis. There is trace pulmonic regurgitation. Mitral Valve The mitral valve has normal leaflets. There is no mitral valve stenosis. There is trace mitral valve regurgitation. Tricuspid Valve The tricuspid valve leaflets are normal. There is no significant tricuspid valve stenosis. There is mild tricuspid valve regurgitation. There is no pulmonary hypertension, estimated right ventricle systolic pressure is 22 mmHg. Pericardium/Pleural There is no pericardial effusion. Inferior Vena Cava Normal inferior vena cava with >50% collapse upon inspiration consistent with normal right atrial pressure. Aorta The aortic measurements are indexed to age and body surface area. The aortic root is normal measuring 2.9 cm with an index of 1.8 cm/m2. The proximal ascending aorta is normal measuring 3.0 cm with an index of 1.9 cm/m2. Left Ventricular Outflow Tract Name Value Normal LVOT 2D LVOT Diameter 1.7 cm LVOT Doppler LVOT Peak Velocity 0.7 m/s Pulmonic Valve Name Value Normal PV Doppler PV Peak Velocity 1.35 m/s Mitral Valve Name Value Normal MV Doppler MV PHT 60 ms MV Area (PHT) 3.6 cm2 4.0-5.0 MV Diastolic Function -------- (more content not included)... FUJI SYNAPSE CV Kalpana Johnston MD - 03/11/2024 Patient Info Name: HELEN RODRIGES Age: 73 years : 1950 Gender: Female Ht: 160 cm Wt: 56 kg BSA: 1.58 m2 HR: 75 bpm BP: 118 / 81 mmHg Technical Quality: Fair Exam Date: 03/11/2024 9:30 AM Patient Status: Inpatient Career Information Specialist: Josse Truong RCS Exam Type: ECHOCARDIOGRAM COMPLETE Study Info Indications - Acute Coronary syndrome - Valve disease/murmur Attending Physician: SHANTELLE GOOD Referring Physician: [id number] Gonzalez; [id number] Primary Nurse: [id number] BMI: 21.97 kg/m2 Summary 1. Left ventricular systolic function is moderately reduced, with ejection fraction estimated at 35 +/- 5%. 2. The left ventricular diastolic function is grade II diastolic dysfunction, consistent with elevated left atrial pressure. 3. Left ventricular segmental wall motion is abnormal. There is severe hypokinesis of the mid to apical anterior, anteroseptal, inferoseptal and apical segments. No apical LV thrombus. Ischemic cardiomyopathy. 4. Right ventricular systolic function is reduced. 5. There is mild tricuspid valve regurgitation. 6. There is no pulmonary hypertension, estimated right ventricle systolic pressure is 22 mmHg. 7. There is no comparison study available. History/Risk Factors Hypertension: Yes Dyslipidemia: Yes Myocardial Infarction (NH): Yes Procedure(s): Complete two-dimensional, color flow and Doppler transthoracic echocardiogram is performed with contrast. Definity explained to patient. Patient verbalizes understanding and agrees to proceed. Definity 1.3ml/8.7ml normal sterile saline 3 ml total given IV over 30-60 seconds. Left Ventricle Left ventricular chamber dimension is normal. Normal left ventricular mass. Left ventricular segmental wall motion is abnormal. There is severe hypokinesis of the mid to apical anterior, anteroseptal, inferoseptal and apical segments. No apical LV thrombus. Ischemic cardiomyopathy. The left ventricular diastolic function is grade II diastolic dysfunction, consistent with elevated left atrial pressure. Left ventricular systolic function is moderately reduced, with ejection fraction estimated at 35 +/- 5%. Right Ventricle Right ventricular chamber dimension is normal. Right ventricular systolic function is reduced. Aortic Valve The aortic valve is trileaflet. There is no aortic valve stenosis. There is no aortic valve regurgitation. Pulmonic Valve The pulmonic valve is normal. There is no pulmonic valve stenosis. There is trace pulmonic regurgitation. Mitral Valve The mitral valve has normal leaflets. There is no mitral valve stenosis. There is trace mitral valve regurgitation. Tricuspid Valve The tricuspid valve leaflets are normal. There is no significant tricuspid valve stenosis. There is mild tricuspid valve regurgitation. There is no pulmonary hypertension, estimated right ventricle systolic pressure is 22 mmHg. Pericardium/Pleural There is no pericardial effusion. Inferior Vena Cava Normal inferior vena cava with >50% collapse upon inspiration consistent with normal right atrial pressure. Aorta The aortic measurements are indexed to age and body surface area. The aortic root is normal measuring 2.9 cm with an index of 1.8 cm/m2. The proximal ascending aorta is normal measuring 3.0 cm with an index of 1.9 cm/m2. Left Ventricular Outflow Tract Name Value Normal LVOT 2D LVOT Diameter 1.7 cm LVOT Doppler LVOT Peak Velocity 0.7 m/s Pulmonic Valve Name Value Normal PV Doppler PV Peak Velocity 1.35 m/s Mitral Valve Name Value Normal MV Doppler MV PHT 60 ms MV Area (PHT) 3.6 cm2 4.0-5.0 MV Diastolic Function MV E Peak Velocity 0.73 m/s MV A Peak Velocity 0.79 m/s MV E/A 0.9 MV Decel Time 208 ms MV Annular TDI MV Septal e' Velocity 3.7 cm/s >=8.0 MV E/e' (Septal) 19.8 <=8.0 MV Lateral e' Velocity 5.0 cm/s >=9.5 MV E/e' (Later (more content not included)... [facility] HEMOGLOBIN A1Con 03-11-2024 Glucose [Mass/Vol] 103 mg/dL Normal 74-114 [facility] Comment on above: Performed By: #### 4 [id number] #### [facility] [address] [address] Reed Salguero M.D. [id number] Performed By: #### 4 [id number] #### [facility] [address] [address] [facility] HbA1c (Bld) [Mass fraction] 5.2 % Normal 4.2-5.6 [facility] Comment on above: Performed By: #### 4 8202 #### [facility] [address] [address] Reed Salguero M.D. [id number] Performed By: #### 4 6088 #### [facility] [address] [address] [facility] LIPID PANELon 03-11-2024 Cholesterol [Mass/Vol] 263 mg/dL High 100-199 [facility] Comment on above: Result Comment: [place] on[facility] Cholesterol Education Program Guidelines: Cholesterol Desirable: <200 mg/dL Borderline High: 200-239 mg/dL High: greater than or equal to 240 mg/dL Performed By: #### 4 6124 #### [facility] [address] [address] Reed Salguero M.D. [id number] Performed By: #### 4 6087 #### [facility] [address] [address] Reed Salguero M.D. [id number] Cholesterol in HDL [Mass/Vol] 72 mg/dL Normal 40-59 [facility] Comment on above: Result Comment: [place] on[facility] Cholesterol Education Program Guidelines: HDL Cholesterol Low: <40 mg/dL Near Optimal: 40-59 mg/dL High: greater than or equal to 60 mg/dL Performed By: #### 4 [id number] #### [facility] [address] [address] Reed Salguero M.D. [id number] Performed By: #### 4 6087 #### [facility] [address] [address] Reed Salguero M.D. [id number] Cholesterol.total/Kajal sterol in HDL [Mass ratio] 3.7 {ratio} Normal [facility] Comment on above: Result Comment: Fema le Cholesterol/HDL Ratio: Average risk: 4.4 1/2 average risk: 3.3 2 x average risk: 7.1 Performed By: #### 4 [id number] #### [facility] [address] [address] Reed Salguero M.D. [id number] Performed By: #### 4 6087 #### [facility] [address] [address] Reed Salguero M.D. [id number] LDL CHOLESTEROL CALCULATED 180 mg/dL High 10-130 [facility] Comment on above: Result Comment: [place] on[facility] Cholesterol Education Program Guidelines: LDL Cholesterol Optimal: <100 mg/dL Near Optimal/above Optimal: 100-129 mg/dL Borderline High: 130-159 mg/dL High: 160-189 mg/dL Very High: greater than or equal to 190 mg/dL Performed By: #### 4 6124 #### [facility] [address] [address] Reed Salguero M.D. [id number] Performed By: #### 4 6087 #### [facility] [address] [address] Reed Salguero M.D. [id number] NON HDL CHOL 191 mg/dL Normal [facility] Comment on above: Result Comment: [place] onal Cholesterol Education Program Guidelines: NON HDL Cholesterol Desirable: <130 mg/dL Borderline High: 130-159 mg/dL High: 160-189 mg/dL Very High: > or = 190 mg/dL Performed By: #### 4 6124 #### [facility] [address], [place] [address] Reed Salguero M.D. [id number] Performed By: #### 4 6087 #### [facility] [address], [place] [address] Reed Salguero M.D. [id number] Triglyceride [Mass/Vol] 55 mg/dL Normal 30-150 [facility] Comment on above: Result Comment: [facility] [facility] Cholesterol Education Program Guidelines: Triglyceride Normal: <150 mg/dL Borderline High: 150-199 mg/dL High: 200-499 mg/dL Very High: greater than or equal to 500 mg/dL Performed By: #### 4 6124 #### [facility] [address], [place] [address] Reed Salguero M.D. [id number] Performed By: #### 4 6087 #### [facility] [address], [place] [address] Reed Salguero M.D. [id number] Lipid 1996 panelon 4 Cholesterol [Mass/Vol] 263 mg/dL High 100 - 199 mg/dL [facility] Comment on above: National Cholesterol Education Program Guidelines: Cholesterol Desirable: <200 mg/dL Borderline High: 200-239 mg/dL High: greater than or equal to 240 mg/dL Cholesterol in HDL [Mass/Vol] 72 mg/dL 40 - 59 mg/dL [facility] Comment on above: National Cholesterol Education Program Guidelines: HDL Cholesterol Low: <40 mg/dL Near Optimal: 40-59 mg/dL High: greater than or equal to 60 mg/dL Cholesterol in LDL [Mass/Vol] 180 mg/dL High 10 - 130 mg/dL [facility] Comment on above: National Cholesterol Education Program Guidelines: LDL Cholesterol Optimal: <100 mg/dL Near Optimal/above Optimal: 100-129 mg/dL Borderline High: 130-159 mg/dL High: 160-189 mg/dL Very High: greater than or equal to 190 mg/dL Cholesterol non HDL [Mass/Vol] 191 mg/dL [facility] Comment on above: National Cholesterol Education Program Guidelines: NON HDL Cholesterol Desirable: <130 mg/dL Borderline High: 130-159 mg/dL High: 160-189 mg/dL Very High: > or = 190 mg/dL Cholesterol.total/Kajal sterol in HDL [Mass ratio] 3.7 {ratio} ratio [facility] Comment on above: Female Cholesterol/H DL Ratio: Average risk: 4.4 1/2 average risk: 3.3 2 x average risk: 7.1 Triglyceride [Mass/Vol] 55 mg/dL 30 - 150 mg/dL [facility] Comment on above: National Cholesterol Education Program Guidelines: Triglyceride Normal: <150 mg/dL Borderline High: 150-199 mg/dL High: 200-499 mg/dL Very High: greater than or equal to 500 mg/dL MAGNESIUM LEVELon 03-11-2024 Magnesium [Mass/Vol] 2.7 mg/dL High 1.6-2.4 [facility] Comment on above: Performed By: #### 4 6109 #### [facility] [address], [place] [address] Reed Salguero M.D. [id number] Performed By: #### 4 6088 #### [facility] [address] [address] [facility] Magnesium Levelon 03-11-2024 Magnesium [Mass/Vol] 2.7 mg/dL High 1.6 - 2 .4 mg/dL [facility] Magnesium [Mass/Vol]on 03-11 Interpretation and review of laboratory results Abnormal [facility] NT PRO BNPon 03-11-2024 Natriuretic peptide B (Bld) [Mass/Vol] 3020 pg/mL High 0-300 [facility] Comment on above: Order Comment: [facility] Services has implemented the eGFR calculation approach that does not have a coefficient for race that conforms to the NKF-ASN Task Force Recommendations. Performed By: #### 4 6124 #### [facility] [address], [place] [address] Reed Salguero M.D. [id number] Order Comment: Pride Study Cut-offs Rule In: < /= 50 Years >450 pg/mL 51 Years - 75 Years >900 pg/mL 76 Years - 99 Years >1800 pg/mL Rule Out: All patients <300 pg/mL Performed By: #### 4 7395 #### [facility] [address], [place] [address] Reed Salguero M.D. [id number] Natriuretic peptide.B prohor leo N-Terminal [Mass/Vol]on 03-11-2024 Pride Study Cut-offs Rule In: < /= 50 Years >450 pg/mL 51 Years - 75 Years >900 pg/mL 76 Years - 99 Years >1800 pg/mL Rule Out: All patients <300 pg/mL [facility] No Panel Informationon 03-11 Interpretation and review of laboratory results Abnormal [facility] TROPONINon 03-11-2024 BASELINE TROPONIN T NG/L 4042 ng/L Off scale high <=14 [facility] Comment on above: Performed By: #### 4 6124 #### [facility] [address] [address] Reed Salguero M.D. [id number] Performed By: #### 4 6608 #### [facility] [address] [address] Reed Salguero M.D. [id number] TROPONIN T INTERPRETATION Possible acute cardiac injury. Normal [facility] Comment on above: Performed By: #### 4 6124 #### [facility] [address] [address] Reed Salguero M.D. [id number] Performed By: #### 4 6608 #### [facility] [address] [id number] Reed Salguero M.D. [id number] Troponin OnceOrdered By: Saad Richard on 03-11-2024 Interpretation and review of laboratory results Abnormal [facility] Troponin T 4042 ng/L Critically high NINF - 14 ng/L [facility] Troponin T Interpretation Possible acute cardiac injury. [facility] APOLIPOPROTEIN Bon 4 APOLIPOPROT B 127 mg/dL High 48-90 [facility] Comment on above: Result Comment: [place] onal Cholesterol Education Program Guidelines: Apolipoprotein B Desirable: <90 Above Desirable: 90 - 99 Borderline High: 100 - 119 High: 120 - 139 Very High: > or = 140 Performed By: #### 4 7124 #### [facility] [address], [place] [address] Jeff Covarrubias M.D. [id number] Performed By: #### 4 6088 #### [place] [id number] [facility] BASIC METABOLIC PANELon 11-0 Anion gap [Moles/Vol] 15 mmol/L Normal 10-20 [facility] Comment on above: Order Comment: [facility] has implemented the eGFR calculation approach that does not have a coefficient for race that conforms to the NKF-ASN Task Force Recommendations. Performed By: #### 4 6124 #### [facility] [address], [place] [address] Reed Salguero M.D. [id number] Calcium [Mass/Vol] 9.2 mg/dL Normal 8.4-10.2 [facility] Comment on above: Order Comment: [facility] has implemented the eGFR calculation approach that does not have a coefficient for race that conforms to the NKF-ASN Task Force Recommendations. Performed By: #### 4 6124 #### [facility] [address], [place] [address] Reed Salguero M.D. [id number] Chloride [Moles/Vol] 104 mmol/L Normal 98-111 [facility] Comment on above: Order Comment: [facility] has implemented the eGFR calculation approach that does not have a coefficient for race that conforms to the NKF-ASN Task Force Recommendations. Performed By: #### 4 6124 #### [facility] [address], [place] [address] Reed Salguero M.D. [id number] Creatinine [Mass/Vol] 0.89 mg/dL Normal 0.60-1.30 [facility] Comment on above: Order Comment: [facility] has implemented the eGFR calculation approach that does not have a coefficient for race that conforms to the NKF-ASN Task Force Recommendations. Performed By: #### 4 6124 #### [facility] [address], [place] [address] Reed Salguero M.D. [id number] EGFR 50 mL/min/1.73 m2 Low >=60 [facility] Comment on above: Order Comment: [facility] has implemented the eGFR calculation approach that does not have a coefficient for race that conforms to the NKF-ASN Task Force Recommendations. Result Comment: Noa mated GFR was calculated using the 2020 CKD-EPI creatinine equation. Performed By: #### 4 6124 #### [facility] [address] [id number] Reed Salguero M.D. [id number] Glucose [Mass/Vol] 136 mg/dL High 65-99 [facility] Comment on above: Order Comment: [facility] Services has implemented the eGFR calculation approach that does not have a coefficient for race that conforms to the NKF-ASN Task Force Recommendations. Performed By: #### 4 6124 #### [facility] [address] [address] Reed Salguero M.D. [id number] HCO3 (Bld) [Moles/Vol] 27 mmol/L Normal 21-32 [facility] Comment on above: Order Comment: [facility] Laboratory [facility] has implemented the eGFR calculation approach that does not have a coefficient for race that conforms to the NKF-ASN Task Force Recommendations. Performed By: #### 4 6124 #### [facility] [address] [address] Reed Salguero M.D. [id number] Potassium [Moles/Vol] 3.4 mmol/L Low 3.5-5.1 [facility] Comment on above: Order Comment: [facility] Laboratory [facility] has implemented the eGFR calculation approach that does not have a coefficient for race that conforms to the NKF-ASN Task Force Recommendations. Performed By: #### 4 6124 #### [facility] [address] [id number] Reed Salgureo M.D. [id number] Sodium [Moles/Vol] 143 mmol/L Normal 135-145 [facility] Comment on above: Order Comment: [facility] Laboratory [facility] has implemented the eGFR calculation approach that does not have a coefficient for race that conforms to the NKF-ASN Task Force Recommendations. Performed By: #### 4 6124 #### [facility] [address] [id number] Reed Salguero M.D. [id number] Urea nitrogen [Mass/Vol] 22 mg/dL Normal 8-25 [facility] Comment on above: Order Comment: [facility] Services has implemented the eGFR calculation approach that does not have a coefficient for race that conforms to the NKF-ASN Task Force Recommendations. Performed By: #### 4 [id number] #### [facility] [address], [place] [address] Reed Salguero M.D. [id number] Urea nitrogen/Creatinine [Mass ratio] 24.7 mg/mg High 10.0-20.0 [facility] Comment on above: Order Comment: [facility] has implemented the eGFR calculation approach that does not have a coefficient for race that conforms to the NKF-ASN Task Force Recommendations. Performed By: #### 4 [id number] #### [facility] [address], [place] [address] Reed Salguero M.D. [id number] Basic metabolic 2000 panelon 03-10-2024 Anion gap [Moles/Vol] 15 mmol/L 10 - 2 0 mmol/L [facility] Calcium [Mass/Vol] 9.2 mg/dL 8.4 - 10. 2 mg/dL [facility] Chloride [Moles/Vol] 104 mmol/L 98 - 11 1 mmol/L [facility] Creatinine [Mass/Vol] 0.89 mg/dL 0.60 - 1.30 mg/dL [facility] GFR/1.73 sq M.predicted CKD-EPI (S/P/Bld) [Vol rate/Area] 50 Low - PINF [facility] Comment on above: Estimated GFR was ca lculated using the 2020 CKD-EPI creatinine equation. Glucose [Mass/Vol] 136 mg/dL High 65 - 99 mg/dL [facility] HCO3 [Moles/Vol] 27 mmol/L 21 - 32 mmol/L [facility] Interpretation and review of laboratory results Abnormal [facility] Potassium [Moles/Vol] 3.4 mmol/L Low 3.5 - 5.1 mmol/L [facility] Sodium [Moles/Vol] 143 mmol/L 135 - 145 mmol/L [facility] Urea nitrogen [Mass/Vol] 22 mg/dL 8 - 25 mg/dL [facility] Urea nitrogen/Creatinine [Mass ratio] 24.7 mg/mg High 10.0 - 20.0 [facility] Laboratory [facility] has implemented the eGFR calculation approach that does not have a coefficient for race that conforms to the NKF-ASN Task Force Recommendations. [facility] CBC Auto Differentialon 11-0 Basophils (Bld) [#/Vol] 0.04 10*3/uL [facility] Basophils/100 WBC (Bld) 0.5 % [facility] Eosinophils (Bld) [#/Vol] 0.03 10*3/uL [facility] Eosinophils/100 WBC (Bld) 0.4 % [facility] Erythrocyte distribution width (RBC) [Entitic vol] 13.1 % 11.6 - 14.8 % [facility] Hematocrit (Bld) [Volume fraction] 36.8 % 36.0 - 46.0 % [facility] Hemoglobin (Bld) [Mass/Vol] 12.4 g/dL 12.0 - 16.0 g/dL [facility] Immature granulocytes (Bld) [#/Vol] 0.03 10*3/uL [facility] Immature granulocytes/100 WBC (Bld) 0.4 % [facility] Comment on above: The IG parameter is the percentage of metamyelocytes, myelocytes and promyelocytes. An immature granulocyte count (IG) of 1% or more suggests the possibility of infection, an IG count of 3% is very likely related to an infection. Lymphocytes (Bld) [#/Vol] 1.34 10*3/uL [facility] Lymphocytes/100 WBC (Bld) 16.5 % [facility] MCH (RBC) [Entitic mass] 29.3 pg 26.0 - 34.[address] [facility] MCHC (RBC) [Mass/Vol] 33.7 g/dL 31.0 - 37.0 g/dL [facility] MCV (RBC) [Entitic vol] 87 fL 80.0 - 100.[address] [facility] Monocytes (Bld) [#/Vol] 0.37 10*3/uL [facility] Monocytes/100 WBC (Bld) 4.6 % [facility] Neutrophils (Bld) [#/Vol] 6.3 10*3/uL [facility] Neutrophils/100 WBC (Bld) 77.6 % [facility] Nucleated RBC (Bld) [#/Vol] 0 10*3/uL [facility] Nucleated RBC/100 WBC (Bld) [Ratio] 0 % [facility] Platelet mean volume (Bld) [Entitic vol] 9.6 fL 9.4 - 12.[address] [facility] Platelets (Bld) [#/Vol] 279 10*3/uL [facility] RBC (Bld) [#/Vol] 4.23 10*6/uL [facility] WBC (Bld) [#/Vol] 8.11 10*3/uL [facility] CBC WITH AUTO DIFFERENTIALon 03-10-2024 AUTO NRBC 0.0 % Normal [facility] Comment on above: Performed By: #### L [id number] #### [facility] [address] [address] Reed Salguero M.D. [id number] Performed By: #### 4 [id number] #### [facility] [address] [facility] [id number] [place] [address] AUTO NRBC ABS COUNT 0.00 K/mcL Normal 0.00-0.00 [facility] Comment on above: Performed By: #### L [id number] #### [facility] [address] [address] Reed Salguero M.D. [id number] Performed By: #### 4 [id number] #### [facility] [address] BASOPHILS ABSOLUTE COUNT 0.04 K/mcL Normal 0.00-0.30 [facility] Comment on above: Performed By: #### L [id number] #### [facility] [address] [address] Reed Salguero M.D. [id number] Performed By: #### 4 [id number] #### [facility] [address] [id number] [place] Basophils/100 WBC (Bld) 0.5 % Normal [facility] Comment on above: Performed By: #### L [id number] #### [facility] [address] [address] Reed Salguero M.D. [id number] Performed By: #### 4 [id number] #### [facility] [address] [address] [place] Eosinophils (Bld) [#/Vol] 0.03 10*3/uL Normal 0.00-0.50 [facility] Comment on above: Performed By: #### L [id number] #### [facility] [address] [address] Reed Salguero M.D. [id number] Performed By: #### 4 [id number] #### [facility] [address] Eosinophils/100 WBC (Bld) 0.4 % Normal [facility] Comment on above: Performed By: #### L [id number] #### [facility] [address] [address] Reed Salguero M.D. [id number] Performed By: #### 4 [id number] #### [facility] [address] Erythrocyte distribution width (RBC) [Ratio] 13.1 % Normal 11.6-14.8 [facility] Comment on above: Performed By: #### L [id number] #### [facility] [address] [address] Reed Salguero M.D. [id number] Performed By: #### 4 [id number] #### [facility] [address] Hematocrit (Bld) [Volume fraction] 36.8 % Normal 36.0-46.0 [facility] Comment on above: Performed By: #### L [id number] #### [facility] [address] [address] Reed Salguero M.D. [id number] Performed By: #### 4 [id number] #### [facility] [address] Hemoglobin (Bld) [Mass/Vol] 12.4 g/dL Normal 12.0-16.0 [facility] Comment on above: Performed By: #### L [id number] #### [facility] [address] [address] Reed Salguero M.D. [id number] Performed By: #### 4 [id number] #### [facility] [address] IG ABSOLUTE 0.03 K/mcL Normal 0.00-0.30 [facility] Comment on above: Performed By: #### L [id number] #### [facility] [address] [address] Reed Salguero M.D. [id number] Performed By: #### 4 [id number] #### [facility] [address] IG PERCENT 0.40 % Normal [facility] Comment on above: Result Comment: The IG parameter is the percentage of metamyelocytes, myelocytes and promyelocytes. An immature granulocyte count (IG) of 1% or more suggests the possibility of infection, an IG count of 3% is very likely related to an infection. Performed By: #### L [id number] #### [facility] [address] [address] Reed Salguero M.D. [id number] Performed By: #### 4 6088 #### [facility] [address] Lymphocytes (Bld) [#/Vol] 1.34 10*3/uL Normal 0.90-4.00 [facility] Comment on above: Performed By: #### L [id number] #### [place] [address] [address] [address] Reed Salguero M.D. [id number] Performed By: #### 4 6088 #### [facility] [address] Lymphocytes/100 WBC (Bld) 16.5 % Normal [facility] Comment on above: Performed By: #### L [id number] #### [facility] [address] [address] Reed Salguero M.D. [id number] Performed By: #### 4 6088 #### [facility] [address] MCH (RBC) [Entitic mass] 29.3 pg Normal 26.0-34.0 [facility] Comment on above: Performed By: #### L [id number] #### [facility] [address] [address] Reed Salguero M.D. [id number] Performed By: #### 4 6088 #### [facility] [address] MCV (RBC) [Entitic vol] 87.0 fL Normal 80.0-100.0 [facility] Comment on above: Performed By: #### L [id number] #### [facility] [address] [address] Reed Salguero M.D. [id number] Performed By: #### 4 6088 #### [facility] [address] MEAN CORPUSCULAR HEMOGLOBIN CONC 33.7 g/dL Normal 31.0-37.0 [facility] Comment on above: Performed By: #### L [id number] #### [facility] [address] [address] Reed Salguero M.D. [id number] Performed By: #### 4 6088 #### [facility] [address] Monocytes (Bld) [#/Vol] 0.37 10*3/uL Normal 0.30-0.90 [facility] Comment on above: Performed By: #### L [id number] #### [place] [address] [address] [address] Reed Salguero M.D. [id number] Performed By: #### 4 6088 #### [facility] [address] [address] [place] Monocytes/100 WBC (Bld) 4.6 % Normal [facility] Comment on above: Performed By: #### L [id number] #### [facility] [address] [address] Reed Salguero M.D. [id number] Performed By: #### 4 6088 #### [facility] [address] NEUTROPHILS ABSOLUTE COUNT 6.30 K/mcL Normal 1.70-7.00 [facility] Comment on above: Performed By: #### L [id number] #### [facility] [address] [address] Reed Salguero M.D. [id number] Performed By: #### 4 6088 #### [facility] [address] [address] [place] Neutrophils/100 WBC (Bld) 77.6 % Normal [facility] Comment on above: Performed By: #### L [id number] #### [facility] [address] [address] Reed Salguero M.D. [id number] Performed By: #### 4 6088 #### [facility] [address] [facility] [address] [facility] Platelet mean volume (Bld) [Entitic vol] 9.6 fL Normal 9.4-12.4 [facility] Comment on above: Performed By: #### L [id number] #### [facility] [address] [address] Reed Salguero M.D. [id number] Performed By: #### 4 6088 #### [facility] [address] [facility] [address] Platelets (Bld) [#/Vol] 279 10*3/uL Normal 150-400 [facility] Comment on above: Performed By: #### L [id number] #### [facility] [address] [address] Reed Salguero M.D. [id number] Performed By: #### 4 6088 #### [facility] [address] RBC (Bld) [#/Vol] 4.23 10*6/uL Normal 4.00-5.20 [facility] Comment on above: Performed By: #### L [id number] #### [facility] [address] [id number] Reed Salguero M.D. [id number] Performed By: #### 4 6088 #### [facility] 200 [facility] [id number] WBC (Bld) [#/Vol] 8.11 10*3/uL Normal 4.50-11.00 [facility] Comment on above: Performed By: #### L [id number] #### [facility] [address] [address] Reed Salguero M.D. [id number] Performed By: #### 4 6088 #### [facility] [address] [facility] [address] [facility] Cardiac Catheterizationon Impression: Acute anterior wall STEMI treated with primary percutaneous coronary intervention with IVUS guided stenting. Disease in the RCA and LCX (will be addressed later with staged percutaneous coronary intervention) Recommendations: Continue aspirin 81 mg daily indefinitely and ticagrelor for 6 months Target LDL<70 mg/dL with a high-intensity statin Optimal lifestyle habits including smoking cessation, adopting a Mediterranean diet, and regular moderate-intensity exercise (>3 hours weekly) Participation in cardiac rehabilitation Optimal BP <120/80 mm Hg Coronary Findings Diagnostic Dominance: Right Left Anterior Descending: Ost LAD to Prox LAD lesion is 100% stenosed. Culprit lesion. PRAKASH flow is 0. The lesion is type C. Mid LAD lesion is 80% stenosed. PRAKASH flow is 3. The lesion is not complex (non high-C). First Diagonal Branch: The vessel is small. First Septal Branch: The vessel is small. First Obtuse Marginal Branch: 1st Mrg lesion is 70% stenosed. Right Coronary Artery: Prox RCA to Mid RCA lesion is 70% stenosed. Intervention Ost LAD to Prox LAD lesion: Stent: A STENT 3.50 X 20 SYNERGY XD MR drug-eluting stent was successfully placed. Post-Intervention Lesion Assessment: The intervention was successful. Post-intervention PRAKASH flow is 3. There were no complications. Ultrasound (IVUS) was performed. The stent appears adequately expanded by IVUS. There is a 0% residual stenosis post intervention. Mid LAD lesion: Stent: A STENT 2.25 X 20 SYNERGY XD MR drug-eluting stent was successfully placed. Post-Intervention Lesion Assessment: The intervention was successful. Post-intervention PRAKASH flow is 3. There were no complications. There is a 0% residual stenosis post intervention. Left Ventricle Ejection Fraction: 40%.The left ventricular size is normal. There is moderate left ventricular systolic dysfunction. LV systolic pressure is normal. LV end diastolic pressure is normal. There are wall motion abnormalities in the left ventricle. Aortic Valve There is no aortic valve stenosis. Appropriate use criteria Indication for PCI: STEMI. Clinical presentation: immediate PCI for acute STEMI Cardiovascular instability noted: ventricular arrhythmias.VF at the beginning of the case; defib successful. Percutaneous coronary intervention to follow.. Wall Motion The following segments are hypokinetic: mid anterior, apical anterior and apical inferior. The following segments are normal: mid inferior, basilar anterior and basilar inferior. XPER [facility] ECG 12 Leadon 03-10-2024 Interpretation and review of laboratory results Abnormal [facility] Regina Myles MD 03/10/2024 4:23 PM ECG 12 Lead Date/Time: 03/10/2024 4:21 PM Performed by: Regina Myles MD Authorized by: Regina Myles MD Interpreted by ED attending physician BPM: 60 ST Depression: II, III, aVF, V5, V6, aVL and V2 Clinical impression: abnormal ECG [facility] ED Prov Noteon 03-10-2024 ED Prov Note HPI/ROS I saw and evaluated the patient. I have reviewed the chief complaint, triage note, past medical/surgical, family, and social history. The patient is a 73 y.o. female with a PMH of HTN presenting to the ED with a chief complaint of chest pain. She reports symptom onset 30 minutes prior to presentation. EKG for EMS concerning for a STEMI. Patient received loading dose ASA and 2 doses of nitroglycerin with some improvement of her pain. She denies any previous history of heart disease. She denies any HLD, DM, or smoking. Medical Decision Making 73-year-old female with a PMH of HTN presenting to the ED with a chief complaint of chest pain. EMS EKG concerning for STEMI. Received loading dose of ASA and [address] with [address] depressions in the inferior and lateral leads. ST elevations noted in aVL and V2. Patient paged as a STEMI alert. Spoke with Dr. Good. Recommended heparin load. Patient taken to [facility]. 1. ST elevation myocardial infarction involving left anterior descending (LAD) coronary artery (HCC) Disposition: MDM Data MDM Data : Chronic conditions is/is not having mild/moderate/severe exacerbation, progression or side effects of treatment, Shared decision making utilized by explaining the results and plan of care for disposition and next steps of care with the patient and/or family, Treatment Goals were addressed, Drug management discussed, Historians other than the patient, Admit or Transfer Decisions considered, Discussed with consultants/staff, and Social Determinants of Health Impacted Treatment/Dispositio n Physical Exam Vital signs reviewed. Physical Exam Vitals and nursing note reviewed. Constitutional: Appearance: Normal appearance. HENT: Head: Normocephalic and atraumatic. Mouth/Throat: Mouth: Mucous membranes are moist. Eyes: Extraocular Movements: Extraocular movements intact. Cardiovascular: Rate and Rhythm: Normal rate and regular rhythm. Pulmonary: Effort: Pulmonary effort is normal. Breath sounds: Normal breath sounds. No wheezing. Abdominal: General: There is no distension. Palpations: Abdomen is soft. Tenderness: There is no abdominal tenderness. Skin: General: Skin is warm. Neurological: General: No focal deficit present. Mental Status: She is alert. Motor: No weakness. Labs Laboratory results have been reviewed by me. Labs Reviewed BASIC METABOLIC PANEL - Abnormal; Notable for the following components: Result Value Potassium 3.4 (*) Glucose 136 (*) eGFR 50 (*) BUN/Creatinine Ratio 24.7 (*) All other components within normal limits Narrative: [facility] has implemented the eGFR calculation approach that does not have a coefficient for race that conforms to the NKF-ASN Task Force Recommendations. TROPONIN - Abnormal; Notable for the following components: Troponin T 28 (*) All other components within normal limits PT/INR - Normal Narrative: During the induction phase of oral anticoagulation, the INR may not reflect the anticoagulation status of the patient. Therapeutic ranges for INR's are: Most clinical situations: INR 2.0-3.0 Mechanical Prosthetic Valve: INR 2.5-3.5 Critical: INR >5.0 CBC AND DIFFERENTIAL Narrative: The following orders were created for panel order CBC w/ Diff. Procedure Abnormality Status --------- ------ CBC Auto Differential[[id number]] Final result Please view results for these tests on the individual orders. CBC WITH AUTO DIFFERENTIAL Radiographic Imaging (if any) During ED Visit Cardiac Catheterization Final Result ED Medications Medications sodium chloride 0.9% (NS) bolus (1,000 mL Intravenous New Bag 03/10/24 1225) fentaNYL (SUBLIMAZE) injection (50 mcg Intravenous Given 03/10/24 1231) heparin (porcine) injection (5,000 Units Intravenous Given 03/10/24 1234) amiodarone in dextrose,iso-osmotic (NEXTERONE) 360 mg/200 mL (1.8 mg/mL) infusion (1 mg/min Intravenous New Bag 03/10/24 1559) ondansetron (ZOFRAN) injection 4 mg (4 mg Intravenous Given 03/10/24 1257) fentaNYL (SUBLIMAZE) injection 50 mcg (50 mcg Intravenous Given 03/10/24 1253) tirofiban (AGGRASTAT) 5 mg in sodium chloride (NS) 0.9% 100mL infusion (0.15 mcg/kg/min 56.2 kg Intravenous New Bag 03/10/24 1345) ondansetron (ZOFRAN) injection 4 mg (4 mg Intravenous Given 03/10/24 1551) Procedures ECG 12 Lead Date/Time: 03/10/2024 4:21 PM Performed by: Regina Myles MD Authorized by: Regina Myles MD Interpreted by ED attending physician BPM: 60 ST Depression: II, III, aVF, V5, V6, aVL and V2 Clinical impression: abnormal ECG Scoring (If applicable) . Past Medical History Nursing triage notes/past medical, social, and family hx reviewed by me and I agree except where documented above. Past Medical History: Diagnosis Date Hypertension Social Hx Social History Tobacco Use Smoking status: Never Smokeless tobacc (more content not included)... [facility] EKGon 03-10-2024 [facility] Gold Topon 03-10-2024 Extra Tube Hold for add-ons. [facility] Comment on above: Auto resulted. [facility] H AND Nikita 03-10-2024 H AND P Interventional Cardiology H&P Shantelle Good MD Heart & Vascular [facility] [address] [place] [address] Patient: Helen Rodriges Date of : 1950 (73 y.o.) PCP: No primary care provider on file. Assessment and Plan: ST elevation myocardial infarction involving left anterior descending (LAD) coronary artery (HCC) Assessment & Plan - at 03/10/2024 3:51 PM No prior history of any apparent coronary artery disease although she does have risk factors including a very significant family history. She however has personal healthy habits and has been very active. She however has been experiencing symptoms of chest discomfort and effort intolerance over the past several months. She presents today with acute onset of chest discomfort and was noted to have ST segment elevation in the lateral leads with reciprocal changes in the inferior leads. Emergent cardiac catheterization showed occlusion of the proximal LAD. The other vessels also had significant stenosis most notably in an obtuse marginal and the mid right coronary artery. Left ventricular end-diastolic pressures were mildly elevated and she had a large area of hypokinesis in the anterior lateral distribution. We proceeded to percutaneous intervention with balloon angioplasty and IVUS guided stenting. She had a single episode of VF which required defibrillating at the beginning of the case. She was given an IV bolus of amiodarone; she was also given IV Aggrastat in addition to IV heparin. --Initiate cardiac rehab for recovery --Start on DAPT, high-dose statin, guideline directed medical therapy --Echocardiogram to assess LV function Admitted with these risk variables:Cardiac Arrest, Cardiac Arrhythmia, and STEMI. Please see assessment and plan for further details. Chief Complaint/Reason for Visit: ST Elevation Myocardial Infarction (STEMI) History of Present Illness: Helen Rodriges is a 73 y.o. female is otherwise previously healthy who presented with acute onset of chest discomfort and was found to have ST segment elevation with reciprocal changes. Findings were consistent with an anterolateral infarct. 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 She does not smoke cigarettes, appears to have a healthy lifestyle and diet. There are several family members that have coronary artery disease and have had myocardial infarction. History: No past medical history on file. No past surgical history on file. No family history on file. Social History Tobacco Use Smoking status: Never Vaping Use Vaping status: Never Used Substance and Sexual Activity Alcohol use: Not Currently Drug use: Never Allergy Information: I have reviewed the patient's allergies. Patient has no known allergies. Home Medications: No current outpatient medications on file as of 03/10/2024. Review of Systems: Pertinent ROS listed in the HPI. Physical Examination: Vital Signs: BP 130/81 Pulse 61 Resp (!) 19 Ht 5' 3 Wt 56.2 kg (124 lb) SpO2 96% BMI 21.97 kg/m General: No signs of acute distress, Afebrile, and Cooperative Cardio: Regular rate and rhythm, Normal S1/S2, and No murmur appreciated Lungs: Clear to auscultation in all lung olivarez bilaterally and No rales, rhonchi, or wheezing Extremities: No signs of rubor, cyanosis., Warm, dry extremities, and Good radial pulses bilaterally Neuro: Alert and oriented to time, place, person and Normal mood Intake/Output last 3 shifts: No intake/output data recorded. Laboratory and Additional Data Reviewed: Results from last 7 days Lab Units 03/10/24 1230 TROPONIN T ng/L 28* Results from last 7 days Lab Units 03/10/24 1230 SODIUM mmol/L 143 POTASSIUM mmol/L 3.4* CHLORIDE mmol/L 104 BUN mg/dL 22 CREATININE mg/dL 0.89 GLUCOSE mg/dL 136* CALCIUM mg/dL 9.2 Results from last 7 days Lab Units 03/10/24 1230 WBC K/mcL 8.11 HGB g/dL 12.4 HCT % 36.8 PLT K/mcL 279 INR 1.0 Cardiac Studies: I Independently reviewed and noted above. Telemetry independently reviewed and the following noted: No events noted. AUTHENTICATED BY SHANTELLE GOOD, ON 03/10/2024 15:54:22 [facility] INR Coag (PPP) [Relative darion e]on 03-10-2024 Interpretation and review of laboratory results [facility] PT Coag (PPP) [Time] 13 s [facility] During the induction phase of oral anticoagulation, the INR may not reflect the anticoagulation status of the patient. Therapeutic ranges for INR's are: Most clinical situations: INR 2.0-3.0 Mechanical Prosthetic Valve: INR 2.5-3.5 Critical: INR >5.0 [facility] LEFT HEART CATHon 03-10-2024 LEFT HEART CATH This is a summary report. The complete report is available in the patient's medical record. If you cannot access the medical record, please contact the sending organization for a detailed fax or copy. Impression: Acute anterior wall STEMI treated with primary percutaneous coronary intervention with IVUS guided stenting. Disease in the RCA and LCX (will be addressed later with staged percutaneous coronary intervention) Recommendations: Continue aspirin 81 mg daily indefinitely and ticagrelor for 6 months Target LDL<70 mg/dL with a high-intensity statin Optimal lifestyle habits including smoking cessation, adopting a Mediterranean diet, and regular moderate-intensity exercise (>3 hours weekly) Participation in cardiac rehabilitation Optimal BP <120/80 mm Hg Coronary Findings Diagnostic Dominance: Right Left Anterior Descending: Ost LAD to Prox LAD lesion is 100% stenosed. Culprit lesion. PRAKASH flow is 0. The lesion is type C. Mid LAD lesion is 80% stenosed. PRAKASH flow is 3. The lesion is not complex (non high-C). First Diagonal Branch: The vessel is small. First Septal Branch: The vessel is small. First Obtuse Marginal Branch: 1st Mrg lesion is 70% stenosed. Right Coronary Artery: Prox RCA to Mid RCA lesion is 70% stenosed. Intervention Ost LAD to Prox LAD lesion: Stent: A STENT 3.50 X 20 SYNERGY XD MR drug-eluting stent was successfully placed. Post-Intervention Lesion Assessment: The intervention was successful. Post-intervention PRAKASH flow is 3. There were no complications. Ultrasound (IVUS) was performed. The stent appears adequately expanded by IVUS. There is a 0% residual stenosis post intervention. Mid LAD lesion: Stent: A STENT 2.25 X 20 SYNERGY XD MR drug-eluting stent was successfully placed. Post-Intervention Lesion Assessment: The intervention was successful. Post-intervention PRAKASH flow is 3. There were no complications. There is a 0% residual stenosis post intervention. Left Ventricle Ejection Fraction: 40%.The left ventricular size is normal. There is moderate left ventricular systolic dysfunction. LV systolic pressure is normal. LV end diastolic pressure is normal. There are wall motion abnormalities in the left ventricle. Aortic Valve There is no aortic valve stenosis. Appropriate use criteria Indication for PCI: STEMI. Clinical presentation: immediate PCI for acute STEMI Cardiovascular instability noted: ventricular arrhythmias.VF at the beginning of the case; defib successful. Percutaneous coronary intervention to follow.. Wall Motion The following segments are hypokinetic: mid anterior, apical anterior and apical inferior. The following segments are normal: mid inferior, basilar anterior and basilar inferior. Normal [facility] LIPOPROTEIN A (LPA)on 2023 ATHENS - LIPOPROTEIN A <7 Normal <75 [facility] Comment on above: Result Comment: ADDITIONAL INFORMATION Please notice that Lp(a) values are reported in molar units (nmol/L). These units are recommended by professional society guidelines and expert opinion statements. Measured results and risk thresholds are higher than those generated using mass units (mg/dL). Cardiovascular risk increases starting at 75 nmol/L. Lp(a) >=125 nmol/L is considered a risk enhancing factor by the [place] [employer]. This test has been modified from the engine hostler's instructions. Its performance characteristics were determined by [facility] in a manner consistent with CLIA requirements. This test has not been cleared or approved by the U.S. Food and Drug Administration. Test Performed by: [facility] - [facility] [address] [facility], [place] [address] Progress Clerk: Sherrie Bishop Ph.D.; CLIA# [id number] Performed By: #### [id number] #### [facility] [address] [facility] [id number] [place] [address] No Panel Informationon 03-10 Extra Tube Hold for add-ons. [facility] Comment on above: Auto resulted. [facility] POC ACTIVATED CLOTTING TIME - RALSon 03-10-2024 POC ACT CELITE [address] [facility] Comment on above: Performed By: #### [id number] #### [facility] [address], [place] [address] Reed Salguero M.D. [id number] POC ACT CELITE [address] [facility] Comment on above: Performed By: #### [id number] #### [facility] [address], [place] [address] Reed Salguero M.D. [id number] PT/INRon 03-10-2024 INR Coag (PPP) [Relative time] 1 {INR} 0.8 - 1.1 [facility] INR Coag (PPP) [Relative time] 1.0 {INR} Normal 0.8-1.1 [facility] Comment on above: Order Comment: Anh kate the induction phase of oral anticoagulation, the INR may not reflect the anticoagulation status of the patient. Therapeutic ranges for INR's are: Most clinical situations: INR 2.0-3.0 Mechanical Prosthetic Valve: INR 2.5-3.5 Critical: INR >5.0 Performed By: #### [id number] #### [facility] [address], [place] [address] Reed Salguero M.D. [id number] PT Coag (PPP) [Time] 13.0 s Normal 11.8-14.3 [facility] Comment on above: Order Comment: Anh kate the induction phase of oral anticoagulation, the INR may not reflect the anticoagulation status of the patient. Therapeutic ranges for INR's are: Most clinical situations: INR 2.0-3.0 Mechanical Prosthetic Valve: INR 2.5-3.5 Critical: INR >5.0 Performed By: #### [id number] #### [facility] [address] [id number] Reed Salguero M.D. [id number] TROPONINon 03-10-2024 BASELINE TROPONIN T NG/L 28 ng/L Off scale high <=14 [facility] Comment on above: Performed By: #### 4 [id number] #### [facility] [address] [address] Reed Salguero M.D. [id number] Performed By: #### 4 6608 #### [facility] [address] [address] Reed Salguero M.D. [id number] TROPONIN T INTERPRETATION Possible acute cardiac injury. Normal [facility] Comment on above: Performed By: #### 4 [id number] #### [facility] [address] [address] Reed Salguero M.D. [id number] Performed By: #### 4 6608 #### [facility] [address] [address] Reed Salguero M.D. [id number] TroponinOrdered By: John sanabria on 03-10-2024 Interpretation and review of laboratory results Abnormal [facility] Troponin T 28 ng/L Critically high NINF - 14 ng/L [facility] Troponin T Interpretation Possible acute cardiac injury. [facility] Sinus/Facial Boneon 10-21-19 Sinus/Facial Bone [facility] Imaging Services [address] [place] [id number] Sinus/Facial Bone MR#: [id number] Acct: [id number] Name: HELEN RODRIGES Rep #: [id number] : 1950 F 73 From: Jose Alfredo abarca MD PCP: Dr. Erin Ordaz MD Status: REG CLI Study: Sinus/Facial Bone Date of Exam: 10/21/23 Exam# [id number] Ordering Dr: Mat Montalvo MD [id number] STUDY: CT MAXILLOFACIAL SINUSES REASON FOR EXAM: Female, 73 years old. Acute recurrent maxillary sinusitis RADIATION DOSAGE (If Supplied By Facility): CTDIvol = ( 33.06 ) mGy, DLP = ( 763.60 ) mGycm TECHNIQUE: The patient was scanned in a multi detector CT scanner. High resolution axial imaging was performed without the administration of intravenous contrast material. Sagittal and coronal images were reconstructed. Individualized dose optimization techniques were used for this CT. COMPARISON: None. FINDINGS: FRONTAL SINUSES: Normal aeration, without mucosal inflammatory disease. ETHMOIDAL SINUSES: Normal aeration, without mucosal inflammatory disease. MAXILLARY SINUSES: Mucosal thickening of both maxillary sinuses. Mucosal thickening along the right ostiomeatal complex causing mild degree of obstruction of the meatus. SPHENOIDAL SINUSES: Normal aeration, without mucosal inflammatory disease. Normal bilateral middle turbinates. Normal bilateral inferior turbinates. Nasal septal deviation towards the left-sided the midline with a bony spur. There is patency of the bilateral nasal airways. The visualized osseous structures are normal. The visualized bilateral orbital contents are normal. CT/Sinus/Facial Bone IMPRESSION: Mucosal thickening of both maxillary sinuses with mucosal thickening of the right osteal complex causing mild degree obstruction at the meatus. Nasal septal deviation towards the left side of the midline. Electronically Signed: Jose Alfredo Adams MD at 14:07 EDT , CC: Dr. Mat Montalvo MD; Dr. Erin Ordaz MD Glass Bender: Signed Normal [facility] Absolute lymphocyte countOrd ered By: Dr. Ordaz on 07-06-2022 Lymphocytes Auto (Unsp spec) [#/Vol] 1.30 10*3/uL 0.83-4.51 [facility] Basophil percentageOrdered B y: Dr. Ordaz on 07-06-2022 Basophils/100 WBC (Bld) 0.7 % 0-1 [facility] Bilirubin [Mass/Vol] 1.00 mg/dL 0.20-1.00 [facility] Comment on above: For patients on eltr ombopag therapy, use of Dimension [place] TBIL is not recommended. Chloride [Moles/Vol] 106 mmol/L 98-107 [facility] Eosinophils/100 WBC (Bld) 1.8 % 0-5 [facility] Glucose [Mass/Vol] 91 mg/dL 74-106 [facility] Neutrophils (Bld) [#/Vol] 3.7 10*3/uL 2.0-7.7 [facility] Neutrophils/100 WBC (Bld) 67.5 % 47-70 [facility] Potassium [Moles/Vol] 3.7 mmol/L 3.5-5.1 [facility] Protein [Mass/Vol] 7.2 g/dL 6.4-8.2 [facility] Sodium [Moles/Vol] 142 mmol/L 136-145 [facility] WBC (Bld) [#/Vol] 5.5 10*3/uL 4.4-11.0 [facility] Blood erythrocytes count (nu mber/volume)Ordered By: Dr. Ordaz on 07-06-2022 RBC (Bld) [#/Vol] 4.73 10*6/uL 4.2-5.4 [facility] Blood hemoglobin measurement (mass/volume)Ordered By: Dr. Ordaz on 07-06-2022 Hemoglobin (Bld) [Mass/Vol] 14.0 g/dL 12.0-15.0 [facility] Blood lymphocytes/100 leukoc ytesOrdered By: Dr. Ordaz on 07-06-2022 Lymphocytes/100 WBC (Bld) 23.6 % 19-41 [facility] Blood monocytes/100 leukocyt esOrdered By: Dr. Ordaz on 07-06-2022 Monocytes/100 WBC (Bld) 6.2 % 0-10 [facility] Blood platelet mean volumeOr dered By: Dr. Ordaz on 07-06-2022 Platelet mean volume (Bld) [Entitic vol] 9.8 fL 6.2-12.0 [facility] Determination of erythrocyte mean corpuscular volume (MCV)Ordered By: Dr. Ordaz on 07-06-2022 MCV (RBC) [Entitic vol] 90.3 fL 81-99 [facility] Hematocrit Auto (Bld) [Volum e fraction]Ordered By: Dr. Ordaz on 07-06-2022 Hematocrit (Bld) [Volume fraction] 42.7 % 37-47 [facility] Laboratory - Chemistry and C hemistry - challengeOrdered By: Dr. Ordaz on 07-06-2022 ALP [Catalytic activity/Vol] 68 U/L 45-117 [facility] ALT [Catalytic activity/Vol] 36 U/L 13-56 [facility] CO2 [Moles/Vol] 29.0 mmol/L 21.0-32.0 [facility] Globulin (S) [Mass/Vol] 3.1 g/dL 2.2-4.2 [facility] Urea nitrogen/Creatinine [Mass ratio] 25.9 mg/mg 10-20 [facility] Laboratory - Hematology and Cell countsOrdered By: Dr. Ordaz on 07-06-2022 Erythrocyte distribution width (RBC) [Entitic vol] 41.5 fL 35.1-43.9 [facility] Erythrocyte distribution width (RBC) [Ratio] 12.5 % 11.6-14.6 [facility] Immature granulocytes/100 WBC (Bld) 0.200 % 0.0-0.9 [facility] Comment on above: IG% - Immature Granu locytes (promyelocytes, myelocytes and metamyelocytes) > 1% indicates that a LEFT SHIFT is Present. MCH (RBC) [Entitic mass] 29.6 pg 27.0-32.0 [facility] Nucleated RBC/100 WBC (Bld) [Ratio] 0 % 0-5 [facility] MCHC Auto (RBC) [Mass/Vol]Or dered By: Dr. Ordaz on 07-06-2022 MCHC (RBC) [Mass/Vol] 32.8 g/dL 32-36 [facility] No Panel InformationOrdered By: Dr. Ordaz on 07-06-2022 Estimated GFR (MDRD) Amer 73 mL/min >60 [facility] Comment on above: GFR Calc Estimated GFR (MDRD) Non-Af Amer 61 mL/min >60 [facility] Comment on above: Non- GFR Calc Platelets bldOrdered By: Dr. Ordaz on 07-06-2022 Platelets (Bld) [#/Vol] 234 10*3/uL 150-450 [facility] Serum or plasma C reactive p rotein measurement (mass/volume)Ordered By: Dr. Ordaz on 07-06-2022 CRP [Mass/Vol] mg/L 0.0-3.0 [facility] Comment on above: C-Reactive Protein ( CRP) provides useful information for thediagnosis, therapy and monitoring of inflammatory processesand associated diseases. For the evaluation of Relative Riskfor Cardiovascular Disease, a High Sensitivity CRP (HSCRP)should be ordered. Serum or plasma albumin josue urement (mass/volume)Ordered By: Dr. Ordaz on 07-06-2022 Albumin [Mass/Vol] 4.1 g/dL 3.2-5.0 [facility] Serum or plasma albumin/glob ulin mass ratioOrdered By: Dr. Ordaz on 07-06-2022 Albumin/Globulin [Mass ratio] 1.3 {ratio} 0.9-2.4 [facility] Serum or plasma calcium josue urement (mass/volume)Ordered By: Dr. Ordaz on 07-06-2022 Calcium [Mass/Vol] 9.7 mg/dL 8.5-10.1 [facility] Serum or plasma creatinine m easurement (mass/volume)Ordered By: Dr. Ordaz on 07-06-2022 Creatinine [Mass/Vol] 0.97 mg/dL 0.55-1.02 [facility] Comment on above: The validity of the calculated GFR & GFRAA in patients over 70 years has not been determined. Clinical correlation is essential. Serum or plasma urea nitroge n measurement (mass/volume)Ordered By: Dr. Ordaz on 07-06-2022 Urea nitrogen [Mass/Vol] 25 mg/dL 7-18 [facility] Thin prep Papanicolaou smear with manual screeningOrdered By: Dr. Ordaz on 07-06-2022 Thin prep Papanicolaou smear with manual screening 28 U/L 15-37 [facility] Thin prep Papanicolaou smear with manual screening 7 5-15 [facility] Vital Signs Date Time Vital Sign Value Performing Clinician Facility 09-07-2024 14:39-0400 Body height 160.[address] Erin Ordaz MD Work Phone: [facility] 08-30-2024 00:12-0400 Body weight 56.[address] Erin Ordaz MD Work Phone: [facility] 08-15-2024 11:19-0400 Body weight 56.[address] Erin Ordaz MD Work Phone: [facility] 08-10-2024 11:15-0400 Body mass index (BMI) [Ratio] 21.8 kg/m2 Dr. Erin Ordaz MD Work Phone: [facility] 08-10-2024 11:15-0400 Body weight 55.[address] Erin Ordaz MD Work Phone: [facility] 07-27-2024 12:49-0400 Diastolic blood pressure 95 mm[Hg] Nahid Georges MD Work Phone: [facility] 07-27-2024 12:49-0400 Systolic blood pressure 202 mm[Hg] Nahid Georges MD Work Phone: [facility] 07-27-2024 12:46-0400 Body height 160 cm Nahid Georges MD Work Phone: [facility] 07-27-2024 12:46-0400 Body mass index (BMI) [Ratio] 21.79 kg/m2 Nahid Georges MD Work Phone: [facility] 07-27-2024 12:46-0400 Body weight 55.79 kg Nahid Georges MD Work Phone: [facility] 07-27-2024 12:46-0400 Heart rate 72 /min Nahid Georges MD Work Phone: [facility] 07-27-2024 12:46-0400 SaO2% (BldA) [Mass fraction] 100 % Nahid Georges MD Work Phone: [facility] 07-16-2024 08:45-0400 Body height 161.[address] Erin Ordaz MD Work Phone: [facility] 07-16-2024 08:45-0400 Body weight 56.[address] Erin Ordaz MD Work Phone: 5(967)279-283531 [place] [address] 06-30-2024 02:34-0500 Body weight 56.[address] Erin Ordaz MD Work Phone: 9(327)939-454131 [place] [address] 06-18-2024 08:16-0500 Body height 161.[address] Erin Ordaz MD Work Phone: 7(959)440-142931 [place] [address] 06-18-2024 08:16-0500 Body weight 56.[address] Erin Ordaz MD Work Phone: 3(105)292-457085 [place] [address] 05-17-2024 08:43-0500 Body weight 57.[address] Erin Ordaz MD Work Phone: 9(394)722-893485 [place] [address] 04-21-2024 13:40-0500 Body temperature 97.8 [degF] Dr. Erin Ordaz MD Work Phone: 7(830)514-891960 [address] 04-21-2024 13:40-0500 Diastolic blood pressure 80 mm[Hg] Dr. Erin Ordaz MD Work Phone: 8(675)132-272985 [place] [address] 04-21-2024 13:40-0500 Heart rate 76 /min Dr. Erin Ordaz MD Work Phone: 0(066)081-474585 [place] [address] 04-21-2024 13:40-0500 Respiratory rate 18 /min Dr. Erin Ordaz MD Work Phone: 8(970)546-535831 [place] [address] 04-21-2024 13:40-0500 SaO2% (BldA) [Mass fraction] 96 % Dr. Erin Ordaz MD Work Phone: 1(175)068-788360 [address] 04-21-2024 13:40-0500 Systolic blood pressure 123 mm[Hg] Dr. Erin Ordaz MD Work Phone: 5(448)374-578560 [address] 04-20-2024 19:48-0500 Body mass index (BMI) [Ratio] 21.7 kg/m2 Dr. Erin Ordaz MD Work Phone: [facility] 04-20-2024 19:48-0500 Body weight 55.[address] Erin Ordaz MD Work Phone: 0(330)953-158560 [address] 04-18-2024 09:13-0500 Body mass index (BMI) [Ratio] 21.8 kg/m2 Dr. Erin Ordaz MD Work Phone: 5(865)453-615385 [place] [address] 04-18-2024 08:21-0500 Body weight 57.[address] Erin Ordaz MD Work Phone: 0(191)425-441560 [address] 04-18-2024 08:12-0500 Diastolic blood pressure 79 mm[Hg] Dr. Erin Ordaz MD Work Phone: 0(803)106-762685 [place] [address] 04-18-2024 08:12-0500 Heart rate 66 /min Dr. Erin Ordaz MD Work Phone: 2(608)420-658685 [place] [address] 04-18-2024 08:12-0500 Systolic blood pressure 145 mm[Hg] Dr. Erin Ordaz MD Work Phone: 5(061)768-401760 [address] 04-05-2024 15:15-0500 SaO2% (BldA) [Mass fraction] 97 % Dr. Erin Ordaz MD Work Phone: 5(858)354-949060 [address] 04-05-2024 08:41-0500 Body mass index (BMI) [Ratio] 21.8 kg/m2 Dr. Erin Ordaz MD Work Phone: 7(009)408-642560 [address] 04-05-2024 08:41-0500 Body weight 57.[address] Erin Ordaz MD Work Phone: 0(927)214-176131 [place] [address] 04-05-2024 08:41-0500 Diastolic blood pressure 79 mm[Hg] Dr. Erin Ordaz MD Work Phone: 4(585)521-242060 [address] 04-05-2024 08:41-0500 Heart rate 66 /min Dr. Erin Ordaz MD Work Phone: 3(834)270-410660 [address] 04-05-2024 08:41-0500 Respiratory rate 16 /min Dr. Erin Ordaz MD Work Phone: 2(754)093-291331 [place] [address] 04-05-2024 08:41-0500 Systolic blood pressure 145 mm[Hg] Dr. Erin Ordaz MD Work Phone: [facility] 04-03-2024 11:55-0500 Diastolic blood pressure 90 mm[Hg] Nahid Georges MD Work Phone: [facility] 04-03-2024 11:55-0500 Systolic blood pressure 172 mm[Hg] Nahid Georges MD Work Phone: [facility] 04-03-2024 11:46-0500 Body height 160 cm Nahid Georges MD Work Phone: [facility] 04-03-2024 11:46-0500 Body mass index (BMI) [Ratio] 21.79 kg/m2 Nahid Georges MD Work Phone: [facility] 04-03-2024 11:46-0500 Body weight 55.79 kg Nahid Georges MD Work Phone: [facility] 04-03-2024 11:46-0500 Heart rate 71 /min Nahid Georges MD Work Phone: [facility] 04-03-2024 11:46-0500 SaO2% (BldA) [Mass fraction] 97 % Nahid Georges MD Work Phone: [facility] 03-19-2024 03:00-0500 Body temperature 98.1 [degF] Dr. Erin Ordaz MD Work Phone: [facility] 03-19-2024 03:00-0500 Diastolic blood pressure 88 mm[Hg] Dr. Erin Ordaz MD Work Phone: [facility] 03-19-2024 03:00-0500 Heart rate 81 /min Dr. Erin Ordaz MD Work Phone: [facility] 03-19-2024 03:00-0500 Respiratory rate 18 /min Dr. Erin Ordaz MD Work Phone: [facility] 03-19-2024 03:00-0500 SaO2% (BldA) [Mass fraction] 97 % Dr. Erin Ordaz MD Work Phone: [facility] 03-19-2024 03:00-0500 Systolic blood pressure 156 mm[Hg] Dr. Erin Ordaz MD Work Phone: [facility] 03-19-2024 00:39-0500 Body mass index (BMI) [Ratio] 23.3 kg/m2 Dr. Erin Ordaz MD Work Phone: [facility] 03-19-2024 00:39-0500 Body weight 59.[address] Erin Ordaz MD Work Phone: [facility] 03-13-2024 11:30-0500 Heart rate 78 /min Shantelle Good MD Work Phone: [facility] 03-13-2024 11:19-0500 Body temperature 98.91 [degF] Shantelle Good MD Work Phone: [facility] 03-13-2024 11:19-0500 Diastolic blood pressure 76 mm[Hg] Shantelle Good MD Work Phone: [facility] 03-13-2024 11:19-0500 Respiratory rate 16 /min Shantelle Good MD Work Phone: [facility] 03-13-2024 11:19-0500 SaO2% (BldA) [Mass fraction] 98 % Shantelle Good MD Work Phone: [facility] 03-13-2024 11:19-0500 Systolic blood pressure 117 mm[Hg] Shantelle Good MD Work Phone: [facility] 03-10-2024 13:20-0500 Body height 160 cm Shantelle Good MD Work Phone: [facility] 03-10-2024 13:20-0500 Body mass index (BMI) [Ratio] 21.97 kg/m2 Shantelle Good MD Work Phone: [facility] 03-10-2024 13:20-0500 Body weight 56.25 kg Shantelle Good MD Work Phone: [facility] 06-28-2023 15:050 Body height 160.02 cm [facility] Encounters Encounter Date Encounter Type Care Provider Facility Start: 10-10-2024 ambulatory [facility] Facility:[facility] Start: 09-07-2024 End: 09-07-[address] Erin Ordaz MD Work Phone: [facility] Work Phone: Start: 09-07-2024 End: 09-07-[address] Erin Ordaz MD -[facility] [place] Work Phone: Start: 09-07-2024 End: 09-07-2024 ambulatory Erin Ordaz Facility:[facility] Start: 08-31-2024 End: 09-29-[address] Phyllis Cosby MD -Cardiac Rehab Work Phone: Start: 08-31-[address] Luanne Cosby MD -Cardiac Rehab Work Phone: Start: 08-31-2024 End: 09-29-[address] Erin Ordaz MD Work Phone: [facility] Work Phone: Start: 08-30-2024 End: 10-30-2024 Follow-up encounter Nahid Georges MD Work Phone: [facility] Comment on above: Lipid Panel Start: 08-29-2024 End: 08-29-2024 ambulatory Phyllis [facility] Facility:[facility] Start: 08-29-2024 End: 08-29-[address] Phyllis Cosby MD -Cardiac Rehab Work Phone: Start: 08-15-2024 End: 08-15-2024 Orders Only Adia Boss RN [facility] Start: 08-10-2024 End: 08-10-2024 Patient encounter procedure Ghazala REID -[facility] Work Phone: Start: 08-10-2024 End: 08-10-2024 ambulatory Erin Ordaz Facility:[facility] Start: 07-30-2024 End: 07-30-[address] Erin Ordaz MD Work Phone: [facility] Work Phone: Start: 07-30-2024 End: 07-30-[address] Phyllis Cosby MD -Cardiac Rehab Work Phone: Start: 07-27-2024 End: 07-27-2024 Office outpatient visit 25 minutes Nahid Georges MD Work Phone: 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 Luanne Cosby MD -Cardiac Rehab Work Phone: Start: 07-02-2024 End: 07-02-[address] Erin Ordaz MD Work Phone: [facility] Work Phone: Start: 07-02-2024 End: 07-02-[address] Erin Ordaz MD -Laboratory, [place] Work Phone: Start: 07-02-2024 End: 07-02-2024 ambulatory Erin Ordaz Facility:[facility] Start: 06-22-2024 End: 06-29-2024 ambulatory Phyllis Cosby Facility:[facility] Start: 06-22-2024 End: 06-29-[address] Phyllis Cosby MD -Cardiac Rehab Work Phone: Start: 06-12-2024 End: 06-12-2024 Orders Only Adia Boss RN [facility] Comment on above: Coronary artery dise ase involving greenville coronary artery of greenville heart without angina pectoris (Primary Dx) Start: 06-01-2024 End: 06-01-2024 ambulatory Phyllis Harjeet Facility:[facility] Start: 06-01-2024 End: 06-01-[address] Phyllis Cobsy MD -Cardiac Rehab Work Phone: Start: 05-23-2024 Encounter for armond l adult medical examination without abnormal findings Phyllis [facility] Start: 05-04-2024 End: 05-04-2024 Refill Adia Boss RN [facility] Start: 05-03-2024 End: 05-03-2024 Refill Adia Boss RN [facility] Start: 05-01-2024 End: 05-01-2024 Refill Adia Boss RN [facility] Start: 04-30-2024 End: 04-30-[address] Erin Ordaz MD -[facility], [place] Work Phone: Start: 04-30-2024 End: 04-30-2024 ambulatory Erin [place] Facility:[facility] Start: 04-27-2024 End: 04-27-[address] Erin Ordaz MD -Laboratory, [place] Work Phone: Start: 04-27-2024 End: 04-27-2024 ambulatory [facility] Facility:[facility] Start: 04-21-2024 Non-patient / Non-visit Dr. Mohini Balbuena MD -[facility] Work Phone: Start: 04-20-2024 End: 04-21-2024 ambulatory Lili Islas Facility:[facility] Start: 04-20-2024 End: 04-21-2024 Evaluation and management of inpatient Dr. Margie Balbuena MD -Progressive Care Unit Work Phone: Start: 04-20-2024 End: 05-01-[address] Phyllis Cosby MD -Cardiac Rehab Work Phone: Start: 04-20-2024 End: 05-01-2024 ambulatory Phyllis Cosby Facility:[facility] Start: 04-20-2024 End: 04-20-2024 Documentation procedure Nahid Georges MD Work Phone: [facility] Start: 04-18-2024 End: 04-18-[address] Phyllis Cosby MD -Cardiac Rehab Work Phone: Start: 04-18-2024 End: 04-18-2024 ambulatory Phyllis Cosby Facility:[facility] Start: 04-09-2024 Non-patient / Non-visit Dr. Zak Cosby MD -[facility] Start: 04-09-2024 ambulatory Erin Ordaz Facility:[facility] Start: 04-05-2024 End: 04-05-2024 Patient encounter procedure Zee PARKER -[facility] Work Phone: Start: 04-05-2024 End: 04-05-2024 ambulatory Erin Ordaz Facility:[facility] Start: 04-05-2024 End: 04-05-[address] Phyllis Cosby MD -[facility] Work Phone: Start: 04-05-2024 End: 04-05-2024 ambulatory Erin Ordaz Facility:[facility] Start: 04-04-2024 End: 04-04-2024 Kathrin Boss RN [facility] Cardiac [facility]vasive [facility] Start: 04-03-2024 End: 04-03-2024 Office outpatient visit 25 minutes Nahid Georges MD Work Phone: [facility] Comment on above: Coronary artery dise ase involving greenville coronary artery of greenville heart without angina pectoris (Primary Dx); Primary hypertension; STEMI involving left anterior descending coronary artery (HCC); Familial hypercholesterolemia; Ischemic cardiomyopathy Start: 04-03-2024 End: 04-07-2024 ambulatory NAHID GEORGES [facility] Start: 03-23-2024 End: 03-23-[address] Erin Ordaz MD -Laboratory, [place] Work Phone: Start: 03-23-2024 End: 03-23-2024 ambulatory Erin Ordaz Facility:[facility] Start: 03-19-2024 End: 03-19-2024 Emergency department patient visit Eliazar Jauregui DO -Emergency Department Work Phone: Start: 03-18-2024 ambulatory NAHID GEORGES [facility] Ambulatory Start: 03-18-2024 End: 03-20-2024 Documentation procedure Yassine Purcell MD Work Phone: [facility] Start: 03-15-2024 End: 03-15-2024 Refill Adia Boss RN [facility] Cardiac Invasive Unit Start: 03-10-2024 End: 03-13-2024 Evaluation and management of inpatient Regina Myles MD Work Phone: [facility] Start: 10-21-2023 End: 10-21-2023 ambulatory Erin Ordaz Facility:[facility] Start: 06-28-2023 End: 06-28-2023 ambulatory [facility] Work Phone: Start: 06-28-2023 End: 06-28-2023 Patient encounter procedure [facility] D[facility] Work Phone: Start: 07-06-2022 End: 07-06-2022 ambulatory [facility] Work Phone: Start: 07-06-2022 End: 07-06-2022 Patient encounter procedure [facility] [place] Start: 03-15-2022 End: 03-15-2022 ambulatory LETA YATES Facility:[facility] Start: 03-15-2022 End: 03-15-2022 Patient encounter procedure Leta Yates MD Work Phone: Ophthalmology Comment on above: Diplopia (Primary Dx ); Divergence insufficiency Start: 02-01-2022 End: 02-01-2022 ambulatory [facility] Work Phone: Start: 02-01-2022 End: 02-01-2022 Patient encounter procedure [facility] Procedures Date Procedure Procedure Detail Performing Clinician Start: 08-10-2024 X-ray of cervical spine Dr. Erin Ordaz MD Work Phone: Start: 08-10-2024 X-ray of lumbosacral spine Dr. Erin Ordaz MD Work Phone: Start: 04-20-2024 X-ray of chest, PA a nd lateral views Dr. Erin Ordaz MD Work Phone: Start: 04-05-2024 Evaluation of diagno stic study results Dr. Erin Ordaz MD Work Phone: Start: 04-03-2024 Lipoprotein direct measurement ldl cholesterol Nahid Georges MD Work Phone: Start: 03-19-2024 Plain X-ray abdomen Dr. Erin Ordaz MD Work Phone: Start: 03-13-2024 Basic metabolic pane l calcium total Rhyann Green PA-C Work Phone: Start: 03-12-2024 Basic metabolic pane l calcium total Rhyann Green PA-C Work Phone: Start: 03-11-2024 TTE w or wo fol wcon,Doppler Shantelle Good MD Work Phone: Start: 03-11-2024 Basic metabolic pane l calcium total Shantelle Good MD Work Phone: Start: 03-11-2024 Lipid panel Shantelle Good MD Work Phone: Start: 03-10-2024 End: 03-10-2024 Ecg routine ecg w/least 12 lds trcg only w/o i&r Shantelle Good MD Work Phone: Start: 03-10-2024 Ecg routine ecg w/le ast 12 lds w/i&r Regina Myles MD Work Phone: Start: 03-10-2024 Ecg routine ecg w/le ast 12 lds trcg only w/o i&r Shantelle Good MD Work Phone: Start: 03-10-2024 Prq trluml coronry t ot occlus revasc mi one vsl Shantelle Good MD Work Phone: Start: 03-10-2024 End: 03-10-2024 Whole blood clotting time procedure [facility] Start: 03-10-2024 Basic metabolic pane l calcium total Regina Myles MD Work Phone: Start: 03-10-2024 AJ TOP Regina Myles MD Work Phone: Start: 03-10-2024 LAVENDER TOP Regina Myles MD Work Phone: Start: 03-10-2024 LIGHT BLUE TOP Regina Myles MD Work Phone: Start: 03-10-2024 LIGHT GREEN TOP Regina Myles MD Work Phone: Start: 03-10-2024 MINT GREEN TOP Regina Myles MD Work Phone: Start: 03-10-2024 PINK TOP Regina Myles MD Work Phone: Start: 03-10-2024 RAINBOW DRAW Regina Myles MD Work Phone: Start: 03-10-2024 Ecg routine ecg w/le ast 12 lds w/i&r [employer] Generic Start: 06-28-2023 Dual energy X-ray absorptiometry Start: 02-01-2022 Screening mammography Plan of Treatment Date Care Activity Detail Author Start: 09-27-2029 Tetanus vaccination Tetanus: Every 10yrs [facility] Start: 09-13-2027 Respiratory Syncytial Virus Immunization: Risk, 60-74 Risk, or 75+ (1 - 1-dose 75+ series) Respiratory Syncytial Virus Immunization: Risk, 60-74 Risk, or 75+ (1 - 1-dose 75+ series) [facility] Start: 01-30-2025 End: 01-30-2025 Patient encounter procedure 01/30/2025 3:00 PM EDT Office Visit [facility] [address] [place] [address] Nahid Georges MD [address] [place] [address] [facility] Start: 12-31-2024 Influenza vaccination Influenza Vaccine (Season Ended) [facility] Start: 07-27-2024 End: 07-27-2024 Patient encounter procedure 07/27/2024 12:45 PM EDT Office Visit [facility] [address] [place] [address] Nahid Georges MD [address] [place] [address] [facility] Start: 04-21-2024 Patient discharge [facility] Start: 04-20-2024 Following clinical pathway protocol [facility] Start: 04-20-2024 Assessment of risk of venous thromboembolism [facility] Start: 04-20-2024 Incentive spirometry [facility] Start: 04-20-2024 Inhalation therapy procedure [facility] Start: 04-20-2024 Insertion of catheter into peripheral vein [facility] Start: 04-20-2024 Introduction of urinary catheter [facility] Start: 04-20-2024 Measuring intake and output [facility] Start: 04-20-2024 Oxygen therapy [facility] Start: 04-20-2024 Providing care according to standard [facility] Start: 04-20-2024 Provision of activity privileges [facility] Start: 04-20-2024 Referral to service [facility] Start: 04-20-2024 Tobacco use cessation education [facility] Start: 04-20-2024 [facility] Start: 04-20-2024 Admission procedure [facility] Start: 04-20-2024 [facility] Start: 04-13-2024 End: 04-13-[address] [facility] Start: 04-05-2024 Patient referral [facility] Work Phone: Start: 04-03-2024 End: 04-03-2024 Patient encounter procedure 04/03/2024 11:45 AM EST Office Visit [facility] [address] [place] [id number] Nahid Georges MD [address] [facility] [address] [place] [address] [facility] Start: 03-19-2024 [facility] Start: 03-10-2024 Patient referral [facility] Work Phone: Start: 01-01-2024 COVID-19 Vaccine ( season) COVID-19 Vaccine ( season) [facility] Start: 01-01-2024 Influenza vaccination Influenza Vaccine (#1) [facility] Start: 12-31-2021 Influenza vaccination INFLUENZA (#1) [facility] Start: 05-02-2021 ADVANCE DIRECTIVE DISCUSSION ADVANCE DIRECTIVE DISCUSSION [facility] Start: 05-02-2021 DEPRESSION ASSESSMENT DEPRESSION ASSESSMENT [facility] Start: 2017 BONE DENSITY BONE DENSITY [facility] Start: 2017 Fall risk assessment Falls Risk Assessment [facility] Start: 2017 Pneumococcal Vaccine: Age 65+ (1 of 1 - PCV) Pneumococcal Vaccine: Age 65+ (1 of 1 - PCV) [facility] Start: 2017 PNEUMOCOCCAL: 65+ (1 - PCV) PNEUMOCOCCAL: 65+ (1 - PCV) [facility] Start: 2012 Respiratory Syncytial Virus Immunization: Risk, 60-74 Risk, or 75+ (1 - Risk 60-74 years 1-dose series) Respiratory Syncytial Virus Immunization: Risk, 60-74 Risk, or 75+ (1 - Risk 60-74 years 1-dose series) [facility] Start: 2002 Administration of herpes zoster vaccine Zoster Vaccines (1 of 2) [facility] Start: 2002 Screening for malignant neoplasm of colon Flexible sigmoidoscopy [facility] Start: 2002 SHINGRIX VACCINE (1 of 2) SHINGRIX VACCINE (1 of 2) [facility] Start: 1997 COLOGUARD (FIT-DNA) COLOGUARD (FIT-DNA) [facility] Start: 1997 Colonoscopy COLONOSCOPY [facility] Start: 1997 COLORECTAL CANCER SCREENING COLORECTAL CANCER SCREENING [facility] Start: [address] COLONOGRAPHY [facility] Start: 1997 DIABETES SCREEN DIABETES SCREEN [facility] Start: 1997 FECAL OCCULT BLOOD FECAL OCCULT BLOOD [facility] Start: 1997 LIPID SCREEN LIPID SCREEN [facility] Start: 1997 SIGMOIDOSCOPY SIGMOIDOSCOPY [facility] Start: 1992 Mammography MAMMOGRAM [facility] Start: 1992 Screening for malignant neoplasm of breast Mammogram [facility] Start: 09-13-1971 Pneumococcal Vaccine: Age 50+ (1 of 2 - PCV) Pneumococcal Vaccine: Age 50+ (1 of 2 - PCV) [facility] Start: 09-13-1971 Pneumococcal Vaccine: Age 65+ (1 of 2 - PCV) Pneumococcal Vaccine: Age 65+ (1 of 2 - PCV) [facility] Start: 09-13-1971 Urine microalbumin profile DTAP,TDAP,TD (1 - Tdap) [facility] Start: 1970 HEPATITIS C SCREENING HEPATITIS C SCREENING [facility] Start: 1970 Hepatitis C screening Hepatitis C Screening [facility] Start: 1964 Depression screening using PHQ-9 (Patient Health Questionnaire 9) score Depression Screening/Follow-Up (PHQ-2/9) [facility] Start: 1958 Pneumococcal Vaccine: Age 65+ (1 of 2 - PCV) Pneumococcal Vaccine: Age 65+ (1 of 2 - PCV) [facility] Start: 09-13-1955 History and physical examination, annual for health maintenance Wellness Visit [facility] Start: 03-15-1953 COVID-19 VACCINE (#1) COVID-19 VACCINE (#1) [facility] Start: 1952 Screening for malignant neoplasm of colon [facility] Start: 1952 Screening for osteoporosis Dexa Scan [facility] Start: 1952 Tetanus vaccination Tetanus: Every 10yrs [facility] Basic metabolic 2008 panel with ionized calcium - Serum or Plasma [facility] End: 07-27-2025 Cholesterol in LDL [Mass/volume] in Serum or Plasma LDL Cholesterol, Direct Lab Routine Familial hypercholesterolemia 1 Occurrences starting 07/27/2024 until 07/27/2025 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 Work Phone: Comment on above: 1 Occurrences starting 06/12/2024 until 08/10/2025 End: 07-27-2025 Lipid 1996 panel - Serum or Plasma Lipid Panel Lab Routine Familial hypercholesterolemia 1 Occurrences starting 07/27/2024 until 07/27/2025 [facility] Comment on above: 1 Occurrences starting 07/27/2024 until 07/27/2025 End: 03-10-2024 Lipoprotein (a) measurement 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 Work Phone: Comment on above: 1 Occurrences starting 04/03/2024 until 04/03/2025 XR Unspecified body region Views [facility] Immunizations Immunization Date Immunization Notes Care Provider Fa cility 09-28-2019 tetanus toxoid, redu lee diphtheria toxoid, and acellular pertussis vaccine, adsorbed Dr. Erin Ordaz MD Work Phone: [facility] 12-10-2011 tetanus toxoid, redu lee diphtheria toxoid, and acellular pertussis vaccine, adsorbed Dr. Erin Ordaz MD Work Phone: [facility] Payers Date Payer Category Payer Self-pay [id number] 2023 Managed Care (unspecified) [id number] 2023 Private Health Insurance [id number] 2018 Medicare MEDICARE PART A PART A CLAIMS [address] [address] [place] [address] [id number] 2018 Medicare [id number] 2011 Private Health Insurance [id number] 2011 Private Health Insurance AETNA A ETNA CHOICE POS II [id number] 2011-Present [phone] [address] [place] [address] POS [id number] 1952 Unknown [id number] 2.16.840.1.737418.3.579. 2.902 1952 Unknown [id number] 2.16.840.1.911305.3.579. 2.902 1952 Unknown [id number] 2.16.840.1.651820.3.579. 2.900 1952 Unknown [id number] 2.16.840.1.843322.3.579. 2.903 1952 Unknown [id number] 2.16.840.1.037851.3.579. 2.903 Unknown [id number] 2.16.840.1.121166.3.579. 2.462 Unknown [id number] 2..840.1.818298.3.579. 2.462 Unknown [id number] 2..840.1.243793.3.579. 2.462 Unknown [id number] 2..840.1.550655.3.579. 2.462 Unknown [id number] 2.840.1.358384.3.579. 2.462 Unknown [id number] 2..840.1.608788.3.579. 2.462 Unknown [id number] 2..840.1.987272.3.579. 2.462 Unknown [id number] 2..840.1.622674.3.579. 2.462 Unknown [id number] 2.840.1.444087.3.579. 2.462 Unknown [id number] 2.16.840.1.012034.3.579. 2.462 Unknown [id number] 2..840.1.249133.3.579. 2.462 Unknown [id number] 2.16.840.1.666465.3.579. 2.462 Unknown [id number] 2.16.840.1.745645.3.579. 2.462 Unknown [id number] 2.16.840.1.256495.3.579. 2.462 Unknown [id number] 2.16.840.1.740729.3.579. 2.462 Unknown [id number] 2.16.840.1.612437.3.579. 2.462 Unknown [id number] 2.16.840.1.298057.3.579. 2.462 Unknown [id number] 2.16.840.1.374655.3.579. 2.462 Unknown [id number] 2.16.840.1.265019.3.579. 2.462 Unknown [id number] 2.16.840.1.632526.3.579. 2.462 Unknown [id number] 2.16.840.1.730956.3.579. 2.462 Unknown [id number] 2.16.840.1.245504.3.579. 2.462 Unknown [id number] 2.16.840.1.411121.3.579. 2.462 Unknown [id number] 2.16.840.1.179555.3.579. 2.462 Social History Date Type Detail Facility Start: 01-10-2020 End: 12-14-2022 Tobacco smoking status NVIS Unknown if ever smoked [facility] Start: 1950 Sex Assigned At Female [facility] Start: 03-15-2022 End: 04-03-2024 Tobacco smoking status NVIS Never smoked tobacco [facility] Start: 03-15-2022 End: 04-03-2024 Tobacco use and exposure Smokeless tobacco non-user [facility] Start: 1950 Sex Assigned At Not on file [facility] Start: 03-05-2022 End: 03-15-2022 Exposure to SARS-CoV-2 (event) Not sure [facility] Start: 03-12-2024 End: 07-27-2024 Alcoholic beverage intake Ex-drinker (finding) [facility] Start: 03-10-2024 End: 03-12-[address] [facility] Start: 03-10-2024 End: 07-27-[address] [employer] [facility] Has the [employer], or water company threatened to shut off services in your home in past 12Mo No [facility] (I/We) worried wheth er (my/our) food would run out before (I/we) got money to buy more. Never true [facility] In the past 12 month s, has lack of transportation kept you from medical appointments or from getting medications? No [facility] History of tobacco use Passive smoker [facility] Start: 07-13-2024 End: 07-31-2024 Sex Female (finding) [facility] Medical Equipment Procedure Code Equipment Code Equipment Origin al Text Equipment Identifier Dates Closure Perclose Prostyle - [id number] Start: 03-10-2024 Stent 3.00 X 24 [employer] Xd Mr - [id number] Start: 03-10-2024 Stent 3.50 X 20 [employer] X[employer] Mr - [id number] Start: 03-10-2024 Stent 2.25 X 20 [employer] Xd Mr - [id number] Start: 03-10-2024 Goals Date Patient Goal Desired Activity /State Functional Status Date Assessment Result Facility 04-21-2024 Functional status Ambulates [facility] Work Phone: Mental Status Date Assessment Result Facility 04-21-2024 Cognitive function Voice/Name [facility] Work Phone: Clinical Notes 04-12-2016 to 08-10-2024 Note Date & Type Note Facility 08-10-2024 Evaluation note Diagnosis Onset Date Resolution Degenerative disc disease, cervical acute August 10 11:04am Degenerative disc disease, lumbar acute August 10, 2024 11:04am [facility] Work Phone: [phone]) 885-997803-31-2025 Evaluation + Plan note* Assessment & Plan Note - Nahid Georges MD - 07/30/2024 4:29 PM EDTAssociated Problem(s): Ischemic cardiomyopathy Initial EF was 35% at the time of heart catheterization. Most recent echo shows an EF improved at 40-45% at rest. Continue beta-ayo, ARB, she is agreeable to restart spironolactone, plans for repeat BMP in a few weeks [id number] Miscellaneous Notes* Assessment & Plan Note - Nahid Georges MD - 07/30/2024 4:29 PM EDTAssociated Problem(s): Ischemic cardiomyopathy Initial EF was 35% at the time of heart catheterization. Most recent echo shows an EF improved at 40-45% at rest. Continue beta-ayo, ARB, she is agreeable to restart spironolactone, plans for repeat BMP in a few weeks * Assessment & Plan Note - Nahid Georges MD - 07/30/2024 4:28 PM EDT Associated Problem(s): Primary hypertension Currently taking Toprol-XL 25 mg daily, valsartan 40 mg daily, there was concerns of spironolactonemaking her not feel good. Upon reviewing labs, she did not have hyperkalemia. She does notice that since discontinue spironolactone, her blood pressure has trended upward. She actually was agreeable to go back on spironolactone at 12.5 mg daily. Hopefully this tree of meds will help to control blood pressure as well as improve LV function. I did review that elevated blood pressures and stressful,nervous situations do not need more blood pressure control rather she needs better stress control * Assessment & Plan Note - Nahid Georges MD - 07/30/2024 4:27 PM EDT Associated Problem(s): Coronary artery disease involving greenville coronary artery of greenville heart without angina pectoris Status post emergent cardiac catheterization March 10, 2024 for anterior STEMI. 2 drug-eluting stents placed in her proximal LAD for 100% occlusion. She had a moderate to severe obtuse marginal stenosis, she had a moderate mid RCA stenosis. She is current without complaints of angina. She is completing cardiac rehab without any exertional limitations. We did document objectively with a stress echo that her circumflex and RCA are not hemodynamically significant based on the lack of ST segment changes as well as lack of regional wall motion abnormalities. Continue antiplatelets and beta-blockers * Assessment & Plan Note - Nahid Georges MD - 07/30/2024 4:27 PM EDT Associated Problem(s): Familial hypercholesterolemia LDL was 180 when hospitalized for her STEMI in March 2024, repeat a few weeks later was down to 143. I did review that her target LDL is 50-70. She has concerns because of potential side effects from rosuvastatin. She never did try atorvastatin. She brought in a bottle of red yeast rice. We ultimately made a deal that we would repeat a lipid profile and if she is not at 50-70 in terms of a target and goal, she then would try a statin. documented in this [id number] Evaluation + Plan note* Assessment & Plan Note - Nahid Georges MD - 07/30/2024 4:28 PM EDT Associated Problem(s): Primary hypertension Currently taking Toprol-XL 25 mg daily, valsartan 40 mg daily, there was concerns of spironolactonemaking her not feel good. Upon reviewing labs, she did not have hyperkalemia. She does notice that since discontinue spironolactone, her blood pressure has trended upward. She actually was agreeable to go back on spironolactone at 12.5 mg daily. Hopefully this tree of meds will help to control blood pressure as well as improve LV function. I did review that elevated blood pressures and stressful,nervous situations do not need more blood pressure control rather she needs better stress control [id number] Evaluation + Plan note* Assessment & Plan Note - Nahid Georges MD - 07/30/2024 4:27 PM EDTAssociated Problem(s): Coronary artery disease involving greenville coronary artery of greenville heart without angina pectoris Status post emergent cardiac catheterization March 10, 2024 for anterior STEMI. 2 drug-eluting stents placed in her proximal LAD for 100% occlusion. She had a moderate to severe obtuse marginal stenosis, she had a moderate mid RCA stenosis. She is current without complaints of angina. She is completing cardiac rehab without any exertional limitations. We did document objectively with a stress echo that her circumflex and RCA are not hemodynamically significant based on the lack of ST segment changes as well as lack of regional wall motion abnormalities. Continue antiplatelets and beta-blockers [id number] Evaluation + Plan note* Assessment & Plan Note - Nahid Georges MD - 07/30/2024 4:27 PM EDTAssociated Problem(s): Familial hypercholesterolemia LDL was 180 when hospitalized for her STEMI in March 2024, repeat a few weeks later was down to 143. I did review that her target LDL is 50-70. She has concerns because of potential side effects from rosuvastatin. She never did try atorvastatin. She brought in a bottle of red yeast rice. We ultimately made a deal that we would repeat a lipid profile and if she is not at 50-70 in terms of a target and goal, she then would try a statin. [id number] NoteInterventional Cardiology Clinic Follow-up Heart & Vascular [facility] 07/27/2024 Nahid Georges MD [address] [facility] [address] [place] [id number] Patient: Helen Rodriges Date of : 1950 (73 y.o.) PCP: Erin Ordaz MD Assessment & Plan Familial hypercholesterolemia LDL was 180 when hospitalized for her STEMI in March 2024, repeat a few weeks later was down to 143. I did review that her target LDL is 50-70. She has concerns because of potential side effects from rosuvastatin. She never did try atorvastatin. She brought in a bottle of red yeast rice. We ultimately made a deal that we would repeat a lipid profile and if she is not at 50-70 in terms of a target and goal, she then would try a statin. Coronary artery disease involving greenville coronary artery of greenville heart without angina pectoris Status post emergent cardiac catheterization March 10, 2024 for anterior STEMI. 2 drug-eluting stents placed in her proximal LAD for 100% occlusion. She had a moderate to severe obtuse marginal stenosis, she had a moderate mid RCA stenosis. She is current without complaints of angina. She is completing cardiac rehab without any exertional limitations. We did document objectively with a stress echo that her circumflex and RCA are not hemodynamically significant based on the lack of ST segment changes as well as lack of regional wall motion abnormalities. Continue antiplatelets and beta-blockers Primary hypertension Currently taking Toprol-XL 25 mg daily, valsartan 40 mg daily, there was concerns of spironolactone making her not feel good. Upon reviewing labs, she did not have hyperkalemia. She does notice that since discontinue spironolactone, her blood pressure has trended upward. She actually was agreeable to go back on spironolactone at 12.5 mg daily. Hopefully this tree of meds will help to control blood pressure as well as improve LV function. I did review that elevated blood pressures and stressful, nervous situations do not need more blood pressure control rather she needs better stress control Ischemic cardiomyopathy Initial EF was 35% at the time of heart catheterization. Most recent echo shows an EF improved at 40-45% at rest. Continue beta-ayo, ARB, she is agreeable to restart spironolactone, plans for repeat BMP in a few weeks Follow-up: Return in about 6 months (around 01/27/2025). Chief Complaint: Follow-up (Follow Up) Subjective History of Present Illness: Helen Rodriges is a 73 y.o. female who comes in today for routine cardiac follow-up. She has been going to cardiac rehab at her local hospital in [facility]. She tells me that overall, she is feeling well. She denies any chest pain. She did recently undergo a stress echo for follow-up regarding her known moderate RCA and circumflex disease. These lesions were noted at the time of her anterior infarct where her proximal LAD was 100% blocked and was treated with drug-eluting stents. She did well on her stress test exercising for over 7 minutes, hitting a heart rate of [address]-T wave changes. Her EF at rest was 40 to 45% but did augment nicely to 50-55%. There were no wall motion abnormalities to suggest residual ischemia. Her blood pressure was elevated on day of her stress test. The stress test was done on July 12. She did bring a list of home blood pressure readings to her visit today. July 03, her blood pressure was excellent in the 120s-130s. Her spironolactone was discontinued for unclear reasons. She thinks that she may have had a bad reaction to these medications. Her seems to think that she may have had the flu or some viral syndrome. She did bring up her blood work and she thought it may have been from elevated magnesium. Since discontinue spironolactone, her blood pressure has not been well-controlled, in the 150s to 160s, occasionally 140s. Today in the office she is 202/95 but she does readily admit that she becomes hypertensive when she is in stressful situations such as the doctor's office as well as playing some high intensity board games. Heart is regular rate and rhythm, no carotid bruit, no significant edema. Objective Tobacco Use History[1] ECG 12 Lead Final Result by Interface, Lab Results In [facility] (03/12/2024 0851) Echocardiogram stress test Final Result by Renato Colon MD (07/12/2024 1140) Echocardiogram complete w contrast Final Result by Kalpana Johnston MD (03/11/2024 1128) Cardiac Catheterization Final Result by Shantelle Good MD (03/10/2024 1600) HOME Medications: Patient's Medications New Prescriptions No medications on file Previous Medications ASPIRIN 81 MG EC TABLET Take 1 (one) tablet (81 mg total) by mouth daily Start: 03/14/24. ATORVASTATIN (LIPITOR) 10 MG TABLET Take 1 (one) tablet (10 mg total) by mouth daily . CLOPIDOGREL (PLAVIX) 7 (more content not included)...[facility] 07-27-2024 History of Present illness Narrative* Nahid Georges MD - 07/27/2024 1:21 PM EDT Interventional Cardiology Clinic Follow-up Heart & Vascular [facility] 07/27/2024 Nahid Georges MD [address] [facility] [address] [facility] [phone] Patient: Helen Rodriges Date of : 1950 (73 y.o.) PCP: Erin Ordaz MD Assessment & Plan Familial hypercholesterolemia LDL was 180 when hospitalized for her STEMI in March 2024, repeat a few weeks later was down to 143. I did review that her target LDL is 50-70. She has concerns because of potential side effects from rosuvastatin. She never did try atorvastatin. She brought in a bottle of red yeast rice. We ultimately made a deal that we would repeat a lipid profile and if she is not at 50-70 in terms of a target and goal, she then would try a statin. Coronary artery disease involving greenville coronary artery of greenville heart without angina pectoris Status post emergent cardiac catheterization March 10, 2024 for anterior STEMI. 2 drug-eluting stents placed in her proximal LAD for 100% occlusion. She had a moderate to severe obtuse marginal stenosis, she had a moderate mid RCA stenosis. She is current without complaints of angina. She is completing cardiac rehab without any exertional limitations. We did document objectively with a stress echo that her circumflex and RCA are not hemodynamically significant based on the lack of ST segment changes as well as lack of regional wall motion abnormalities. Continue antiplatelets and beta-blockers Primary hypertension Currently taking Toprol-XL 25 mg daily, valsartan 40 mg daily, there was concerns of spironolactonemaking her not feel good. Upon reviewing labs, she did not have hyperkalemia. She does notice that since discontinue spironolactone, her blood pressure has trended upward. She actually was agreeable to go back on spironolactone at 12.5 mg daily. Hopefully this tree of meds will help to control blood pressure as well as improve LV function. I did review that elevated blood pressures and stressful,nervous situations do not need more blood pressure control rather she needs better stress control Ischemic cardiomyopathy Initial EF was 35% at the time of heart catheterization. Most recent echo shows an EF improved at 40-45% at rest. Continue beta-ayo, ARB, she is agreeable to restart spironolactone, plans for repeat BMP in a few weeks Follow-up: Return in about 6 months (around 01/27/2025). Chief Complaint: Follow-up (Follow Up) Subjective History of Present Illness: Helen Rodriges is a 73 y.o. female who comes in today for routine cardiac follow-up. She has been going to cardiac rehab at her local hospital in [facility]. She tells me that overall, she is feeling well. She denies any chest pain. She did recently undergo a stress echo for follow-up regarding her known moderate RCA and circumflex disease. These lesions were noted at the time of her anterior infarct where her proximal LAD was 100% blocked and was treated with drug-eluting stents. She did well on her stress test exercising for over 7 minutes, hitting a heart rate of [address]-T wave changes. Her EF at rest was 40 to 45% but did augment nicely to 50-55%. There were no wall motion abnor malities to suggest residual ischemia. Her blood pressure was elevated on day of her stress test. The stress test was done on July 12. She did bring a list of home blood pressure readings to her visit today. July 03, her blood pressure was excellent in the 120s-130s. Her spironolactone was discontinued for unclear reasons. She thinks that she may have had a bad reaction to these medications. Her seems to think that she may have had the flu or some viral syndrome. She did bring up her blood work and she thoughtit may have been from elevated magnesium. Since discontinue spironolactone, her blood pressure has not been well-controlled, in the 150s to 160s, occasionally 140s. Today in the office she is 202/95 but she does readily admit that she becomes hypertensive when she is in stressful situations such as the doctor's office as well as playing some high intensity board games. Heart is regular rate and rhythm, no carotid bruit, no significant edema. Objective Tobacco Use History[1] ECG 12 Lead Final Result by Interface, Lab Results In [facility] (03/12/2024 0845) Echocardiogram stress test Final Result by Renato Colon MD (07/12/2024 1140) Echocardiogram complete w contrast Final Result by Kalpana Johnston MD (03/11/2024 1128) Cardiac Catheterization Final Result by Shantelle Good MD (03/10/2024 1600) HOME Medications: Patient's Medications New Prescriptions No medications on file Previous Medications ASPIRIN 81 MG EC TABLET Take 1 (one) tablet (81 mg total) by mouth daily Start: 03/14/24. ATORVASTATIN (LIPITOR) 10 MG TABLET Take 1 (one) tablet (10 mg total) by mouth daily . CLOPIDOGREL (PLAVIX) 75 MG TABLET Take 1 (one) tablet (75 mg total) by mouth daily . NITROGLYCERIN (NITROSTAT) 0.[address] 1 (one) tablet (0.4 mg total) under the tongue every 5 (five) minutes as needed for chest pain , if no relief after 3 doses call 911 . SPIRONOLACTONE (ALDACTONE) 25 MG TABLET Take 0.5 (one-half) tablet (12.5 mg total) by mouth daily . VALSARTAN (DIOVAN) 40 MG TABLET Take 1 (one) tablet (40 mg total) by mouth at bedtime . Modified Medications Modified Medication Previous Medication METOPROLOL SUCCINATE (TOPROL XL) 25 MG 24 HR TABLET metoprolol succinate (Toprol XL) 25 MG 24 hr tablet Take 1 (one) tablet (25 mg total) by mouth daily . Take 1 (one) tablet (25 mg total) by mouth daily. Discontinued Medications BISACODYL (DULCOLAX) 5 MG EC TABLET Take 1 (one) tablet (5 mg total) by mouth daily . FAMOTIDINE (PEPCID) 20 MG TABLET Take 1 (one) tablet (20 mg total) by mouth daily . Vital Signs: BP (!) 202/95 (BP Location: Left arm, Patient Position: Sitting, BP Cuff Size: Adult) Pulse 72 Ht 5' 3 Wt 55.8 kg (123 lb) SpO2 100% BMI 21.79 kg/m Physical Exam Labs: I personally reviewed and interpreted the labs documented below. Lab Results Component Value Date CHOL 263 (H) 03/11/2024 LDLCALC 180 (H) 03/11/2024 TRIG 55 03/11/2024 HDL 72 03/11/2024 Creatinine clearance cannot be calculated (Patient's most recent lab result is older than the maximum 14 days allowed.) [1] Tobacco Use Smoking Status Never Passive exposure: Past Smokeless Tobacco Never documented in this [id number] History of Present illness Narrative* Adia Boss RN - 04/27/2024 8:05 AM EST Migel Copeland can you check into the stress test - looks like it was canceled ? - Pt sent BPs through pt advice * Nahid Georges MD - 04/20/2024 4:15 PM EST Patient in the local ER in [place], she presented there with chest pain that occurred after cardiacrehab, not during. It was constant. The ER doctor did walk her in the ER and there was not an increase in the intensity of her chest pain. Her blood pressure was markedly elevated with a systolic ranging anywhere from 170-190. The patient is telling the ER physician that she is compliant with her meds. When I saw her a few weeks ago, I had started a low-dose of spironolactone and valsartan. We also had scheduled a stress test, looking through [facility], it looks like there was an appointment scheduled for April 13 but it was canceled. The ER doctor was going to try to get her to increase the dosages of her medications to achieve better blood pressure control. Can we please call her and see what her home blood pressures are. Can we also check to see why a stress test was not done to reassess the hemodynamic significance of her other moderate stenoses as well as to reassess her ejection fraction. documented in this [id number] [facility] Medical Records Department [address] [place] [address] Discharge Summary 04/21/24 1401 MR#: [id number] Acct: [id number] Name: HELEN RODRIGES Rep #: [id number] : 1950 73 From: Margie Balbuena MD PCP: Dr. Erin Ordaz MD Status:DIS SHABANA Location: [place] [address] Providers Date of Admission: 04/20/24 Date of Discharge: 04/21/24 Primary Care Physician: Dr. Erin Ordaz MD Reason For Visit: CHEST PAIN Diagnosis Discharge Diagnosis (1) Chest pain: Status: Acute Code(s): R07.9 - Chest pain, unspecified Medications at Discharge Home Medications aspirin 81 mg tablet,delayed release 81 mg PO DAILY 03/19/24 clopidogrel 75 mg tablet 75 mg PO DAILY 03/19/24 nitroglycerin 0.4 mg sublingual tablet 0.4 mg sublingual Q5M PRN chest pain 03/19/24 cholecalciferol (vitamin D3) 25 mcg (1,000 unit) capsule 25 mcg PO QDAY 04/05/24 cyanocobalamin (vitamin B-12) 1,000 mcg capsule 1,000 mcg PO QDAY 04/05/24 dapagliflozin propanediol 10 mg tablet (Farxiga) 10 mg PO QDAY #90 tabs 04/05/24 spironolactone 25 mg tablet 25 mg PO QDAY 04/05/24 micronesian elio PO 04/05/24 vitamins A,C,O-dqre-vpjjrv 4,296 mcg-226 mg-90 mg capsule (PreserVision AREDS) 1 cap PO QDAY 04/05/24 valsartan 160 mg tablet 40 mg PO QDAY HTN 04/20/24 carvedilol 6.25 mg tablet 6.25 mg PO BID #60 tabs 04/21/24 isosorbide mononitrate 30 mg tablet,extended release 24 hr 30 mg PO DAILY #30 tabs 04/21/24 Hospital Course Operations None Procedures None Summary of Care Provided Minutes Spent on Discharge: 47 Hospital Course: Patient is a 73-year-old female with a past medical history as outlined including CAD s/p recent stents in March 2024 was admitted through the ED on 04/20/2024 with a complaint of chest pressure while start cardiac rehab on the day of admission. She complained of burning sensation in the middle of her chest with no radiation. She said it was similar to when she presented with a heart attack. She said she was at the doctor show done in [place] in March 2024 and subsequently started having chest pain. She was sent to [facility] on 03/11/2024 and 2D echo done showed EF of 35% with left ventricular systolic dysfunction and elevated left atrial pressure. Subsequently had a cardiac cath which showed 100% occlusion of the LAD with 70% stenosis of the first marginal lesion of the left circumflex and proximal RCA to mid RCA with 70% stenosis. She says she had stents placed in her maker and per the admitting note was to have planned staged PCI of the rest of the vessels. Patient says she was told she had 2 vessels of the back of her heart which were also significantly blocked and she would require stents put in. She had been started on valsartan but had not started taking it because she was concerned about medication interactions. She was also concerned that her symptoms were due to a GI etiology. On admission initial troponin was 49 with repeat being 72 and subsequently going up to around 112. Chest x-ray showed hyperinflation with no acute cardiopulmonary findings. EKG showed sinus rhythm with T wave inversions concerning for lateral ischemia. ED apparently discussed the case with patient's heating and ventilation engineer down in [place] and was recommended that patient should have a stress test. She was also given a GI cocktail. In light of patient's having known CAD and having had a cardiac cath just about a month ago, this hospitalist question the benefit of having a stress test and by stress test would likely tell us that she had cardiac disease which was already known. This hospitalist did discuss it with the heating and ventilation engineer on-call Dr. Benjamin. Per the discussion, cardiology did agree that the utility of a stress test was limited as patient already had known CAD and had recently had stents and was told that she had several more blocked vessels which she would need PCI for. Cardiology therefore commended that patient should have her carvedilol dose increased from 3.125 mg twice daily to 6.25 mg twice daily and to be started on Imdur 30 mg daily for anginal symptoms. Patient was then subsequently to follow-up with her heating and ventilation engineer down in [facility] for discussion about staged PCI of the rest of the vessels. Patient could also alternatively opt to follow-up with cardiology at [facility] if she is her preferred. The plan was extensively discussed with patient and her . They agreed to this plan we agreeable to discharge. Patient subsequently did complain of chest pain again. Troponin was checked and was only 55. EKG done still showed lateral ischemia which was similar to previous EKGs. Her symptoms do improve with PPI. She was therefore discharged on 04/21/2024. She is to follow-up with her primary care doctor and follow-up with cardiology within 1 week for further workup as needed. Patient seen a (more content not included)...[facility] 04-20-2024 NotePatient in the local ER in [place], she presented there with chest pain that occurred after cardiac rehab, not during. It was constant. The ER doctor did walk her in the ER and there was not an increase in the intensity of her chest pain. Her blood pressure was markedly elevated with a systolic ranging anywhere from 170-190. The patient is telling the ER physician that she is compliant with her meds. When I saw her a few weeks ago, I had started a low-dose of spironolactone and valsartan. We also had scheduled a stress test, looking through [facility], it looks like there was an appointment scheduled for April 13 but it was canceled. The ER doctor was going to try to get her to increase the dosages of her medications to achieve better blood pressure control. Can we please call her and see what her home blood pressures are. Can we also check to see why a stress test was not done to reassess the hemodynamic significance of her other moderate stenoses as well as to reassess her ejection fraction. AUTHENTICATED BY NAHID GEORGES, ON 04/20/2024 16:17:03[facility] [id number] History of Present illness Narrative* Nahid Georges MD - 04/20/2024 4:15 PM EST Patient in the local ER in [place], she presented there with chest pain that occurred after cardiacrehab, not during. It was constant. The ER doctor did walk her in the ER and there was not an increase in the intensity of her chest pain. Her blood pressure was markedly elevated with a systolic ranging anywhere from 170-190. The patient is telling the ER physician that she is compliant with her meds. When I saw her a few weeks ago, I had started a low-dose of spironolactone and valsartan. We also had scheduled a stress test, looking through [facility], it looks like there was an appointment scheduled for April 13 but it was canceled. The ER doctor was going to try to get her to increase the dosages of her medications to achieve better blood pressure control. Can we please call her and see what her home blood pressures are. Can we also check to see why a stress test was not done to reassess the hemodynamic significance of her other moderate stenoses as well as to reassess her ejection fraction. documented in this [id number] Evaluation note* Diagnosis Onset Date Resolution Status Admit Date Abdominal pain acute April 052023 11:31am History of acute myocardial infarction of anterior wall resolved April 05 11:31am Dyslipidemia inactive April 11:31am Hypertension inactive April 11:31am Ischemic cardiomyopathy inactive D [id number] 11:31am Left ventricular systolic dysfunction (LVSD) without heart failure inactive April 05 11:31am Presence of stent in coronary artery March 10, 2024 inactive April 05, 2024 11:31am Coronary artery disease deleted D [id number] 11:31am Constipation acute April 2:52pm Epigastric pain acute April 05, 2024 2:52pm Chest pain resolved April 20, 2024 5:45pm CAD (coronary artery disease) inactive April 20, 2 024 5:45pm Hypertension inactive April 5:45pm [facility] Work Phone: 1(235) 838-611512-04-2024 Evaluation + Plan note* Assessment & Plan Note - Nahid Georges MD - 04/04/2024 9:39 AM ESTAssociated Problem(s): Ischemic cardiomyopathy Ejection fraction when hospitalized was approximately 35% the day after her cardiac catheterization. Continue metoprolol and spironolactone. She felt like she had side effects related to losartan. I am going to place her on valsartan 40 mg daily. She can wait to start it after she shows that she can tolerate atorvastatin. [id number] Miscellaneous Notes* Assessment & Plan Note - Nahid Georges MD - 04/04/2024 9:39 AM ESTAssociated Problem(s): Ischemic cardiomyopathy Ejection fraction when hospitalized was approximately 35% the day after her cardiac catheterization. Continue metoprolol and spironolactone. She felt like she had side effects related to losartan. I am going to place her on valsartan 40 mg daily. She can wait to start it after she shows that she can tolerate atorvastatin. * Assessment & Plan Note - Nahid Georges MD - 04/04/2024 9:38 AM EST Associated Problem(s): Primary hypertension Continue current regimen directed at her ischemic cardiomyopathy. * Assessment & Plan Note - Nahid Georges MD - 04/04/2024 9:38 AM EST Associated Problem(s): Coronary artery disease involving greenville coronary artery of greenville heart without angina pectoris Status post emergent cardiac catheterization March 10, 2024 for anterior STEMI. 2 drug-eluting stents placed in her proximal LAD for 100% occlusion. She had a moderate to severe obtuse marginal stenosis, she had a moderate mid RCA stenosis. She is current without complaints of angina. Continue dual antiplatelet therapy for at least 1 year given myocardial infarction. I am going to order a stress Cardiolite to see if there is hemodynamic significance to her other stenoses. I have recommended cardiac rehab to start in [place] after her stress. * Assessment & Plan Note - Nahid Georges MD - 04/04/2024 9:37 AM EST Associated Problem(s): Familial hypercholesterolemia LDL while hospitalized was 180, she discontinued atorvastatin and has not taken rosuvastatin due toconcerns of potential side effects. She has a prescription for 10 mg of atorvastatin, I did tell her that this would be reasonable to start and see how she tolerates it. I will repeat a direct LDL today. We once again reviewed the pleomorphic benefits and the reduced cardiac mortality and morbidity, specifically left sudden cardiac , heart attack and stroke associated with statins. * Assessment & Plan Note - Nahid Georges MD - 04/04/2024 9:36 AM EST Associated Problem(s): STEMI involving left anterior descending coronary artery (HCC) Status post emergent cardiac catheterization March 10 for anterior STEMI. 2 drug-eluting stents placed in her LAD. documented in this [id number] Evaluation + Plan note* Assessment & Plan Note - Nahid Georges MD - 04/04/2024 9:38 AM EST Associated Problem(s): Primary hypertension Continue current regimen directed at her ischemic cardiomyopathy. [id number] Evaluation + Plan note* Assessment & Plan Note - Nahid Georges MD - 04/04/2024 9:38 AM ESTAssociated Problem(s): Coronary artery disease involving greenville coronary artery of greenville heart without angina pectoris Status post emergent cardiac catheterization March 10, 2024 for anterior STEMI. 2 drug-eluting stents placed in her proximal LAD for 100% occlusion. She had a moderate to severe obtuse marginal stenosis, she had a moderate mid RCA stenosis. She is current without complaints of angina. Continue dual antiplatelet therapy for at least 1 year given myocardial infarction. I am going to order a stress Cardiolite to see if there is hemodynamic significance to her other stenoses. I have recommended cardiac rehab to start in [place] after her stress. [place] [id number] Evaluation + Plan note* Assessment & Plan Note - Nahid Georges MD - 04/04/2024 9:37 AM ESTAssociated Problem(s): Familial hypercholesterolemia LDL while hospitalized was 180, she discontinued atorvastatin and has not taken rosuvastatin due toconcerns of potential side effects. She has a prescription for 10 mg of atorvastatin, I did tell her that this would be reasonable to start and see how she tolerates it. I will repeat a direct LDL today. We once again reviewed the pleomorphic benefits and the reduced cardiac mortality and morbidity, specifically left sudden cardiac , heart attack and stroke associated with statins. [place] [id number] Evaluation + Plan note* Assessment & Plan Note - Nahid Georges MD - 04/04/2024 9:36 AM ESTAssociated Problem(s): STEMI involving left anterior descending coronary artery (HCC) Status post emergent cardiac catheterization March 10 for anterior STEMI. 2 drug-eluting stents placed in her LAD. [place] [id number] NoteInterventional Cardiology Clinic Follow-up Heart & Vascular [facility] 04/03/2024 Nahid Georges MD [address] [place] [phone] Patient: Helen Rodriges Date of : 1950 (73 y.o.) PCP: No primary care provider on file. Assessment & Plan STEMI involving left anterior descending coronary artery (HCC) Status post emergent cardiac catheterization March 10 for anterior STEMI. 2 drug-eluting stents placed in her LAD. Familial hypercholesterolemia LDL while hospitalized was 180, she discontinued atorvastatin and has not taken rosuvastatin due to concerns of potential side effects. She has a prescription for 10 mg of atorvastatin, I did tell her that this would be reasonable to start and see how she tolerates it. I will repeat a direct LDL today. We once again reviewed the pleomorphic benefits and the reduced cardiac mortality and morbidity, specifically left sudden cardiac , heart attack and stroke associated with statins. Coronary artery disease involving greenville coronary artery of green[place] heart without angina pectoris Status post emergent cardiac catheterization March 10, 2024 for anterior STEMI. 2 drug-eluting stents placed in her proximal LAD for 100% occlusion. She had a moderate to severe obtuse marginal stenosis, she had a moderate mid RCA stenosis. She is current without complaints of angina. Continue dual antiplatelet therapy for at least 1 year given myocardial infarction. I am going to order a stress Cardiolite to see if there is hemodynamic significance to her other stenoses. I have recommended cardiac rehab to start in [place] after her stress. Primary hypertension Continue current regimen directed at her ischemic cardiomyopathy. Ischemic cardiomyopathy Ejection fraction when hospitalized was approximately 35% the day after her cardiac catheterization. Continue metoprolol and spironolactone. She felt like she had side effects related to losartan. I am going to place her on valsartan 40 mg daily. She can wait to start it after she shows that she can tolerate atorvastatin. Follow-up: Return in about 3 months (around 07/02/2024) for telehealth. Chief Complaint: Follow-up (Hospital follow up, s/p stent x2 Last lipids 03/11/24, without medication list/bottles ) Subjective History of Present Illness: Helen Rodriges is a 73 y.o. female who comes in today with her for follow-up after her anterior NH at the beginning of March. She did have emergent catheterization with placement of 2 drug-eluting stents in her proximal LAD for a 100% occlusion. She was found to have moderate-severe stenoses and a moderate-sized OM and a large RCA. She comes in today with her for follow-up. Since discharge, she has had some difficulties with abdominal issues. She has a chronic history of having some GI issues but she does feel that this was much worse than usual and feels it is related to some of her medications. She was seen in her local ER without any obvious abnormalities. She has discontinued losartan and rosuvastatin due to concerns about side effects. She was recently given a prescription for atorvastatin 10 mg by her primary care physician but has yet to start that. At home, her blood pressures in the 110-127 range over 65 with a heart rate in the 60s. She tells me she is walking at [employer] for 30 minutes without complaints of chest pain, shortness of breath or calf claudication. She does feel that her bowel movements are improving. Heart is regular rate and rhythm, no carotid bruit, no edema. Objective Tobacco Use Smoking Status Never Passive exposure: Past Smokeless Tobacco Never ECG 12 Lead Final Result by Interface, Lab Results In [facility] (03/12/2024 0800) Echocardiogram complete w contrast Final Result by Kalpana Johnston MD (03/11/2024 1128) Cardiac Catheterization Final Result by Shantelle Good MD (03/10/2024 1600) HOME Medications: Patient's Medications New Prescriptions METOPROLOL SUCCINATE (TOPROL XL) 25 MG 24 HR TABLET Take 1 (one) tablet (25 mg total) by mouth daily . SPIRONOLACTONE (ALDACTONE) 25 MG TABLET Take 0.5 (one-half) tablet (12.5 mg total) by mouth daily . VALSARTAN (DIOVAN) 40 MG TABLET Take 1 (one) tablet (40 mg total) by mouth at bedtime . Previous Medications ASPIRIN 81 MG EC TABLET Take 1 (one) tablet (81 mg total) by mouth daily Start: 03/14/24. BISACODYL (DULCOLAX) 5 MG EC TABLET Take 1 (one) tablet (5 mg total) by mouth daily . FAMOTIDINE (PEPCID) 20 MG TABLET Take 1 (one) tablet (20 mg total) by mouth daily . NITROGLYCERIN (NITROSTAT) 0.[address] 1 (one) tablet (0.4 mg total) under the tongue every 5 (five) minutes as needed for chest pain , if no relief after 3 doses call 911 . Modified Medications Modified Medication Previous Medication CLOPIDOGREL (PLAVIX) 75 MG TABLET clopidogreL (Plavix (more content not included)...[facility] [id number] History of Present illness Narrative* Nahid Georges MD - 04/03/2024 1:19 PM EST Interventional Cardiology Clinic Follow-up Heart & Vascular [facility] 04/03/2024 Nahid Georges MD [address] [facility] [id number] Patient: Helen Rodriges Date of : 1950 (73 y.o.) PCP: No primary care provider on file. Assessment & Plan STEMI involving left anterior descending coronary artery (HCC) Status post emergent cardiac catheterization March 10 for anterior STEMI. 2 drug-eluting stents placed in her LAD. Familial hypercholesterolemia LDL while hospitalized was 180, she discontinued atorvastatin and has not taken rosuvastatin due toconcerns of potential side effects. She has a prescription for 10 mg of atorvastatin, I did tell her that this would be reasonable to start and see how she tolerates it. I will repeat a direct LDL today. We once again reviewed the pleomorphic benefits and the reduced cardiac mortality and morbidity, specifically left sudden cardiac , heart attack and stroke associated with statins. Coronary artery disease involving greenville coronary artery of greenville heart without angina pectoris Status post emergent cardiac catheterization March 10, 2024 for anterior STEMI. 2 drug-eluting stents placed in her proximal LAD for 100% occlusion. She had a moderate to severe obtuse marginal stenosis, she had a moderate mid RCA stenosis. She is current without complaints of angina. Continue dual antiplatelet therapy for at least 1 year given myocardial infarction. I am going to order a stress Cardiolite to see if there is hemodynamic significance to her other stenoses. I have recommended cardiac rehab to start in [place] after her stress. Primary hypertension Continue current regimen directed at her ischemic cardiomyopathy. Ischemic cardiomyopathy Ejection fraction when hospitalized was approximately 35% the day after her cardiac catheterization. Continue metoprolol and spironolactone. She felt like she had side effects related to losartan. I am going to place her on valsartan 40 mg daily. She can wait to start it after she shows that she can tolerate atorvastatin. Follow-up: Return in about 3 months (around 07/02/2024) for telehealth. Chief Complaint: Follow-up (Hospital follow up, s/p stent x2 Last lipids 03/11/24, without medication list/bottles ) Subjective History of Present Illness: Helen Rodriges is a 73 y.o. female who comes in today with her for follow-up after her anterior NH at the beginning of March. She did have emergent catheterization with placement of 2 drug-eluting stents in her proximal LAD for a 100% occlusion. She was found to have moderate-severe stenoses and a moderate-sized OM and a large RCA. She comes in today with her for follow-up. Since discharge, she has had some difficulties with abdominal issues. She has a chronic history of having some GI issues but she does feel that this was much worse than usual and feels it is related to some of her medications. She was seen in her local ER without any obvious abnormalities. She has disco ntinued losartan and rosuvastatin due to concerns about side effects. She was recently given a prescription for atorvastatin 10 mg by her primary care physician but has yet to start that. At home, her blood pressures in the 110-127 range over 65 with a heart rate in the 60s. She tells me she is walking at [employer] for 30 minutes without complaints of chest pain, shortness of breath or calf claudication. She does feel that her bowel movements are improving. Heart is regular rate and rhythm, no carotid bruit, no edema. Objective Tobacco Use Smoking Status Never Passive exposure: Past Smokeless Tobacco Never ECG 12 Lead Final Result by Interface, Lab Results In [facility] (03/12/2024 0883) Echocardiogram complete w contrast Final Result by Kalpana Johnston MD (03/11/2024 1128) Cardiac Catheterization Final Result by Shantelle Good MD (03/10/2024 1600) HOME Medications: Patient's Medications New Prescriptions METOPROLOL SUCCINATE (TOPROL XL) 25 MG 24 HR TABLET Take 1 (one) tablet (25 mg total) by mouth daily . SPIRONOLACTONE (ALDACTONE) 25 MG TABLET Take 0.5 (one-half) tablet (12.5 mg total) by mouth daily . VALSARTAN (DIOVAN) 40 MG TABLET Take 1 (one) tablet (40 mg total) by mouth at bedtime . Previous Medications ASPIRIN 81 MG EC TABLET Take 1 (one) tablet (81 mg total) by mouth daily Start: 03/14/24. BISACODYL (DULCOLAX) 5 MG EC TABLET Take 1 (one) tablet (5 mg total) by mouth daily . FAMOTIDINE (PEPCID) 20 MG TABLET Take 1 (one) tablet (20 mg total) by mouth daily . NITROGLYCERIN (NITROSTAT) 0.[address] 1 (one) tablet (0.4 mg total) under the tongue every 5 (five) minutes as needed for chest pain , if no relief after 3 doses call 911 . Modified Medications Modified Medication Previous Medication CLOPIDOGREL (PLAVIX) 75 MG TABLET clopidogreL (Plavix) 75 mg tablet Take 1 (one) tablet (75 mg total) by mouth daily . Take 1 (one) tablet (75 mg total) by mouth dailyLoading dose of 300 mg x 1 then 75 mg daily . Discontinued Medications ISOSORBIDE MONONITRATE (IMDUR) 30 MG 24 HR TABLET Take 1 (one) tablet (30 mg total) by mouth daily Start: 03/14/24 Reasons: a sudden worsening of angina called acute coronary syndrome. LOSARTAN (COZAAR) 50 MG TABLET Take 1 (one) tablet (50 mg total) by mouth daily with lunch . METOPROLOL SUCCINATE (TOPROL-XL) 25 MG 24 HR TABLET Take 1 (one) tablet (25 mg total) by mouth daily Start: 03/14/24. ROSUVASTATIN (CRESTOR) 20 MG TABLET Take 1 (one) tablet (20 mg total) by mouth nightly . SPIRONOLACTONE (ALDACTONE) 25 MG TABLET Take 0.5 (one-half) tablet (12.5 mg total) by mouth daily Start: 03/14/24. Vital Signs: BP (!) 172/90 (BP Location: Left arm, Patient Position: Sitting, BP Cuff Size: Adult) Pulse 71 Ht 5' 3 Wt 55.8 kg (123 lb) SpO2 97% BMI 21.79 kg/m Physical Exam Labs: I personally reviewed and interpreted the labs documented below. Lab Results Component Value Date CHOL 263 (H) 03/11/2024 LDLCALC 180 (H) 03/11/2024 TRIG 55 03/11/2024 HDL 72 03/11/2024 Creatinine clearance cannot be calculated (Patient's most recent lab result is older than the maximum 14 days allowed.) documented in this [id number] NotePatient called in with report of dyspnea that wakes her up from sleep since hospitalization, which she attributes to Brilinta. Advised her *not* to skip doses but instead to switch to clopidogrel 75 mg daily after a loading dose of 300 mg this evening. Will notify Dr. Good. AUTHENTICATED BY YASSINE PURCELL, ON 03/20/2024 09:44:[address] [place] [address] [id number] History of Present illness Narrative* Yassine Purcell MD - 03/18/2024 4:24 PM ESTPatient called in with report of dyspnea that wakes her up from sleep since hospitalization, which she attributes to Brilinta. Advised her *not* to skip doses but instead to switch to clopidogrel 75 mg daily after a loading dose of 300 mg this evening. Will notify Dr. Good. documented in this [id number] NoteDISCHARGE SUMMARY Patient: Helen Rodriges Date of : 1950 Site: [facility] Family Provider: Physician Jaclyn Admit Date: 03/10/2024 Discharge Date/Time: 03/13/24 Midday Disposition: Home Clinical Summary Hospital Course: Helen Rodriges is a 73 y.o. female patient of Jaclyn Physician with a history of HTN presented to [facility] on 03/10/2024 with chief complaint of acute onset of chest discomfort and was noted to have ST segment elevation in the lateral leads with reciprocal changes in the inferior leads. Emergent cardiac catheterization showed occlusion of the proximal LAD. The other vessels also had significant stenosis most notably in an obtuse marginal and the mid right coronary artery. Left ventricular end-diastolic pressures were mildly elevated and she had a large area of hypokinesis in the anterior lateral distribution. We proceeded to percutaneous intervention with balloon angioplasty and IVUS guided stenting. She had a single episode of VF which required defibrillating at the beginning of thecase. She was given an IV bolus of amiodarone; she was also given IV Aggrastat in addition to IV heparin. Echo 03/11/2024 demonstrated EF 35-40% with grade 2 diastolic dysfunction. LV wall motion is abnormal. Severe hypokinesis of the mid to apical anterior, anteroseptal, inferoseptal and apical segments. No apical LV thrombus. Further imaging, labs and plan documented below. Discharge Diagnoses: ST elevation myocardial infarction involving left anterior descending (LAD) coronary artery (HCC) Overview No prior history of any apparent coronary artery disease although she does have risk factors including a very significant family history. She however has personal healthy habits and has been very active Symptoms: chest discomfort and effort intolerance x the past several months EKG 03/10/2024: ST segment elevation in the lateral leads with reciprocal changes in the inferior leads Cath 03/10/2024: Emergent cardiac catheterization showed occlusion of the proximal LAD which was treated with PCI with IVUS guided stenting. Disease in RCA and Lcx which will need planned intervention on at a later date. Echo 03/11/2024: EF 35-40% with grade 2 diastolic dysfunction. LV wall motion is abnormal. Severe hypokinesis of the mid to apical anterior, anteroseptal, inferoseptal and apical segments. No apical LV thrombus. Assessment & Plan -- Status post emergent cardiac catheterization for STEMI and found to have an occluded LAD. This underwent percutaneous intervention with stent placement in a long segment of this vessel which was diffusely diseased. PCI was complicated by 1 episode of VF which quickly responded to defibrillation. IV amiodarone used during the case but stopped because this seemed to induce nausea very easily. She has disease in the circumflex marginal and also the mid right coronary artery. -- Will plan for PCI to Lcx and RCA at a later date. Discussing with Dr. Good and family today. Pt and family relate that they may want to follow up with our group at the [facility] office. --Recommend Cardiac Rehab --Continue DAPT (aspirin and Brilinta), high-dose statin, aldactone, imdur, losartan, Toprol. -- Pt and family had a long discussion with Dr. Georges and myself yesterday. He showed them the patient's coronary angiogram films, as well as discussed the importance of medication compliance in addition to diet and exercise to reduce risk factors. Familial hypercholesterolemia Assessment & Plan -- APO B elevated: 127. LPa in process. -- Total Cholesterol: 263; LDL 180; TG 55; HDL 72 -- Continue lipitor 80 mg daiily -- Pt expresses concern about taking a statin, but I explained the importance of being on a statin due to high cholesterol and CAD. -- Target LDL of 50 or lower. Anxiety Assessment & Plan -- Ativan reduced to 0.5 mg PO q8h as needed for anxiety. Will not discharge on this medication. -- Defer outpatient management to PCP Surgeries: 03/10/24 Left Heart Cath Consults: Procedures Inpatient consult to Care Management Allergies: Patient has no known allergies. Discharge Diet: Heart Healthy No Added Salt Condition: Good Discharge Medications: Discharge Medications New Medications Details aspirin 81 MG EC tablet Start taking on: March 14, 2024 Take 1 (one) tablet (81 mg total) by mouth daily Start: 03/14/24. Quantity: 30 tablet atorvastatin 80 MG tablet Commonly known as: LIPITOR Take 1 (one) tablet (80 mg total) by mouth nightly . Quantity: 30 tablet isosorbide mononitrate 30 MG 24 hr tablet Commonly known as: IMDUR Start taking on: March 14, 2024 Take 1 (one) tablet (30 mg total) by mouth daily Start: 03/14/24 Reasons: a sudden worsening of a (more content not included)...[facility] 03-13-2024 NoteDISCHARGE SUMMARY Patient: Helen Rodriges Date of : 1950 Site: [facility] Family Provider: Jaclyn, Physician Admit Date: 03/10/2024 Discharge Date/Time: 03/13/24 Midday Disposition: Home Clinical Summary Hospital Course: Helen Rodriges is a 73 y.o. female patient of , Physician with a history of HTN presented to [facility] on 03/10/2024 with chief complaint of acute onset of chest discomfort and was noted to have ST segment elevation in the lateral leads with reciprocal changes in the inferior leads. Emergent cardiac catheterization showed occlusion of the proximal LAD. The other vessels also had significant stenosis most notably in an obtuse marginal and the mid right coronary artery. Left ventricular end-diastolic pressures were mildly elevated and she had a large area of hypokinesis in the anterior lateral distribution. We proceeded to percutaneous intervention with balloon angioplasty and IVUS guided stenting. She had a single episode of VF which required defibrillating at the beginning of thecase. She was given an IV bolus of amiodarone; she was also given IV Aggrastat in addition to IV heparin. Echo 03/11/2024 demonstrated EF 35-40% with grade 2 diastolic dysfunction. LV wall motion is abnormal. Severe hypokinesis of the mid to apical anterior, anteroseptal, inferoseptal and apical segments. No apical LV thrombus. Further imaging, labs and plan documented below. Discharge Diagnoses: ST elevation myocardial infarction involving left anterior descending (LAD) coronary artery (HCC) Overview No prior history of any apparent coronary artery disease although she does have risk factors including a very significant family history. She however has personal healthy habits and has been very active Symptoms: chest discomfort and effort intolerance x the past several months EKG 03/10/2024: ST segment elevation in the lateral leads with reciprocal changes in the inferior leads Cath 03/10/2024: Emergent cardiac catheterization showed occlusion of the proximal LAD which was treated with PCI with IVUS guided stenting. Disease in RCA and Lcx which will need planned intervention on at a later date. Echo 03/11/2024: EF 35-40% with grade 2 diastolic dysfunction. LV wall motion is abnormal. Severe hypokinesis of the mid to apical anterior, anteroseptal, inferoseptal and apical segments. No apical LV thrombus. Assessment & Plan -- Status post emergent cardiac catheterization for STEMI and found to have an occluded LAD. This underwent percutaneous intervention with stent placement in a long segment of this vessel which was diffusely diseased. PCI was complicated by 1 episode of VF which quickly responded to defibrillation. IV amiodarone used during the case but stopped because this seemed to induce nausea very easily. She has disease in the circumflex marginal and also the mid right coronary artery. -- Will plan for PCI to Lcx and RCA at a later date. Discussing with Dr. Good and family today. Pt and family relate that they may want to follow up with our group at the [facility] office. --Recommend Cardiac Rehab --Continue DAPT (aspirin and Brilinta), high-dose statin, aldactone, imdur, losartan, Toprol. -- Pt and family had a long discussion with Dr. Georges and myself yesterday. He showed them the patient's coronary angiogram films, as well as discussed the importance of medication compliance in addition to diet and exercise to reduce risk factors. Familial hypercholesterolemia Assessment & Plan -- APO B elevated: 127. LPa in process. -- Total Cholesterol: 263; LDL 180; TG 55; HDL 72 -- Continue lipitor 80 mg daiily -- Pt expresses concern about taking a statin, but I explained the importance of being on a statin due to high cholesterol and CAD. -- Target LDL of 50 or lower. Anxiety Assessment & Plan -- Ativan reduced to 0.5 mg PO q8h as needed for anxiety. Will not discharge on this medication. -- Defer outpatient management to PCP Surgeries: 03/10/24 Left Heart Cath Consults: Procedures Inpatient consult to Care Management Allergies: Patient has no known allergies. Discharge Diet: Heart Healthy No Added Salt Condition: Good Discharge Medications: Discharge Medications New Medications Details aspirin 81 MG EC tablet Start taking on: March 14, 2024 Take 1 (one) tablet (81 mg total) by mouth daily Start: 03/14/24. Quantity: 30 tablet atorvastatin 80 MG tablet Commonly known as: LIPITOR Take 1 (one) tablet (80 mg total) by mouth nightly . Quantity: 30 tablet isosorbide mononitrate 30 MG 24 hr tablet Commonly known as: IMDUR Start taking on: March 14, 2024 Take 1 (one) tablet (30 mg total) by mouth daily Start: 03/14/24 Reasons: a sudden worsening of a (more content not included)...[facility] 03-13-2024 Hospital course Narrative* Italo Segovia PA-C - 03/13/2024 11:18 AM EST DISCHARGE SUMMARY Patient: Helen Rodriges Date of : 1950 Site: [facility] Family Provider: Physician Jaclyn Admit Date: 03/10/2024 Discharge Date/Time: 03/13/24 Midday Disposition: Home Clinical Summary Hospital Course: Helen Rodriges is a 73 y.o. female patient of Jaclyn Physician with a history of HTN [place] [facility] [facility] on 03/10/2024 with chief complaint of acute onset of chest discomfort and was noted to have ST segment elevation in the lateral leads with reciprocal changes in the inferior leads. Emergent cardiac catheterization showed occlusion of the proximal LAD. The other vessels also had significant stenosis most notably in an obtuse marginal and the mid right coronary artery. Left ventricular end-diastolic pressures were mildly elevated and she had a large area of hypokinesis in the anterior lateral distribution. We proceeded to percutaneous intervention with balloon angioplasty and IVUS guided stenting. She had a single episode of VF which required defibrillating at the beginning of the case. She wasgiven an IV bolus of amiodarone; she was also given IV Aggrastat in addition to IV heparin. Echo 03/11/2024 demonstrated EF 35-40% with grade 2 diastolic dysfunction. LV wall motion is abnormal. Severe hypokinesis of the mid to apical anterior, anteroseptal, inferoseptal and apical segments. No apical LV thrombus. Further imaging, labs and plan documented below. Discharge Diagnoses: ST elevation myocardial infarction involving left anterior descending (LAD) coronary artery (HCC) Overview No prior history of any apparent coronary artery disease although she does have risk factors including a very significant family history. She however has personal healthy habits and has been very active Symptoms: chest discomfort and effort intolerance x the past several months EKG 03/10/2024: ST segment elevation in the lateral leads with reciprocal changes in the inferior leads Cath 03/10/2024: Emergent cardiac catheterization showed occlusion of the proximal LAD which was treated with PCI with IVUS guided stenting. Disease in RCA and Lcx which will need planned interventionon at a later date. Echo 03/11/2024: EF 35-40% with grade 2 diastolic dysfunction. LV wall motion is abnormal. Severe hypokinesis of the mid to apical anterior, anteroseptal, inferoseptal and apical segments. No apical LV thrombus. Assessment & Plan -- Status post emergent cardiac catheterization for STEMI and found to have an occluded LAD. This underwent percutaneous intervention with stent placement in a long segment of this vessel which was diffusely diseased. PCI was complicated by 1 episode of VF which quickly responded to defibrillation.IV amiodarone used during the case but stopped because this seemed to induce nausea very easily. She has disease in the circumflex marginal and also the mid right coronary artery. -- Will plan for PCI to Lcx and RCA at a later date. Discussing with Dr. Good and family today. Pt and family relate that they may want to follow up with our group at the [facility] office. --Recommend Cardiac Rehab --Continue DAPT (aspirin and Brilinta), high-dose statin, aldactone, imdur, losartan, Toprol. -- Pt and family had a long discussion with Dr. Georges and myself yesterday. He showed them the patient's coronary angiogram films, as well as discussed the importance of medication compliance in addition to diet and exercise to reduce risk factors. Familial hypercholesterolemia Assessment & Plan -- APO B elevated: 127. LPa in process. -- Total Cholesterol: 263; LDL 180; TG 55; HDL 72 -- Continue lipitor 80 mg daiily -- Pt expresses concern about taking a statin, but I explained the importance of being on a statin due to high cholesterol and CAD. -- Target LDL of 50 or lower. Anxiety Assessment & Plan -- Ativan reduced to 0.5 mg PO q8h as needed for anxiety. Will not discharge on this medication. -- Defer outpatient management to PCP Surgeries: 03/10/24 Left Heart Cath Consults: Procedures Inpatient consult to Care Management Allergies: Patient has no known allergies. Discharge Diet: Heart Healthy No Added Salt Condition: Good Discharge Medications: Discharge Medications New Medications Details aspirin 81 MG EC tablet Start taking on: March 14, 2024 Take 1 (one) tablet (81 mg total) by mouth daily Start: 03/14/24. Quantity: 30 tablet atorvastatin 80 MG tablet Commonly known as: LIPITOR Take 1 (one) tablet (80 mg total) by mouth nightly . Quantity: 30 tablet isosorbide mononitrate 30 MG 24 hr tablet Commonly known as: IMDUR Start taking on: March 14, 2024 Take 1 (one) tablet (30 mg total) by mouth daily Start: 03/14/24 Reasons: a sudden worsening of angina called acute coronary syndrome. Quantity: 30 tablet losartan 50 MG tablet Commonly known as: COZAAR Take 1 (one) tablet (50 mg total) by mouth daily with lunch . Quantity: 30 tablet metoprolol succinate 25 MG 24 hr tablet Commonly known as: TOPROL-XL Start taking on: March 14, 2024 Take 1 (one) tablet (25 mg total) by mouth daily Start: 03/14/24. Quantity: 30 tablet nitroGLYCERIN 0.4 MG SL tablet Commonly known as: NITROSTAT Place 1 (one) tablet (0.4 mg total) under the tongue every 5 (five) minutes as needed for chest pain , if no relief after 3 doses call 911 . Quantity: 90 tablet spironolactone 25 MG tablet Commonly known as: ALDACTONE Start taking on: March 14, 2024 Take 0.5 (one-half) tablet (12.5 mg total) by mouth daily Start: 03/14/24. Quantity: 15 tablet ticagrelor 90 mg Tab tablet Commonly known as: BriLINTA Take 1 (one) tablet (90 mg total) by mouth 2 (two) times a day . Quantity: 60 tablet Physician(s) Family Provider: Jaclyn, Physician, Phone: None Address: [facility] Follow Up: Shantelle Good MD [address] [place] [address] [facility] You may participate in outpatient cardiac rehab in two weeks. Patient instructions, including activity, were given to the patient/family at discharge. Please seethe After Visit Summary in the electronic medical record for details. Time spent on discharge: < 30 minutes Completed by: Italo Segovia PA-C on 03/13/24, 11:21 AM Cosigned by Shantelle Good MD at 03/13/2024 11:55 AM EST documented in this [id number] Consult note* Laisha Palafox RN - 03/13/2024 11:13 AM EST Discussed importance of medications, follow up appointments, and Cardiac Rehab with patient/family.Discussed with patient that their physician has referred him/her to our outpatient Cardiac Rehabilitation program. A Cardiac Rehabilitation nurse will contact patient or patient may call [phone] for additional information. The Cardiac Rehabilitation Program will be provided the patient's referral information and pertinent patient details and history. Patient chosen location is [place]. Location is out of service area. [id number] Consult note* Laisha Palafox RN - 03/13/2024 11:13 AM EST Discussed importance of medications, follow up appointments, and Cardiac Rehab with patient/family.Discussed with patient that their physician has referred him/her to our outpatient Cardiac Rehabilitation program. A Cardiac Rehabilitation nurse will contact patient or patient may call [phone] for additional information. The Cardiac Rehabilitation Program will be provided the patient's referral information and pertinent patient details and history. Patient chosen location is [place]. Location is out of service area. * Sonam Kwon RN - 03/12/2024 10:13 AM ESTAssociated Order(s): IP CONSULT TO CARE MANAGEMENT Care Management Consult Note Date: 03/12/2024 Time: 10:13 AM Patient Name: Helen Rodriges Date of : 1950 Reason for Consult: Discharge Needs Discharge Plan: D/C Disposition: Home HME: None Same As Recommended : yes Options Reviewed: Explained services/benefits Reason for Choice: Patient/Family preference Plan A: Home Plan B: Home Health Care Services Discharging Transportation Plan: Transportation Type: Auto (family) Discharge Plan Status: Met with patient, spouse, and daughter at bedside. Introduced self and role.Confirmed information on face sheet is correct. Discussed discharge planning. Patient lives with her spouse and has no DME or transportation needs. Consult for CM states Rx assistance, the patient has a employer sponsored commercial insurance with her 's employer, it would be eligible for copay card assist if needed and offered by [employer]. I did not see any recommendations for expensive meds listed yet but family is interested in meds to beds pharmacy when they DC and happy to assist for copay amounts if needed. Will continue to follow. No therapy ordered. Assessment and Background Information: Living Arrangements: Spouse/significant other Caregiver Identified: Yes Caregiver's Name: [facility] Support Systems: Spouse/significant other, Children Assistance Needed: no Type of Residence: Private residence Prior to Admission Home Care Services: No Patient expects to be discharged to:: home Does the patient need discharge transport arranged?: No Current Home Equipment: Tub/Shower chair Holistic Assessment Medication adherence problem:: No History of falls in last 6 months:: No Family aware of the patient's advance care planning wishes:: Yes Do you have any cultural/spiritual connections or beliefs that would impact how we deliver your care?: No Chronic pain:: No documented in this [id number] Note Attestation signed by Shantelle Good MD at 03/13/2024 11:55 AM Met with patient and her family regarding expected course following discharge. We also reviewed her medications and plans for follow-up which will be at the [place] office. Plan to proceed with high-dose Lipitor and DAPT with Brilinta. She will need a follow-up echocardiogram as an outpatient to follow her LV function. Cardiac rehab will be arranged in [place]. General Cardiology Follow-up Italo Segovia PA-C Heart & Vascular [facility] [address] [place] [address] Patient: Helen Rodriges Date of : 1950 (73 y.o.) PCP: No, Physician Assessment/Plan: ST elevation myocardial infarction involving left anterior descending (LAD) coronary artery (HCC) Overview - at 03/12/2024 10:36 AM No prior history of any apparent coronary artery disease although she does have risk factors including a very significant family history. She however has personal healthy habits and has been very active Symptoms: chest discomfort and effort intolerance x the past several months EKG 03/10/2024: ST segment elevation in the lateral leads with reciprocal changes in the inferior leads Cath 03/10/2024: Emergent cardiac catheterization showed occlusion of the proximal LAD which was treated with PCI with IVUS guided stenting. Disease in RCA and Lcx which will need planned intervention on at a later date. Echo 03/11/2024: EF 35-40% with grade 2 diastolic dysfunction. LV wall motion is abnormal. Severe hypokinesis of the mid to apical anterior, anteroseptal, inferoseptal and apical segments. No apical LV thrombus. Assessment & Plan - at 03/13/2024 11:15 AM -- Status post emergent cardiac catheterization for STEMI and found to have an occluded LAD. This underwent percutaneous intervention with stent placement in a long segment of this vessel which was diffusely diseased. PCI was complicated by 1 episode of VF which quickly responded to defibrillation. IV amiodarone used during the case but stopped because this seemed to induce nausea very easily. She has disease in the circumflex marginal and also the mid right coronary artery. -- Will plan for PCI to Lcx and RCA at a later date. Discussing with Dr. Good and family today. Pt and family relate that they may want to follow up with our group at the [facility] office. --Recommend Cardiac Rehab --Continue DAPT (aspirin and Brilinta), high-dose statin, aldactone, imdur, losartan, Toprol. -- Pt and family had a long discussion with Dr. Georges and myself yesterday. He showed them the patient's coronary angiogram films, as well as discussed the importance of medication compliance in addition to diet and exercise to reduce risk factors. Familial hypercholesterolemia Assessment & Plan - at 03/12/2024 10:49 AM -- APO B elevated: 127. LPa in process. -- Total Cholesterol: 263; LDL 180; TG 55; HDL 72 -- Continue lipitor 80 mg daiily -- Pt expresses concern about taking a statin, but I explained the importance of being on a statin due to high cholesterol and CAD. -- Target LDL of 50 or lower. Anxiety Assessment & Plan - at 03/13/2024 11:15 AM -- Ativan reduced to 0.5 mg PO q8h as needed for anxiety. Will not discharge on this medication. -- Defer outpatient management to PCP Other medical conditions pertinent to this patient but are not being directly managed by Cardiology service include: HTN Subjective: Ms. Rodriges is a 73 y.o. female reports she was slightly dizzy this morning. She states she is no longer experiencing back discomfort. Denies chest pain, peripheral edema, dyspnea. Objective: Vital signs in last 24 hours: Temp: [98.2 degrees F (36.8 degrees C)-98.9 degrees F (37.2 degrees C)] 98.9 degrees F (37.2 degrees C) Heart Rate: [70-84] 84 Resp: [14-21] 14 BP: (101-116)/(52-65) 116/65 Intake/Output last 3 shifts: I/O last 3 completed shifts: In: 1080 [P.O.:1080] Out: - Intake/Output this shift: No intake/output data recorded. Review of Systems: All systems were reviewed and otherwise negative except for that noted above. Physical Exam: BP 116/65 (BP Location: Left arm, Patient Position: Lying) Pulse 84 Temp 98.9 degrees F (37.2 degrees C) (Oral) Resp 14 Ht 5' 3 Wt 56.2 kg (124 lb) SpO2 96% BMI 21.97 kg/m General: No signs of acute distress, Afebrile, Seated in exam chair , and Cooperative Cardio: Regular rate and rhythm, Normal S1/S2, and No murmur appreciated Lungs: Clear to auscultation in all lung olivarez bilaterally, No rales, rhonchi, or wheezing, and on room air Extremities: No signs of rubor, cyanosis., Warm, dry extremities, absent BLE edema appreciated , and right radial artery access site clean and d (more content not included)...[facility]11-12-2024 History of Present illness Narrative* Italo Segovia PA-C - 03/13/2024 8:33 AM EST General Cardiology Follow-up Italo Segovia PA-C Heart & Vascular [facility] [address] [place] [address] Patient: Helen Rodriges Date of : 1950 (73 y.o.) PCP: No, Physician Assessment/Plan: ST elevation myocardial infarction involving left anterior descending (LAD) coronary artery (HCC) Overview - at 03/12/2024 10:36 AM No prior history of any apparent coronary artery disease although she does have risk factors including a very significant family history. She however has personal healthy habits and has been very active Symptoms: chest discomfort and effort intolerance x the past several months EKG 03/10/2024: ST segment elevation in the lateral leads with reciprocal changes in the inferior leads Cath 03/10/2024: Emergent cardiac catheterization showed occlusion of the proximal LAD which was treated with PCI with IVUS guided stenting. Disease in RCA and Lcx which will need planned interventionon at a later date. Echo 03/11/2024: EF 35-40% with grade 2 diastolic dysfunction. LV wall motion is abnormal. Severe hypokinesis of the mid to apical anterior, anteroseptal, inferoseptal and apical segments. No apical LV thrombus. Assessment & Plan - at 03/13/2024 11:15 AM -- Status post emergent cardiac catheterization for STEMI and found to have an occluded LAD. This underwent percutaneous intervention with stent placement in a long segment of this vessel which was diffusely diseased. PCI was complicated by 1 episode of VF which quickly responded to defibrillation.IV amiodarone used during the case but stopped because this seemed to induce nausea very easily. She has disease in the circumflex marginal and also the mid right coronary artery. -- Will plan for PCI to Lcx and RCA at a later date. Discussing with Dr. Good and family today. Pt and family relate that they may want to follow up with our group at the [facility] office. --Recommend Cardiac Rehab --Continue DAPT (aspirin and Brilinta), high-dose statin, aldactone, imdur, losartan, Toprol. -- Pt and family had a long discussion with Dr. Georges and myself yesterday. He showed them the patient's coronary angiogram films, as well as discussed the importance of medication compliance in addition to diet and exercise to reduce risk factors. Familial hypercholesterolemia Assessment & Plan - at 03/12/2024 10:49 AM -- APO B elevated: 127. LPa in process. -- Total Cholesterol: 263; LDL 180; TG 55; HDL 72 -- Continue lipitor 80 mg daiily -- Pt expresses concern about taking a statin, but I explained the importance of being on a statin due to high cholesterol and CAD. -- Target LDL of 50 or lower. Anxiety Assessment & Plan - at 03/13/2024 11:15 AM -- Ativan reduced to 0.5 mg PO q8h as needed for anxiety. Will not discharge on this medication. -- Defer outpatient management to PCP Other medical conditions pertinent to this patient but are not being directly managed by Cardiologyservice include: HTN Subjective: Ms. Rodriges is a 73 y.o. female reports she was slightly dizzy this morning. She states she is no longer experiencing back discomfort. Denies chest pain, peripheral edema, dyspnea. Objective: Vital signs in last 24 hours: Temp: [98.2 F (36.8 C)-98.9 F (37.2 C)] 98.9 F (37.2 C) Heart Rate: [70-84] 84 Resp: [14-21] 14 BP: (101-116)/(52-65) 116/65 Intake/Output last 3 shifts: I/O last 3 completed shifts: In: 1080 [P.O.:1080] Out: - Intake/Output this shift: No intake/output data recorded. Review of Systems: All systems were reviewed and otherwise negative except for that noted above. Physical Exam: BP 116/65 (BP Location: Left arm, Patient Position: Lying) Pulse 84 Temp 98.9 F (37.2 C) (Oral) Resp 14 Ht 5' 3 Wt 56.2 kg (124 lb) SpO2 96% BMI 21.97 kg/m General: No signs of acute distress, Afebrile, Seated in exam chair , and Cooperative Cardio: Regular rate and rhythm, Normal S1/S2, and No murmur appreciated Lungs: Clear to auscultation in all lung olivarez bilaterally, No rales, rhonchi, or wheezing, and onroom air Extremities: No signs of rubor, cyanosis., Warm, dry extremities, absent BLE edema appreciated , and right radial artery access site clean and dry, no evidence of hematoma Neuro: Alert and oriented to time, place, person and Normal mood Telemetry independently reviewed and the following noted sinus rhythm. Imaging: Reviewed independently and noted above. Lab Review Results from last 7 days Lab Units 03/11/24 0341 03/10/24 1230 TROPONIN T ng/L 4,042* 28* Results from last 7 days Lab Units 03/13/24 1022 SODIUM mmol/L 138 POTASSIUM mmol/L 3.4* CHLORIDE mmol/L 103 BUN mg/dL 15 CREATININE mg/dL 1.03 GLUCOSE mg/dL 116* CALCIUM mg/dL 9.2 Results from last 7 days Lab Units 03/11/24 0341 NT PRO BNP pg/mL 3,020* Results from last 7 days Lab Units 03/13/24 1022 WBC K/mcL 9.90 HGB g/dL 13.0 HCT % 39.9 PLT K/mcL 268 Cosigned by Shantelle Good MD at 03/13/2024 11:55 AM EST Associated attestation - Shantelle Good MD - 03/13/2024 11:55 AM EST Met with patient and her family regarding expected course following discharge. We also reviewed hermedications and plans for follow-up which will be at the [place] office. Plan to proceed with high-dose Lipitor and DAPT with Brilinta. She will need a follow-up echocardiogram as an outpatient to follow her LV function. Cardiac rehab will be arranged in [place]. * Italo Segovia PA-C - 03/12/2024 10:50 AM EST General Cardiology Follow-up Italo Segovia PA-C Heart & Vascular [facility] [address] [place] [address] Patient: Helen Rodriges Date of : 1950 (73 y.o.) PCP: No, Physician Assessment/Plan: ST elevation myocardial infarction involving left anterior descending (LAD) coronary artery (HCC) Overview - at 03/12/2024 10:36 AM No prior history of any apparent coronary artery disease although she does have risk factors including a very significant family history. She however has personal healthy habits and has been very active Symptoms: chest discomfort and effort intolerance x the past several months EKG 03/10/2024: ST segment elevation in the lateral leads with reciprocal changes in the inferior leads Cath 03/10/2024: Emergent cardiac catheterization showed occlusion of the proximal LAD which was treated with PCI with IVUS guided stenting. Disease in RCA and Lcx which will need planned interventionon at a later date. Echo 03/11/2024: EF 35-40% with grade 2 diastolic dysfunction. LV wall motion is abnormal. Severe hypokinesis of the mid to apical anterior, anteroseptal, inferoseptal and apical segments. No apical LV thrombus. Assessment & Plan - at 03/12/2024 10:38 AM -- Status post emergent cardiac catheterization for STEMI and found to have an occluded LAD. This underwent percutaneous intervention with stent placement in a long segment of this vessel which was diffusely diseased. PCI was complicated by 1 episode of VF which quickly responded to defibrillation.IV amiodarone used during the case but stopped because this seemed to induce nausea very easily. She has disease in the circumflex marginal and also the mid right coronary artery. -- Will plan for PCI to Lcx and RCA at a later date. -- Discussed [facility] with Dr. Good and we will not proceed at this time. --Recommend Cardiac Rehab --Continue DAPT (aspirin and Brilinta), high-dose statin, aldactone, imdur, losartan, Toprol. -- Discussed importance of medication compliance with the patient and family at bedside. Familial hypercholesterolemia Assessment & Plan - at 03/12/2024 10:49 AM -- APO B elevated: 127. LPa in process. -- Total Cholesterol: 263; LDL 180; TG 55; HDL 72 -- Continue lipitor 80 mg daiily -- Pt expresses concern about taking a statin, but I explained the importance of being on a statin due to high cholesterol and CAD. -- Target LDL of 50 or lower. Anxiety Assessment & Plan - at 03/12/2024 10:54 AM -- Ativan 1 mg PO q8h as needed for anxiety -- Pt reports feeling very anxious which she states in turn has caused some chest pain. This was prior to admission. She is still feeling anxious now but denies chest pain. Will keep patient overnight tonight. No plans for discharge today. Other medical conditions pertinent to this patient but are not being directly managed by Cardiolog[facility] include: HTN Subjective: Ms. Rodriges is a 73 y.o. female reports feeling very anxious, fatigued, and is still having some back pain though she relates this likely to the bed being uncomfortable. Denies chest pain, palpitations, peripheral edema. Discussed in length with patient and family at bedside the importance of medication compliance. They wish to follow up with [facility] in [place] as it is closer to them, but would like to have Dr. Good perform planned PCI. Objective: Vital signs in last 24 hours: Temp: [98 F (36.7 C)] 98 F (36.7 C) Heart Rate: [77-96] 80 Resp: [16-25] 16 BP: (106-122)/(57-85) 121/59 Intake/Output last 3 shifts: I/O last 3 completed shifts: In: 701.8 [P.O.:460; I.V.:241.8] Out: 0 Intake/Output this shift: No intake/output data recorded. Review of Systems: All systems were reviewed and otherwise negative except for that noted above. Physical Exam: BP (!) 121/59 Pulse 80 Temp 98 F (36.7 C) (Oral) Resp 16 Ht 5' 3 Wt 56.2 kg (124 lb) SpO2 97% BMI 21.97 kg/m General: No signs of acute distress, Afebrile, Cooperative, and resting in bedside recliner chair. Cardio: Regular rate and rhythm, Normal S1/S2, and No murmur appreciated Lungs: Clear to auscultation in all lung olivarez bilaterally and No rales, rhonchi, or wheezing Extremities: No signs of rubor, cyanosis., Warm, dry extremities, and absent BLE edema appreciated Neuro: Alert and oriented to time, place, person and Normal mood Telemetry independently reviewed and the following noted Normal sinus rhythm. Imaging: Reviewed independently and noted above. Lab Review Results from last 7 days Lab Units 03/11/24 0341 03/10/24 1230 TROPONIN T ng/L 4,042* 28* Results from last 7 days Lab Units 03/11/24 0341 SODIUM mmol/L 140 POTASSIUM mmol/L 3.9 CHLORIDE mmol/L 108 BUN mg/dL 18 CREATININE mg/dL 0.86 GLUCOSE mg/dL 119* CALCIUM mg/dL 8.4 Results from last 7 days Lab Units 03/11/24 0341 NT PRO BNP pg/mL 3,020* Results from last 7 days Lab Units 03/12/24 1030 WBC K/mcL 10.87 HGB g/dL 12.3 HCT % 37.9 PLT K/mcL 195 * Shantelle Good MD - 03/11/2024 9:26 AM EST Interventional Cardiology Follow-up Shantelle Good MD Heart & Vascular [facility] [address] [place] [address] Patient: Helen Rodriges Date of : 1950 (73 y.o.) PCP: No, Physician Assessment/Plan: Other hyperlipidemia Assessment & Plan - at 03/11/2024 9:26 AM Severely elevated lipid profile noted. APO B level as well as LP(a) levels are pending at this timebut we will follow-up on this. She is conceptually resistant to starting a statin but plan is to see how she does with that and switch to a nonstatin option if she cannot tolerate this. She generallytends to be quite apprehensive about medications. --Lipitor 80 mg daily --Target LDL lowering is 50 or below. May need combination therapy to achieve this depending on herresponse and tolerance ST elevation myocardial infarction involving left anterior descending (LAD) coronary artery (HCC) Assessment & Plan - at 03/11/2024 9:25 AM Status post emergent cardiac catheterization for STEMI and found to have an occluded LAD. This underwent percutaneous intervention with stent placement in a long segment of this vessel which was diffusely diseased. PCI was complicated by 1 episode of VF which quickly responded to defibrillation. IVamiodarone used during the case but stopped because this seemed to induce nausea very easily. She has disease in the circumflex marginal and also the mid right coronary artery. --Initiate cardiac rehab for recovery --Start on DAPT, high-dose statin, guideline directed medical therapy --Echocardiogram to assess LV function Other medical conditions pertinent to this patient but are not being directly managed by Cardiologyservice include: HTN and HLD stemi Subjective: Ms. Rodriges is a 73 y.o. female still little bit nauseous but generally much better. We discussed in detail her coronary disease and also strategies to minimize recurrent events. Objective: Vital signs in last 24 hours: Temp: [96.9 F (36.1 C)-98.1 F (36.7 C)] 96.9 F (36.1 C) Heart Rate: [58-77] 75 Resp: [13-21] 14 BP: (98-150)/(61-103) 118/81 Intake/Output last 3 shifts: I/O last 3 completed shifts: In: 120 [P.O.:120] Out: - Intake/Output this shift: No intake/output data recorded. Review of Systems: All systems were reviewed and otherwise negative except for that noted above. Physical Exam: BP 118/81 Pulse 75 Temp 96.9 F (36.1 C) (Oral) Resp 14 Ht 5' 3 Wt 56.2 kg (124 lb) SpO2 94% BMI 21.97 kg/m General: No signs of acute distress, Afebrile, and Cooperative Cardio: Regular rate and rhythm, Normal S1/S2, and No murmur appreciated Lungs: Clear to auscultation in all lung olivarez bilaterally and No rales, rhonchi, or wheezing Extremities: No signs of rubor, cyanosis., Warm, dry extremities, and Good radial pulses bilaterally Neuro: Alert and oriented to time, place, person and Normal mood Telemetry independently reviewed and the following noted No events noted. Although she had reperfusion arrhythmia such as AIVR and a brief episode of VT before. Imaging: Reviewed independently and noted above. Lab Review Results from last 7 days Lab Units 03/11/24 0341 03/10/24 1230 TROPONIN T ng/L 4,042* 28* Results from last 7 days Lab Units 03/11/24 0341 SODIUM mmol/L 140 POTASSIUM mmol/L 3.9 CHLORIDE mmol/L 108 BUN mg/dL 18 CREATININE mg/dL 0.86 GLUCOSE mg/dL 119* CALCIUM mg/dL 8.4 Results from last 7 days Lab Units 03/11/24 0341 NT PRO BNP pg/mL 3,020* Results from last 7 days Lab Units 03/11/24 0341 WBC K/mcL 9.11 HGB g/dL 12.4 HCT % 37.6 PLT K/mcL 214 documented in this [id number] Evaluation + Plan note* Assessment & Plan Note - Italo Segovia PA-C - 03/12/2024 10:54 AM EST Associated Problem(s): Anxiety -- Ativan reduced to 0.5 mg PO q8h as needed for anxiety. Will not discharge on this medication. -- Defer outpatient management to PCP [id number] Miscellaneous Notes* Assessment & Plan Note - Italo Segovia PA-C - 03/12/2024 10:54 AM ESTAssociated Problem(s): Anxiety -- Ativan reduced to 0.5 mg PO q8h as needed for anxiety. Will not discharge on this medication. -- Defer outpatient management to PCP * Assessment & Plan Note - Italo Segovia PA-C - 03/12/2024 10:49 AM EST Associated Problem(s): Familial hypercholesterolemia -- APO B elevated: 127. LPa in process. -- Total Cholesterol: 263; LDL 180; TG 55; HDL 72 -- Continue lipitor 80 mg daiily -- Pt expresses concern about taking a statin, but I explained the importance of being on a statin due to high cholesterol and CAD. -- Target LDL of 50 or lower. * Quick Note - Alyssa Braga RN - 03/11/2024 8:27 PM EST 1937- pt complains of back pain. This RN provided tylenol per orders. 2019- pt called out stating the tylenol is not helping and she is feeling nauseous. Zofran given per order. Heat pack applied to back. 2022- A. MD Latisha paged. Pt states the tylenol is not helping pain and would like something to sleep. . MD Latisha returned page. Verbal orders obtained. See JUN. 250- pt and daughter requesting ativan to help pt rest. Pt having on going pain, not wanting to take [place] and nausea, zofran given per JUN. paged. Waiting for return call. 254- updated the pt and daughter on page to . Pt daughter rubbing pts back with relief verbalized by pt. Again offered [place] to pt and educated on the reason for medication. Pt refused. Continues to request ativan. * Plan of Care - Alyssa Braga RN - 03/11/2024 7:30 PM EST Problem: Pain Goal: Reduced pain sensation Outcome: Partially Met Goal: Control of acute pain to acceptable level Outcome: Partially Met Goal: Able to cope with pain Outcome: Partially Met Goal: Able to achieve maximum level of physical functioning Outcome: Partially Met Goal: Able to achieve maximum level of psychosocial functioning Outcome: Partially Met Problem: Actual or potential alteration in health Goal: Absence of healthcare acquired conditions Outcome: Partially Met Goal: Knowledge of Interdisciplinary Plan of Care Outcome: Partially Met Goal: Knowledge of Enviroment Outcome: Partially Met Plan of care on going. * Assessment & Plan Note - Italo Segovia PA-C - 03/10/2024 3:51 PM EST Associated Problem(s): ST elevation myocardial infarction involving left anterior descending (LAD) coronary artery (HCC) -- Status post emergent cardiac catheterization for STEMI and found to have an occluded LAD. This underwent percutaneous intervention with stent placement in a long segment of this vessel which was diffusely diseased. PCI was complicated by 1 episode of VF which quickly responded to defibrillation.IV amiodarone used during the case but stopped because this seemed to induce nausea very easily. She has disease in the circumflex marginal and also the mid right coronary artery. -- Will plan for PCI to Lcx and RCA at a later date. Discussing with Dr. Good and family today. Pt and family relate that they may want to follow up with our group at the [facility] office. --Recommend Cardiac Rehab --Continue DAPT (aspirin and Brilinta), high-dose statin, aldactone, imdur, losartan, Toprol. -- Pt and family had a long discussion with Dr. Georges and myself yesterday. He showed them the patient's coronary angiogram films, as well as discussed the importance of medication compliance in addition to diet and exercise to reduce risk factors. documented in this [id number] NoteGeneral Cardiology Follow-up Italo Segovia PA-C Heart & Vascular [facility] [address] [place] [address] Patient: Helen Rodriges Date of : 1950 (73 y.o.) PCP: No, Physician Assessment/Plan: ST elevation myocardial infarction involving left anterior descending (LAD) coronary artery (HCC) Overview - at 03/12/2024 10:36 AM No prior history of any apparent coronary artery disease although she does have risk factors including a very significant family history. She however has personal healthy habits and has been very active Symptoms: chest discomfort and effort intolerance x the past several months EKG 03/10/2024: ST segment elevation in the lateral leads with reciprocal changes in the inferior leads Cath 03/10/2024: Emergent cardiac catheterization showed occlusion of the proximal LAD which was treated with PCI with IVUS guided stenting. Disease in RCA and Lcx which will need planned intervention on at a later date. Echo 03/11/2024: EF 35-40% with grade 2 diastolic dysfunction. LV wall motion is abnormal. Severe hypokinesis of the mid to apical anterior, anteroseptal, inferoseptal and apical segments. No apical LV thrombus. Assessment & Plan - at 03/12/2024 10:38 AM -- Status post emergent cardiac catheterization for STEMI and found to have an occluded LAD. This underwent percutaneous intervention with stent placement in a long segment of this vessel which was diffusely diseased. PCI was complicated by 1 episode of VF which quickly responded to defibrillation. IV amiodarone used during the case but stopped because this seemed to induce nausea very easily. She has disease in the circumflex marginal and also the mid right coronary artery. -- Will plan for PCI to Lcx and RCA at a later date. -- Discussed [facility] with Dr. Good and we will not proceed at this time. --Recommend Cardiac Rehab --Continue DAPT (aspirin and Brilinta), high-dose statin, aldactone, imdur, losartan, Toprol. -- Discussed importance of medication compliance with the patient and family at bedside. Familial hypercholesterolemia Assessment & Plan - at 03/12/2024 10:49 AM -- APO B elevated: 127. LPa in process. -- Total Cholesterol: 263; LDL 180; TG 55; HDL 72 -- Continue lipitor 80 mg daiily -- Pt expresses concern about taking a statin, but I explained the importance of being on a statin due to high cholesterol and CAD. -- Target LDL of 50 or lower. Anxiety Assessment & Plan - at 03/12/2024 10:54 AM -- Ativan 1 mg PO q8h as needed for anxiety -- Pt reports feeling very anxious which she states in turn has caused some chest pain. This was prior to admission. She is still feeling anxious now but denies chest pain. Will keep patient overnight tonight. No plans for discharge today. Other medical conditions pertinent to this patient but are not being directly managed by Cardiology service include: HTN Subjective: Ms. Rodriges is a 73 y.o. female reports feeling very anxious, fatigued, and is still having some back pain though she relates this likely to the bed being uncomfortable. Denies chest pain, palpitations, peripheral edema. Discussed in length with patient and family at bedside the importance of medication compliance. They wish to follow up with [facility] in [place] as it is closer to them, but would like to have Dr. Good perform planned PCI. Objective: Vital signs in last 24 hours: Temp: [98 degrees F (36.7 degrees C)] 98 degrees F (36.7 degrees C) Heart Rate: [77-96] 80 Resp: [16-25] 16 BP: (106-122)/(57-85) 121/59 Intake/Output last 3 shifts: I/O last 3 completed shifts: In: 701.8 [P.O.:460; I.V.:241.8] Out: 0 Intake/Output this shift: No intake/output data recorded. Review of Systems: All systems were reviewed and otherwise negative except for that noted above. Physical Exam: BP (!) 121/59 Pulse 80 Temp 98 degrees F (36.7 degrees C) (Oral) Resp 16 Ht 5' 3 Wt 56.2 kg (124 lb) SpO2 97% BMI 21.97 kg/m General: No signs of acute distress, Afebrile, Cooperative, and resting in bedside recliner chair. Cardio: Regular rate and rhythm, Normal S1/S2, and No murmur appreciated Lungs: Clear to auscultation in all lung olivarez bilaterally and No rales, rhonchi, or wheezing Extremities: No signs of rubor, cyanosis., Warm, dry extremities, and absent BLE edema appreciated Neuro: Alert and oriented to time, place, person and Normal mood Telemetry independently reviewed and the following noted Normal sinus rhythm. Imaging: Reviewed independently and noted above. Lab Review Results from last 7 days Lab Units 03/11/24 0341 03/10/24 1230 TROPONIN T ng/L 4,042* 28* Results from last 7 days Lab Units 03/11/24 0341 SODIUM mmol/L 140 POTASSIUM mmol/L 3.9 CHLORIDE mmol/L 108 BUN mg/dL 18 CREATININE mg/dL 0.86 GLUCOSE mg/dL 119* CALCIUM mg/dL 8.4 Results from last 7 days Lab Uni (more content not included)...[facility]11-11-2024 Evaluation + Plan note* Assessment & Plan Note - Italo Segovia PA-C - 03/12/2024 10:49 AM ESTAssociated Problem(s): Familial hypercholesterolemia -- APO B elevated: 127. LPa in process. -- Total Cholesterol: 263; LDL 180; TG 55; HDL 72 -- Continue lipitor 80 mg daiily -- Pt expresses concern about taking a statin, but I explained the importance of being on a statin due to high cholesterol and CAD. -- Target LDL of 50 or lower. [id number] Consult note* Sonam Kwon RN - 03/12/2024 10:13 AM EST Associated Order(s): IP CONSULT TO CARE MANAGEMENT Care Management Consult Note Date: 03/12/2024 Time: 10:13 AM Patient Name: Helen Rodriges Date of : 1950 Reason for Consult: Discharge Needs Discharge Plan: D/C Disposition: Home HME: None Same As Recommended : yes Options Reviewed: Explained services/benefits Reason for Choice: Patient/Family preference Plan A: Home Plan B: Home Health Care Services Discharging Transportation Plan: Transportation Type: Auto (family) Discharge Plan Status: Met with patient, spouse, and daughter at bedside. Introduced self and role.Confirmed information on face sheet is correct. Discussed discharge planning. Patient lives with her spouse and has no DME or transportation needs. Consult for CM states Rx assistance, the patient has a employer sponsored commercial insurance with her 's employer, it would be eligible for copay card assist if needed and offered by [employer]. I did not see any recommendations for expensive meds listed yet but family is interested in meds to beds pharmacy when they DC and happy to assist for copay amounts if needed. Will continue to follow. No therapy ordered. Assessment and Background Information: Living Arrangements: Spouse/significant other Caregiver Identified: Yes Caregiver's Name: [employer]: Spouse/significant other, Children Assistance Needed: no Type of Residence: Private residence Prior to Admission Home Care Services: No Patient expects to be discharged to:: home Does the patient need discharge transport arranged?: No Current Home Equipment: Tub/Shower chair Holistic Assessment Medication adherence problem:: No History of falls in last 6 months:: No Family aware of the patient's advance care planning wishes:: Yes Do you have any cultural/spiritual connections or beliefs that would impact how we deliver your care?: No Chronic pain:: No [id number] Progress note* Quick Note - Alyssa Braga RN - 03/11/2024 8:27 PM EST 1937- pt complains of back pain. This RN provided tylenol per orders. 2019- pt called out stating the tylenol is not helping and she is feeling nauseous. Zofran given per order. Heat pack applied to back. 2022- Lul Good MD paged. Pt states the tylenol is not helping pain and would like something to sleep. 2027- Lul Good MD returned page. Verbal orders obtained. See JUN. 250- pt and daughter requesting ativan to help pt rest. Pt having on going pain, not wanting to take [place] and nausea, zofran given per JUN. paged. Waiting for return call. 254- updated the pt and daughter on page to . Pt daughter rubbing pts back with relief verbalized by pt. Again offered [place] to pt and educated on the reason for medication. Pt refused. Continues to request ativan. [id number] Plan of care note* Plan of Care - Alyssa Braga RN - 03/11/2024 7:30 PM EST Problem: Pain Goal: Reduced pain sensation Outcome: Partially Met Goal: Control of acute pain to acceptable level Outcome: Partially Met Goal: Able to cope with pain Outcome: Partially Met Goal: Able to achieve maximum level of physical functioning Outcome: Partially Met Goal: Able to achieve maximum level of psychosocial functioning Outcome: Partially Met Problem: Actual or potential alteration in health Goal: Absence of healthcare acquired conditions Outcome: Partially Met Goal: Knowledge of Interdisciplinary Plan of Care Outcome: Partially Met Goal: Knowledge of Enviroment Outcome: Partially Met Plan of care on going. [id number] NoteInterventional Cardiology Follow-up Shantelle Good MD Heart & Vascular [facility] [address] [place] [address] Patient: Helen Rodriges Date of : 1950 (73 y.o.) PCP: No, Physician Assessment/Plan: Other hyperlipidemia Assessment & Plan - at 03/11/2024 9:26 AM Severely elevated lipid profile noted. APO B level as well as LP(a) levels are pending at this time but we will follow-up on this. She is conceptually resistant to starting a statin but plan is to see how she does with that and switch to a nonstatin option if she cannot tolerate this. She generally tends to be quite apprehensive about medications. --Lipitor 80 mg daily --Target LDL lowering is 50 or below. May need combination therapy to achieve this depending on her response and tolerance ST elevation myocardial infarction involving left anterior descending (LAD) coronary artery (HCC) Assessment & Plan - at 03/11/2024 9:25 AM Status post emergent cardiac catheterization for STEMI and found to have an occluded LAD. This underwent percutaneous intervention with stent placement in a long segment of this vessel which was diffusely diseased. PCI was complicated by 1 episode of VF which quickly responded to defibrillation. IV amiodarone used during the case but stopped because this seemed to induce nausea very easily. She has disease in the circumflex marginal and also the mid right coronary artery. --Initiate cardiac rehab for recovery --Start on DAPT, high-dose statin, guideline directed medical therapy --Echocardiogram to assess LV function Other medical conditions pertinent to this patient but are not being directly managed by Cardiology service include: HTN and HLD stemi Subjective: Ms. Rodriges is a 73 y.o. female still little bit nauseous but generally much better. We discussed in detail her coronary disease and also strategies to minimize recurrent events. Objective: Vital signs in last 24 hours: Temp: [96.9 degrees F (36.1 degrees C)-98.1 degrees F (36.7 degrees C)] 96.9 degrees F (36.1 degrees C) Heart Rate: [58-77] 75 Resp: [13-21] 14 BP: (98-150)/(61-103) 118/81 Intake/Output last 3 shifts: I/O last 3 completed shifts: In: 120 [P.O.:120] Out: - Intake/Output this shift: No intake/output data recorded. Review of Systems: All systems were reviewed and otherwise negative except for that noted above. Physical Exam: BP 118/81 Pulse 75 Temp 96.9 degrees F (36.1 degrees C) (Oral) Resp 14 Ht 5' 3 Wt 56.2 kg (124 lb) SpO2 94% BMI 21.97 kg/m General: No signs of acute distress, Afebrile, and Cooperative Cardio: Regular rate and rhythm, Normal S1/S2, and No murmur appreciated Lungs: Clear to auscultation in all lung olivarez bilaterally and No rales, rhonchi, or wheezing Extremities: No signs of rubor, cyanosis., Warm, dry extremities, and Good radial pulses bilaterally Neuro: Alert and oriented to time, place, person and Normal mood Telemetry independently reviewed and the following noted No events noted. Although she had reperfusion arrhythmia such as AIVR and a brief episode of VT before. Imaging: Reviewed independently and noted above. Lab Review Results from last 7 days Lab Units 03/11/24 0341 03/10/24 1230 TROPONIN T ng/L 4,042* 28* Results from last 7 days Lab Units 03/11/24 0341 SODIUM mmol/L 140 POTASSIUM mmol/L 3.9 CHLORIDE mmol/L 108 BUN mg/dL 18 CREATININE mg/dL 0.86 GLUCOSE mg/dL 119* CALCIUM mg/dL 8.4 Results from last 7 days Lab Units 03/11/24 0341 NT PRO BNP pg/mL 3,020* Results from last 7 days Lab Units 03/11/24 0341 WBC K/mcL 9.11 HGB g/dL 12.4 HCT % 37.6 PLT K/mcL 214 AUTHENTICATED BY SHANTELLE GOOD, ON 03/11/2024 09:27:58[facility]11-09-2024 History and physical note* Shantelle Good MD - 03/10/2024 3:51 PM EST Interventional Cardiology H&P Shantelle Good MD Heart & Vascular [facility] [address] [place] [address] Patient: Helen Rodriges Date of : 1950 (73 y.o.) PCP: No primary care provider on file. Assessment and Plan: ST elevation myocardial infarction involving left anterior descending (LAD) coronary artery (HCC) Assessment & Plan - at 03/10/2024 3:51 PM No prior history of any apparent coronary artery disease although she does have risk factors including a very significant family history. She however has personal healthy habits and has been very active. She however has been experiencing symptoms of chest discomfort and effort intolerance over the past several months. She presents today with acute onset of chest discomfort and was noted to have ST segment elevation in the lateral leads with reciprocal changes in the inferior leads. Emergent cardiac catheterization showed occlusion of the proximal LAD. The other vessels also had significant stenosis most notably in an obtuse marginal and the mid right coronary artery. Left ventricular end-diastolic pressures were mildly elevated and she had a large area of hypokinesis in the anterior lateral distribution. We proceeded to percutaneous intervention with balloon angioplasty andIVUS guided stenting. She had a single episode of VF which required defibrillating at the beginningof the case. She was given an IV bolus of amiodarone; she was also given IV Aggrastat in addition to IV heparin. --Initiate cardiac rehab for recovery --Start on DAPT, high-dose statin, guideline directed medical therapy --Echocardiogram to assess LV function Admitted with these risk variables:Cardiac Arrest, Cardiac Arrhythmia, and STEMI. Please see assessment and plan for further details. Chief Complaint/Reason for Visit: ST Elevation Myocardial Infarction (STEMI) History of Present Illness: Helen Rodriges is a 73 y.o. female is otherwise previously healthy who presented with acute onset of chest discomfort and was found to have ST segment elevation with reciprocal changes. Findings wereconsistent with an anterolateral infarct. 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 She does not smoke cigarettes, appears to have a healthy lifestyle and diet. There are several family members that have coronary artery disease and have had myocardial infarction. History: No past medical history on file. No past surgical history on file. No family history on file. Social History Tobacco Use Smoking status: Never Vaping Use Vaping status: Never Used Substance and Sexual Activity Alcohol use: Not Currently Drug use: Never Allergy Information: I have reviewed the patient's allergies. Patient has no known allergies. Home Medications: No current outpatient medications on file as of 03/10/2024. Review of Systems: Pertinent ROS listed in the HPI. Physical Examination: Vital Signs: BP 130/81 Pulse 61 Resp (!) 19 Ht 5' 3 Wt 56.2 kg (124 lb) SpO2 96% BMI 21.97 kg/m General: No signs of acute distress, Afebrile, and Cooperative Cardio: Regular rate and rhythm, Normal S1/S2, and No murmur appreciated Lungs: Clear to auscultation in all lung olivarez bilaterally and No rales, rhonchi, or wheezing Extremities: No signs of rubor, cyanosis., Warm, dry extremities, and Good radial pulses bilaterally Neuro: Alert and oriented to time, place, person and Normal mood Intake/Output last 3 shifts: No intake/output data recorded. Laboratory and Additional Data Reviewed: Results from last 7 days Lab Units 03/10/24 1230 TROPONIN T ng/L 28* Results from last 7 days Lab Units 03/10/24 1230 SODIUM mmol/L 143 POTASSIUM mmol/L 3.4* CHLORIDE mmol/L 104 BUN mg/dL 22 CREATININE mg/dL 0.89 GLUCOSE mg/dL 136* CALCIUM mg/dL 9.2 Results from last 7 days Lab Units 03/10/24 1230 WBC K/mcL 8.11 HGB g/dL 12.4 HCT % 36.8 PLT K/mcL 279 INR 1.0 Cardiac Studies: I Independently reviewed and noted above. Telemetry independently reviewed and the following noted: No events noted. [id number] Evaluation + Plan note* Assessment & Plan Note - Italo Segovia PA-C - 03/10/2024 3:51 PM ESTAssociated Problem(s): ST elevation myocardial infarction involving left anterior descending (LAD) coronary artery (HCC) -- Status post emergent cardiac catheterization for STEMI and found to have an occluded LAD. This underwent percutaneous intervention with stent placement in a long segment of this vessel which was diffusely diseased. PCI was complicated by 1 episode of VF which quickly responded to defibrillation.IV amiodarone used during the case but stopped because this seemed to induce nausea very easily. She has disease in the circumflex marginal and also the mid right coronary artery. -- Will plan for PCI to Lcx and RCA at a later date. Discussing with Dr. Good and family today. Pt and family relate that they may want to follow up with our group at the [facility] office. --Recommend Cardiac Rehab --Continue DAPT (aspirin and Brilinta), high-dose statin, aldactone, imdur, losartan, Toprol. -- Pt and family had a long discussion with Dr. Georges and myself yesterday. He showed them the patient's coronary angiogram films, as well as discussed the importance of medication compliance in addition to diet and exercise to reduce risk factors. [id number] History and physical note* Shantelle Good MD - 03/10/2024 3:51 PM EST Interventional Cardiology H&P Shantelle Good MD Heart & Vascular [facility] [address] [place] [address] Patient: Helen Rodriges Date of : 1950 (73 y.o.) PCP: No primary care provider on file. Assessment and Plan: ST elevation myocardial infarction involving left anterior descending (LAD) coronary artery (HCC) Assessment & Plan - at 03/10/2024 3:51 PM No prior history of any apparent coronary artery disease although she does have risk factors including a very significant family history. She however has personal healthy habits and has been very active. She however has been experiencing symptoms of chest discomfort and effort intolerance over the past several months. She presents today with acute onset of chest discomfort and was noted to have ST segment elevation in the lateral leads with reciprocal changes in the inferior leads. Emergent cardiac catheterization showed occlusion of the proximal LAD. The other vessels also had significant stenosis most notably in an obtuse marginal and the mid right coronary artery. Left ventricular end-diastolic pressures were mildly elevated and she had a large area of hypokinesis in the anterior lateral distribution. We proceeded to percutaneous intervention with balloon angioplasty andIVUS guided stenting. She had a single episode of VF which required defibrillating at the beginningof the case. She was given an IV bolus of amiodarone; she was also given IV Aggrastat in addition to IV heparin. --Initiate cardiac rehab for recovery --Start on DAPT, high-dose statin, guideline directed medical therapy --Echocardiogram to assess LV function Admitted with these risk variables:Cardiac Arrest, Cardiac Arrhythmia, and STEMI. Please see assessment and plan for further details. Chief Complaint/Reason for Visit: ST Elevation Myocardial Infarction (STEMI) History of Present Illness: Helen Rodriges is a 73 y.o. female is otherwise previously healthy who presented with acute onset of chest discomfort and was found to have ST segment elevation with reciprocal changes. Findings wereconsistent with an anterolateral infarct. 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 She does not smoke cigarettes, appears to have a healthy lifestyle and diet. There are several family members that have coronary artery disease and have had myocardial infarction. History: No past medical history on file. No past surgical history on file. No family history on file. Social History Tobacco Use Smoking status: Never Vaping Use Vaping status: Never Used Substance and Sexual Activity Alcohol use: Not Currently Drug use: Never Allergy Information: I have reviewed the patient's allergies. Patient has no known allergies. Home Medications: No current outpatient medications on file as of 03/10/2024. Review of Systems: Pertinent ROS listed in the HPI. Physical Examination: Vital Signs: BP 130/81 Pulse 61 Resp (!) 19 Ht 5' 3 Wt 56.2 kg (124 lb) SpO2 96% BMI 21.97 kg/m General: No signs of acute distress, Afebrile, and Cooperative Cardio: Regular rate and rhythm, Normal S1/S2, and No murmur appreciated Lungs: Clear to auscultation in all lung olivarez bilaterally and No rales, rhonchi, or wheezing Extremities: No signs of rubor, cyanosis., Warm, dry extremities, and Good radial pulses bilaterally Neuro: Alert and oriented to time, place, person and Normal mood Intake/Output last 3 shifts: No intake/output data recorded. Laboratory and Additional Data Reviewed: Results from last 7 days Lab Units 03/10/24 1230 TROPONIN T ng/L 28* Results from last 7 days Lab Units 03/10/24 1230 SODIUM mmol/L 143 POTASSIUM mmol/L 3.4* CHLORIDE mmol/L 104 BUN mg/dL 22 CREATININE mg/dL 0.89 GLUCOSE mg/dL 136* CALCIUM mg/dL 9.2 Results from last 7 days Lab Units 03/10/24 1230 WBC K/mcL 8.11 HGB g/dL 12.4 HCT % 36.8 PLT K/mcL 279 INR 1.0 Cardiac Studies: I Independently reviewed and noted above. Telemetry independently reviewed and the following noted: No events noted. documented in this [id number] Emergency department Note* Ilda Leahy RN - 03/10/2024 12:45 PM EST Pt states pain is unbearable, requests pain medicine. aware of same, verbal order with readbackfor pain medicine received. [id number] Emergency department Note* Ilda Leahy RN - 03/10/2024 12:45 PM EST Pt states pain is unbearable, requests pain medicine. aware of same, verbal order with readbackfor pain medicine received. * Ilda Leahy RN - 03/10/2024 12:33 PM EST Patient placed on Zoll pads * Regina Myles MD - 03/10/2024 12:27 PM ESTAssociated Order(s): ECG 12 Lead HPI/ROS I saw and evaluated the patient. I have reviewed the chief complaint, triage note, past medical/surgical, family, and social history. The patient is a 73 y.o. female with a PMH of HTN presenting to the ED with a chief complaint of chest pain. She reports symptom onset 30 minutes prior to presentation. EKG for EMS concerning for a STEMI. Patient received loading dose ASA and 2 doses of nitroglycerin with some improvement of her pain. She denies any previous history of heart disease. She denies any HLD, DM, or smoking. Medical Decision Making 73-year-old female with a PMH of HTN presenting to the ED with a chief complaint of chest pain. EMSEKG concerning for STEMI. Received loading dose of ASA and [address] with [address] depressions in the inferior and lateral leads. ST elevations noted in aVL and V2. Patient paged as a STEMIalert. Spoke with Dr. Good. Recommended heparin load. Patient taken to [facility]. 1. ST elevation myocardial infarction involving left anterior descending (LAD) coronary artery (HCC) Disposition: [facility] Data MDM Data : Chronic conditions is/is not having mild/moderate/severe exacerbation, progression or side effects of treatment, Shared decision making utilized by explaining the results and plan of care for disposition and next steps of care with the patient and/or family, Treatment Goals were addressed, Drug management discussed, Historians other than the patient, Admit or Transfer Decisions considered, Discussed with consultants/staff, and Social Determinants of Health Impacted Treatment/Disposition Physical Exam Vital signs reviewed. Physical Exam Vitals and nursing note reviewed. Constitutional: Appearance: Normal appearance. HENT: Head: Normocephalic and atraumatic. Mouth/Throat: Mouth: Mucous membranes are moist. Eyes: Extraocular Movements: Extraocular movements intact. Cardiovascular: Rate and Rhythm: Normal rate and regular rhythm. Pulmonary: Effort: Pulmonary effort is normal. Breath sounds: Normal breath sounds. No wheezing. Abdominal: General: There is no distension. Palpations: Abdomen is soft. Tenderness: There is no abdominal tenderness. Skin: General: Skin is warm. Neurological: General: No focal deficit present. Mental Status: She is alert. Motor: No weakness. Labs Laboratory results have been reviewed by me. Labs Reviewed BASIC METABOLIC PANEL - Abnormal; Notable for the following components: Result Value Potassium 3.4 (*) Glucose 136 (*) eGFR 50 (*) BUN/Creatinine Ratio 24.7 (*) All other components within normal limits Narrative: [facility] has implemented the eGFR calculation approach that does not have a coefficient for race that conforms to the NKF-ASN Task Force Recommendations. TROPONIN - Abnormal; Notable for the following components: Troponin T 28 (*) All other components within normal limits PT/INR - Normal Narrative: During the induction phase of oral anticoagulation, the INR may not reflect the anticoagulation status of the patient. Therapeutic ranges for INR's are: Most clinical situations: INR 2.0-3.0 Mechanical Prosthetic Valve: INR 2.5-3.5 Critical: INR >5.0 CBC AND DIFFERENTIAL Narrative: The following orders were created for panel order CBC w/ Diff. Procedure Abnormality Status --------- ------ CBC Auto Differential[[id number]] Final result Please view results for these tests on the individual orders. CBC WITH AUTO DIFFERENTIAL Radiographic Imaging (if any) During ED Visit Cardiac Catheterization Final Result ED Medications Medications sodium chloride 0.9% (NS) bolus (1,000 mL Intravenous New Bag 03/10/24 1225) fentaNYL (SUBLIMAZE) injection (50 mcg Intravenous Given 03/10/24 1231) heparin (porcine) injection (5,000 Units Intravenous Given 03/10/24 1234) amiodarone in dextrose,iso-osmotic (NEXTERONE) 360 mg/200 mL (1.8 mg/mL) infusion (1 mg/min Intravenous New Bag 03/10/24 1559) ondansetron (ZOFRAN) injection 4 mg (4 mg Intravenous Given 03/10/24 1257) fentaNYL (SUBLIMAZE) injection 50 mcg (50 mcg Intravenous Given 03/10/24 1253) tirofiban (AGGRASTAT) 5 mg in sodium chloride (NS) 0.9% 100mL infusion (0.15 mcg/kg/min 56.2 kg Intravenous New Bag 03/10/24 1345) ondansetron (ZOFRAN) injection 4 mg (4 mg Intravenous Given 03/10/24 1551) Procedures ECG 12 Lead Date/Time: 03/10/2024 4:21 PM Performed by: Regina Myles MD Authorized by: Regina Myles MD Interpreted by ED attending physician BPM: 60 ST Depression: II, III, aVF, V5, V6, aVL and V2 Clinical impression: abnormal ECG Scoring (If applicable) . Past Medical History Nursing triage notes/past medical, social, and family hx reviewed by me and I agree except where documented above. Past Medical History: Diagnosis Date Hypertension Social Hx Social History Tobacco Use Smoking status: Never Smokeless tobacco: Never Vaping Use Vaping status: Never Used Substance Use Topics Alcohol use: Not Currently Alcohol/week: 2.0 standard drinks of alcohol Types: 2 Glasses of wine per week Drug use: Never Allergies No Known Allergies Home Medications No current outpatient medications on file prior to encounter. (Computer voice recognition was used in this documentation, there is a possibility of [id number] errors inherent to this technology that may be missed during proofreading.) Regina Myles MD 03/10/24 1623 Regina Myles MD 03/10/24 1623 * Apple Hdez - 03/10/2024 12:26 PM EST Pre-hospital stemi alert called at 12:10 Dr. Good cell phone called at 12:12 Faxed repeat EKG at 12:26 * Ilda Leahy RN - 03/10/2024 12:18 PM EST Pt to ED as prehospital STEMI alert per EMS. Burning CP radiating to back and shoulders started about 30 min ago. 324 aspirin 2 nitroglycerin given by EMS NEW MEDIA STRATEGIST. No cardiac history per pt. * Ilda Leahy RN - 03/10/2024 12:18 PM EST Pt arrives to room at this time * Apple Hdez - 03/10/2024 12:15 PM EST Pre-hospital stemi alert called at 12:10 [place] [facility] 22 * Candi Tidwell RN - 03/10/2024 12:12 PM EST Bed: 46 Expected date: Expected time: Means of arrival: Comments: Medic 22, STEMI, Pavlatos documented in this [id number] Emergency department Note* Ilda Leahy RN - 03/10/2024 12:33 PM EST Patient placed on Zoll pads [id number] Physician Emergency department Note* Regina Myles MD - 03/10/2024 12:27 PM ESTAssociated Order(s): ECG 12 Lead HPI/ROS I saw and evaluated the patient. I have reviewed the chief complaint, triage note, past medical/surgical, family, and social history. The patient is a 73 y.o. female with a PMH of HTN presenting to the ED with a chief complaint of chest pain. She reports symptom onset 30 minutes prior to presentation. EKG for EMS concerning for a STEMI. Patient received loading dose ASA and 2 doses of nitroglycerin with some improvement of her pain. She denies any previous history of heart disease. She denies any HLD, DM, or smoking. Medical Decision Making 73-year-old female with a PMH of HTN presenting to the ED with a chief complaint of chest pain. EMSEKG concerning for STEMI. Received loading dose of ASA and 2 nitroglycerin. EKG here with ST depressions in the inferior and lateral leads. ST elevations noted in aVL and V2. Patient paged as a STEMIalert. Spoke with Dr. Good. Recommended heparin load. Patient taken to Machine [facility]. 1. ST elevation myocardial infarction involving left anterior descending (LAD) coronary artery (HCC) Disposition: MDM Data MDM Data : Chronic conditions is/is not having mild/moderate/severe exacerbation, progression or side effects of treatment, Shared decision making utilized by explaining the results and plan of care for disposition and next steps of care with the patient and/or family, Treatment Goals were addressed, Drug management discussed, Historians other than the patient, Admit or Transfer Decisions considered, Discussed with consultants/staff, and Social Determinants of Health Impacted Treatment/Disposition Physical Exam Vital signs reviewed. Physical Exam Vitals and nursing note reviewed. Constitutional: Appearance: Normal appearance. HENT: Head: Normocephalic and atraumatic. Mouth/Throat: Mouth: Mucous membranes are moist. Eyes: Extraocular Movements: Extraocular movements intact. Cardiovascular: Rate and Rhythm: Normal rate and regular rhythm. Pulmonary: Effort: Pulmonary effort is normal. Breath sounds: Normal breath sounds. No wheezing. Abdominal: General: There is no distension. Palpations: Abdomen is soft. Tenderness: There is no abdominal tenderness. Skin: General: Skin is warm. Neurological: General: No focal deficit present. Mental Status: She is alert. Motor: No weakness. Labs Laboratory results have been reviewed by me. Labs Reviewed BASIC METABOLIC PANEL - Abnormal; Notable for the following components: Result Value Potassium 3.4 (*) Glucose 136 (*) eGFR 50 (*) BUN/Creatinine Ratio 24.7 (*) All other components within normal limits Narrative: [facility] has implemented the eGFR calculation approach that does not have a coefficient for race that conforms to the NKF-ASN Task Force Recommendations. TROPONIN - Abnormal; Notable for the following components: Troponin T 28 (*) All other components within normal limits PT/INR - Normal Narrative: During the induction phase of oral anticoagulation, the INR may not reflect the anticoagulation status of the patient. Therapeutic ranges for INR's are: Most clinical situations: INR 2.0-3.0 Mechanical Prosthetic Valve: INR 2.5-3.5 Critical: INR >5.0 CBC AND DIFFERENTIAL Narrative: The following orders were created for panel order CBC w/ Diff. Procedure Abnormality Status --------- ------ CBC Auto Differential[[id number]] Final result Please view results for these tests on the individual orders. CBC WITH AUTO DIFFERENTIAL Radiographic Imaging (if any) During ED Visit Cardiac Catheterization Final Result ED Medications Medications sodium chloride 0.9% (NS) bolus (1,000 mL Intravenous New Bag 03/10/24 1225) fentaNYL (SUBLIMAZE) injection (50 mcg Intravenous Given 03/10/24 1231) heparin (porcine) injection (5,000 Units Intravenous Given 03/10/24 1234) amiodarone in dextrose,iso-osmotic (NEXTERONE) 360 mg/200 mL (1.8 mg/mL) infusion (1 mg/min Intravenous New Bag 03/10/24 1559) ondansetron (ZOFRAN) injection 4 mg (4 mg Intravenous Given 03/10/24 1257) fentaNYL (SUBLIMAZE) injection 50 mcg (50 mcg Intravenous Given 03/10/24 1253) tirofiban (AGGRASTAT) 5 mg in sodium chloride (NS) 0.9% 100mL infusion (0.15 mcg/kg/min 56.2 kg Intravenous New Bag 03/10/24 1345) ondansetron (ZOFRAN) injection 4 mg (4 mg Intravenous Given 03/10/24 1551) Procedures ECG 12 Lead Date/Time: 03/10/2024 4:21 PM Performed by: Regina Myles MD Authorized by: Regina Myles MD Interpreted by ED attending physician BPM: 60 ST Depression: II, III, aVF, V5, V6, aVL and V2 Clinical impression: abnormal ECG Scoring (If applicable) . Past Medical History Nursing triage notes/past medical, social, and family hx reviewed by me and I agree except where documented above. Past Medical History: Diagnosis Date Hypertension Social Hx Social History Tobacco Use Smoking status: Never Smokeless tobacco: Never Vaping Use Vaping status: Never Used Substance Use Topics Alcohol use: Not Currently Alcohol/week: 2.0 standard drinks of alcohol Types: 2 Glasses of wine per week Drug use: Never Allergies No Known Allergies Home Medications No current outpatient medications on file prior to encounter. (Computer voice recognition was used in this documentation, there is a possibility of [id number] errors inherent to this technology that may be missed during proofreading.) Regina Myles MD 03/10/24 2959 Regina Myles MD 03/10/24 1623 [id number] Emergency department Note* Apple Hdez - 03/10/2024 12:26 PM EST Pre-hospital stemi alert called at 12:10 Dr. Good cell phone called at 12:12 Faxed repeat EKG at 12:[id number] Emergency department Note* Ilda Leahy RN - 03/10/2024 12:18 PM EST Pt to ED as prehospital STEMI alert per EMS. Burning CP radiating to back and shoulders started about 30 min ago. 324 aspirin 2 nitroglycerin given by EMS NEW MEDIA STRATEGIST. No cardiac history per pt. [id number] Emergency department Note* Ilda Leahy, JANESSA - 03/10/2024 12:18 PM EST Pt arrives to room at this time [id number] Emergency department Note* Apple Hdez - 03/10/2024 12:15 PM EST Pre-hospital stemi alert called at 12:10 [place] [facility] 22 [id number] Emergency department Note* Candi Tidwell RN - 03/10/2024 12:12 PM EST Bed: 46 Expected date: Expected time: Means of arrival: Comments: Medic 22, STEMI, Pavlatos [id number] NoteHNO ID: [id number] Author: Leta Yates MD Service: ? Author Type: Physician Type: Progress Notes Filed: 03/15/2022 5:23 PM Note Text: Reviewed Epic, chart, labs, imaging studies. Diplopia due divergence insufficiency She has a commitent 6-8 diopter Esotropia. She has too much prism in her current PAL No fatigable ptosis or motility Gave new glasses Rx Discussed PAL vs bifocal. 2. Nuclear sclerotic cataract c/w vision Not visually significant in both eyes I have confirmed and edited as necessary the relevant ophthalmic history, ROS, and the neuro exam findings as obtained by others. I have seen and examined Helen Rodriges. I have discussed the case and the management of this patient's care with the Resident/Fellow, if applicable. I also have reviewed and agree with the assessment and plan as stated above and agree with all of its relevant components.The nature of the patient's eye disease, its relationship to systemic health, and its prognosis have been explained to the patient/family. The treatment options/risks/benefits have been discussed. Questions answered. Leta Yates, [facility]11-14-2022 History of Present illness Narrative* Leta Yates MD - 03/15/2022 2:51 PM EST Reviewed Epic, chart, labs, imaging studies. Diplopia due divergence insufficiency She has a commitent 6-8 diopter Esotropia. She has too much prism in her current PAL No fatigable ptosis or motility Gave new glasses Rx Discussed PAL vs bifocal. 2. Nuclear sclerotic cataract c/w vision Not visually significant in both eyes I have confirmed and edited as necessary the relevant ophthalmic history, ROS, and the neuro exam findings as obtained by others. I have seen and examined Helen Rodriges. I have discussed the case and the management of this patient's care with the Resident/Fellow, if applicable. I also have reviewed and agree with the assessment and plan as stated above and agree withall of its relevant components.The nature of the patient's eye disease, its relationship to systemic health, and its prognosis have been explained to the patient/family. The treatment options/risks/benefits have been discussed. Questions answered. 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 documented in this encounter [facility] note* Diagnosis STEMI involving left anterior descending coronary artery (HCC)- Primary ST elevation myocardial infarction involving left anterior descending (LAD) coronary artery (HCC) STEMI (ST elevation myocardial infarction) (HCC) Acute myocardial infarction, unspecified site, episode of care unspecified Familial hypercholesterolemia STEMI involving left anterior descending coronary artery (HCC) ST elevation myocardial infarction involving left anterior descending (LAD) coronary artery (HCC) Other hyperlipidemia Familial hypercholesterolemia Anxiety Anxiety state, unspecified documented in this encounter [facility] note* Diagnosis STEMI involving left anterior descending coronary artery (HCC)- Primary ST elevation myocardial infarction involving left anterior descending (LAD) coronary artery (HCC) STEMI (ST elevation myocardial infarction) (HCC) Acute myocardial infarction, unspecified site, episode of care unspecified Familial hypercholesterolemia STEMI involving left anterior descending coronary artery (HCC) Familial hypercholesterolemia Anxiety Anxiety state, unspecified Coronary artery disease involving [place] coronary artery of [place] heart without angina pectoris- Primary Primary hypertension Unspecified essential hypertension STEMI involving left anterior descending coronary artery (HCC) Familial hypercholesterolemia Ischemic cardiomyopathy Other specified forms of chronic ischemic heart disease [facility] [place] [facility]* Diagnosis STEMI involving left anterior descending coronary artery (HCC)- Primary ST elevation myocardial infarction involving left anterior descending (LAD) coronary artery (HCC) STEMI (ST elevation myocardial infarction) (HCC) Acute myocardial infarction, unspecified site, episode of care unspecified Familial hypercholesterolemia STEMI involving left anterior descending coronary artery (HCC) Familial hypercholesterolemia Anxiety Anxiety state, unspecified Coronary artery disease involving [place] coronary artery of [place] heart without angina pectoris- Primary Primary hypertension Unspecified essential hypertension STEMI involving left anterior descending coronary artery (HCC) Familial hypercholesterolemia Ischemic cardiomyopathy Other specified forms of chronic ischemic heart disease Coronary artery disease involving [place] coronary artery of [place] heart without angina pectoris- Primary [facility] Diagnosis STEMI involving left anterior descending coronary artery (HCC)- Primary ST elevation myocardial infarction involving left anterior descending (LAD) coronary artery (HCC) STEMI (ST elevation myocardial infarction) (HCC) Acute myocardial infarction, unspecified site, episode of care unspecified Familial hypercholesterolemia STEMI involving left anterior descending coronary artery (HCC) Familial hypercholesterolemia Anxiety Anxiety state, unspecified Coronary artery disease involving green[place] coronary artery of green[place] heart without angina pectoris- Primary Primary hypertension Unspecified essential hypertension STEMI involving left anterior descending coronary artery (HCC) Familial hypercholesterolemia Ischemic cardiomyopathy Other specified forms of chronic ischemic heart disease Familial hypercholesterolemia- Primary Coronary artery disease involving [place] coronary artery of [place] heart without angina pectoris Primary hypertension Unspecified essential hypertension Ischemic cardiomyopathy Other specified forms of chronic ischemic heart disease documented in this encounter [facility] Discharge instructions* Attachments The following attachments cannot be sent through Care Everywhere. * Heart Attack: Medicine for Secondary Prevention ([place]) * Statins ([place]) * Hyperlipidemia: General Info ([place]) * Heart Attack: Myocardial Infarction or Acute Coronary Syndrome ([place]) * CAD (Coronary Artery Disease): General Info ([place]) documented in this encounterOhioHealthReason for referral (narrative)No reason for referral information availableWOhioHealth [facility] Work Phone: Chief Complaint and Reason for Visit Chief Complaint SCREENING Chief Complaint Asymptomatic [facility] Chief Complaint Admit Date abd pain March 19, 2024 12:39am NH at [facility] (Self) April 05, 2024 1 1:31am Gas and Pressure April 05, 2024 2 :52pm PCI with stenting April 18, 2024 8:02am PCI with stent April 20, 2024 2:26pm CHEST PAIN April 20, 2024 5:45pm CHEST PAIN April 21, 2024 2:01pm PCI with stent June 01, 2024 1 :00pm PCI with stent June 22, 2024 1:00pm EORDER July 02, 2024 3:57 pm PCI with stent July 11, 2024 1:0 0pm Reason for Visit Admit Date Abdominal pain April 05, 2024 1 1:31am History of acute myocardial infarction o f anterior wall April 05, 2024 11:31am Dyslipidemia April 05, 2024 1 1:31am Hypertension April 05, 2024 1 1:31am Ischemic cardiomyopathy April 05 11:31am Left ventricular systolic dy sfunction (LVSD) without heart failure April 05, 2024 11:31am Presence of stent in coronary artery Dec emb2023 11:31am Coronary artery disease April 05 11:31am Constipation April 05, 2024 2 :52pm Epigastric pain April 05, 2024 2 :52pm Chest pain April 20, 2024 5:45pm CAD (coronary artery disease) April 022023 5:45pm Hypertension April 20, 2024 5:45pm Chief Complaint Admit Date NH at [facility] (Self) April 05, 2024 1 1:31am Gas and Pressure April 05, 2024 2 :52pm PCI with stenting April 18, 2024 8:02am PCI with stent April 20, 2024 2:26pm CHEST PAIN April 20, 2024 5:45pm CHEST PAIN April 21, 2024 2:01pm PCI with stent June 01, 2024 1 :00pm PCI with stent June 22, 2024 1:00pm EORDER July 02, 2024 3:57 pm PCI with stent July 30, 2024 1:0 0pm Chief Complaint Admit Date PCI with stent June 01, 2024 1 :00pm PCI with stent June 22, 2024 1:00pm EORDER July 02, 2024 3:57 pm PCI with stent July 30, 2024 1:0 0pm LUMBAR SPINE August 10, 2024 11: 04am Room 5 August 10, 2024 11: 28am PCI with stent August 29, 2024 1:0 0pm PCI with stent August 31, 2024 8:21am Reason for Visit Admit Date Degenerative disc disease, cervical Apri l 2024 11:04am Degenerative disc disease, lumbar August 10, 2024 11:04am Chief Complaint Admit Date PCI with stent June 22, 2024 1:00pm EORDER July 02, 2024 3:57 pm PCI with stent July 30, 2024 1:0 0pm LUMBAR SPINE August 10, 2024 11: 04am Room 5 August 10, 2024 11: 28am PCI with stent August 29, 2024 1:0 0pm PCI with stent August 31, 2024 8:21am Family History Relationship Condition Age at Onset Recorded Date/T michael mother Cardiac disease Unknown Hypertension Unknown father Malignant neoplasm of lung Unknown brother Malignant melanoma Unknown daughter Disorder of thyroid Unknown Relationship Condition Age at Onset Recorded Date/T michael mother Cardiac disease Unknown Hypertension Unknown Coronary artery disease Unknown father Malignant neoplasm of lung Unknown brother Malignant melanoma Unknown daughter Disorder of thyroid Unknown Advance Directives Advance Directive Response Recorded Date/ Time Living Will No May 21 3:14pm Power of Public Health Aide No May 21, 2019 3:14pm Advance Directive Response Recorded Date/ Time Living Will No May 21 2:14pm Power of Public Health Aide No May 21, 2019 2:14pm Advance Directive Response Recorded Date/ Time Living Will Yes December 14 5:37am Power of Public Health Aide Yes December 14 5:37am Documents on File Type Date Recorded Patient Energy Projects Lead Expl anation Advance Directives and Livin g Will 03/10/2024 6:29 PM Date Activated Date Inactivated Comments 03/10/2024 4:23 PM 03/13/2024 3:09 PM Documents on File Type Date Recorded Patient Energy Projects Lead Expl anation Advance Directives and Livin g Will 03/10/2024 6:29 PM Date Activated Date Inactivated Comments 03/10/2024 4:23 PM 03/13/2024 3:09 PM Advance Directive Response Recorded Date/ Time Living Will Yes March 19 1:39am Power of Public Health Aide Yes March 19, 2024 1:39am Name of Medical Power of Public Health Aide Tank March 19, 2024 1:39am Advance Directives on File Yes Decem 2023 9:28am Living Will Yes April 18 9:28am Power of Public Health Aide Yes April 18, 2024 9:28am Living Will No April 20 8:48pm Power of Public Health Aide No April 20, 2024 8:48pm Advance Directive Response Recorded Date/ Time Advance Directives on File Yes Dece2023 9:28am Living Will Yes April 18 9:28am Do you have a Healthcare Power of Public Health Aide? Yes April 18, 2024 9:28am Living Will No Matthew 20th, 2 024 8:48pm Do you have a Healthcare Power of Public Health Aide? No April 20, 2024 8:48pm Summary Purpose Additional Source Comments Goals (unrecognized section and content) Goals may be documented in a n alternate sectionGoals may be documented in an alternate sectionGoals may be documented in an alternate sectionGoals may be documented in an alternate sectionGoals may be documented in an alternate section Source Comments (unrecognize d section and content) In the event this informatio n is protected by the Federal Confidentiality of Alcohol and Drug Abuse Patient Records regulations: The Federal rules restrict any use of the information to criminally investigate or prosecute any alcohol or drug abuse patient.[facility] Reason for Visit (unrecogniz ed section and content) Reason Comments Diplopia Reason Comments STEMI Alert Specialty Diagnoses / Procedures Referred By Contac t Referred To Contact Diagnoses STEMI involving left anterior descending coronary artery (HCC) Referral ID Status Reason Start Date Expiration Date Visits Re quested Visits Authorized [id number] 1 Reason Onset Date Comments Medication Refill 03/15/2024 Reason Comments Follow-up Hospital follow up, s/p stent x2 Last lipids 03/11/24, without medication list/bottles Reason Onset Date Comments Medication Refill 04/04/2024 Reason Onset Date Comments Medication Refill 05/01/2024 Reason Onset Date Comments Medication Refill 05/03/2024 Reason Onset Date Comments Medication Refill 05/04/2024 Reason Comments Follow-up Follow Up Reason Onset Date Comments Medication Refill 08/15/2024 INFORMATION SOURCE (unrecogn ized section and content) DATE CREATED AUTHOR 03/17/2022 [facility] DATE CREATED AUTHOR AUTHOR'S ORGANIZ ATION 03/17/2024 [facility] DATE CREATED AUTHOR AUTHOR'S ORGANIZ ATION 04/04/2024 [facility] DATE CREATED AUTHOR AUTHOR'S ORGANIZ ATION 07/28/2024 [facility] DATE CREATED AUTHOR AUTHOR'S ORGANIZ ATION 07/31/2024 [facility] DATE CREATED AUTHOR AUTHOR'S ORGANIZ ATION 09/04/2024 [facility] DATE CREATED AUTHOR AUTHOR'S ORGANIZ ATION 09/30/2024 [facility] Care Teams (unrecognized sec tion and content) Team Status: Active Member Role Status Dates Dr. Erin Ordaz MD Family Provider Active Dr. Erin Ordaz MD Primary Care Provider Active Team Status: Inactive Member Role Status Dates Dr. Erin Ordaz MD Primary Care Provide r, Attending Provider, Referring Provider Active Shipwright Apprentice Relationship Specialty Start Date End Date No, Physician [facility] PCP - General 03/10/24 Shipwright Apprentice Relationship Specialty Start Date End Date No, Physician [facility] PCP - General 03/10/24 Shipwright Apprentice Relationship Specialty Start Date End Date Erin Ordaz [address] [place] [address] Primary Care Physician Family Medicine 03/20/24 Shipwright Apprentice Relationship Specialty Start Date End Date Erin Ordaz [address] [place] [address] Primary Care Physician Family Medicine 03/20/24 Shipwright Apprentice Relationship Specialty Start Date End Date Erin Ordaz MD [address] [place] [address] PCP - General Family Medicine 04/04/24 Erin Ordaz [address] [place] [address] Primary Care Physician Family Medicine 03/20/24 Shipwright Apprentice Relationship Specialty Start Date End Date Erin Ordaz MD [address] [place] [address] PCP - General Family Medicine 04/04/24 Erin Ordaz [address] [place] [address] Primary Care Physician Family Medicine 03/20/24 Shipwright Apprentice Relationship Specialty Start Date End Date Erin Ordaz MD [address] [place] [address] PCP - General Family Medicine 04/04/24 Erin Ordaz [address] [place] [address] Primary Care Physician Family Medicine 03/20/24 Shipwright Apprentice Relationship Specialty Start Date End Date Erin Ordaz MD [address] [place] [address] PCP - General Family Medicine 04/04/24 Erin Ordaz [address] [place] [address] Primary Care Physician Family Medicine 03/20/24 Shipwright Apprentice Relationship Specialty Start Date End Date Erin Ordaz MD [address] [place] [address] PCP - General Family Medicine 04/04/24 Erin Ordaz [address] [place] [address] Primary Care Physician Family Medicine 03/20/24 Team Status: Active Member Role Status Dates Dr. Erin Ordaz MD Primary Care Provider Active Team Status: Inactive Member Role Status Dates Dr. Erin Ordaz MD Primary Care Provider Active Start: March 19, 2024 End: March 19, 2024 Dr. Eliazar Jauregui DO Attending Provider Active Start: March 19, 2024 End: March 19, 2024 Dr. Eliazar Jauregui DO Emergency Provider Active Start: March 19, 2024 End: March 19, 2024 Team Status: Inactive Member Role Status Dates Dr. Erin Ordaz MD Primary Care Provider Active Start: March 23, 2024 End: March 23, 2024 Dr. Erin Ordaz MD Attending Provider Active St art: March 23, 2024 End: March 23, 2024 Dr. Erin Ordaz MD Referring Provider Active St art: March 23, 2024 End: March 23, 2024 Team Status: Inactive Member Role Status Dates Dr. Erin Ordaz MD Primary Care Provider Active Start: April 05, 2024 End: April 05, 2024 Dr. Erin Ordaz MD Referring Provider Active St art: April 05, 2024 End: April 05, 2024 Dr. Phyllis Cosby MD Attending Provider Active Start: April 05, 2024 End: April 05, 2024 Team Status: Inactive Member Role Status Dates Dr. Erin Ordaz MD Primary Care Provider Active Start: April 05, 2024 End: April 05, 2024 Dr. Erin Ordaz MD Referring Provider Active St art: April 05, 2024 End: April 05, 2024 KEITH Breen Attending Provider Active Start: April 05, 2024 End: April 05, 2024 Team Status: Active Member Role Status Dates Dr. Erin Ordaz MD Primary Care Provider Active Start: April 09, 2024 Dr. Phyllis Cosby MD Attending Provider Active Start: April 09, 2024 Team Status: Inactive Member Role Status Dates Dr. Erin Ordaz MD Primary Care Provider Active Start: April 18, 2024 End: April 18, 2024 Dr. Phyllis Cosby MD Attending Provider Active Start: April 18, 2024 End: April 18, 2024 Dr. Phyllis Cosby MD Referring Provider Active Start: April 18, 2024 End: April 18, 2024 Team Status: Inactive Member Role Status Dates Dr. Erin Ordaz MD Primary Care Provider Active Start: April 20, 2024 End: May 01, 2024 Dr. Phyllis Cosby MD Attending Provider Active Start: April 20, 2024 End: May 01, 2024 Dr. Phyllis Cosby MD Referring Provider Active Start: April 20, 2024 End: May 01, 2024 Team Status: Inactive Member Role Status Dates Dr. Erin Ordaz MD Primary Care Provider Active Start: April 20, 2024 End: April 21, 2024 Dr. Jarrod Duran DO Emergency Provider Active Start: April 20, 2024 End: April 21, 2024 Dr. Lili Islas MD Admit Provider Active St art: April 20, 2024 End: April 21, 2024 Dr. Lili Islas MD Other Provider Active St art: April 20, 2024 End: April 21, 2024 Dr. Margie Balbuena MD Attending Provider Active Start: April 20, 2024 End: April 21, 2024 Team Status: Active Member Role Status Dates Dr. Erin Ordaz MD Primary Care Provider Active Start: April 21, 2024 Dr. Jarrod Duran DO Emergency Provider Active Start: April 21, 2024 Dr. Lili Islas MD Admit Provider Active St art: April 21, 2024 Dr. Lili Islas MD Other Provider Active St art: April 21, 2024 Dr. Margie Balbuena MD Attending Provider Active Start: April 21, 2024 Dr. Margie Balbuena MD Other Provider Active St art: April 21, 2024 Team Status: Inactive Member Role Status Dates Dr. Erin Ordaz MD Primary Care Provider Active Start: April 27, 2024 End: April 27, 2024 Dr. Erin Ordaz MD Attending Provider Active St art: April 27, 2024 End: April 27, 2024 Dr. Erin Ordaz MD Referring Provider Active St art: April 27, 2024 End: April 27, 2024 Team Status: Inactive Member Role Status Dates Dr. Erin Ordaz MD Primary Care Provider Active Start: April 30, 2024 End: April 30, 2024 Dr. Erin Ordaz MD Attending Provider Active St art: April 30, 2024 End: April 30, 2024 Dr. Erin Ordaz MD Referring Provider Active St art: April 30, 2024 End: April 30, 2024 Team Status: Inactive Member Role Status Dates Dr. Erin Ordaz MD Primary Care Provider Active Start: June 01, 2024 End: June 01, 2024 Dr. Phyllis Cosby MD Attending Provider Active Start: June 01, 2024 End: June 01, 2024 Dr. Phyllis Cosby MD Referring Provider Active Start: June 01, 2024 End: June 01, 2024 Team Status: Inactive Member Role Status Dates Dr. Erin Ordaz MD Primary Care Provider Active Start: June 22, 2024 End: June 29, 2024 Dr. Phyllis Cosby MD Attending Provider Active Start: June 22, 2024 End: June 29, 2024 Dr. Phyllis Cosby MD Referring Provider Active Start: June 22, 2024 End: June 29, 2024 Team Status: Inactive Member Role Status Dates Dr. Erin Ordaz MD Primary Care Provider Active Start: July 02, 2024 End: July 02, 2024 Dr. Erin Ordaz MD Attending Provider Active St art: July 02, 2024 End: July 02, 2024 Dr. Erin Ordaz MD Referring Provider Active St art: July 02, 2024 End: July 02, 2024 Team Status: Active Member Role Status Dates Dr. Erin Ordaz MD Primary Care Provider Active Start: July 11, 2024 Dr. Phyllis Cosby MD Attending Provider Active Start: July 11, 2024 Dr. Phyllis Cosby MD Referring Provider Active Start: July 11, 2024 Shipwright Apprentice Relationship Specialty Start Date End Date Erin Ordaz MD [address] [place] [address] PCP - General Family Medicine 04/04/[address] [place] [address] Primary Care Physician Family Medicine 03/20/24 Team Status: Inactive Member Role Status Dates Dr. Erin Ordaz MD Primary Care Provider Active Start: July 30, 2024 End: July 30, 2024 Dr. Phyllis Cosby MD Attending Provider Active Start: July 30, 2024 End: July 30, 2024 Dr. Phyllis Cosby MD Referring Provider Active Start: July 30, 2024 End: July 30, 2024 Shipwright Apprentice Relationship Specialty Start Date End Date Erin Ordaz MD [address] [place] [address] PCP - General Family Medicine 04/04/24 Erin Ordaz [address] [place] [address] Primary Care Physician Family Medicine 03/20/24 Shipwright Apprentice Relationship Specialty Start Date End Date Erin Ordaz MD [address] [place] [address] PCP - General Family Medicine 04/04/[address] [place], [place] [id number] Primary Care Physician Family Medicine 03/20/24 Team Status: Inactive Member Role Status Dates Dr. Erin Ordaz MD Primary Care Provider Active Start: August 10, 2024 End: August 10, 2024 Dr. Erin Ordaz MD Referring Provider Active St art: August 10, 2024 End: August 10, 2024 JEANETTE Davis Attending Provider Active Star t: August 10, 2024 End: August 10, 2024 Team Status: Inactive Member Role Status Dates Dr. Erin Ordaz MD Primary Care Provider Active Start: August 10, 2024 End: August 10, 2024 Dr. Kunal Benjamin MD Attending Provider Active S tart: August 10, 2024 End: August 10, 2024 Team Status: Inactive Member Role Status Dates Dr. Erin Ordaz MD Primary Care Provider Active Start: August 29, 2024 End: August 29, 2024 Dr. Phyllis Cosby MD Attending Provider Active Start: August 29, 2024 End: August 29, 2024 Dr. Phyllis Cosby MD Referring Provider Active Start: August 29, 2024 End: August 29, 2024 Team Status: Active Member Role Status Dates Dr. Erin Ordaz MD Primary Care Provider Active Start: August 31, 2024 Dr. Phyllis Cosby MD Attending Provider Active Start: August 31, 2024 Dr. Phyllis Cosby MD Referring Provider Active Start: August 31, 2024 Team Status: Inactive Member Role Status Dates Dr. Erin Ordaz MD Primary Care Provider Active Start: September 07, 2024 End: September 07, 2024 Dr. Erin Ordaz MD Attending Provider Active St art: September 07, 2024 End: September 07, 2024 Dr. Erin Ordaz MD Referring Provider Active St art: September 07, 2024 End: September 07, 2024 Team Status: Inactive Member Role Status Dates Dr. Erin Ordaz MD Primary Care Provider Active Start: August 31, 2024 End: September 29, 2024 Dr. Phyllis Cosby MD Attending Provider Active Start: August 31, 2024 End: September 29, 2024 Dr. Phyllis Cosby MD Referring Provider Active Start: August 31, 2024 End: September 29, 2024 Shipwright Apprentice Relationship Specialty Start Date End Date Erin Ordaz MD [address] [place] [address] PCP - General Family Medicine 04/04/24 Erin Ordaz [address] [place] [address] Primary Care Physician Family Medicine 03/20/24 Scheduled Active and Recently Administ ered Medications (unrecognized section and content) Medication Order 03/11/2024 03/12/2024 03/13/2024 aspirin EC tablet 81 mg 81 mg, Oral, Daily, First dose on 03/10/24 at 1800, DO NOT CRUSH OR CHEW. 0817 (Given - Provider: Isaac Smart RN) 0800 (Given - Provider: Lainey Slade, JANESSA) 0836 (Given - Provider: Lonny Garibay, RN) atorvastatin (LIPITOR) tablet 80 mg 80 mg, Oral, Nightly, First dose on 03/11/24 at 2100 2054 (Given - Provider: Alyssa Braga, RN) 2004 (Given - Provider: Meghna Brown, JANESSA) isosorbide mononitrate (IMDUR) 24 hr tablet 30 mg 30 mg, Oral, Daily, First dose on 03/10/24 at 1800, Include a nitrate free period DO NOT CRUSH OR CHEW. 0817 (Given - Provider: Isaac Smart RN) 0800 (Given - Provider: Lainey Slade, RN) 0835 (Given - Provider: Lonny Garibay, JANESSA) losartan (COZAAR) tablet 50 mg 50 mg, Oral, Daily with lunch, First dose on 03/10/24 at 1800, Hold for SBP less than 90. 1124 (Given - Provider: Isaac Smart RN)1200 (Canceled Entry - Provider: Isaac Smart RN) 1200 (Given - Provider: Lainey SladeJANESSA) 1120 (Given - Provider: Lonny Garibay, JANESSA) metoprolol succinate (TOPROL-XL) 24 hr tablet 25 mg 25 mg, Oral, Daily, First dose on 03/10/24 at 1800, Hold for HR less than 50 or SBP less than 90. DO NOT CRUSH OR CHEW. 0817 (Given - Provider: Isaac Smart RN) 0800 (Given - Provider: Lainey Slade, RN) 0835 (Given - Provider: Lonny Garibay, JANESSA) spironolactone (ALDACTONE) tablet 12.5 mg 12.5 mg, Oral, Daily, First dose on 03/10/24 at 1800, CATEGORY C HAZARDOUS DRUG use safe handling precautions. Use reference link to view PPE guidelines. Minimize crushing/splitting only to situations where clinically necessary. 0818 (Given - Provider: Isaac Smart RN) 0800 (Given - Provider: Lainey Slade RN) 0849 (Given - Provider: Lonny Garibay, JANESSA) ticagrelor (BriLINTA) tablet 90 mg 90 mg, Oral, 2 times daily, First dose on 03/10/24 at 2100, Loading dose already given: Check when loading dose was given and schedule 1st dose within 12 hours of loading dose 0818 (Given - Provider: Isaac Smart RN)5 (Given - Provider: Alyssa Braga RN) 0800 (Given - Provider: Lainey Slade, JANESSA)2004 (Given - Provider: Meghna Brown, JANESSA) 1052 (Given - Provider: Lonny Garibay RN - Comment: Pt wanted to talk to doctor before taking the med.) traZODone (DESYREL) tablet 25 mg 25 mg, Oral, Nightly, First dose on 03/11/24 at 9421 9265 (Given - Provider: Alyssa Braga, JANESSA - Comment: pt requested to wait to take.) 2005 (Not Given - Provider: Meghna Brown RN - Reason: Patient/family refused) Continuous Medication Order 03/11/2024 03/12/2024 03/13/2024 tirofiban (AGGRASTAT) 5 mg in sodium chloride (NS) 0.9% 100mL infusion () 0.15 mcg/kg/min 56.2 kg (10.116 mL/hr, rounded to 10.1 mL/hr), Intravenous, Continuous, Starting on 03/10/24 at 1900, For 18 hours, Continue current gtt 0000 (Restarted - Provider: Isaac Smart, RN)0001 (New Bag - Provider: Meghna Brown RN)0349 (Rate/Dose Verify - Provider: Meghna Brown RN)0955 (KVO - Provider: Isaac Smart, RN)1014 (Restarted - Provider: Isaac Smart RN)1113 (KVO - Provider: Isaac Smart RN)1119 (Stopped - Provider: Isaac Smart RN) PRN Medication Order 03/11/2024 03/12/2024 03/13/2024 acetaminophen (TYLENOL) tablet 650 mg 650 mg, Oral, Every 4 hours PRN, mild pain, fever 100.4 F or greater, headaches, Starting on 03/10/24 at 1623 1938 (Given - Provider: Alyssa Braga RN) 0400 (Given - Provider: Alyssa Braga RN)1200 (Given - Provider: Lainey Slade RN) HYDROcodone-acetaminophen (NORCO) 5-325 mg per tablet 1 tablet 1 tablet, Oral, Every 4 hours PRN, moderate to severe pain, Starting on 03/11/24 at 2024 2050 (Not Given - Provider: Alyssa Braga RN - Reason: Patient/family refused - Comment: pt refused medication at this time. states that her pain is improving.) LORazepam (ATIVAN) tablet 0.5 mg 0.5 mg, Oral, Every 8 hours PRN, anxiety, Starting on Tu03/13/24 at 0927 LORazepam (ATIVAN) tablet 1 mg (CANCELED) 1 mg, Oral, Every 8 hours PRN, anxiety, Starting on 03/12/24 at 1024 2005 (Given - Provider: Meghna Brown, JANESSA) naloxone (NARCAN) injection 0.1 mg(Linked Group 1) 0.1 mg, Intravenous, As needed, opioid reversal, For respiratory rate less than or equal to 8 per minute., Starting on 03/11/24 at 2024, Mix nalOXone (NARCAN) 0.4 mg (1mL) with 9 mL of Normal Saline to total 10 mL. Administer 0.1 mg (2.5mL) IV Push every 2 minutes until respiratory rate is 10 or greater. naloxone (NARCAN) injection 0.4 mg(Linked Group 1) 0.4 mg, Intravenous, As needed, opioid reversal, patient is pulseless, breathless, and unresponsive, Starting on 03/11/24 at 2024, Call a code first, then administer naloxone dose undiluted IV Push over 30 seconds. nitroGLYCERIN (NITROSTAT) SL tablet 0.4 mg 0.4 mg, Sublingual, Every 5 min PRN, chest pain, Starting on 03/10/24 at 1623, For chest pain. May give up to 3 doses. Call physician for chest pain unrelieved by Nitroglycerin, or recurrent chest pain. DO NOT CRUSH OR CHEW. ondansetron (ZOFRAN) injection 4 mg 4 mg, Intravenous, Every 6 hours PRN, nausea, vomiting, Starting on 03/10/24 at 1623 0914 (Given - Provider: Isaac Smart, RN)2008 (Given - Provider: Alyssa Braga, JANESSA) 0208 (Given - Provider: Alyssa Braga RN) perflutren lipid microspheres (DEFINITY) 0.143 mg/mL solution 0-10 mL of mixture () 0-10 mL of mixture, Intravenous, Once in imaging, contrast, IF suboptimal echo, Starting on 03/10/24 at 1623, For 48 hours, Prepare syringe by withdrawing 1.3 mL of perflutren (DEFINITY) from the 2ml vial. Further dilute the 1.3 mL of perflutren with Sodium Chloride (NS) 0.9% to total volume of 10 ml. Chart total ML OF MIXTURE given to patient. 0957 (Given - Provider: Teto Gandhi, JANESSA) sodium chloride 0.9% (NS) bolus 250 mL 250 mL, Intravenous, at 937.5 mL/hr, As needed, IF systolic pressure is less than 90 mmHg, IMMEDIATELY notify physician, place patient in Trendelenberg, and give 0.9% NaCl bolus, Starting on 03/10/24 at 1623 Linked Groups Order Group 1: naloxone (NARCAN) injection 0.1 mgJump to med 0.1 mg, Intravenous, As needed, opioid reversal, For respiratory rate less than or equal to 8 per minute., Starting on 03/11/24 at 2024, Mix nalOXone (NARCAN) 0.4 mg (1mL) with 9 mL of Normal Saline to total 10 mL. Administer 0.1 mg (2.5mL) IV Push every 2 minutes until respiratory rate is 10 or greater. And Notify physician (CANCELED) STAT, Until discontinued, Starting on 03/11/24 at 2025, Until Specified, Respiratory rate less than: 8, For respiratory rate less than or equal to 8, notify physician and/or appropriate staff for additional orders. And naloxone (NARCAN) injection 0.4 mgJump to med 0.4 mg, Intravenous, As needed, opioid reversal, patient is pulseless, breathless, and unresponsive, Starting on 03/11/24 at 2024, Call a code first, then administer naloxone dose undiluted IV Push over 30 seconds. FOR RECORDS PERTAINING TO PATIENTS WHO ARE OR HAVE BEEN ENROLLED IN A CHEMICAL DEPENDENCY/SUBSTANCEABUSE PROGRAM, SOME INFORMATION MAY BE OMITTED. This clinical summary was aggregated from multiple sources. Caution should be exercised in using it in the provision of clinical care. This summary normalizes information from multiple sources, and as a consequence, information in this document may materially change the coding, format and clinical context of patient data. In addition, data may be omitted in some cases. CLINICAL DECISIONS SHOULD BE BASED ON THE PRIMARY CLINICAL RECORDS. [email or web address] provides no warranty or guarantee of the accuracy or completeness of information in this document.
--- NOTE | 2024-11-09 01:11 | EDS_ITS ---
HPI <Dr. Truman Fox MD - Last Filed: 11/09/24 15:01> History of Present Illness Chief Complaint: Back Detail of Chief Complaint: Acute low back pain near the sacrum. Informant: patient Onset/Context/Timing Onset: Today Context: Sudden Onset Chronic pain exacerbated by: Any type of movement Injury: lifting Timing: Continuous Quality: Dull and Aching Location: Lumbar Current Severity: Moderate Maximum Severity: Severe Worsened by: improves with Movement, Ambulation and Bending Relieved by: Nothing Associated Symptoms Associated Symptoms: - (No foot drop. Patient arrived by ambulance.); Negative for Numbness, Tingling, Radiation to Right Leg, Radiation to Left Leg, Fever, Abdominal Pain, Dysuria, Unable to Ambulate, Unable to Transfer, Urinary Retention, Urinary Incontinence, Constipation or Fecal Incontinence Narrative Narrative: Patient is a 74-year-old woman. She has history of degenerative disc disease cervix and lumbar. She has history of low back pain. She states this pain started about 9 months ago. Patient did follow-up with her doctor. She had pain for several months. She had gone to physical therapy. The pain resolved. The pain has reoccurred and got worse today. Patient states she norm is not complaining of pain. She denies fever, chills night sweats. Denies weight gain or weight loss. She denies bowel or bladder symptoms. She denies radicular pain. She denies foot drop. She denies direct trauma. She states she lifted her dog yesterday. Patient states she took a Robaxin today. There was no improvement. Patient has no history of diabetes, peptic ulcer disease, kidney disease and is on no anticoagulant. She is on an antithrombotic that she has history of coronary disease with stent placement. There is no history of black or maroon- colored stool. Prior similar symptoms: Yes Recent Illness/Hospitalization: No PFSH <Dr. Truman Fox MD - Last Filed: 11/09/24 15:01> [facility] Medical History CAD (coronary artery disease) Dyslipidemia Hypertension Adjustment disorder with anxiety Left ventricular systolic dysfunction (LVSD) without heart failure Ischemic cardiomyopathy History of ST elevation myocardial infarction (STEMI) (03/10/24) Arteriosclerotic cardiovascular disease (03/10/24) Anxiety Migraines Cataracts, bilateral Home Medications ?Medication ?Instructions ?Recorded ?Last Taken ?Type aspirin 81 mg tablet,delayed 81 mg PO DAILY 03/19/24 U nknown History release clopidogrel 75 mg tablet 75 mg PO DAILY 03/19/24 Unkn own History cholecalciferol (vitamin D3) 25 25 mcg PO QDAY 4 Unknown History mcg (1,000 unit) capsule cyanocobalamin (vitamin B-12) 1,000 mcg PO QDAY Unknown History 1,000 mcg capsule vitamins A,C,[id number]-yncz-bzhosw 4,296 1 cap PO QDAY 4 Unknown History mcg-226 mg-90 mg capsule (PreserVision AREDS) metoprolol succinate 25 mg 25 mg PO QDAY 08/10/24 Unkn own History tablet,extended release 24 hr valsartan 40 mg tablet 20 mg PO QDAY 08/10/24 Unkno wn History diazepam 5 mg tablet (Valium) 5 mg PO TID PRN muscle s pasm 5 11/09/24 Unknown Rx days #15 tabs oxycodone-acetaminophen 5 mg-325 1 tab PO Q6H PRN pain 3 days #12 11/09/24 Unknown Rx mg tablet (Percocet) tabs spironolactone 25 mg tablet 12.5 mg PO DAILY 11/09/24 Unknown History Allergy/AdvReac Type Severity Reaction Status Date / Time belladonna alkaloids AdvReac Rash Verified 11/09/24 00:48 [id number] Reductase AdvReac Other Verified 11/09/24 00:48 Inhibitor Family History Mother Heart disease Hypertension CAD (coronary artery disease) Father Lung cancer Brother Melanoma CAD (coronary artery disease) Daughter Thyroid disorder Surgical History Presence of stent in coronary artery (03/10/24) History of tonsillectomy History of blepharoplasty H/O nasal polypectomy History of bunionectomy Social History household members: spouse current occupational status: retired pets and animals: Yes Smoking Status: Never smoker alcohol intake: current substance use type: does not use ROS <Dr. Truman Fox MD - Last Filed: 11/09/24 15:01> ROS ED Constitutional Constitutional ED: Denies chills, fever(s), subjective, sweats or weight loss Eyes Eyes: Denies blurry vision or change in vision ENT ENT ED: Denies ear pain, rhinorrhea or sore throat Cardiovascular Cardiovascular: Denies chest pain Respiratory/Chest Respiratory/Chest: Denies dyspnea Gastrointestinal Gastrointestinal: Denies abdominal pain, diarrhea, nausea or vomiting Genitourinary Genitourinary ED: Denies dysuria, hematuria or urinary frequency Musculoskeletal Musculoskeletal: Reports back pain; Denies arthralgias or myalgias Integumentary Denies rash Neurologic Neurologic: Denies paresthesias or weakness Hematologic/Lymphatic Hematologic/Lymphatic: Denies easy bleeding or easy bruising EXAM <Dr. Truman Fox MD - Last Filed: 11/09/24 15:01> Physical Exam Const Vital Signs: 11/09/24 00:46 11/09/24 03:18 Temperature 97.8 F 97.8 F Temperature Source Oral Pulse Rate 81 67 Respiratory Rate 18 16 Blood Pressure 168/89 H 154/84 H Blood Pressure Mean 115 107 Pulse Ox 98 95 Oxygen Delivery Method Room Air Positive well nourished and well developed Constitutional Narrative: Patient is bed is elevated 30 degrees. She is flexed at the hip and knees. When asked to move her legs she states she is afraid to because of pain. General Appearance ED: well developed; Negative for pallor HEENT HEENT Narrative: Head is atraumatic normocephalic. Ears normal. Nares patent. Eyes PERRL and EOMs intact bilaterally General Eye ED: Negative for pale conjunctiva or scleral icterus Resp normal respiratory effort Cardio regular rate and regular rhythm GI normal to inspection, nondistended, normoactive bowel sounds, soft to palpation, non-tender, non-distended and no masses Back/Spine Back/Spine Narrative: Pain right paralumbar region. This caused her significant discomfort. Patient was able to extend her legs. EHLs intact bilateral. Normal sensation L3-S1 dermatome. Patella and ankle reflex are 3+. There is no Babinski sign or clonus right or left DP pulses palpable and 2+ bilaterally. Straight leg test is normal. She has no pain ovation over the pubic symphysis, right or left ischial tuberosity or right or left iliac wing. She she has no bone tenderness over the sacrum. Thoracic Spine / Upper Back: paraspinal muscle tenderness Lumbar Spine / Lower Back: ROM limited and straight leg raise negative bilaterally Extremity normal to inspection and no clubbing, cyanosis or edema General Extremety ED: Negative for edema or tenderness General Extremity: Negative for edema Neuro oriented x3 and no sensory deficits noted Sensorium / Orientation: alert Deep Tendon Reflexes: Rt Patellar (L4): 3+, Lt Patellar (L4): 3+, Rt Ankle (S1): 3+ and Lt Ankle (S1): 3+ Deep Tendon Reflexes Back: Rt Patellar (L4): 3+, Lt Patellar (L4): 3+, Rt Ankle (S1): 3+ and Lt Ankle (S1): 3+ Plantar Reflex: Downgoing: bilateral Psych mental status grossly normal Skin no rashes or lesions noted and no wounds General Skin Exam: Negative for jaundice or pallor <Dr. Eliazar Jauregui DO - Last Filed: 11/09/24 03:07> Physical Exam Const Vital Signs: 11/09/24 00:46 11/09/24 03:18 Temperature 97.8 F 97.8 F Temperature Source Oral Pulse Rate 81 67 Respiratory Rate 18 16 Blood Pressure 168/89 H 154/84 H Blood Pressure Mean 115 107 Pulse Ox 98 95 Oxygen Delivery Method Room Air MDM <Dr. Truman Fox MD - Last Filed: 11/09/24 15:01> [facility] MDM Narrative Medical decision making narrative: Patient history and physical consistent with [place] exam. She does not have symptoms or findings suggestive of cauda equina, epidural hematoma spontaneous or epidural abscess. She has no risk factors for the latter. IV was established. Patient was medicated with 50 mg of ketorolac IV push and 4 mg of morphine sulfate IV push. She was given Zofran for nausea. She will require reevaluation in 30 to 60 minutes. History & Record Review Additional record(s) reviewed:: Prior outpatient record (Patient did have outpatient x-rays July of this year that revealed mild to severe multilevel disc space narrowing greatest at L5-S1. There is also moderate multilevel facet arthropathy. There is mild degenerative changes of the sacroiliac joints.) and Prior labs (Patient had recent basic metabolic panel that revealed normal BUN and creatinine.) <Dr. Eliazar Jauregui, DO - Last Filed: 11/09/24 03:07> [facility] Treatment and Re-Evaluation Narrative: Patient was signed out to me while awaiting response to treatment. After receiving Toradol and morphine she did have improvement of her pain. However she was still having spasms and difficulty ambulating. Therefore she was given 5 mg of oral Valium and half milligram of IV Dilaudid. After receiving this she was now able to ambulate with a steady gait. Therefore with improvement of her pain and the fact she is now able to walk I do not feel the need for further intervention in the ER and she is otherwise safe for discharge with symptomatic care. Discharge Plan Triage Chief Complaint: Back ED Provider: Truman Fox Dx/Rx/DC Orders Clinical Impression: Acute myofascial strain of lumbosacral region, Degenerative disc disease, avani mbar, Antiplatelet or antithrombotic long-term use Instructions: ED Back Pain (Acute or Chronic) Prescriptions: New diazepam [Valium] 5 mg tablet 5 mg PO TID PRN (Reason: muscle spasm) 5 Days Qty: 15 0RF oxycodone-acetaminophen [Percocet] 5-325 mg tablet 1 tab PO Q6H PRN (Reason: pain) 3 Days Qty: 12 0RF No Action PreserVision AREDS 4,296 mcg-226 mg-90 mg capsule 1 cap PO QDAY cyanocobalamin (vitamin B-12) 1,000 mcg capsule 1,000 mcg PO QDAY cholecalciferol (vitamin D3) 25 mcg (1,000 unit) capsule 25 mcg PO QDAY metoprolol succinate 25 mg tablet extended release 24 hr 25 mg PO QDAY valsartan 40 mg tablet 20 mg PO QDAY clopidogrel 75 mg tablet 75 mg PO DAILY aspirin 81 mg tablet,delayed release (DR/EC) 81 mg PO DAILY spironolactone 25 mg tablet 12.5 mg PO DAILY Primary Care Provider: Anthony Ordaz Referrals: Anthony Ordaz MD [Primary Care Provider] - 3-5 Days if not improving Activity Restrictions/Additional Instructions: 1. Apply ice to your lower back 6-10 times a day. 2. If you are unable to urinate, loss of bowel control, have weakness in either leg return to the emergency department immediately. 3. Take pain medicine as prescribed. Print Language: Upper Sorbian Disposition Disposition: Home, Self Care Discharge Date/Time: 11/09/24 03:51
[2024-11-09] MEDS: HYDROmorphone 0.5 MG/0.5 ML SYRINGE IV (03:06)
[2024-11-09 03:18] VITALS: BP 154/84; PULSE 67; RESP 16; TEMP 36.6; O2SAT 95
== END 2024-11-09 03:51 | disposition home or self-care (01) ==
PROVIDERS: Emergency Provider Emergency Medicine; PCP Family Medicine; Visit Provider Emergency Medicine
DX: M51.362 Other intervertebral disc degeneration, lumbar region with discogenic back pain and lower extremity pain (principal); I25.10 Atherosclerotic heart disease of native coronary artery without angina pectoris; E78.5 Hyperlipidemia, unspecified; G89.29 Other chronic pain; I25.5 Ischemic cardiomyopathy; I10 Essential (primary) hypertension; Z79.02 Long term (current) use of antithrombotics/antiplatelets; I25.2 Old myocardial infarction; Z95.5 Presence of coronary angioplasty implant and graft; S39.012A Strain of muscle, fascia and tendon of lower back, initial encounter; X50.0XXA Overexertion from strenuous movement or load, initial encounter
CPT/HCPCS: 96372; 96374; 96375; 99285; A4216; J2405

== ENCOUNTER → 2025-03-22 | Outpatient (CLI) | payer OTHER, SELFPAY ==
[2024-08-15 11:19] VITALS: BMI 21.3
[2025-03-22 11:03] LABS: AST(SGOT) 50 U/L (<=31); Alanine Aminotransfer ALT/SGPT 27 U/L (<=34); Albumin, Serum 4.5 g/dL (3.4-4.8); Alkaline Phosphatase 60 U/L (35-104); Anion Gap 10 (5-15); BUN 30 mg/dL (4-19); BUN/Creat Ratio 26.6 RATIO (10-20); Calcium,Total 9.7 mg/dL (7.6-11.0); Carbon Dioxide 25.8 mmol/L (21.0-32.0); Chloride 103 mmol/L (98-108); Globulin 2.6 g/dL (2.2-4.2); Glucose 86 mg/dL (70-99); Potassium 4.7 mmol/L (3.3-5.1)
[2025-03-24 15:07] LABS: CHOLESTEROL TOTAL 232 mg/dL (100-199); HDL-C 76 mg/dL (>39); HDL-P TOTAL 33.7 umol/L (>=30.5); INSULIN RESISTANCE SCORE <25 (<=45); LDL SIZE 22.1 nm (>20.5); LDL-C (NIH CALC) 148 mg/dL (0-99); LDL-P 1203 nmol/L (<1000); SMALL LDL-P <90 nmol/L (<=527)
== END | disposition home or self-care (01) ==
LOC: MTLAB 08:02
PROVIDERS: PCP Family Medicine; Referring Provider Family Medicine; Visit Provider Family Medicine
DX: I25.10 Atherosclerotic heart disease of native coronary artery without angina pectoris (principal)
CPT/HCPCS: 36415; 80053; 80061; 83704